=== PATIENT | female | born 1960 ===

== ENCOUNTER 2020-04-07 09:09 | Outpatient (REF) | payer OTHER, SELFPAY ==
[2020-04-07 10:54] LABS: MANUAL DIFF FLAG NO
[2020-04-07 11:03] LABS: Basophils Percent Auto 0.5 % (0-2); Eosinophils Absolute Auto 0.2 X10*3/uL (0.0-0.4); Eosinophils Percent Auto 2.8 % (0-4); Hematocrit 39.3 % (37-47); Hemoglobin 13.3 g/dl (12.0-16.0); Imm Gran Abs Auto 0.01 X10*3/uL (0.00-0.03); Imm Gran Pct Auto 0.2 % (0.0-0.4); Lymphocytes Absolute Auto 1.5 X10*3/uL (1.2-4.9); Lymphocytes Percent Auto 25.6 % (20-40); Mean Corpuscular HGB Conc 33.8 g/dl (31.0-35.0); Mean Corpuscular Hemoglobin 30.6 pg (27.0-33.0); Mean Corpuscular Volume 90.6 fL (80-98); Mean Platelet Volume 11.9 fL (9.4-12.3); Monocytes Absolute Auto 0.4 X10*3/uL (0.1-1.2); Monocytes Percent Auto 7.7 % (2-11); Neutrophils Absolute Auto 3.6 X10*3/uL (2.0-8.3); Neutrophils Percent Auto 63.2 % (45-73); Platelet Count 355 X10*3/uL (160-400); Red Blood Count 4.34 X10*6/uL (4.20-5.50); Red Cell Distribution Width 11.3 % (11.0-16.0); White Blood Count 5.7 X10*3/uL (4.8-10.8)
[2020-04-07 11:33] LABS: Glucose Urine UA NEG (NEG); Leukocyte Esterase Urine NEG (NEG); Nitrite Urine NEG (NEG); PH 6.5 (5.0-8.0); Urine Blood NEG (NEG); Urine Ketones NEG (NEG); Urine Protein NEG (NEG-TRACE)
[2020-04-07 11:35] LABS: Alanine Aminotransferase 75 U/L (0-31); Albumin Level 4.3 g/dL (3.5-5.0); Alkaline Phosphatase 115 U/L (39-117); Anion Gap 14 (12-20); Aspartate Amino Transferase 34 U/L (5-31); Bilirubin Total 0.8 mg/dL (0.0-1.0); Blood Urea Nitrogen 12 mg/dL (9-16); Calcium 9.6 mg/dL (8.4-10.2); Carbon Dioxide 30 mmol/L (22-29); Chloride 101 mmol/L (96-108); Cholesterol 174 mg/dL; Estimated Glomerular Filt Rate > 60; Glucose Fasting 115 mg/dL (60-99); HDL Cholesterol 28 mg/dL; LDL Cholesterol Calculated 111 mg/dl; Potassium 4.7 mmol/l (3.3-5.1); Sodium 140 mmol/L (135-145); Total Protein 7.5 g/dL (6.5-8.0); Triglycerides 178 mg/dL
[2020-04-07 11:46] LABS: TSH reflex Free T4 2.75 mIU/mL (0.32-4.0); Vitamin D 25-OH Total 33.2 ng/mL (>30)
[2020-04-07 11:51] LABS: Appearance Urine CLEAR; Color Urine YELLOW
[2020-04-07 12:03] LABS: Gamma Glutamyl Transpeptidase 92 U/L (7-33)
[2020-04-07 12:35] LABS: Mucus Urine 1+ /LPF; RBC Urine 0 /HPF (0); WBC Urine 0-2 /HPF (0-4)
== END 2020-04-07 09:10 | disposition home or self-care (01) ==
LOC: HO.LAB 09:09
PROVIDERS: PCP Internal Medicine; Visit Provider Internal Medicine
DX: E78.5 Hyperlipidemia, unspecified (principal); E11.9 Type 2 diabetes mellitus without complications; D18.03 Hemangioma of intra-abdominal structures; R79.89 Other specified abnormal findings of blood chemistry; Z00.00 Encounter for general adult medical examination without abnormal findings; K21.9 Gastro-esophageal reflux disease without esophagitis; E55.9 Vitamin D deficiency, unspecified; M85.80 Other specified disorders of bone density and structure, unspecified site; E66.3 Overweight
CPT/HCPCS: 36415; 80053; 80061; 81003; 81015; 82306; 82977; 84443; 85025

== ENCOUNTER 2020-04-24 09:54 | Emergency (ER) | payer OTHER, SELFPAY ==
[2020-04-24 10:01] VITALS: BP 149/70; PULSE 92; RESP 18; TEMP 36.9; O2SAT 97; BMI 25.6
--- NOTE | 2020-04-24 10:22 | ED_ITS ---
HPI - URI/Sore Throat General Chief Complaint: Upper Respiratory Symptoms Stated Complaint: covid symptoms Time Seen by Provider: 04/24/20 10:17 Related Data Home Medications Medication Instructions Recorded Confirmed omeprazole 40 mg capsule,delayed 40 mg PO BID 04/11/20 04/12/20 release rosuvastatin 10 mg tablet 10 mg PO BEDTIME 04/11/20 04/12/20 simethicone 180 mg capsule 180 mg PO QID PRN 04/11/20 04/12/20 ibuprofen 600 mg tablet 600 mg PO TID PRN tab 04/12/20 04/12/20 Previous Rx's Medication Instructions Recorded sitagliptin 100 mg tablet 100 mg PO DAILY #90 tab 04/08/20 ergocalciferol (vitamin D2) 1,250 1,250 mcg PO QWEEK 90 Days #13 cap 04/11/20 mcg (50,000 unit) capsule Allergies Allergy/AdvReac Type Severity Reaction Status Date / Time codeine [CODEINE] Allergy Intermediate DIZZY/CAROLYN Verified 04/11/20 16:56 RGY atorvastatin AdvReac Unknown increased Verified 04/11/20 16:56 heartburns, increase heartburns Review of Systems Review of Systems: Constitutional: No Weight loss, No Fever, + Chills, No Night Sweats, No Fatigue, No Malaise ENT/Mouth: No Hearing loss, No Ear Pain, No Nasal Congestion, No Sinus Pain, No Hoarseness, + sore throat, + Rhinorrhea, No Swallowing Difficulty Eyes: No Eye Pain, No Swelling, No Redness, No Foreign Body, No Discharge, No Vision Changes Cardiovascular: No Chest Pain, No SOB, No Dyspnea on Exertion, No Orthopnea, No Edema, No Palpitations Respiratory: No Cough, No Sputum, No Wheezing, No Smoke Exposure, No Dyspnea Gastrointestinal: No Nausea, No Vomiting, No Diarrhea, No Constipation, No abdominal Pain, No Hematochezia, No Melena Genitourinary: no irregular bleeding, No Dysuria, No Urinary Frequency, No Hematuria, No Urinary Incontinence, No Urgency, No Flank Pain, No Urinary Flow Changes, No Hesitancy Musculoskeletal: No joint pain, No Myalgias, No Joint Swelling Skin: No Skin Lesions, No rash Neuro: No Weakness, No Numbness, No Paresthesias, No Loss of Consciousness, No Dizziness, No Headache Psych: No Anxiety/Panic, No Depression Heme/Lymph: No Bruising, No Bleeding,No Lymphadenopathy Endocrine: No Polyuria, No Polydipsia, No Temperature Intolerance Yes all other systems are reviewed and are negative [facility] Past Medical History Medical History (Updated 04/24/20 @ 10:21 by Addison Mensah NP) Anxiety Constipation Diabetes mellitus Elevated LFTs GERD (gastroesophageal reflux disease) Hemangioma of liver Osteopenia Overweight (BMI 25.0-29.9) Pure hypercholesterolemia Vitamin D deficiency Surgical History History of blood clots History of colonoscopy History of oral surgery History of resection of liver History of tubal ligation Family History Family History (Updated 04/12/20 @ 04:17 by Henrique Bowen MD) Father No problems noted. Mother Uterine cancer Colon cancer Maternal Grandmother No problems noted. Paternal Aunt Ovarian cancer Social History Social History (Updated 04/12/20 @ 04:20 by Henrique Bowen MD) Smoking Status: Never smoker Advance Directives: No Advance Directives Information Provided: No Physical Exam Vital Signs: Vital Signs: Last Vital Signs Temp 98.4 F 04/24/20 10:01 Pulse 92 04/24/20 10:01 Resp 18 04/24/20 10:01 BP 149/70 H 04/24/20 10:01 Pulse Ox 97 04/24/20 10:01 Body Mass Index 25.6 Reviewed Const: General: cooperative and healthy appearing; No acute distress or intoxicated appearing Nutritional Appearance: average body habitus Orientation/consciousness: patient oriented x3 HENMT: Head: Yes normal to inspection Ears: hearing grossly normal bilaterally Eyes: General: appearance normal, both eyes and all related structures Visual Schwarz: normal visual schwarz by confrontation Neck: Neck: Yes normal visual inspection, No positive Brudzinski's sign, No positive Kernig's sign and No tender Thyroid: Thyroid normal Chest: Chest palpation & inspection: normal inspection of the chest Resp: Effort & Inspection: normal respiratory effort Cardio: Jugular venous distension: no JVD : General: Yes no CVA tenderness Back/Spine/Pelvis: Back: no CVA tenderness Skin: General skin exam: no rashes or lesions noted Neuro: General: patient oriented x3 Extrem: General: Yes normal to inspection Discharge Plan Discharge Clinical Impression: Upper respiratory infection Qualifiers: URI type: unspecified viral URI Qualified Code(s): J06.9 - Acute upper respiratory infection, unspecified Patient Disposition: Home, Self-Care Instructions: Upper Respiratory Infection (ED) Additional Instructions: Based on your symptoms and history we have sent a COVID-19. Although your RESULT IS PENDING at this time. RESULTS should return within 72 hours. At this time you will be contacted with either NEGATIVE OR POSITIVE results. -Please wait until we contact you for your results. At this time you will be okay for discharge. Please plan for self quarantine for up to 14 days. Do not expose yourself to others. You may not go to work. If testing does come back negative you may return to activities as long as you are no longer having any symptoms for at least 3 days. Please continue to follow cold instructions and wash your hands frequently. You may take Tylenol as directed on the bottle for pain or fever Patient seen in the emergency department on 12/11/2019 and should be excused from work until negative test results AND until 72 hours without any symptoms AND at least 10 days have passed since symptoms first appeared or since last exposure to COVID-19 positive patient CDC Guidelines for home isolation: - Stay away from others - WEAR A MASK if you are sick AND STAY HOME - Cover your mouth and nose with a tissue when you cough or sneeze. Dispose of tissues in a lined trash can and wash your hands immediately with soap and water for at least 20 seconds. If soap and water are not available, clean hands with alcohol-based hand earth observations chief scientist that contains at least 60% alcohol. - Clean your hands often with soap and water for at least 20 seconds - Avoid touching your eyes, nose and mouth with unwashed hands - Do not share dishes, drinking glasses, cups, eating utensils, towels, or bedding with other people in your home. After using these items, wash them thoroughly with soap and water or put in the automotive electrician helper. - Clean high-touch surfaces in your isolation area ( sick room and bathroom) every day; let a caregiver clean and disinfect high-touch surfaces in other areas of the home. Clean the area or item with soap and water or another detergent if it is dirty. Then, use a household disinfectant. - Limit contact with pets and animals: If you must care for a pet, wash your hands before and after interacting with them Prescriptions: No Action sitagliptin [Januvia] 100 mg tablet 100 mg PO DAILY Qty: 90 RF: 1 rosuvastatin 10 mg tablet 10 mg PO BEDTIME RF: 0 omeprazole 40 mg capsule,delayed release(DR/EC) 40 mg PO BID RF: 0 simethicone 180 mg capsule 180 mg PO QID PRNRF: 0 ergocalciferol (vitamin D2) 1,250 mcg (50,000 unit) capsule 1,250 mcg PO QWEEK 90 Days Qty: 13 RF: 3 ibuprofen 600 mg tablet 600 mg PO TID PRN (Reason: pain) RF: 0 Referrals: Henrique Bowen MD [Primary Care Provider] - 10 days
== END 2020-04-24 10:29 | disposition home or self-care (01) ==
PROVIDERS: Nurse Practitioner Primary Care; Emergency Provider Emergency Medicine; PCP Internal Medicine
DX: J06.9 Acute upper respiratory infection, unspecified (principal); R05 Cough; Z79.899 Other long term (current) drug therapy; Z20.828 Contact with and (suspected) exposure to other viral communicable diseases
CPT/HCPCS: 99283; U0003

== ENCOUNTER 2020-05-17 11:09 | Outpatient (REF) | payer OTHER, SELFPAY | END 2020-05-17 11:10 | disposition home or self-care (01) | LOC: HO.LAB 11:09 | PROVIDERS: Visit Provider Internal Medicine | DX: Z20.828 Contact with and (suspected) exposure to other viral communicable diseases (principal) | CPT/HCPCS: U0003 ==

== ENCOUNTER 2020-07-05 09:09 | Outpatient (REF) | payer OTHER, SELFPAY ==
[2020-07-05 09:33] LABS: MANUAL DIFF FLAG NO
[2020-07-05 09:39] LABS: Basophils Percent Auto 0.2 % (0-2); Eosinophils Absolute Auto 0.1 X10*3/uL (0.0-0.4); Eosinophils Percent Auto 1.7 % (0-4); Hematocrit 40.3 % (37-47); Hemoglobin 13.5 g/dl (12.0-16.0); Imm Gran Abs Auto 0.01 X10*3/uL (0.00-0.03); Imm Gran Pct Auto 0.2 % (0.0-0.4); Lymphocytes Absolute Auto 1.6 X10*3/uL (1.2-4.9); Mean Corpuscular HGB Conc 33.5 g/dl (31.0-35.0); Mean Corpuscular Hemoglobin 29.7 pg (27.0-33.0); Mean Corpuscular Volume 88.8 fL (80-98); Mean Platelet Volume 11.3 fL (9.4-12.3); Monocytes Absolute Auto 0.4 X10*3/uL (0.1-1.2); Monocytes Percent Auto 9.8 % (2-11); Neutrophils Absolute Auto 2.1 X10*3/uL (2.0-8.3); Neutrophils Percent Auto 49.1 % (45-73); Platelet Count 288 X10*3/uL (160-400); Red Blood Count 4.54 X10*6/uL (4.20-5.50); Red Cell Distribution Width 11.3 % (11.0-16.0); White Blood Count 4.2 X10*3/uL (4.8-10.8)
[2020-07-05 09:48] LABS: Glucose Urine UA NEG (NEG); Leukocyte Esterase Urine NEG (NEG); Nitrite Urine NEG (NEG); Specific Gravity - Urine 1.025 (1.005-1.025); Urine Blood TRACE (NEG); Urine Ketones NEG (NEG); Urine Protein NEG (NEG-TRACE)
[2020-07-05 09:52] LABS: Appearance Urine CLEAR; Color Urine YELLOW
[2020-07-05 09:57] LABS: Bacteria Urine TRACE /LPF; Mucus Urine 1+ /LPF; RBC Urine 0-2 /HPF (0); Squamous Epithelial Cell Urine 1+ /LPF; WBC Urine 0-2 /HPF (0-4)
[2020-07-05 10:05] LABS: Alanine Aminotransferase 44 U/L (0-31); Albumin Level 4.5 g/dL (3.5-5.0); Alkaline Phosphatase 88 U/L (39-117); Anion Gap 14 (12-20); Aspartate Amino Transferase 27 U/L (5-31); Blood Urea Nitrogen 15 mg/dL (9-16); Calcium 9.6 mg/dL (8.4-10.2); Carbon Dioxide 29 mmol/L (22-29); Chloride 103 mmol/L (96-108); Cholesterol 176 mg/dL; Estimated Glomerular Filt Rate > 60; Glucose Fasting 121 mg/dL (60-99); HDL Cholesterol 34 mg/dL; LDL Cholesterol Calculated 117 mg/dl; Potassium 4.5 mmol/l (3.3-5.1); Sodium 141 mmol/L (135-145); Total Protein 7.5 g/dL (6.5-8.0); Triglycerides 129 mg/dL
[2020-07-05 10:28] LABS: TSH reflex Free T4 3.64 mIU/mL (0.32-4.0); Vitamin D 25-OH Total 31.9 ng/mL (>30)
[2020-07-05 10:36] LABS: Creatinine Urine 166.64 mg/dL; Microalbum/Creatinine Ratio Ur 7.2 ug/mg cr
== END 2020-07-05 09:10 | disposition home or self-care (01) ==
LOC: HO.LAB 09:09
PROVIDERS: PCP Internal Medicine; Visit Provider Internal Medicine
DX: K21.9 Gastro-esophageal reflux disease without esophagitis (principal); D18.03 Hemangioma of intra-abdominal structures; E11.9 Type 2 diabetes mellitus without complications; E78.00 Pure hypercholesterolemia, unspecified; R79.89 Other specified abnormal findings of blood chemistry; E66.3 Overweight; E55.9 Vitamin D deficiency, unspecified
CPT/HCPCS: 36415; 80053; 80061; 81001; 82043; 82306; 84443; 85025

== ENCOUNTER → 2020-10-04 15:43 | Outpatient (BNVA) | payer OTHER, SELFPAY | PROVIDERS: PCP Internal Medicine; Visit Provider Internal Medicine Gastroenterology | DX: D18.03 Hemangioma of intra-abdominal structures (principal); R79.89 Other specified abnormal findings of blood chemistry | CPT/HCPCS: 99212 ==

== ENCOUNTER → 2020-11-07 15:22 | Outpatient (BNVA) | payer OTHER, SELFPAY | PROVIDERS: Visit Provider Obstetrics & Gynecology ==

== ENCOUNTER 2020-11-16 09:04 | Outpatient (REF) | payer OTHER, SELFPAY ==
[2020-11-16 09:34] LABS: MANUAL DIFF FLAG NO
[2020-11-16 09:51] LABS: Basophils Percent Auto 0.2 % (0-2); Eosinophils Absolute Auto 0.1 X10*3/uL (0.0-0.4); Eosinophils Percent Auto 1.4 % (0-4); Glucose Urine UA NEG (NEG); Hematocrit 43.2 % (37-47); Hemoglobin 14.7 g/dl (12.0-16.0); Imm Gran Abs Auto 0.01 X10*3/uL (0.00-0.03); Imm Gran Pct Auto 0.2 % (0.0-0.4); Leukocyte Esterase Urine NEG (NEG); Lymphocytes Absolute Auto 1.6 X10*3/uL (1.2-4.9); Lymphocytes Percent Auto 33.6 % (20-40); Mean Corpuscular Hemoglobin 30.6 pg (27.0-33.0); Mean Corpuscular Volume 89.8 fL (80-98); Monocytes Absolute Auto 0.4 X10*3/uL (0.1-1.2); Neutrophils Absolute Auto 2.8 X10*3/uL (2.0-8.3); Neutrophils Percent Auto 56.6 % (45-73); Nitrite Urine NEG (NEG); Platelet Count 254 X10*3/uL (160-400); Red Blood Count 4.81 X10*6/uL (4.20-5.50); Red Cell Distribution Width 11.1 % (11.0-16.0); Specific Gravity - Urine 1.025 (1.005-1.025); Urine Blood NEG (NEG); Urine Ketones NEG (NEG); Urine Protein NEG (NEG-TRACE); White Blood Count 4.9 X10*3/uL (4.8-10.8)
[2020-11-16 10:01] LABS: Appearance Urine CLEAR; Color Urine YELLOW
[2020-11-16 10:10] LABS: Alanine Aminotransferase 38 U/L (0-31); Albumin Level 4.7 g/dL (3.5-5.0); Alkaline Phosphatase 94 U/L (39-117); Anion Gap 14 (12-20); Aspartate Amino Transferase 22 U/L (5-31); Bilirubin Total 1.2 mg/dL (0.0-1.0); Blood Urea Nitrogen 17 mg/dL (9-16); Calcium 10.2 mg/dL (8.4-10.2); Carbon Dioxide 30 mmol/L (22-29); Chloride 101 mmol/L (96-108); Cholesterol 238 mg/dL; Estimated Glomerular Filt Rate > 60; Glucose Fasting 119 mg/dL (60-99); HDL Cholesterol 35 mg/dL; LDL Cholesterol Calculated 168 mg/dl; Potassium 4.6 mmol/L (3.3-5.1); Sodium 140 mmol/L (135-145); Total Protein 7.9 g/dL (6.5-8.0); Triglycerides 175 mg/dL
[2020-11-16 10:32] LABS: TSH reflex Free T4 4.35 uIU/mL (0.32-4.0); Vitamin D 25-OH Total 24.5 ng/mL (>30)
[2020-11-16 11:04] LABS: Free T4 (Free Thyroxine) 0.95 ng/dL (0.71-1.85)
[2020-11-16 14:33] LABS: Creatinine Urine 144.98 mg/dL; Microalbum/Creatinine Ratio Ur 7.5 ug/mg cr
== END 2020-11-16 09:05 | disposition home or self-care (01) ==
LOC: HO.LAB 09:04
PROVIDERS: PCP Internal Medicine; Visit Provider Internal Medicine
DX: I10 Essential (primary) hypertension (principal); K59.00 Constipation, unspecified; K21.9 Gastro-esophageal reflux disease without esophagitis; E78.00 Pure hypercholesterolemia, unspecified; E11.9 Type 2 diabetes mellitus without complications; R79.89 Other specified abnormal findings of blood chemistry; E66.3 Overweight; E55.9 Vitamin D deficiency, unspecified
CPT/HCPCS: 36415; 80053; 80061; 81003; 82043; 82306; 84439; 84443; 85025

== ENCOUNTER 2020-11-18 17:27 | Emergency (ER) | payer OTHER, SELFPAY ==
--- NOTE | 2020-11-18 | ECG_ITS ---
Test Reason : ABD PAIN Blood Pressure : / mmHG Vent. Rate : 078 BPM Atrial Rate : 078 BPM P-R Int : 124 ms QRS Dur : 074 ms QT Int : 392 ms P-R-T Axes : -26 041 059 degrees QTc Int : 446 ms Normal sinus rhythm Normal ECG When compared with ECG of 04-JAN-2020 15:30, No significant change was found Referred By: Ayleen Bonilla Electronically Signed By:Orlin Nunes
--- NOTE | ~2020-11-18 | CT_ITS ---
EXAMINATION: CT ABDOMEN AND PELVIS WITH CONTRAST CLINICAL INFORMATION: Diffuse abdominal pain. Worse epigastric. History of hepatic hemangioma COMPARISON: MRI 01/28/2018 TECHNIQUE: Multidetector volumetric images were obtained from the superior aspect of the liver through the pubic symphysis following administration 85 mL of Omnipaque 350 intravenous contrast. Sagittal and coronal reformatted images were obtained on the technologist's workstation. Oral contrast: No This CT examination was performed using dose optimization techniques as appropriate, variously including the following: *Automated exposure control *Adjustment of mA and/or kV according to patient size (this includes techniques or standardized protocols for targeted exams where dose is matched to indication/reason for exam; i.e. extremities or head) *Use of iterative reconstruction technique DLP: 478 mGy-cm FINDINGS: LUNG BASES: The visualized lung bases are unremarkable. LIVER, GALLBLADDER, AND BILIARY TREE: There is been interval resection of segment 6 and 7 of the liver. The previously seen large hemangioma no longer seen. There continues to be a 2.4 x 2.6 cm hemangioma along the lateral periphery of the right lobe of the liver present previously as well. No new or concerning focal liver lesion seen. The gallbladder is unremarkable with no evidence of radiopaque gallstones, gallbladder wall thickening, or obvious pericholecystic inflammatory changes. PANCREAS: Unremarkable. SPLEEN: Unremarkable. ADRENAL GLANDS: Unremarkable. KIDNEYS AND URETERS: The kidneys are normal in size, shape, and attenuation. No hydronephrosis, hydroureter, or calculi seen. No perinephric stranding. BLADDER: Unremarkable. GASTROINTESTINAL TRACT: Stomach and small bowel are nondilated. Normal appendix, coronal image 31. Scattered colonic diverticulosis. No evidence of colitis or diverticulitis. ABDOMINAL WALL: No significant hernia is appreciated. LYMPH NODES: No lymphadenopathy. VASCULAR: Moderate calcified and noncalcified atherosclerotic changes of the normal caliber aorta. PELVIC VISCERA: Normal CT appearance of the uterus and ovaries. OSSEOUS STRUCTURES: Unremarkable. CT/CT abdomen pelvis w con IMPRESSION: No acute CT abnormality. Interval resection of previously seen hemangioma in the posterior right lobe of the liver.
[2020-11-18 18:30] VITALS: BP 63/44; PULSE 83; RESP 18; O2SAT 98
[2020-11-18 18:47] VITALS: BP 129/74; PULSE 77; RESP 16; TEMP 36.7; O2SAT 100; BMI 24.1
--- NOTE | 2020-11-18 18:52 | PC.NURSE ---
arrival to is pale, diaphoretic, slow to answer questions. c/o abd and lower back pain. this rn bringing patient to md attention.
--- NOTE | 2020-11-18 19:03 | ED_ITS ---
HPI - Abdominal Pain General Chief Complaint: Abdominal Pain Stated Complaint: Abd Pain Time Seen by Provider: 11/18/20 18:59 Source: patient Mode of arrival: ambulatory Limitations: no limitations History of Present Illness HPI narrative: Patient comes emergency room complaining of diffuse abdominal pain. Patient states she ate at 13:00, started having mild abdominal pain but at 15:00 it became severe. Patient came to the emergency room because she could not tolerate the pain anymore. States it is constant, nonradiating. Complaining of nausea, no vomiting, no diarrhea. Patient reports 1 bowel movement that was normal prior to arrival. When patient arrived to emergency room, patient had very sharp epigastric pain, started feeling very nauseous, became diaphoretic. Patient denies chest pain, no shortness of breath MD elicited complaint: abdominal pain Related Data Home Medications Medication Instructions Recorded Confirmed rosuvastatin 10 mg tablet 10 mg PO BEDTIME 04/11/20 07/11/20 simethicone 180 mg capsule 180 mg PO QID PRN 04/11/20 07/11/20 Previous Rx's Medication Instructions Recorded ergocalciferol (vitamin D2) 1,250 1,250 mcg PO QWEEK 90 Days #13 cap 07/11/20 mcg (50,000 unit) capsule sitagliptin 100 mg tablet 100 mg PO DAILY #90 tab 10/15/20 omeprazole 40 mg capsule,delayed 40 mg PO DAILY PRN #90 cap 10/26/20 release ibuprofen 600 mg tablet 600 mg PO TID PRN #90 tab 11/18/20 hyoscyamine sulfate 0.125 mg PO QID PRN #10 tab 11/19/20 ondansetron HCl [Zofran] 4 mg PO Q6H PRN #10 tab 11/19/20 simethicone 180 mg PO BID PRN #10 cap 11/19/20 Allergies Allergy/AdvReac Type Severity Reaction Status Date / Time codeine [CODEINE] Allergy Intermediate DIZZY/CAROLYN Verified 11/07/20 15:27 RGY atorvastatin AdvReac Unknown increased Verified 11/07/20 15:27 heartburns Review of Systems Review of Systems Constitutional : No Weight loss, No Fever, No Chills, No Night Sweats, No Fatigue, No Malaise ENT/Mouth : No Hearing loss, No Ear Pain, No Nasal Congestion, No Sinus Pain, No Hoarseness, No sore throat, No Rhinorrhea, No Swallowing Difficulty Eyes: No Eye Pain, No Swelling, No Redness, No Foreign Body, No Discharge, No Vision Changes Cardiovascular : No Chest Pain, No SOB, No Dyspnea on Exertion, No Orthopnea, No Edema, No Palpitations Respiratory : No Cough, No Sputum, No Wheezing, No Smoke Exposure, No Dyspnea Gastrointestinal : Complaining of nausea No Vomiting, No Diarrhea, No Constipation, complaining of diffuse abdominal pain, No Hematochezia, No Melena Genitourinary : no irregular bleeding, No Dysuria, No Urinary Frequency, No Hematuria, No Urinary Incontinence, No Urgency, No Flank Pain, No Urinary Flow Changes, No Hesitancy Musculoskeletal : No joint pain, No Myalgias, No Joint Swelling Skin : No Skin Lesions, No rash Neuro : No Weakness, No Numbness, No Paresthesias, No Loss of Consciousness, No Dizziness, No Headache Psych : No Anxiety/Panic, No Depression, No SI/HI/AH/VH, No Social Issues, Heme/Lymph: No Bruising, No Bleeding,No Lymphadenopathy Endocrine : No Polyuria, No Polydipsia, No Temperature Intolerance Physical Exam Vital Signs: Vital Signs: Last Vital Signs Temp 98.1 F 11/18/20 18:47 Pulse 82 11/18/20 21:20 Resp 17 11/18/20 21:20 BP 143/75 H 11/18/20 21:20 Pulse Ox 98 11/18/20 21:20 Body Mass Index 24.1 Appearance: Alert. Oriented X3. No acute distress. Eyes: Pupils equal, round and reactive to light. ENT: Pharynx normal. Neck: Normal inspection. Neck supple. No lymph nodes noted. No crepitus CVS: Normal heart rate and rhythm. Pulses normal. Normal S1 and S2 Respiratory: No respiratory distress. Breath sounds normal. No Wheezing. No rales Abdomen: Soft, tender to palpation over epigastric area and right upper quadrant, positive Turner sign, guarding, no rebound Skin: Skin warm and dry. Normal skin color. Normal skin turgor. Extremities: No lower extremity edema. No lower extremity edema. No Lacerations. No Rash Neuro: Oriented X 3. No motor deficit. No sensory deficit. Moving all extermities. No slurred speech. Course Course Course Narrative: I discussed the labs and imaging with the patient, patient states that at this time she feels much better. Patient states that she is very hungry. Does not have abdominal pain. Patient is being p.o. challenged. On physical exam after treatment, patient has no epigastric or right upper quadrant pain, no abdominal pain in the rest of the abdomen.. Patient ate, had good p.o. tolerance, states she feels gassy but has no abdominal pain. Patient will follow-up with her primary care physician. MDM - Abdominal Pain Lab Data Result diagrams: 11/18/20 19:59 11/18/20 19:59 Labs: Lab Results 11/18/20 11/18/20 11/18/20 Range/Units 19:59 19:59 19:59 WBC 11.8 H (4.8-10.8) X10*3/uL RBC 4.80 (4.20-5.50) X10*6/uL Hgb 14.5 (12.0-16.0) g/dl Hct 42.7 (37-47) % MCV 89.0 (80-98) fL MCH 30.2 (27.0-33.0) pg MCHC 34.0 (31.0-35.0) g/dl RDW 11.1 (11.0-16.0) % Plt Count 275 (160-400) X10*3/uL MPV 11.1 (9.4-12.3) fL Immature Gran % (Auto) 0.2 (0.0-0.4) % Neut % (Auto) 87.0 H (45-73) % Lymph % (Auto) 8.9 L (20-40) % [place] % (Auto) 3.7 (2-11) % Eos % (Auto) 0.1 (0-4) % Baso % (Auto) 0.1 (0-2) % Lymph # (Auto) 1.1 L (1.2-4.9) X10*3/uL [place] # (Auto) 0.4 (0.1-1.2) X10*3/uL Eos # (Auto) 0.0 (0.0-0.4) X10*3/uL Baso # (Auto) 0.0 (0.0-0.2) X10*3/uL Abs Immat Gran (auto) 0.02 (0.00-0.03) X10*3/uL Absolute Neuts (auto) 10.3 H (2.0-8.3) X10*3/uL Absolute Nucleated RBC 0.000 (0.0-0.012) X10*3/uL Nucleated RBC % (auto) 0.0 (0.0-0.2) /100WBC Sodium 141 (135-145) mmol/L Potassium 5.0 (3.3-5.1) mmol/L Chloride 101 (96-108) mmol/L Carbon Dioxide 27 (22-29) mmol/L Anion Gap 18 (12-20) BUN 13 (9-16) mg/dL Creatinine 0.73 (0.5-1.4) mg/dL Estim Creat Clear Calc 65.6 Estimated GFR > 60 Random Glucose 149 H (60-115) mg/dL Lactic Acid 1.5 (0.5-2.0) mmol/L Calcium 10.3 H (8.4-10.2) mg/dL Total Bilirubin 1.1 H (0.0-1.0) mg/dL Direct Bilirubin 0.3 (0.0-0.5) mg/dL AST 26 (5-31) U/L ALT 36 H (0-31) U/L Alkaline Phosphatase 91 (39-117) U/L Total Protein 8.0 (6.5-8.0) g/dL Albumin 4.5 (3.5-5.0) g/dL Urine Color Urine Appearance Urine pH (5.0-8.0) Ur Specific [place] (1.005-1.025) Urine Protein (NEG-TRACE) MG/DL Urine Glucose (UA) (NEG) MG/DL Urine Ketones (NEG) MG/DL Urine Blood (NEG) Urine Nitrite (NEG) Ur Leukocyte Esterase (NEG) 11/18/20 Range/Units 19:59 WBC (4.8-10.8) X10*3/uL RBC (4.20-5.50) X10*6/uL Hgb (12.0-16.0) g/dl Hct (37-47) % MCV (80-98) fL MCH (27.0-33.0) pg MCHC (31.0-35.0) g/dl RDW (11.0-16.0) % Plt Count (160-400) X10*3/uL MPV (9.4-12.3) fL Immature Gran % (Auto) (0.0-0.4) % Neut % (Auto) (45-73) % Lymph % (Auto) (20-40) % [place] % (Auto) (2-11) % Eos % (Auto) (0-4) % Baso % (Auto) (0-2) % Lymph # (Auto) (1.2-4.9) X10*3/uL [place] # (Auto) (0.1-1.2) X10*3/uL Eos # (Auto) (0.0-0.4) X10*3/uL Baso # (Auto) (0.0-0.2) X10*3/uL Abs Immat Gran (auto) (0.00-0.03) X10*3/uL Absolute Neuts (auto) (2.0-8.3) X10*3/uL Absolute Nucleated RBC (0.0-0.012) X10*3/uL Nucleated RBC % (auto) (0.0-0.2) /100WBC Sodium (135-145) mmol/L Potassium (3.3-5.1) mmol/L Chloride (96-108) mmol/L Carbon Dioxide (22-29) mmol/L Anion Gap (12-20) BUN (9-16) mg/dL Creatinine (0.5-1.4) mg/dL Estim Creat Clear Calc Estimated GFR Random Glucose (60-115) mg/dL Lactic Acid (0.5-2.0) mmol/L Calcium (8.4-10.2) mg/dL Total Bilirubin (0.0-1.0) mg/dL Direct Bilirubin (0.0-0.5) mg/dL AST (5-31) U/L ALT (0-31) U/L Alkaline Phosphatase (39-117) U/L Total Protein (6.5-8.0) g/dL Albumin (3.5-5.0) g/dL Urine Color YELLOW Urine Appearance CLEAR Urine pH 7.0 (5.0-8.0) Ur Specific [place] 1.020 (1.005-1.025) Urine Protein NEG (NEG-TRACE) MG/DL Urine Glucose (UA) NEG (NEG) MG/DL Urine Ketones 5 (NEG) MG/DL Urine Blood NEG (NEG) Urine Nitrite NEG (NEG) Ur Leukocyte Esterase NEG (NEG) Imaging Data Abdomen CT: Radiologist's impression: FINDINGS: LUNG BASES: The visualized lung bases are unremarkable. LIVER, GALLBLADDER, AND BILIARY TREE: There is been interval resection of segment 6 and 7 of the liver. The previously seen large hemangioma no longer seen. There continues to be a 2.4 x 2.6 cm hemangioma along the lateral periphery of the right lobe of the liver present previously as well. No new or concerning focal liver lesion seen. The gallbladder is unremarkable with no evidence of radiopaque gallstones, gallbladder wall thickening, or obvious pericholecystic inflammatory changes. PANCREAS: Unremarkable. SPLEEN: Unremarkable. ADRENAL GLANDS: Unremarkable. KIDNEYS AND URETERS: The kidneys are normal in size, shape, and attenuation. No hydronephrosis, hydroureter, or calculi seen. No perinephric stranding. BLADDER: Unremarkable. GASTROINTESTINAL TRACT: Stomach and small bowel are nondilated. Normal appendix, coronal image 31. Scattered colonic diverticulosis. No evidence of colitis or diverticulitis. ABDOMINAL WALL: No significant hernia is appreciated. LYMPH NODES: No lymphadenopathy. VASCULAR: Moderate calcified and noncalcified atherosclerotic changes of the normal caliber aorta. PELVIC VISCERA: Normal CT appearance of the uterus and ovaries. OSSEOUS STRUCTURES: Unremarkable. CT/CT abdomen pelvis w con IMPRESSION: No acute CT abnormality. Interval resection of previously seen hemangioma in the posterior right lobe of the liver. ECG Data Attestation: I personally reviewed and interpreted this ECG as follows: (Sinus rhythm, heart 78, no ST segment depression or elevation, no T-wave inversion, QTC 446) Discharge Plan Discharge Clinical Impression: Abdominal pain Qualifiers: Abdominal location: generalized Qualified Code(s): R10.84 - Generalized abdominal pain Patient Disposition: Home, Self-Care Instructions: Abdominal Pain (ED) Additional Instructions: Please follow-up with your primary care physician tomorrow. If you have any worsening or new symptoms, please return to the emergency room or call 911 Prescriptions: New simethicone 180 mg capsule 180 mg PO BID PRN (Reason: abdominal distention) Qty: 10 RF: 0 ondansetron HCl [Zofran] 4 mg tablet 4 mg PO Q6H PRN (Reason: nausea and vomiting) Qty: 10 RF: 0 hyoscyamine sulfate 0.125 mg tablet 0.125 mg PO QID PRN (Reason: dyspepsia) Qty: 10 RF: 0 No Action sitagliptin [Januvia] 100 mg tablet 100 mg PO DAILY Qty: 90 RF: 1 omeprazole 40 mg capsule,delayed release(DR/EC) 40 mg PO DAILY PRN (Reason: for acid reflux) Qty: 90 RF: 1 ibuprofen 600 mg tablet 600 mg PO TID PRN (Reason: for pain) Qty: 90 RF: 0 rosuvastatin 10 mg tablet 10 mg PO BEDTIME RF: 0 simethicone 180 mg capsule 180 mg PO QID PRNRF: 0 ergocalciferol (vitamin D2) 1,250 mcg (50,000 unit) capsule 1,250 mcg PO QWEEK 90 Days Qty: 13 RF: 3 PMFSH Past Medical History Medical History Anxiety Constipation Diabetes mellitus Dysplasia of cervix, low grade (VIRGIE 1) Elevated LFTs GERD (gastroesophageal reflux disease) Hemangioma of liver Osteopenia Overweight (BMI 25.0-29.9) Pure hypercholesterolemia Vitamin D deficiency Surgical History History of blood clots History of colonoscopy History of oral surgery History of resection of liver History of tubal ligation Family History Family History Father No problems noted. Mother Uterine cancer Colon cancer Maternal Grandmother No problems noted. Paternal Aunt Ovarian cancer Social History Social History Alcohol intake: never Advance Directives: No Advance Directives Information Provided: Yes Patient : No
[2020-11-18 19:50] VITALS: BP 141/78; PULSE 76; RESP 17; O2SAT 98
[2020-11-18] MEDS: 0.9 % Sodium Chloride 1,000 ML 999 ML IVCONT (20:05)
[2020-11-18 20:06] LABS: MANUAL DIFF FLAG NO
[2020-11-18] MEDS: ondansetron HCL 4 MG/2 ML VIAL IVPUSH (20:06)
[2020-11-18] MEDS: Morphine Sulfate 4 MG/ML CARTRIDGE IVPUSH (20:06)
[2020-11-18 20:10] LABS: Basophils Percent Auto 0.1 % (0-2); Eosinophils Percent Auto 0.1 % (0-4); Hematocrit 42.7 % (37-47); Hemoglobin 14.5 g/dl (12.0-16.0); Imm Gran Abs Auto 0.02 X10*3/uL (0.00-0.03); Imm Gran Pct Auto 0.2 % (0.0-0.4); Lymphocytes Absolute Auto 1.1 X10*3/uL (1.2-4.9); Lymphocytes Percent Auto 8.9 % (20-40); Mean Corpuscular Hemoglobin 30.2 pg (27.0-33.0); Mean Platelet Volume 11.1 fL (9.4-12.3); Monocytes Absolute Auto 0.4 X10*3/uL (0.1-1.2); Monocytes Percent Auto 3.7 % (2-11); Neutrophils Absolute Auto 10.3 X10*3/uL (2.0-8.3); Platelet Count 275 X10*3/uL (160-400); Red Cell Distribution Width 11.1 % (11.0-16.0); White Blood Count 11.8 X10*3/uL (4.8-10.8)
[2020-11-18 20:12] LABS: Glucose Urine UA NEG (NEG); Leukocyte Esterase Urine NEG (NEG); Nitrite Urine NEG (NEG); Urine Blood NEG (NEG); Urine Ketones 5 MG/DL (NEG); Urine Protein NEG (NEG-TRACE)
[2020-11-18 20:14] LABS: Appearance Urine CLEAR; Color Urine YELLOW
[2020-11-18 20:26] LABS: Lactic Acid 1.5 mmol/L (0.5-2.0)
[2020-11-18 20:33] LABS: Alanine Aminotransferase 36 U/L (0-31); Albumin Level 4.5 g/dL (3.5-5.0); Alkaline Phosphatase 91 U/L (39-117); Anion Gap 18 (12-20); Aspartate Amino Transferase 26 U/L (5-31); Bilirubin Direct 0.3 mg/dL (0.0-0.5); Bilirubin Total 1.1 mg/dL (0.0-1.0); Blood Urea Nitrogen 13 mg/dL (9-16); Calcium 10.3 mg/dL (8.4-10.2); Carbon Dioxide 27 mmol/L (22-29); Chloride 101 mmol/L (96-108); Creatinine Clr Calc Pharmacy 65.6; Estimated Glomerular Filt Rate > 60; Glucose Random 149 mg/dL (60-115); Sodium 141 mmol/L (135-145)
[2020-11-18] MEDS: iohexoL 350 MG/ML 100 ML INFUS..BTL IV (20:52)
[2020-11-18 21:20] VITALS: BP 143/75; PULSE 82; RESP 17; O2SAT 98
[2020-11-19 00:34] VITALS: BP 136/77; PULSE 82; RESP 16; O2SAT 98
[2020-11-19] MEDS: Simethicone 80 MG TAB.CHEW 160 MG PO (00:37)
[2020-11-21 11:53] LABS: Glucose, Whole Blood 148 mg/dL (60-115)
== END 2020-11-19 01:00 | disposition home or self-care (01) ==
PROVIDERS: Emergency Provider Emergency Medicine; PCP Internal Medicine
DX: R10.84 Generalized abdominal pain (principal); R11.0 Nausea; E11.9 Type 2 diabetes mellitus without complications; E78.00 Pure hypercholesterolemia, unspecified; K21.9 Gastro-esophageal reflux disease without esophagitis; Z79.02 Long term (current) use of antithrombotics/antiplatelets; Z79.899 Other long term (current) drug therapy
CPT/HCPCS: 36415; 74177; 80048; 80076; 81003; 82947; 83605; 85025; 93005; 96361; 96374; 96375; 99284; J2270; J2405; Q9967

== ENCOUNTER 2020-12-26 14:45 | Outpatient (REF) | payer OTHER, SELFPAY ==
--- NOTE | ~2020-12-26 | MM_ITS ---
EXAMINATION: MM SCREENING DIGITAL BREAST TOMOSYNTHESIS, BILATERAL CLINICAL INFORMATION: Screening. Asymptomatic. The lifetime risk of breast cancer based on the Tyrer-Cuzick Model is 7%. COMPARISON: Mammography: 11/26/2019, 02/12/2019, 02/07/2018 TECHNIQUE: Digital breast tomosynthesis is performed in both the craniocaudal and mediolateral oblique views along with computer-aided detection (CAD). Synthesized 2D images are generated from the tomosynthesis. FINDINGS: There are scattered areas of fibroglandular density (ACR BI-RADS breast composition Category b). Parenchymal pattern is similar to prior studies. There is no developing density or interval mass or architectural abnormality or abnormal calcifications. Again, there is stable duct ectasia retroareolar left breast. Oil cysts anterior right breast are decreased in size. Scattered coarse and punctate and ductal secretory calcifications are again seen. No significant changes. MM/MM tomosynthesis screening BI IMPRESSION: No significant changes from prior exams. ASSESSMENT: BI-RADS 2: Benign RECOMMENDATION: Routine annual mammography screening. This patient's information was entered into a reminder system with a target due date for their next mammogram.
== END 2020-12-26 14:46 | disposition home or self-care (01) ==
LOC: HO.MAMMO 14:45
PROVIDERS: Visit Provider Obstetrics & Gynecology
DX: Z12.31 Encounter for screening mammogram for malignant neoplasm of breast (principal)
CPT/HCPCS: 77063; 77067

== ENCOUNTER 2021-02-21 08:00 | Outpatient (REF) | payer OTHER, SELFPAY ==
[2021-02-21 08:40] LABS: MANUAL DIFF FLAG NO
[2021-02-21 08:55] LABS: Basophils Percent Auto 0.5 % (0-2); Eosinophils Absolute Auto 0.1 X10*3/uL (0.0-0.4); Eosinophils Percent Auto 1.2 % (0-4); Hematocrit 40.5 % (37-47); Hemoglobin 13.7 g/dl (12.0-16.0); Imm Gran Abs Auto 0.01 X10*3/uL (0.00-0.03); Imm Gran Pct Auto 0.2 % (0.0-0.4); Lymphocytes Absolute Auto 1.7 X10*3/uL (1.2-4.9); Lymphocytes Percent Auto 40.8 % (20-40); Mean Corpuscular HGB Conc 33.8 g/dl (31.0-35.0); Mean Corpuscular Hemoglobin 30.2 pg (27.0-33.0); Mean Corpuscular Volume 89.2 fL (80-98); Mean Platelet Volume 11.2 fL (9.4-12.3); Monocytes Absolute Auto 0.4 X10*3/uL (0.1-1.2); Monocytes Percent Auto 9.5 % (2-11); Neutrophils Percent Auto 47.8 % (45-73); Platelet Count 260 X10*3/uL (160-400); Red Blood Count 4.54 X10*6/uL (4.20-5.50); Red Cell Distribution Width 11.3 % (11.0-16.0); White Blood Count 4.1 X10*3/uL (4.8-10.8)
[2021-02-21 09:11] LABS: Alanine Aminotransferase 46 U/L (0-31); Albumin Level 4.4 g/dL (3.5-5.0); Alkaline Phosphatase 88 U/L (39-117); Anion Gap 11 (12-20); Aspartate Amino Transferase 31 U/L (5-31); Bilirubin Total 1.6 mg/dL (0.0-1.0); Blood Urea Nitrogen 14 mg/dL (9-16); Carbon Dioxide 32 mmol/L (22-29); Chloride 103 mmol/L (96-108); Cholesterol 194 mg/dL; Estimated Glomerular Filt Rate > 60; Glucose Fasting 110 mg/dL (60-99); HDL Cholesterol 38 mg/dL; LDL Cholesterol Calculated 130 mg/dl; Potassium 4.6 mmol/L (3.3-5.1); Sodium 141 mmol/L (135-145); Total Protein 7.6 g/dL (6.5-8.0); Triglycerides 130 mg/dL
[2021-02-21 09:36] LABS: Vitamin D 25-OH Total 29.4 ng/mL (>30)
[2021-02-21 09:42] LABS: Appearance Urine CLEAR; Color Urine YELLOW; Glucose Urine UA NEG (NEG); Leukocyte Esterase Urine TRACE (NEG); Nitrite Urine NEG (NEG); PH 6.5 (5.0-8.0); Specific Gravity - Urine 1.015 (1.005-1.025); UACC Culture Trigger YES; Urine Blood NEG (NEG); Urine Ketones NEG (NEG); Urine Protein NEG (NEG-TRACE)
[2021-02-21 10:07] LABS: Creatinine Urine 117.02 mg/dL; Microalbum/Creatinine Ratio Ur 5.9 ug/mg cr
[2021-02-21 10:17] LABS: Estimated Average Glucose 137 mg/dL; Hemoglobin A1c % 6.4 %
[2021-02-21 10:29] LABS: RBC Urine 0 /HPF (0); WBC Urine 0-2 /HPF (0-4)
[2021-02-21 10:30] LABS: Squamous Epithelial Cell Urine TRACE /LPF
== END 2021-02-21 08:01 | disposition home or self-care (01) ==
LOC: HO.LAB 08:00
PROVIDERS: PCP Internal Medicine; Visit Provider Internal Medicine
DX: E78.00 Pure hypercholesterolemia, unspecified (principal); I10 Essential (primary) hypertension; E55.9 Vitamin D deficiency, unspecified; E11.9 Type 2 diabetes mellitus without complications
CPT/HCPCS: 36415; 80053; 80061; 81001; 82043; 82306; 83036; 84443; 85025; 87086

== ENCOUNTER → 2021-04-04 13:38 | Outpatient (BNVA) | payer OTHER, SELFPAY | PROVIDERS: PCP Internal Medicine; Visit Provider Internal Medicine Gastroenterology | DX: R79.89 Other specified abnormal findings of blood chemistry (principal) | CPT/HCPCS: 99212 ==

== ENCOUNTER 2021-04-06 07:58 | Emergency (ER) | payer OTHER, SELFPAY ==
[2021-04-06 08:06] VITALS: BP 129/72; BP 138/79; PULSE 77; PULSE 80; RESP 16; TEMP 36.7; O2SAT 97; O2SAT 98; BMI 24.8
--- NOTE | 2021-04-06 08:59 | ED.GENADULT ---
HPI - General Adult General Chief complaint: Abdominal Pain Stated complaint: ABDOMINAL PAIN Time Seen by Provider: 04/06/21 08:57 Source: patient Mode of arrival: ambulatory Limitations: no limitations History of Present Illness HPI narrative: 60-year-old female past medical history significant for anxiety, GERD, hemangioma of liver, and DM presents to the ED with abdominal pain and nausea since last night. She states that last night around 20:00, she had pizza, and she immediately started experiencing constant severe sharp epigastric pain. The pain does not radiate. She states that she has been also feeling nauseous. She had 1 episode of vomiting last night. She has not had any episodes of vomiting this morning. She states that she frequently feels like this after eating greasy foods. She denies chest pain, shortness of breath, fevers, chills, diarrhea, weakness, constipation, changes in urination. MD complaint: epigastric abdominal pain Onset (ago): day(s) (1) Location: abdomen Radiation: non-radiation Severity: severe Severity scale (1-10): 10 Quality: stabbing Pain Consistency: constant Relieving factors: none Exacerbating factors: none Associated symptoms: nausea/vomiting Treatments prior to arrival: other (omeprazole ) Related Data Home Medications Medication Instructions Recorded Confirmed simethicone 180 mg capsule 180 mg PO QID PRN 04/11/20 02/25/21 Previous Rx's Medication Instructions Recorded ergocalciferol (vitamin D2) 1,250 1,250 mcg PO QWEEK 90 Days #13 cap 07/11/20 mcg (50,000 unit) capsule sitagliptin 100 mg tablet (Januvia) 100 mg PO DAILY #90 tab 10/15/20 omeprazole 40 mg capsule,delayed 40 mg PO DAILY PRN #90 cap 10/26/20 release hyoscyamine sulfate 0.125 mg tablet 0.125 mg PO QID PRN #10 tab 11/19/20 ondansetron HCl 4 mg tablet 4 mg PO Q6H PRN #10 tab 11/19/20 (Zofran) polyethylene glycol 3350 17 17 g PO DAILY 30 Days #510 g 11/23/20 gram/dose oral powder (Miralax) ezetimibe 10 mg tablet 10 mg PO DAILY 30 Days #30 tab 01/20/21 ibuprofen 600 mg tablet 600 mg PO TID PRN #90 tab 01/20/21 simethicone 180 mg capsule 180 mg PO BID PRN 30 Days #60 cap 01/20/21 rosuvastatin 10 mg tablet 10 mg PO DAILY 90 Days #90 tab 02/24/21 Allergies Allergy/AdvReac Type Severity Reaction Status Date / Time codeine [CODEINE] Allergy Intermediate DIZZY/CAROLYN Verified 04/04/21 13:39 RGY atorvastatin AdvReac Unknown increased Verified 04/04/21 13:39 heartburns Review of Systems Review of Systems: Constitutional: No Fever, No Chills ENT/Mouth: No sore throat, No Rhinorrhea, No Swallowing Difficulty Eyes: No Eye Pain, No Swelling, No Redness Cardiovascular: No Chest Pain, No SOB, No Orthopnea, No Edema Respiratory: No Cough, No Sputum, No Wheezing, No dyspnea Gastrointestinal: + Nausea, + Vomiting, No Diarrhea, + abdominal Pain, No Hematochezia, No Melena Genitourinary: No Dysuria, No Urinary Frequency, No Hematuria Musculoskeletal: No joint pain, No Myalgias Skin: No Skin Lesions, No rash Neuro: No Weakness, No Numbness, No Dizziness, No Headache PMFSH Past Medical History Source: old records reviewed and nursing notes reviewed Medical History Anxiety Constipation Diabetes mellitus Dizziness Dysplasia of cervix, low grade (VIRGIE 1) Elevated LFTs GERD (gastroesophageal reflux disease) Hemangioma of liver Osteopenia Overweight (BMI 25.0-29.9) Pure hypercholesterolemia Vitamin D deficiency Surgical History History of blood clots History of colonoscopy History of oral surgery History of resection of liver History of tubal ligation Family History Family History Father No problems noted. Mother Uterine cancer Colon cancer Maternal Grandmother No problems noted. Paternal Aunt Ovarian cancer Social History Social History Household Members: Children Household Members Other:: daughter Housing: Apartment Alcohol intake: never Patient Tobacco Use Status: Never used Tobacco Second Hand Smoke Exposure: No Use of substances other than those prescribed or required for medical reasons: No Advance Directives: No Patient : No service: No Current occupational status: disabled Physical Exam Vital Signs: Vital Signs: Last Vital Signs Temp 98.0 F 04/06/21 08:06 Pulse 77 04/06/21 08:06 Resp 16 04/06/21 08:06 BP 138/79 04/06/21 08:06 Pulse Ox 97 04/06/21 08:06 Body Mass Index 24.8 Appearance: Alert. Oriented X3. No acute distress. Eyes: Pupils equal, round and reactive to light. ENT: Pharynx normal. Neck: Normal inspection. Neck supple. CVS: Normal heart rate and rhythm. Pulses normal. Respiratory: No respiratory distress. Breath sounds normal. Abdomen: Soft and +tenderness to palpation to epigastric region . +BS x4 Skin: Skin warm and dry. Normal skin color. Normal skin turgor. No rashes. Extremities: No lower extremity edema. Neuro: Oriented X 3. No motor deficit. No sensory deficit. Course Course Course Narrative: 60-year-old female presents to the emergency department with epigastric abdominal pain that is sharp and constant in nature since last night after eating a slice of pizza. To note, she was seen by Gastroenterology on 04/04/2021 where they know she has a history of GERD, and constipation. And she also has elevated LFTs with mild ALT elevation. Plan is to give a GI cocktail, and obtain basic labs to rule out infection. Reevaluation(s) Reevaluation #1: Labs Show no elevated white count, her total bili is noted to be slightly elevated, however this appears to be chronic in nature. Her ALT is also elevated, however again this is been chronic in nature. Gastroenterology also notes that these 2 values are always elevated and are patients baseline. She feels significant relief, after administration of GI cocktail. Patient feels well enough to go home. She states she has a life enrichment manager, who she just saw few days ago, and told her that she likely has gastritis. The life enrichment manager educated her on a bland diet. She is on PPI. She has been encouraged to continue this bland diet, and stay away from spicy, greasy, fried foods. She states she will follow-up with her primary care provider . She is safe for discharge home. Time: 10:39 Medical Decision Making Lab Data Result diagrams: 04/06/21 09:42 04/06/21 09:42 Labs: Lab Results 04/06/21 04/06/21 Range/Units 09:42 09:42 WBC 9.7 (4.8-10.8) X10*3/uL RBC 4.92 (4.20-5.50) X10*6/uL Hgb 14.6 (12.0-16.0) g/dl Hct 43.4 (37-47) % MCV 88.2 (80-98) fL MCH 29.7 (27.0-33.0) pg MCHC 33.6 (31.0-35.0) g/dl RDW 11.3 (11.0-16.0) % Plt Count 283 (160-400) X10*3/uL MPV 10.8 (9.4-12.3) fL Immature Gran % (Auto) 0.4 (0.0-0.4) % Neut % (Auto) 87.4 H (45-73) % Lymph % (Auto) 9.4 L (20-40) % [place] % (Auto) 2.7 (2-11) % Eos % (Auto) 0.0 (0-4) % Baso % (Auto) 0.1 (0-2) % Lymph # (Auto) 0.9 L (1.2-4.9) X10*3/uL [place] # (Auto) 0.3 (0.1-1.2) X10*3/uL Eos # (Auto) 0.0 (0.0-0.4) X10*3/uL Baso # (Auto) 0.0 (0.0-0.2) X10*3/uL Abs Immat Gran (auto) 0.04 H (0.00-0.03) X10*3/uL Absolute Neuts (auto) 8.5 H (2.0-8.3) X10*3/uL Absolute Nucleated RBC 0.000 (0.0-0.012) X10*3/uL Nucleated RBC % (auto) 0.0 (0.0-0.2) /100WBC Sodium 140 (135-145) mmol/L Potassium 4.9 (3.3-5.1) mmol/L Chloride 102 (96-108) mmol/L Carbon Dioxide 29 (22-29) mmol/L Anion Gap 14 (12-20) BUN 14 (9-16) mg/dL Creatinine 0.78 (0.5-1.4) mg/dL Estim Creat Clear Calc 67.1 Estimated GFR > 60 Random Glucose 170 H (60-115) mg/dL Calcium 10.6 H (8.4-10.2) mg/dL Total Bilirubin 1.2 H (0.0-1.0) mg/dL Direct Bilirubin 0.4 (0.0-0.5) mg/dL AST 29 (5-31) U/L ALT 44 H (0-31) U/L Alkaline Phosphatase 92 (39-117) U/L Total Protein 8.1 H (6.5-8.0) g/dL Albumin 4.7 (3.5-5.0) g/dL Lipase 24 (8-78) U/L Discharge Plan Discharge Clinical Impression: GERD (gastroesophageal reflux disease) Qualifiers: Esophagitis presence: esophagitis presence not specified Qualified Code(s): K21.9 - Gastro-esophageal reflux disease without esophagitis Gastritis Qualifiers: Gastritis type: unspecified gastritis Chronicity: acute Gastritis bleeding: without bleeding Qualified Code(s): K29.00 - Acute gastritis without bleeding Patient Disposition: Home, Self-Care Instructions: Gastritis (ED), Diet for Stomach Ulcers and Gastritis (ED), Gastroesophageal Reflux Disease (ED) Additional Instructions: Follow-up with your primary care provider and your life enrichment manager Follow the diet recommended to you by your life enrichment manager. Do not eat anything that fried, spicy, greasy, very acidic Take your medications as prescribed, continue your omeprazole Return to the emergency department with new or worsening symptoms Prescriptions: No Action sitagliptin [Januvia] 100 mg tablet 100 mg PO DAILY Qty: 90 RF: 1 omeprazole 40 mg capsule,delayed release(DR/EC) 40 mg PO DAILY PRN (Reason: for acid reflux) Qty: 90 RF: 1 ezetimibe 10 mg tablet 10 mg PO DAILY 30 Days Qty: 30 RF: 3 simethicone 180 mg capsule 180 mg PO BID PRN (Reason: abdominal distention) 30 Days Qty: 60 RF: 1 ibuprofen 600 mg tablet 600 mg PO TID PRN (Reason: for pain) Qty: 90 RF: 0 ondansetron HCl [Zofran] 4 mg tablet 4 mg PO Q6H PRN (Reason: nausea and vomiting) Qty: 10 RF: 0 hyoscyamine sulfate 0.125 mg tablet 0.125 mg PO QID PRN (Reason: dyspepsia) Qty: 10 RF: 0 simethicone 180 mg capsule 180 mg PO QID PRNRF: 0 polyethylene glycol 3350 [Miralax] 17 gram/dose powder 17 g PO DAILY 30 Days Qty: 510 RF: 12 rosuvastatin 10 mg tablet 10 mg PO DAILY 90 Days Qty: 90 RF: 3 ergocalciferol (vitamin D2) 1,250 mcg (50,000 unit) capsule 1,250 mcg PO QWEEK 90 Days Qty: 13 RF: 3 Print Language: English
[2021-04-06] MEDS: Ondansetron ODT 4 MG TAB.RAPDIS TRANSLINGU (09:09)
[2021-04-06] MEDS: PHENobarb/Hyoscy/Atropine/Scop 10 ML ELIXIR PO (09:09)
[2021-04-06] MEDS: Lidocaine HCl Viscous 2 % 15 ML SOLUTION MUCOUS MEM (09:09)
[2021-04-06] MEDS: Magnesium Hydrox/Alum Hydrox 30 ML ORAL.SUSP 15 ML PO (09:09)
[2021-04-06 09:47] LABS: MANUAL DIFF FLAG NO
[2021-04-06 09:49] LABS: Basophils Percent Auto 0.1 % (0-2); Hematocrit 43.4 % (37-47); Hemoglobin 14.6 g/dl (12.0-16.0); Imm Gran Abs Auto 0.04 X10*3/uL (0.00-0.03); Imm Gran Pct Auto 0.4 % (0.0-0.4); Lymphocytes Absolute Auto 0.9 X10*3/uL (1.2-4.9); Lymphocytes Percent Auto 9.4 % (20-40); Mean Corpuscular HGB Conc 33.6 g/dl (31.0-35.0); Mean Corpuscular Hemoglobin 29.7 pg (27.0-33.0); Mean Corpuscular Volume 88.2 fL (80-98); Mean Platelet Volume 10.8 fL (9.4-12.3); Monocytes Absolute Auto 0.3 X10*3/uL (0.1-1.2); Monocytes Percent Auto 2.7 % (2-11); Neutrophils Absolute Auto 8.5 X10*3/uL (2.0-8.3); Neutrophils Percent Auto 87.4 % (45-73); Platelet Count 283 X10*3/uL (160-400); Red Blood Count 4.92 X10*6/uL (4.20-5.50); Red Cell Distribution Width 11.3 % (11.0-16.0); White Blood Count 9.7 X10*3/uL (4.8-10.8)
[2021-04-06 10:37] LABS: Alanine Aminotransferase 44 U/L (0-31); Albumin Level 4.7 g/dL (3.5-5.0); Alkaline Phosphatase 92 U/L (39-117); Anion Gap 14 (12-20); Aspartate Amino Transferase 29 U/L (5-31); Bilirubin Direct 0.4 mg/dL (0.0-0.5); Bilirubin Total 1.2 mg/dL (0.0-1.0); Blood Urea Nitrogen 14 mg/dL (9-16); Calcium 10.6 mg/dL (8.4-10.2); Carbon Dioxide 29 mmol/L (22-29); Chloride 102 mmol/L (96-108); Creatinine Clr Calc Pharmacy 67.1; Estimated Glomerular Filt Rate > 60; Glucose Random 170 mg/dL (60-115); Lipase 24 U/L (8-78); Potassium 4.9 mmol/L (3.3-5.1); Sodium 140 mmol/L (135-145); Total Protein 8.1 g/dL (6.5-8.0)
== END 2021-04-06 10:47 | disposition home or self-care (01) ==
PROVIDERS: Physician Assistant; Emergency Provider Emergency Medicine Emergency Medical Services; PCP Internal Medicine
DX: K29.00 Acute gastritis without bleeding (principal); K21.9 Gastro-esophageal reflux disease without esophagitis; R10.13 Epigastric pain; Z79.899 Other long term (current) drug therapy
CPT/HCPCS: 36415; 80048; 80076; 83690; 85025; 99284

== ENCOUNTER 2021-06-18 21:02 | Emergency (ER) | payer OTHER, SELFPAY ==
[2021-06-18 21:12] VITALS: BP 69/42; PULSE 88; RESP 20; TEMP 36.9; O2SAT 97; BMI 24.8
[2021-06-18] MEDS: 0.9 % Sodium Chloride 1,000 ML 999 ML IV (21:47)
[2021-06-18 21:58] VITALS: BP 127/68; PULSE 89; RESP 16; O2SAT 97
[2021-06-18 22:21] LABS: COVID-19 Test Negative (Negative); IDNOW Serial# 9DD0AD1C
[2021-06-18 22:22] LABS: Lactic Acid 2.5 mmol/L (0.5-2.0)
[2021-06-18 22:25] LABS: Alanine Aminotransferase 66 U/L (0-31); Albumin Level 4.5 g/dL (3.5-5.0); Alkaline Phosphatase 95 U/L (39-117); Anion Gap 16 (12-20); Aspartate Amino Transferase 60 U/L (5-31); Bilirubin Total 1.4 mg/dL (0.0-1.0); Blood Urea Nitrogen 21 mg/dL (9-16); Carbon Dioxide 27 mmol/L (22-29); Chloride 99 mmol/L (96-108); Estimated Glomerular Filt Rate > 60; Glucose Random 190 mg/dL (60-115); Potassium 5.1 mmol/L (3.3-5.1); Sodium 137 mmol/L (135-145); Total Protein 8.2 g/dL (6.5-8.0)
--- NOTE | 2021-06-18 23:33 | ED.NAVMDI ---
HPI - Nausea/Vomiting/Diarrhea General Chief complaint: Nausea/Vomiting/Diarrhea Stated complaint: Chills/Nausea/vomiting Time Seen by Provider: 06/18/21 21:27 Source: patient Mode of arrival: ambulatory Limitations: no limitations History of Present Illness HPI Narrative: Patient nauseated vomiting multiple times few times had diarrhea unable to eat much today all day came here as she is feeling lightheaded especially standing at triage blood pressure was 69/42 in the ER blood pressure improved to 127/68 patient complaining of diffuse abdominal pain no focal tenderness no fever no chills patient already been vaccinated against COVID no chest pain or palpitation no blood in the stool vomitus is mostly watery Related Data Home Medications Medication Instructions Recorded Confirmed simethicone 180 mg capsule 180 mg PO QID PRN 04/11/20 02/25/21 Previous Rx's Medication Instructions Recorded ergocalciferol (vitamin D2) 1,250 1,250 mcg PO QWEEK 90 Days #13 cap 07/11/20 mcg (50,000 unit) capsule sitagliptin 100 mg tablet (Januvia) 100 mg PO DAILY #90 tab 10/15/20 hyoscyamine sulfate 0.125 mg tablet 0.125 mg PO QID PRN #10 tab 11/19/20 ondansetron HCl 4 mg tablet 4 mg PO Q6H PRN #10 tab 11/19/20 (Zofran) polyethylene glycol 3350 17 17 g PO DAILY 30 Days #510 g 11/23/20 gram/dose oral powder (Miralax) ezetimibe 10 mg tablet 10 mg PO DAILY 30 Days #30 tab 01/20/21 ibuprofen 600 mg tablet 600 mg PO TID PRN #90 tab 01/20/21 simethicone 180 mg capsule 180 mg PO BID PRN 30 Days #60 cap 01/20/21 rosuvastatin 10 mg tablet 10 mg PO DAILY 90 Days #90 tab 02/24/21 omeprazole 40 mg capsule,delayed 40 mg PO DAILY PRN #90 cap 04/26/21 release ondansetron 4 mg disintegrating 4 mg PO Q6-8H PRN #7 tab 06/19/21 tablet Allergies Allergy/AdvReac Type Severity Reaction Status Date / Time codeine [CODEINE] Allergy Intermediate DIZZY/CAROLYN Verified 04/04/21 13:39 RGY atorvastatin AdvReac Unknown increased Verified 04/04/21 13:39 heartburns Review of Systems Review of Systems: Yes all other systems are reviewed and are negative [facility] Past Medical History Medical History Anxiety Constipation Diabetes mellitus Dizziness Dysplasia of cervix, low grade (VIRGIE 1) Elevated LFTs GERD (gastroesophageal reflux disease) Hemangioma of liver Osteopenia Overweight (BMI 25.0-29.9) Pure hypercholesterolemia Vitamin D deficiency Surgical History History of blood clots History of colonoscopy History of oral surgery History of resection of liver History of tubal ligation Family History Family History Father No problems noted. Mother Uterine cancer Colon cancer Maternal Grandmother No problems noted. Paternal Aunt Ovarian cancer Social History Social History Household Members: Children Household Members Other:: daughter Housing: Apartment Alcohol intake: never Patient Tobacco Use Status: Never used Tobacco Second Hand Smoke Exposure: No Advance Directives: No Advance Directives Information Provided: No service: No Current occupational status: disabled Physical Exam Vital Signs: Vital Signs: Last Vital Signs Temp 98.4 F 06/18/21 21:12 Pulse 90 06/18/21 23:46 Resp 18 06/18/21 23:46 BP 118/63 06/18/21 23:46 Pulse Ox 98 06/18/21 23:46 BMI result Body Mass Index 24.8 Appearance: Alert. Oriented X3. In mild distress Eyes: PERRLA, No Nystagmus ENT: Pharynx normal. Oral Mucosa moist Neck: Normal inspection. Neck supple. CVS: Normal heart rate and rhythm. Pulses normal. Respiratory: No respiratory distress. Equal air entry bilateral, no wheezing/rales/rhonchi Abdomen: Soft and nontender. Bowel sounds are present, no mass palpable, no CVA tenderness Skin: Skin warm and dry. Normal skin color. Normal skin turgor. Extremities: No lower extremity edema. No calf tenderness Neuro: Oriented X 3. No motor deficit. MDM - Nausea/Vomiting/Diarrhea MDM Narrative Medical decision making narrative: Patient with gastroenteritis likely viral with volume loss leading to lactic acidosis no acute abdomen lactic acidosis type B not from sepsis. Patient received IV fluids and feeling much better taking p.o. fluids will discharge patient home initially patient has low blood pressure secondary to vasovagal since then blood pressure stable Lab Data Attestation: I reviewed the patient's lab results. Result diagrams: 06/18/21 23:44 06/18/21 21:56 Labs: Lab Results 06/18/21 06/18/21 06/18/21 Range/Units 21:56 21:56 21:56 WBC (4.8-10.8) X10*3/uL RBC (4.20-5.50) X10*6/uL Hgb (12.0-16.0) g/dl Hct (37.0-47.0) % MCV (80.0-98.0) fL MCH (27.0-33.0) pg MCHC (31.0-35.0) g/dl RDW (11.0-16.0) % Plt Count (160-400) X10*3/uL MPV (9.4-12.3) fL Immature Gran % (Auto) (0.0-0.4) % Neut % (Auto) (45-73) % Lymph % (Auto) (20-40) % [place] % (Auto) (2-11) % Eos % (Auto) (0-4) % Baso % (Auto) (0-2) % Lymph # (Auto) (1.2-4.9) X10*3/uL [place] # (Auto) (0.1-1.2) X10*3/uL Eos # (Auto) (0.0-0.4) X10*3/uL Baso # (Auto) (0.0-0.2) X10*3/uL Abs Immat Gran (auto) (0.00-0.03) X10*3/uL Absolute Neuts (auto) (2.0-8.3) x10*3/uL Absolute Nucleated RBC (0.0-0.012) X10*3/uL Nucleated RBC % (auto) (0.0-0.2) /100WBC Smear Tech's Comments Sodium 137 (135-145) mmol/L Potassium 5.1 (3.3-5.1) mmol/L Chloride 99 (96-108) mmol/L Carbon Dioxide 27 (22-29) mmol/L Anion Gap 16 (12-20) BUN 21 H (9-16) mg/dL Creatinine 0.82 (0.5-1.4) mg/dL Estim Creat Clear Calc 63.0 Estimated GFR > 60 Random Glucose 190 H (60-115) mg/dL Lactic Acid 2.5 H* (0.5-2.0) mmol/L Lactic Acid F/U @ 2Hr (0.5-2.0) mmol/L Calcium 10.0 (8.4-10.2) mg/dL Total Bilirubin 1.4 H (0.0-1.0) mg/dL AST 60 H (5-31) U/L ALT 66 H (0-31) U/L Alkaline Phosphatase 95 (39-117) U/L Total Protein 8.2 H (6.5-8.0) g/dL Albumin 4.5 (3.5-5.0) g/dL Urine Color Urine Appearance Urine pH (5.0-8.0) Ur Specific [place] (1.005-1.025) Urine Protein (NEG-TRACE) MG/DL Urine Glucose (UA) (NEG) MG/DL Urine Ketones (NEG) MG/DL Urine Blood (NEG) Urine Nitrite (NEG) Ur Leukocyte Esterase (NEG) COVID-19 (MICHELINE) Negative (Negative) COVID-19 Clin Com See Note 06/18/21 06/19/21 06/19/21 Range/Units 23:44 00:42 00:56 WBC 8.7 (4.8-10.8) X10*3/uL RBC 4.71 (4.20-5.50) X10*6/uL Hgb 14.3 (12.0-16.0) g/dl Hct 42.7 (37.0-47.0) % MCV 90.7 (80.0-98.0) fL MCH 30.4 (27.0-33.0) pg MCHC 33.5 (31.0-35.0) g/dl RDW 11.1 (11.0-16.0) % Plt Count 245 (160-400) X10*3/uL MPV 10.9 (9.4-12.3) fL Immature Gran % (Auto) 0.2 (0.0-0.4) % Neut % (Auto) 92.7 H (45-73) % Lymph % (Auto) 3.5 L (20-40) % [place] % (Auto) 3.5 (2-11) % Eos % (Auto) 0.0 (0-4) % Baso % (Auto) 0.1 (0-2) % Lymph # (Auto) 0.3 L (1.2-4.9) X10*3/uL [place] # (Auto) 0.3 (0.1-1.2) X10*3/uL Eos # (Auto) 0.0 (0.0-0.4) X10*3/uL Baso # (Auto) 0.0 (0.0-0.2) X10*3/uL Abs Immat Gran (auto) 0.02 (0.00-0.03) X10*3/uL Absolute Neuts (auto) 8.1 (2.0-8.3) x10*3/uL Absolute Nucleated RBC 0.000 (0.0-0.012) X10*3/uL Nucleated RBC % (auto) 0.0 (0.0-0.2) /100WBC Smear Tech's Comments VERIFIED Sodium (135-145) mmol/L Potassium (3.3-5.1) mmol/L Chloride (96-108) mmol/L Carbon Dioxide (22-29) mmol/L Anion Gap (12-20) BUN (9-16) mg/dL Creatinine (0.5-1.4) mg/dL Estim Creat Clear Calc Estimated GFR Random Glucose (60-115) mg/dL Lactic Acid (0.5-2.0) mmol/L Lactic Acid F/U @ 2Hr 2.4 H* (0.5-2.0) mmol/L Calcium (8.4-10.2) mg/dL Total Bilirubin (0.0-1.0) mg/dL AST (5-31) U/L ALT (0-31) U/L Alkaline Phosphatase (39-117) U/L Total Protein (6.5-8.0) g/dL Albumin (3.5-5.0) g/dL Urine Color YELLOW Urine Appearance CLEAR Urine pH 6.5 (5.0-8.0) Ur Specific [place] 1.020 (1.005-1.025) Urine Protein NEG (NEG-TRACE) MG/DL Urine Glucose (UA) NEG (NEG) MG/DL Urine Ketones NEG (NEG) MG/DL Urine Blood NEG (NEG) Urine Nitrite NEG (NEG) Ur Leukocyte Esterase NEG (NEG) COVID-19 (MICHELINE) (Negative) COVID-19 Clin Com Discharge Plan Discharge Clinical Impression: Gastroenteritis Patient Disposition: Home, Self-Care Instructions: Gastroenteritis (ED) Additional Instructions: Drink plenty of fluids Medicine for nausea as advised Report to the ER/PCP if any significant abdominal pain/fever /persistence of symptoms Prescriptions: New ondansetron 4 mg tablet,disintegrating 4 mg PO Q6-8H PRN (Reason: nausea and vomiting) Qty: 7 RF: 0 No Action sitagliptin [Januvia] 100 mg tablet 100 mg PO DAILY Qty: 90 RF: 1 ezetimibe 10 mg tablet 10 mg PO DAILY 30 Days Qty: 30 RF: 3 simethicone 180 mg capsule 180 mg PO BID PRN (Reason: abdominal distention) 30 Days Qty: 60 RF: 1 ibuprofen 600 mg tablet 600 mg PO TID PRN (Reason: for pain) Qty: 90 RF: 0 omeprazole 40 mg capsule,delayed release(DR/EC) 40 mg PO DAILY PRN (Reason: for acid reflux) Qty: 90 RF: 1 ondansetron HCl [Zofran] 4 mg tablet 4 mg PO Q6H PRN (Reason: nausea and vomiting) Qty: 10 RF: 0 hyoscyamine sulfate 0.125 mg tablet 0.125 mg PO QID PRN (Reason: dyspepsia) Qty: 10 RF: 0 simethicone 180 mg capsule 180 mg PO QID PRNRF: 0 polyethylene glycol 3350 [Miralax] 17 gram/dose powder 17 g PO DAILY 30 Days Qty: 510 RF: 12 rosuvastatin 10 mg tablet 10 mg PO DAILY 90 Days Qty: 90 RF: 3 ergocalciferol (vitamin D2) 1,250 mcg (50,000 unit) capsule 1,250 mcg PO QWEEK 90 Days Qty: 13 RF: 3
[2021-06-18 23:46] VITALS: BP 118/63; PULSE 90; RESP 18; O2SAT 98
[2021-06-18 23:53] LABS: Basophils Percent Auto 0.1 % (0-2); Hematocrit 42.7 % (37.0-47.0); Hemoglobin 14.3 g/dl (12.0-16.0); Imm Gran Abs Auto 0.02 X10*3/uL (0.00-0.03); Imm Gran Pct Auto 0.2 % (0.0-0.4); Lymphocytes Absolute Auto 0.3 X10*3/uL (1.2-4.9); Lymphocytes Percent Auto 3.5 % (20-40); MANUAL DIFF FLAG SCAN; Mean Corpuscular HGB Conc 33.5 g/dl (31.0-35.0); Mean Corpuscular Hemoglobin 30.4 pg (27.0-33.0); Mean Corpuscular Volume 90.7 fL (80.0-98.0); Mean Platelet Volume 10.9 fL (9.4-12.3); Monocytes Absolute Auto 0.3 X10*3/uL (0.1-1.2); Monocytes Percent Auto 3.5 % (2-11); Neutrophils Absolute Auto 8.1 x10*3/uL (2.0-8.3); Neutrophils Percent Auto 92.7 % (45-73); Platelet Count 245 X10*3/uL (160-400); Red Blood Count 4.71 X10*6/uL (4.20-5.50); Red Cell Distribution Width 11.1 % (11.0-16.0); SCAN SMEAR FLAG 1; White Blood Count 8.7 X10*3/uL (4.8-10.8)
[2021-06-18 23:55] LABS: SLIDE REVIEW VERIFIED
[2021-06-19 00:04] LABS: Reflex Lactate? Lactic Acid Added
[2021-06-19] MEDS: Dicyclomine HCl 10 MG CAPSULE 20 MG PO (00:34)
[2021-06-19] MEDS: 0.9 % Sodium Chloride 1,000 ML 999 ML IV (00:34)
[2021-06-19 01:03] LABS: Appearance Urine CLEAR; Color Urine YELLOW; Glucose Urine UA NEG (NEG); Leukocyte Esterase Urine NEG (NEG); Nitrite Urine NEG (NEG); PH 6.5 (5.0-8.0); Urine Blood NEG (NEG); Urine Ketones NEG (NEG); Urine Protein NEG (NEG-TRACE)
[2021-06-19 01:10] LABS: ~Lactic Acid-LAB USE ONLY 2.4 mmol/L (0.5-2.0)
[2021-06-19 02:45] LABS: Reflex Lactate? 2 Y
== END 2021-06-19 01:51 | disposition home or self-care (01) ==
PROVIDERS: Emergency Provider Internal Medicine; PCP Internal Medicine
DX: K52.9 Noninfective gastroenteritis and colitis, unspecified (principal); E87.2 Acidosis; Z20.822 Contact with and (suspected) exposure to COVID-19
CPT/HCPCS: 36415; 80053; 81003; 83605; 85025; 87040; 87635; 96361; 96374; 99283; 99284

== ENCOUNTER 2021-06-21 06:59 | Outpatient (REF) | payer OTHER, SELFPAY ==
[2021-06-21 07:56] LABS: Hemoglobin 13.5 g/dl (12.0-16.0); Imm Gran Abs Auto 0.01 X10*3/uL (0.00-0.03); Mean Platelet Volume 11.6 fL (9.4-12.3); PLT CLUMP 1; Red Cell Distribution Width 11.2 % (11.0-16.0); SCAN SMEAR FLAG 1
[2021-06-21 07:58] LABS: Basophils Percent Auto 0.3 % (0-2); Eosinophils Absolute Auto 0.1 X10*3/uL (0.0-0.4); Eosinophils Percent Auto 2.3 % (0-4); Hematocrit 40.1 % (37.0-47.0); Imm Gran Pct Auto 0.3 % (0.0-0.4); Lymphocytes Absolute Auto 1.2 X10*3/uL (1.2-4.9); Lymphocytes Percent Auto 31.6 % (20-40); MANUAL DIFF FLAG SCAN; Mean Corpuscular HGB Conc 33.7 g/dl (31.0-35.0); Mean Corpuscular Hemoglobin 30.2 pg (27.0-33.0); Mean Corpuscular Volume 89.7 fL (80.0-98.0); Monocytes Absolute Auto 0.5 X10*3/uL (0.1-1.2); Monocytes Percent Auto 13.5 % (2-11); Red Blood Count 4.47 X10*6/uL (4.20-5.50)
[2021-06-21 08:01] LABS: Platelet Count 159 X10*3/uL (160-400); White Blood Count 3.9 X10*3/uL (4.8-10.8)
[2021-06-21 08:19] LABS: Alanine Aminotransferase 60 U/L (0-31); Albumin Level 4.2 g/dL (3.5-5.0); Alkaline Phosphatase 82 U/L (39-117); Anion Gap 11 (12-20); Aspartate Amino Transferase 40 U/L (5-31); Bilirubin Total 0.9 mg/dL (0.0-1.0); Blood Urea Nitrogen 10 mg/dL (9-16); Calcium 9.7 mg/dL (8.4-10.2); Carbon Dioxide 28 mmol/L (22-29); Chloride 106 mmol/L (96-108); Cholesterol 144 mg/dL; Estimated Glomerular Filt Rate > 60; Glucose Fasting 114 mg/dL (60-99); HDL Cholesterol 26 mg/dL; LDL Cholesterol Calculated 93 mg/dl; Potassium 3.9 mmol/L (3.3-5.1); Sodium 141 mmol/L (135-145); Total Protein 7.1 g/dL (6.5-8.0); Triglycerides 129 mg/dL
[2021-06-21 08:21] LABS: SLIDE REVIEW VERIFIED
[2021-06-21 09:11] LABS: Appearance Urine CLEAR; Color Urine YELLOW; Glucose Urine UA NEG (NEG); Leukocyte Esterase Urine NEG (NEG); Nitrite Urine NEG (NEG); UACC Culture Trigger NO; Urine Blood 1+ (NEG); Urine Ketones NEG (NEG); Urine Protein NEG (NEG-TRACE)
[2021-06-21 09:26] LABS: Mucus Urine TRACE /LPF; Squamous Epithelial Cell Urine 1+ /LPF; WBC Urine 0-2 /HPF (0-4)
== END 2021-06-21 07:00 | disposition home or self-care (01) ==
LOC: HO.LAB 06:59
PROVIDERS: PCP Internal Medicine; Visit Provider Internal Medicine
DX: I10 Essential (primary) hypertension (principal); E78.00 Pure hypercholesterolemia, unspecified
CPT/HCPCS: 36415; 80053; 80061; 81001; 85025

== ENCOUNTER 2021-06-21 09:15 | Emergency (ER) | payer OTHER, SELFPAY ==
[2021-06-21 09:56] VITALS: BP 158/71; PULSE 77; RESP 18; TEMP 36.8; O2SAT 96; BMI 24.7
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
[2021-06-21] MEDS: Ibuprofen 400 MG TABLET PO (13:49)
--- NOTE | 2021-06-21 13:53 | PC.NURSE ---
PT EVALUATED BY PROVIDER. PLAN IS FOR DC HOME. PT AGREEABLE TO PLAN. PT AWAKE, ALERT AND ORIENTED X 3. SKIN WARM AND DRY. RESP UNLABORED. DENIES N/V. NEUROS INTACT. AMBULATORY , GAIT STEADY
== END 2021-06-21 13:56 | disposition home or self-care (01) ==
PROVIDERS: Emergency Provider Student in an Organized Health Care Education/Training Program; PCP Internal Medicine
DX: Z04.1 Encounter for examination and observation following transport accident (principal)
CPT/HCPCS: 99283

== ENCOUNTER 2021-07-19 08:48 | Outpatient (REF) | payer OTHER, SELFPAY ==
--- NOTE | ~2021-07-19 | US_ITS ---
EXAMINATION: US ABDOMEN COMPLETE CLINICAL INFORMATION: Other specific findings abnormal lung blood chemistry, history of embolization for follow-up hemangioma, partial hepatectomy. COMPARISON: CT dated 11/18/2020 and ultrasound dated 01/04/2020. TECHNIQUE: Real-time imaging of the abdominal viscera. FINDINGS: Pancreas is not adequately visualized. No free fluid in the region. The proximal aorta and vena cava are within normal limits. The liver is felt to be echogenic. Once again, a hypoechoic lesion is seen in the right lobe. Measured on this exam at 2.9 x 1.9 x 3.5 cm. Measured on previous ultrasound at 3.1 x 2.2 x 3.2 cm and on previous CT measured approximately 2.1 x 2.9 x 2 cm. Characterized by hypoechogenicity. The borders here are ill-defined. Gallbladder appears contracted. Common duct measures 4 mm. The right kidney is 10 cm and left kidney is 11 cm. No hydronephrosis or stone. The spleen is within normal limits at 11.4 cm. US/US abdomen complete IMPRESSION: Hypoechoic lesion in liver once again seen. Measurements given above. Some mild increase cannot be excluded though differences in measurement may be due to variance in image acquisition measurement technique by the [employer]. If more detailed evaluation is warranted consider follow-up CT to more directly compare.
== END 2021-07-19 08:49 | disposition home or self-care (01) ==
LOC: HO.US 08:48
PROVIDERS: Visit Provider Internal Medicine Gastroenterology
DX: D18.03 Hemangioma of intra-abdominal structures (principal); R79.89 Other specified abnormal findings of blood chemistry
CPT/HCPCS: 76700

== ENCOUNTER 2021-09-25 08:55 | Outpatient (REF) | payer OTHER, SELFPAY ==
[2021-09-25 09:24] LABS: MANUAL DIFF FLAG NO
[2021-09-25 09:43] LABS: Basophils Percent Auto 0.5 % (0-2); Eosinophils Absolute Auto 0.1 X10*3/uL (0.0-0.4); Eosinophils Percent Auto 1.2 % (0-4); Hematocrit 41.4 % (37.0-47.0); Hemoglobin 14.2 g/dl (12.0-16.0); Imm Gran Abs Auto 0.01 X10*3/uL (0.00-0.03); Imm Gran Pct Auto 0.2 % (0.0-0.4); Lymphocytes Absolute Auto 1.4 X10*3/uL (1.2-4.9); Lymphocytes Percent Auto 35.3 % (20-40); Mean Corpuscular HGB Conc 34.3 g/dl (31.0-35.0); Mean Corpuscular Hemoglobin 30.5 pg (27.0-33.0); Mean Corpuscular Volume 88.8 fL (80.0-98.0); Mean Platelet Volume 11.3 fL (9.4-12.3); Monocytes Absolute Auto 0.3 X10*3/uL (0.1-1.2); Monocytes Percent Auto 7.7 % (2-11); Neutrophils Absolute Auto 2.2 x10*3/uL (2.0-8.3); Neutrophils Percent Auto 55.1 % (45-73); Platelet Count 273 X10*3/uL (160-400); Red Blood Count 4.66 X10*6/uL (4.20-5.50); Red Cell Distribution Width 11.6 % (11.0-16.0); White Blood Count 4.1 X10*3/uL (4.8-10.8)
[2021-09-25 09:59] LABS: Prothrombin Time 11.3 SEC (9.9-13.0)
[2021-09-25 10:16] LABS: Alanine Aminotransferase 55 U/L (0-31); Albumin Level 4.5 g/dL (3.5-5.0); Alkaline Phosphatase 93 U/L (39-117); Anion Gap 12 (12-20); Aspartate Amino Transferase 32 U/L (5-31); Blood Urea Nitrogen 14 mg/dL (9-16); Calcium 10.5 mg/dL (8.4-10.2); Carbon Dioxide 30 mmol/L (22-29); Chloride 102 mmol/L (96-108); Estimated Glomerular Filt Rate > 60; Glucose Random 134 mg/dL (60-115); Sodium 139 mmol/L (135-145); Total Protein 7.7 g/dL (6.5-8.0)
[2021-09-25 10:24] LABS: Ferritin 78 ng/mL (10-250); HBc Num1 0.07 S/CO (0.00-0.79); Hepatitis B Core Antibody Nonreactive (Nonreactive); ~HepC Num1 0.08 S/CO (0.00-0.79); ~Hepatitis B Surface Antibody REACTIVE (Nonreactive); ~Hepatitis C Antibody Nonreactive (Nonreactive)
[2021-09-25 10:26] LABS: HBsAGNum1 0.21 S/CO (0.00-0.99); Hepatitis B Surface Antigen Negative (Negative)
[2021-09-27 04:15] LABS: ~Hepatitis A Antibody IgM Nonreactive (Nonreactive)
[2021-09-27 13:12] LABS: Transglutaminase Ab IgG <1.0 U/mL; Transglutaminase IgA <1.0 U/mL
[2021-09-27 14:41] LABS: Immunoglobulin G 1411 mg/dL (600-1640)
[2021-09-27 15:06] LABS: Anti Nuclear Antibody Screen NEGATIVE (NEGATIVE)
[2021-09-27 22:42] LABS: Aldolase 5.7 U/L (<=8.1)
[2021-09-28 04:32] LABS: Alpha 1 Anti-trypsin 122 mg/dL (83-199)
[2021-09-28 14:46] LABS: Soluble Liver Ag Autoantibody <20.1 U (0.0-20.0)
[2021-09-28 17:52] LABS: Mitochondrial Antibodies NEGATIVE (NEGATIVE)
[2021-10-01 13:21] LABS: Smooth Muscle Antibody <20 U (<20)
== END 2021-09-25 08:56 | disposition home or self-care (01) ==
LOC: HO.LAB 08:55
PROVIDERS: PCP Internal Medicine; Visit Provider Internal Medicine Gastroenterology
DX: K52.839 Microscopic colitis, unspecified (principal); R79.89 Other specified abnormal findings of blood chemistry; R10.33 Periumbilical pain; G89.29 Other chronic pain; K75.81 Nonalcoholic steatohepatitis (NASH); R79.82 Elevated C-reactive protein (CRP)
CPT/HCPCS: 36415; 80053; 82085; 82103; 82550; 82728; 82784; 83520; 85025; 85610; 86015; 86038; 86039; 86255; 86256; 86364; 86704; 86706; 86709; 86803; 87340

== ENCOUNTER 2021-10-21 06:59 | Outpatient (REF) | payer OTHER, SELFPAY ==
[2021-10-21 07:11] LABS: MANUAL DIFF FLAG NO
[2021-10-21 07:30] LABS: Appearance Urine CLEAR; Color Urine YELLOW; Glucose Urine UA NEG (NEG); Leukocyte Esterase Urine NEG (NEG); Nitrite Urine NEG (NEG); PH 5.5 (5.0-8.0); Specific Gravity - Urine 1.025 (1.005-1.025); Urine Blood NEG (NEG); Urine Ketones NEG (NEG); Urine Protein NEG (NEG-TRACE)
[2021-10-21 07:31] LABS: Basophils Percent Auto 0.4 % (0-2); Eosinophils Absolute Auto 0.1 X10*3/uL (0.0-0.4); Eosinophils Percent Auto 1.6 % (0-4); Hematocrit 40.2 % (37.0-47.0); Hemoglobin 13.6 g/dl (12.0-16.0); Imm Gran Abs Auto 0.02 X10*3/uL (0.00-0.03); Imm Gran Pct Auto 0.4 % (0.0-0.4); Lymphocytes Percent Auto 36.4 % (20-40); Mean Corpuscular HGB Conc 33.8 g/dl (31.0-35.0); Mean Corpuscular Hemoglobin 30.2 pg (27.0-33.0); Mean Corpuscular Volume 89.1 fL (80.0-98.0); Mean Platelet Volume 11.4 fL (9.4-12.3); Monocytes Absolute Auto 0.5 X10*3/uL (0.1-1.2); Monocytes Percent Auto 8.8 % (2-11); Neutrophils Absolute Auto 2.9 x10*3/uL (2.0-8.3); Neutrophils Percent Auto 52.4 % (45-73); Platelet Count 279 X10*3/uL (160-400); Red Blood Count 4.51 X10*6/uL (4.20-5.50); Red Cell Distribution Width 11.4 % (11.0-16.0); White Blood Count 5.5 X10*3/uL (4.8-10.8)
[2021-10-21 08:01] LABS: Alanine Aminotransferase 43 U/L (0-31); Albumin Level 4.4 g/dL (3.5-5.0); Alkaline Phosphatase 88 U/L (39-117); Anion Gap 12 (12-20); Aspartate Amino Transferase 23 U/L (5-31); Bilirubin Total 0.9 mg/dL (0.0-1.0); Blood Urea Nitrogen 20 mg/dL (9-16); Calcium 10.5 mg/dL (8.4-10.2); Carbon Dioxide 30 mmol/L (22-29); Chloride 101 mmol/L (96-108); Cholesterol 195 mg/dL; Estimated Glomerular Filt Rate > 60; Glucose Fasting 151 mg/dL (60-99); HDL Cholesterol 37 mg/dL; LDL Cholesterol Calculated 126 mg/dl; Potassium 4.4 mmol/L (3.3-5.1); Sodium 139 mmol/L (135-145); Total Protein 7.7 g/dL (6.5-8.0); Triglycerides 162 mg/dL
[2021-10-21 08:12] LABS: TSH reflex Free T4 5.18 uIU/mL (0.32-4.0); Vitamin D 25-OH Total 28.6 ng/mL (>30)
[2021-10-21 08:17] LABS: Estimated Average Glucose 154 mg/dL
== END 2021-10-21 07:00 | disposition home or self-care (01) ==
LOC: HO.LAB 06:59
PROVIDERS: PCP Internal Medicine; Visit Provider Internal Medicine
DX: I10 Essential (primary) hypertension (principal); E55.9 Vitamin D deficiency, unspecified; E11.9 Type 2 diabetes mellitus without complications; E78.00 Pure hypercholesterolemia, unspecified
CPT/HCPCS: 36415; 80053; 80061; 81003; 82306; 83036; 84439; 84443; 85025

== ENCOUNTER → 2021-10-23 10:50 | Outpatient (BNVA) | payer OTHER, SELFPAY | PROVIDERS: PCP Internal Medicine; Visit Provider Internal Medicine Gastroenterology | DX: Z13.89 Encounter for screening for other disorder (principal) | CPT/HCPCS: Q3014 ==

== ENCOUNTER → 2021-11-09 14:48 | Outpatient (BNVA) | payer OTHER, SELFPAY | PROVIDERS: PCP Internal Medicine; Visit Provider Obstetrics & Gynecology | DX: Z13.89 Encounter for screening for other disorder (principal) ==

== ENCOUNTER 2022-02-15 13:58 | Outpatient (REF) | payer OTHER, SELFPAY ==
--- NOTE | ~2022-02-15 | MM_ITS ---
EXAMINATION: MM SCREENING DIGITAL BREAST TOMOSYNTHESIS, BILATERAL CLINICAL INFORMATION: Screening. Asymptomatic. The lifetime risk of breast cancer based on the Tyrer-Cuzick Model is 7%. COMPARISON: Mammography: 12/26/2020, 11/26/2019, 02/12/2019 TECHNIQUE: Digital breast tomosynthesis is performed in both the craniocaudal and mediolateral oblique views along with computer-aided detection (CAD). Synthesized 2D images are generated from the tomosynthesis. FINDINGS: There are scattered areas of fibroglandular density (ACR BI-RADS breast composition Category b). There is no interval mass or architectural abnormality or abnormal calcifications. Parenchymal pattern is similar to prior studies. Again, there is chronic duct ectasia anterior left breast and scattered bilateral benign coarse, round, and ductal secretory calcifications. Benign oil cysts anterior right breast are decreased in size since 2019. The axilla are unremarkable. MM/MM tomosynthesis screening BI IMPRESSION: -No mammographic evidence of malignancy. -No significant changes from prior exams. ASSESSMENT: BI-RADS 2: Benign RECOMMENDATION: Routine annual mammography screening. This patient's information was entered into a reminder system with a target due date for their next mammogram.
== END 2022-02-15 13:59 | disposition home or self-care (01) ==
LOC: HO.MAMMO 13:58
PROVIDERS: PCP Internal Medicine; Visit Provider Obstetrics & Gynecology
DX: Z12.31 Encounter for screening mammogram for malignant neoplasm of breast (principal)
CPT/HCPCS: 77063; 77067

== ENCOUNTER 2022-03-12 07:35 | Outpatient (REF) | payer OTHER, SELFPAY ==
[2022-03-12 08:04] LABS: MANUAL DIFF FLAG NO
[2022-03-12 08:37] LABS: Basophils Percent Auto 0.2 % (0-2); Eosinophils Absolute Auto 0.1 X10*3/uL (0.0-0.4); Eosinophils Percent Auto 2.3 % (0-4); Hematocrit 41.8 % (37.0-47.0); Hemoglobin 14.1 g/dl (12.0-16.0); Lymphocytes Absolute Auto 1.6 X10*3/uL (1.2-4.9); Lymphocytes Percent Auto 32.2 % (20-40); Mean Corpuscular HGB Conc 33.7 g/dl (31.0-35.0); Mean Corpuscular Hemoglobin 29.9 pg (27.0-33.0); Mean Corpuscular Volume 88.6 fL (80.0-98.0); Mean Platelet Volume 11.8 fL (9.4-12.3); Monocytes Absolute Auto 0.4 X10*3/uL (0.1-1.2); Monocytes Percent Auto 8.5 % (2-11); Neutrophils Absolute Auto 2.8 x10*3/uL (2.0-8.3); Neutrophils Percent Auto 56.8 % (45-73); Platelet Count 274 X10*3/uL (160-400); Red Blood Count 4.72 X10*6/uL (4.20-5.50); Red Cell Distribution Width 11.2 % (11.0-16.0); White Blood Count 4.8 X10*3/uL (4.8-10.8)
[2022-03-12 08:48] LABS: Estimated Average Glucose 169 mg/dL; Hemoglobin A1c % 7.5 %
[2022-03-12 09:21] LABS: Alanine Aminotransferase 68 U/L (0-31); Albumin Level 4.6 g/dL (3.5-5.0); Alkaline Phosphatase 96 U/L (39-117); Anion Gap 18 (12-20); Aspartate Amino Transferase 37 U/L (5-31); Bilirubin Total 1.2 mg/dL (0.0-1.0); Blood Urea Nitrogen 12 mg/dL (9-16); Carbon Dioxide 25 mmol/L (22-29); Chloride 102 mmol/L (96-108); Cholesterol 204 mg/dL; Estimated Glomerular Filt Rate > 60; Glucose Fasting 155 mg/dL (60-99); HDL Cholesterol 32 mg/dL; LDL Cholesterol Calculated 137 mg/dl; Sodium 140 mmol/L (135-145); Triglycerides 179 mg/dL
[2022-03-12 09:25] LABS: Free T4 (Free Thyroxine) 0.93 ng/dL (0.71-1.85); Thyroid Stimulating Hormone 4.49 uIU/mL (0.32-4.0); Vitamin D 25-OH Total 32.6 ng/mL (>30)
[2022-03-12 09:35] LABS: Appearance Urine Clear; Color Urine Yellow; Glucose Urine UA Negative (Negative); Leukocyte Esterase Urine Trace (Negative); Nitrite Urine Negative (Negative); Specific Gravity - Urine 1.015 (1.005-1.025); UMIC TRIGGER UACC YES; Urine Blood Negative (Negative); Urine Ketones Negative (Negative); Urine Protein Negative (Neg-Trace)
[2022-03-12 09:40] LABS: Bacteria Urine None Seen (None Seen); Hyaline Casts Urine 0-2 /LPF (0-2); RBC Urine 0-2 /HPF (0-2); Squamous Epithelial Cell Urine 0-2 /HPF (0-2); WBC Urine 0-5 /HPF (0-5)
[2022-03-12 09:58] LABS: Creatinine Urine 95.68 mg/dL; Microalbum/Creatinine Ratio Ur 11.4 ug/mg cr
== END 2022-03-12 07:36 | disposition home or self-care (01) ==
LOC: HO.LAB 07:35
PROVIDERS: PCP Internal Medicine; Visit Provider Internal Medicine
DX: R79.89 Other specified abnormal findings of blood chemistry (principal); I10 Essential (primary) hypertension; E55.9 Vitamin D deficiency, unspecified; E11.9 Type 2 diabetes mellitus without complications; E78.00 Pure hypercholesterolemia, unspecified
CPT/HCPCS: 36415; 80053; 80061; 81001; 82043; 82306; 83036; 84439; 84443; 85025

== ENCOUNTER 2022-03-21 14:37 | Outpatient (REF) | payer OTHER, SELFPAY ==
--- NOTE | ~2022-03-21 | MM_ITS ---
EXAMINATION: BONE DENSITOMETRY CLINICAL INDICATION: Asymptomatic menopausal state. COMPARISON: None (current study represents initial baseline exam). TECHNIQUE: Using a [employer] DXA System (software version: 13.1) manufactured by [employer], dual-energy x-ray absorptiometry was performed of the lumbar spine and left hip. The images are of good technical quality. Summary results are attached. FINDINGS: AP SPINE L1-L4: BMD 0.713 g/cm2, Z-score -2.5, T-score -3.9, osteoporosis. LEFT FEMUR, NECK: BMD 0.698 g/cm2, Z-score -1.1, T-score -2.4, osteopenia. LEFT FEMUR, TOTAL: BMD 0.719 g/cm2, Z-score -1.3, T-score -2.3, osteopenia. IDENTIFIED RISK FACTORS: Early menopause, secondary osteoporosis. HISTORY OF FRACTURE: None listed. MEDICATIONS: Calcium supplements or multivitamin, vitamin D. MM/XR DEXA axial skeleton IMPRESSION: 1. DIAGNOSIS: Osteoporosis based on the lowest T-score value of -3.9 in the lumbar spine applying World Health Organization criteria. 2. 10-YEAR FRACTURE RISK PREDICTION, FRAX: According to the guidelines, FRAX calculation should only be performed on patients in the osteopenia bone density category. Therefore, FRAX was not performed on this patient. 3. Treatment Recommendations: NOF guidelines recommend consideration for treatment in postmenopausal women and men age 50 and older presenting with the following: -A hip or vertebral (clinical or morphometric) fracture. -T-score less than or equal to -2.5 at the femoral neck or spine after appropriate evaluation to exclude secondary causes. -Low bone mass at the hip or spine and a 10-year fracture probability by FRAX of greater than or equal to 3% for hip fracture or greater than or equal to 20% for major osteoporotic fracture based on the [place] adapted WHO algorithm. 4. Other Recommendations: All treatment decisions require clinical judgment and consideration of individual patient factors, including patient preferences, comorbidities, previous drug use, risk factors not captured in the FRAX model (e.g. frailty, falls, vitamin D deficiency, increased bone turnover, interval significant decline in bone density) and possible under or overestimation of fracture risk by FRAX. Additional medical evaluation for secondary cause of low bone mineral density may be appropriate. FUTURE SCAN RECOMMENDATION: People with diagnosed cases of osteoporosis or at high risk for fracture should have regular bone mineral density tests. For patients eligible for Medicare, routine testing is allowed once every 2 years. The testing frequency can be increased to one year for patients who have rapidly progressing disease, those who are receiving or discontinuing medical therapy to restore bone mass, or have additional risk factors.
== END 2022-03-21 14:38 | disposition home or self-care (01) ==
LOC: HO.MAMMO 14:37
PROVIDERS: Visit Provider Internal Medicine
DX: Z13.820 Encounter for screening for osteoporosis (principal); Z78.0 Asymptomatic menopausal state
CPT/HCPCS: 77080

== ENCOUNTER → 2022-04-23 10:01 | Outpatient (BNVA) | payer OTHER, SELFPAY | PROVIDERS: PCP Internal Medicine; Referring Provider Internal Medicine; Visit Provider Internal Medicine Gastroenterology | DX: R79.89 Other specified abnormal findings of blood chemistry (principal) | CPT/HCPCS: 99212 ==

== ENCOUNTER → 2022-08-20 09:43 | Outpatient (BNVA) | payer OTHER, SELFPAY | PROVIDERS: PCP Family Medicine; Visit Provider Internal Medicine Gastroenterology | DX: R79.89 Other specified abnormal findings of blood chemistry (principal) | CPT/HCPCS: 99212 ==

== ENCOUNTER → 2022-11-14 09:54 | Outpatient (BNVA) | payer OTHER, SELFPAY | PROVIDERS: PCP Family Medicine; Visit Provider Obstetrics & Gynecology ==

== ENCOUNTER 2022-11-23 19:32 | Inpatient (IN) | payer OTHER, SELFPAY ==
--- NOTE | ~2022-11-23 | CT_ITS ---
EXAMINATION: CT ABDOMEN AND PELVIS WITH CONTRAST CLINICAL INFORMATION: Abdominal pain COMPARISON: 11/18/2020 TECHNIQUE: Multidetector volumetric images were obtained from the superior aspect of the liver through the pubic symphysis following administration 85 mL of Omnipaque 350 intravenous contrast. Sagittal and coronal reformatted images were obtained on the technologist's workstation. Oral contrast: No This CT examination was performed using dose optimization techniques as appropriate, variously including the following: *Automated exposure control *Adjustment of mA and/or kV according to patient size (this includes techniques or standardized protocols for targeted exams where dose is matched to indication/reason for exam; i.e. extremities or head) *Use of iterative reconstruction technique DLP: 376 mGy-cm FINDINGS: LUNG BASES: The visualized lung bases are unremarkable. LIVER, GALLBLADDER, AND BILIARY TREE: Partial right hepatectomy. Hemangioma identified measuring 3.2 cm, unchanged. Radiopaque density in the posterior soft tissues. This is unchanged. Cyst along the inferior margin of segment IVb. The gallbladder is unremarkable with no evidence of radiopaque gallstones, gallbladder wall thickening, or obvious pericholecystic inflammatory changes. PANCREAS: Unremarkable. SPLEEN: Unremarkable. ADRENAL GLANDS: Unremarkable. KIDNEYS AND URETERS: The kidneys are normal in size, shape, and attenuation. No hydronephrosis, hydroureter, or calculi seen. No perinephric stranding. BLADDER: Unremarkable. GASTROINTESTINAL TRACT: Mildly distended stomach without wall thickening. Dilated small bowel in the central abdomen. This extends to an area of small bowel fecalization in the right midabdomen. This is followed by an area of small bowel wall thickening. The more distal small bowel is normal in caliber. The colon is mostly decompressed. Normal appendix. Stool in the rectum. No free air. Tiny amount of free fluid in the pelvis. ABDOMINAL WALL: No significant hernia is appreciated. LYMPH NODES: Normal. VASCULAR: Normal caliber aorta with mild atherosclerotic calcification. PELVIC VISCERA: The uterus and adnexa are unremarkable. OSSEOUS STRUCTURES: No acute or suspicious osseous abnormality. CT/CT abdomen pelvis w IV con IMPRESSION: Dilated small bowel in the central abdomen extending to an area of fecalization and small bowel wall thickening in the right midabdomen. This could represent a partial small bowel obstruction associated with enteritis. Fleischner guidelines were followed.
--- NOTE | ~2022-11-23 | CT_ITS ---
EXAMINATION: CT HEAD WITHOUT CONTRAST CLINICAL INFORMATION: Syncope. Confusion. COMPARISON: 10/08/2017 TECHNIQUE: Contiguous axial imaging was performed from the skull base to vertex without intravenous contrast. This CT examination was performed using dose optimization techniques as appropriate, variously including the following: * Automated exposure control * Adjustment of mA and/or kV according to patient size (this includes techniques or standardized protocols for targeted exams where dose is matched to indication/reason for exam; i.e. extremities or head) Use of iterative reconstruction technique DLP: 565 mGy-cm. FINDINGS: There is no evidence of acute intracranial hemorrhage or territorial infarction. No abnormal mass effect or midline shift is seen. Guerra to white matter differentiation is well preserved. No extra-axial fluid collections are identified. No hydrocephalus. No significant volume loss. There is no abnormal attenuation within the brain parenchyma. The osseous structures and soft tissues are normal. The mastoid air cells and visualized portions of the paranasal sinuses are well aerated. CT/CT head for stroke IMPRESSION: No acute intracranial pathology. This critical result was discussed with Dr. Verduzco by telephone at 11/23/2022 8:49 PM and it was ascertained that the content and urgency of the report was understood at the time of direct communication.
--- NOTE | ~2022-11-23 | XR_ITS ---
EXAMINATION: XR ABDOMEN KUB CLINICAL INDICATION: Partial small bowel structure, follow-up. COMPARISON: CT scan of the abdomen and pelvis dated 11/23/2022. TECHNIQUE: AP view of the abdomen. FINDINGS: Support devices: Enteric tube in side-port overlying the proximal gastric lumen. Mildly dilated gas-filled loops of small bowel are seen. Mild gas and stool are seen within the colon distally to the rectum. Multiple surgical clips overlie the right upper quadrant. The osseous structures are unremarkable. XR/XR KUB IMPRESSION: Interval decrease in small bowel gaseous distention compared to the recent CT scan. Continued short-term radiographic monitoring as clinically indicated.
[2022-11-23 20:11] VITALS: BMI 24.4
--- NOTE | 2022-11-23 20:16 | ECG_ITS ---
Test Reason : DIZZINESS Blood Pressure : / mmHG Vent. Rate : 072 BPM Atrial Rate : 072 BPM P-R Int : 130 ms QRS Dur : 072 ms QT Int : 394 ms P-R-T Axes : 008 037 053 degrees QTc Int : 431 ms Normal sinus rhythm Normal ECG When compared with ECG of 18-NOV-2020 18:54, No significant change was found Referred By: Kassi Wilkes Electronically Signed By:Orlin Nunes
[2022-11-23 20:18] LABS: Glucose, Whole Blood 138 mg/dL (60-115)
[2022-11-23 20:21] VITALS: BP 101/55; PULSE 82; RESP 16; O2SAT 98
--- NOTE | 2022-11-23 20:26 | PC.NURSE ---
IV line access obtained 20g LAC
[2022-11-23 20:48] LABS: MANUAL DIFF FLAG NO
[2022-11-23 20:51] LABS: Basophils Percent Auto 0.2 % (0-2); Eosinophils Percent Auto 0.2 % (0-4); Hematocrit 45.2 % (37.0-47.0); Hemoglobin 15.4 g/dl (12.0-16.0); Imm Gran Abs Auto 0.03 X10*3/uL (0.00-0.03); Imm Gran Pct Auto 0.2 % (0.0-0.4); Lymphocytes Absolute Auto 1.4 X10*3/uL (1.2-4.9); Mean Corpuscular HGB Conc 34.1 g/dl (31.0-35.0); Mean Corpuscular Hemoglobin 29.6 pg (27.0-33.0); Mean Corpuscular Volume 86.9 fL (80.0-98.0); Mean Platelet Volume 11.3 fL (9.4-12.3); Monocytes Absolute Auto 0.5 X10*3/uL (0.1-1.2); Monocytes Percent Auto 4.3 % (2-11); Neutrophils Absolute Auto 10.4 x10*3/uL (2.0-8.3); Neutrophils Percent Auto 84.1 % (45-73); Platelet Count 290 X10*3/uL (160-400); Red Cell Distribution Width 11.5 % (11.0-16.0); White Blood Count 12.4 X10*3/uL (4.8-10.8)
--- NOTE | 2022-11-23 20:52 | PC.NURSE ---
Pt brought back from waiting room, reporting dizziness, weakness and excruciating abdominal pain. 20g IV placed in LAC, labs drawn and pt went to CT. Pt now resting on stretcher at this time, normal sinus on the foot cutter
[2022-11-23 21:06] LABS: Alanine Aminotransferase 37 U/L (0-31); Alkaline Phosphatase 54 U/L (39-117); Anion Gap 16 (12-20); Aspartate Amino Transferase 26 U/L (5-31); Bilirubin Direct 0.3 mg/dL (0.0-0.5); Bilirubin Total 1.6 mg/dL (0.0-1.0); Blood Urea Nitrogen 14 mg/dL (9-16); Calcium 11.1 mg/dL (8.4-10.2); Carbon Dioxide 28 mmol/L (22-29); Chloride 100 mmol/L (96-108); Creatinine Clr Calc Pharmacy 58.2; Estimated Glomerular Filt Rate > 60; Glucose Random 187 mg/dL (60-115); Lipase 21 U/L (8-78); Magnesium 2.2 mg/dL (1.6-2.6); Potassium 4.3 mmol/L (3.3-5.1); Sodium 140 mmol/L (135-145); Total Protein 8.5 g/dL (6.5-8.0)
[2022-11-23 21:14] LABS: Troponin-I High Sensitivity < 2.7 ng/L (<3.5-17.0)
--- NOTE | 2022-11-23 21:39 | ED_ITS ---
HPI - Abdominal Pain General Chief Complaint: Abdominal Pain Stated Complaint: Abdominal pain Time Seen by Provider: 11/23/22 21:34 Source: patient and apiarist History of Present Illness HPI narrative: 62-year-old female who presents with onset of left upper quadrant pain that started approximately 17:00 and was noted to collapse on the floor, POC at that time demonstrated glucose-138. Patient states that she had some nausea and vomiting prior to presentation and states that she is on pentoxifylline to make sure she does not get clots in the liver . Patient reports being significantly dizzy. Related Data Home Medications Medication Instructions Recorded Confirmed calcium carbonate 600 mg calcium 600 mg PO DAILY 04/23/22 08/20/22 (1,500 mg) tablet (Calcium) alcohol swabs (Alcohol Prep Pads) 0 pad topical 08/20/22 08/20/22 alendronate 70 mg tablet 70 mg PO QWEEK 08/20/22 08/20/22 blood sugar diagnostic (FreeStyle #10 ea 08/20/22 08/20/22 Lite Strips) cholecalciferol (vitamin D3) 25 25 mcg PO DAILY 08/20/22 08/20/22 mcg (1,000 unit) capsule (Vitamin D3) fenofibrate 160 mg tablet 160 mg PO DAILY 08/20/22 08/20/22 lancets 33 gauge (TRUEplus Lancets) #100 ea 11/14/22 Previous Rx's Medication Instructions Recorded hyoscyamine sulfate 0.125 mg tablet 0.125 mg PO QID PRN dyspepsia #10 11/19/20 tabs ibuprofen 600 mg tablet 600 mg PO TID PRN for pain #90 tabs 01/20/21 simethicone 180 mg capsule 180 mg PO BID PRN abdominal 10/24/21 distention 30 days #60 caps polyethylene glycol 3350 17 17 g PO DAILY 30 days #510 grams 06/13/22 gram/dose oral powder (Miralax) ergocalciferol (vitamin D2) 1,250 1,250 mcg PO QWEEK 90 days #13 caps 07/26/22 mcg (50,000 unit) capsule pentoxifylline 400 mg 400 mg PO BID #90 tabs 08/30/22 tablet,extended release ezetimibe 10 mg tablet 10 mg PO DAILY #90 tabs 09/25/22 omeprazole 40 mg capsule,delayed 40 mg PO DAILY PRN for acid reflux 10/04/22 release #90 caps sitagliptin phosphate 100 mg 100 mg PO DAILY 90 days #90 tabs 10/16/22 tablet (Januvia) Allergies Allergy/AdvReac Type Severity Reaction Status Date / Time codeine [CODEINE] Allergy Intermediate DIZZY/CAROLYN Verified 11/14/22 10:01 RGY atorvastatin AdvReac Unknown increased Verified 11/14/22 10:01 heartburns Review of Systems Review of Systems Pertinent positives and negatives as stated in [facility] Past Medical History Source: nursing notes reviewed Medical History Anxiety Constipation Diabetes mellitus Dysplasia of cervix, low grade (VIRGIE 1) Elevated LFTs GERD (gastroesophageal reflux disease) Hemangioma of liver Osteopenia Overweight (BMI 25.0-29.9) Pure hypercholesterolemia Vitamin D deficiency Surgical History History of blood clots History of colonoscopy History of oral surgery History of resection of liver History of tubal ligation Family History Family History Father No problems noted. Mother Uterine cancer Colon cancer Maternal Grandmother No problems noted. Paternal Aunt Ovarian cancer Social History Social History Household Members: Children Household Members Other:: daughter Housing: Apartment Alcohol intake: never Patient Tobacco Use Status: Never used Tobacco Smoked in Last 30 Days: No e-Cigarette/Vaping Use: Never Used Second Hand Smoke Exposure: No Use of substances other than those prescribed or required for medical reasons: No Advance Directives: No Advance Directives Information Provided: Yes service: No Current occupational status: disabled Cognitive needs: No Hearing needs: No Vision needs: Yes Physical Exam ED Vital Signs: Vital Signs - 24 hr 11/23/22 20:21 11/23/22 21:45 11/23/22 21:46 Pulse Rate 82 78 78 Respiratory Rate 16 Blood Pressure 101/55 L 134/79 129/65 Pulse Oximetry 98 Oxygen Delivery Method Room Air 11/23/22 21:49 11/23/22 22:06 11/23/22 22:06 Pulse Rate 79 95 92 Respiratory Rate 16 16 15 Blood Pressure 129/63 150/74 H 152/81 H Pulse Oximetry 99 99 98 Oxygen Delivery Method Room Air Room Air Room Air BMI result Body Mass Index 24.4 VITAL SIGNS: Reviewed. GENERAL: Well developed, well nourished, in no acute distress. HEAD: Normocephalic/atraumatic EYES: PERRLA, EOMI EARS: Ext canals without abnormality NOSE: Nares patent bilateral OROPHARYNX: no oral lesions noted, posterior pharynx clear NECK: Supple, no adenopathy LUNGS: Normal breath sounds. No adventitious sounds or accessory muscle use. SpO2<98> CARDIOVASCULAR: Regular rate and rhythm without noted murmurs ABDOMEN: Soft, left upper quadrant discomfort but no rebound, non-distended with bowel sounds. MUSCULOSKELETAL: No tenderness, deformities, or effusions noted on gross inspection. EXTREMITIES: No cyanosis, clubbing or edema. SKIN: Inspection of the skin reveals no rashes, no diaphoresis NEUROLOGIC: Alert and oriented x 4. Strength and sensation to light touch were grossly intact x 4. Medical Decision Making Medical Decision Making MDM Narrative: 2051: Call from radiology reports negative CT of the head. 2129: Evaluated the patient at bedside and noted that she is not tachycardic but has significant hypotension which was confirmed on repeat blood pressure, additional IV access was obtained and home 2 L of IV fluids and will get CT abdomen pelvis with IV contrast with concerns for possible perforation or rupture of the hemangioma. Somewhat conflicting as there is no noted tachycardia. 7: Nursing staff said that on repeat blood pressure in the left upper extremity that systolic pressures were 129-136. 2319: Review of all investigations suggests a partial SBO, patient will receive IV fluids, pain medications, I did discuss the case with Dr. Monika jason who agrees with admission and is recommending NG placement. Differential Diagnosis Please see the discussion above Consult Healthcare Provider Management of the patient was discussed with: Direct Service Worker Please see the discussion above Lab Data Please see the discussion above 11/23/22 20:43 11/23/22 20:43 Labs: Lab Results 11/23/22 11/23/22 11/23/22 Range/Units 20:15 20:43 20:43 WBC 12.4 H (4.8-10.8) X10*3/uL RBC 5.20 (4.20-5.50) X10*6/uL Hgb 15.4 (12.0-16.0) g/dl Hct 45.2 (37.0-47.0) % MCV 86.9 (80.0-98.0) fL MCH 29.6 (27.0-33.0) pg MCHC 34.1 (31.0-35.0) g/dl RDW 11.5 (11.0-16.0) % Plt Count 290 (160-400) X10*3/uL MPV 11.3 (9.4-12.3) fL Immature Gran % (Auto) 0.2 (0.0-0.4) % Neut % (Auto) 84.1 H (45-73) % Lymph % (Auto) 11.0 L (20-40) % [place] % (Auto) 4.3 (2-11) % Eos % (Auto) 0.2 (0-4) % Baso % (Auto) 0.2 (0-2) % Lymph # (Auto) 1.4 (1.2-4.9) X10*3/uL [place] # (Auto) 0.5 (0.1-1.2) X10*3/uL Eos # (Auto) 0.0 (0.0-0.4) X10*3/uL Baso # (Auto) 0.0 (0.0-0.2) X10*3/uL Abs Immat Gran (auto) 0.03 (0.00-0.03) X10*3/uL Absolute Neuts (auto) 10.4 H (2.0-8.3) x10*3/uL Absolute Nucleated RBC 0.000 (0.0-0.012) X10*3/uL Nucleated RBC % (auto) 0.0 (0.0-0.2) /100WBC Sodium 140 (135-145) mmol/L Potassium 4.3 (3.3-5.1) mmol/L Chloride 100 (96-108) mmol/L Carbon Dioxide 28 (22-29) mmol/L Anion Gap 16 (12-20) BUN 14 (9-16) mg/dL Creatinine 0.80 (0.5-1.4) mg/dL Estim Creat Clear Calc 58.2 Estimated GFR > 60 POC Glucose 138 H (60-115) mg/dL Random Glucose 187 H (60-115) mg/dL Calcium 11.1 H D (8.4-10.2) mg/dL Magnesium 2.2 (1.6-2.6) mg/dL Total Bilirubin 1.6 H (0.0-1.0) mg/dL Direct Bilirubin 0.3 (0.0-0.5) mg/dL AST 26 (5-31) U/L ALT 37 H (0-31) U/L Alkaline Phosphatase 54 (39-117) U/L Troponin I High Sens (<3.5-17.0) ng/L Total Protein 8.5 H (6.5-8.0) g/dL Albumin 5.0 (3.5-5.0) g/dL Lipase 21 (8-78) U/L Urine Color Urine Appearance Urine pH (5.0-9.0) Ur Specific [place] (1.005-1.025) Urine Protein (Neg-Trace) mg/dL Urine Glucose (UA) (Negative) mg/dL Urine Ketones (Negative) mg/dL Urine Blood (Negative) Urine Nitrite (Negative) Ur Leukocyte Esterase (Negative) 11/23/22 11/23/22 Range/Units 20:43 22:28 WBC (4.8-10.8) X10*3/uL RBC (4.20-5.50) X10*6/uL Hgb (12.0-16.0) g/dl Hct (37.0-47.0) % MCV (80.0-98.0) fL MCH (27.0-33.0) pg MCHC (31.0-35.0) g/dl RDW (11.0-16.0) % Plt Count (160-400) X10*3/uL MPV (9.4-12.3) fL Immature Gran % (Auto) (0.0-0.4) % Neut % (Auto) (45-73) % Lymph % (Auto) (20-40) % [place] % (Auto) (2-11) % Eos % (Auto) (0-4) % Baso % (Auto) (0-2) % Lymph # (Auto) (1.2-4.9) X10*3/uL [place] # (Auto) (0.1-1.2) X10*3/uL Eos # (Auto) (0.0-0.4) X10*3/uL Baso # (Auto) (0.0-0.2) X10*3/uL Abs Immat Gran (auto) (0.00-0.03) X10*3/uL Absolute Neuts (auto) (2.0-8.3) x10*3/uL Absolute Nucleated RBC (0.0-0.012) X10*3/uL Nucleated RBC % (auto) (0.0-0.2) /100WBC Sodium (135-145) mmol/L Potassium (3.3-5.1) mmol/L Chloride (96-108) mmol/L Carbon Dioxide (22-29) mmol/L Anion Gap (12-20) BUN (9-16) mg/dL Creatinine (0.5-1.4) mg/dL Estim Creat Clear Calc Estimated GFR POC Glucose (60-115) mg/dL Random Glucose (60-115) mg/dL Calcium (8.4-10.2) mg/dL Magnesium (1.6-2.6) mg/dL Total Bilirubin (0.0-1.0) mg/dL Direct Bilirubin (0.0-0.5) mg/dL AST (5-31) U/L ALT (0-31) U/L Alkaline Phosphatase (39-117) U/L Troponin I High Sens < 2.7 (<3.5-17.0) ng/L Total Protein (6.5-8.0) g/dL Albumin (3.5-5.0) g/dL Lipase (8-78) U/L Urine Color Yellow Urine Appearance Clear Urine pH >= 9.0 (5.0-9.0) Ur Specific [place] >= 1.030 H (1.005-1.025) Urine Protein Trace (Neg-Trace) mg/dL Urine Glucose (UA) Negative (Negative) mg/dL Urine Ketones Trace (Negative) mg/dL Urine Blood Negative (Negative) Urine Nitrite Negative (Negative) Ur Leukocyte Esterase Negative (Negative) Independent Interpretation I performed an independent interpretation of an: EKG Interpretation: Normal sinus rhythm, HR-72, no STEMI, [place]/QRS/QTC is within normal limits. Radiology Impression Radiologist Impression: My interpretation is in agreement with radiology's impression Chronic Conditions Patient?s care impacted by: Diabetes Medications Administered Discontinued Medications Generic Name Dose Route Start Last Admin Trade Name Freq PRN Reason Stop Dose Admin Sodium Chloride 1,000 mls @ 999 mls/hr 11/23/22 21:45 11/23/22 22:57 Ns IV 11/23/22 22:45 Infused .Q1H1M JONES Infusion Sodium Chloride 1,000 mls @ 999 mls/hr 11/23/22 21:45 11/23/22 22:57 Ns IV 11/23/22 22:45 Infused .Q1H1M JONES Infusion Iohexol 100 ml 11/23/22 21:57 11/23/22 21:58 Iohexol 350 Mg/Ml 100 Ml Infus..Btl IV 11/23/22 21:58 85 ml ONCE ONE Administration Discharge Plan Discharge Clinical Impression: SBO (small bowel obstruction) Patient Disposition: Admitted As Inpatient Prescriptions: No Action ibuprofen 600 mg tablet 600 mg PO TID PRN (Reason: for pain) Qty: 90 0RF simethicone 180 mg capsule 180 mg PO BID PRN (Reason: abdominal distention) 30 Days Qty: 60 1RF polyethylene glycol 3350 [Miralax] 17 gram/dose powder 17 g PO DAILY 30 Days Qty: 510 12RF ergocalciferol (vitamin D2) 1,250 mcg (50,000 unit) capsule 1,250 mcg PO QWEEK 90 Days Qty: 13 3RF pentoxifylline 400 mg tablet extended release 400 mg PO BID Qty: 90 2RF Rx Instructions: administer with meals ezetimibe 10 mg tablet 10 mg PO DAILY Qty: 90 1RF omeprazole 40 mg capsule,delayed release(DR/EC) 40 mg PO DAILY PRN (Reason: for acid reflux) Qty: 90 0RF Januvia 100 mg tablet 100 mg PO DAILY 90 Days Qty: 90 1RF hyoscyamine sulfate 0.125 mg tablet 0.125 mg PO QID PRN (Reason: dyspepsia) Qty: 10 0RF calcium carbonate [Calcium 600] 600 mg calcium (1,500 mg) tablet 600 mg PO DAILY (DME) lancets [TRUEplus Lancets] 33 gauge misc See Rx Instructions .ROUTE .MEDSUPPLY Qty: 100 Rx Instructions: As directed alcohol swabs [Alcohol Prep Pads] Pads, Medicated 0 pad topical (DME) FreeStyle Lite Strips Strip See Rx Instructions .ROUTE BID Qty: 10 Rx Instructions: As directed cholecalciferol (vitamin D3) [Vitamin D3] 25 mcg (1,000 unit) capsule 25 mcg PO DAILY fenofibrate 160 mg tablet 160 mg PO DAILY alendronate 70 mg tablet 70 mg PO QWEEK
[2022-11-23 21:45] VITALS: BP 134/79; PULSE 78
[2022-11-23 21:46] VITALS: BP 129/65; PULSE 78
[2022-11-23 21:49] VITALS: BP 129/63; PULSE 79; RESP 16; O2SAT 99
--- NOTE | 2022-11-23 21:49 | PC.NURSE ---
bp low retaken and improved pt has 2 iv lines and ivf infusing wide open and pt was in trand. position then taken to ct with bp 129/
[2022-11-23] MEDS: iohexoL 350 MG/ML 100 ML INFUS..BTL IV (21:58)
[2022-11-23] MEDS: 0.9 % Sodium Chloride 1,000 ML 999 ML IV ×3 (22:03→23:26)
[2022-11-23 22:06] VITALS: BP 150/74; BP 152/81; PULSE 92; PULSE 95; RESP 15; RESP 16; O2SAT 98; O2SAT 99
--- NOTE | 2022-11-23 22:10 | PC.NURSE ---
pt had episode of hypotension, MD Verduzco requested that this RN hang two liters of normal saline
[2022-11-23 22:35] LABS: Appearance Urine Clear; Color Urine Yellow; Glucose Urine UA Negative (Negative); Leukocyte Esterase Urine Negative (Negative); Nitrite Urine Negative (Negative); PH >= 9.0 (5.0-9.0); Specific Gravity - Urine >= 1.030 (1.005-1.025); Urine Blood Negative (Negative); Urine Ketones Trace mg/dL (Negative); Urine Protein Trace mg/dL (Neg-Trace)
[2022-11-23] MEDS: fentaNYL citrate/PF 100 MCG/2 ML VIAL 25 MCG IVPUSH (23:20)
[2022-11-23 23:21] LABS: Glucose, Whole Blood 164 mg/dL (60-115)
[2022-11-23 23:46] LABS: Lactic Acid 1.3 mmol/L (0.5-2.0)
[2022-11-23] MEDS: Piperacillin Sodium/Tazobactam 3.375 GM in 0.9 % Sodium Chloride 50 ML IV (23:50)
[2022-11-24] MEDS: Lactated Ringers 1,000 ML 80 ML IVCONT ×2 (00:07→13:30)
[2022-11-24 00:45] VITALS: BP 173/88; PULSE 93; RESP 15; TEMP 37; O2SAT 98
--- NOTE | 2022-11-24 00:49 | PC.NURSE ---
this RN placed NG tube in right nare, immediate output of 450 ml of green fluid. Pt reports feeling some relief. NG tube secured in place Fluids started and IV abx started
[2022-11-24] MEDS: Morphine Sulfate 4 MG/ML CARTRIDGE 3 MG IVPUSH (02:09)
--- NOTE | 2022-11-24 03:05 | PC.NURSE ---
pt sleeping at this time, respirations even and unlabored, skin pwd, NG tube intact and suctioning appropriately, normal sinus on monitor
[2022-11-24 05:22] VITALS: BP 142/78; PULSE 85; RESP 15; TEMP 36.4; O2SAT 98
--- NOTE | 2022-11-24 07:30 | PC.NURSE ---
assumed care of pt no apparent distress
--- NOTE | 2022-11-24 07:58 | PC.NURSE ---
called to give report to YORDY Caruso Tier Text sent to YORDY Caruso- message
[2022-11-24 08:19] VITALS: BP 150/78; PULSE 78; RESP 13; TEMP 36.4; O2SAT 96
--- NOTE | 2022-11-24 08:32 | PC.NURSE ---
Report given to YORDY CarusoerTtram to [facility] for transport. pt aox3 NGT remains in place
[2022-11-24 09:18] VITALS: BP 154/76; PULSE 80; RESP 20; TEMP 36.8; O2SAT 99
[2022-11-24 09:36] VITALS: BMI 26.6
[2022-11-24] MEDS: Heparin Sodium,Porcine 5,000 UNIT/ML VIAL 5000 UNIT SUBCUT ×2 (10:09→21:37)
--- NOTE | 2022-11-24 10:11 | P.HPGS_ITS ---
History of Present Illness History of Present Illness Date of Service: 11/27/22 Chief complaint: partial SBO Narrative: Trupti Osborn is a 62 year old female admitted last night for abdominal pain. She describes having eaten stew about 4 pm yesterday then started to have abdominal pain an hour later. She says she had couple of episodes of vomitting as well. She tehrefore went to the ED thereafter. She has been seeing GI for a long time for chronic constipation and GERD. She has had elevated LFTs and this was deemed to be secondary to MEDELLIN. She had liver resection as well as embolization 4 years ago in [place] for a liver hemangiona. She says she was placed on Trental by Dr. Jarrell for her liver problem. She now denies any abdominal pain. She denies nausea. She says she feels much better. Review of Systems Constitutional: Constitutional: Denies chills, Denies fever(s) and Reports headache(s) ENT: Reports headache(s) Cardiovascular: Cardiovascular: Denies chest pain, Denies dyspnea and Denies dyspnea on exertion Respiratory: Respiratory: Denies cough, Denies dyspnea and Denies dyspnea on exertion Gastrointestinal: Gastrointestinal: Denies hematochezia and Denies change in bowel habits Genitourinary: Genitourinary: Denies hematuria Musculoskeletal: Musculoskeletal: Denies back pain and Denies limited range of motion Neurologic: Reports headache(s), Denies focal weakness and Denies convulsions Psychiatric: Psychiatric: Denies depression and Denies mood swings PMFSH Past Medical History Medical History Anxiety Constipation Diabetes mellitus Dysplasia of cervix, low grade (VIRGIE 1) Elevated LFTs GERD (gastroesophageal reflux disease) Hemangioma of liver Osteopenia Overweight (BMI 25.0-29.9) Pure hypercholesterolemia Vitamin D deficiency Family History Family History Father No problems noted. Mother Uterine cancer Colon cancer Maternal Grandmother No problems noted. Paternal Aunt Ovarian cancer Surgical History Surgical History History of blood clots History of colonoscopy History of oral surgery History of resection of liver History of tubal ligation Social History Social History Household Members: Children Household Members Other:: daughter Housing: Assisted Living Facility Alcohol intake: never Patient Tobacco Use Status: Never used Tobacco e-Cigarette/Vaping Use: Never Used Second Hand Smoke Exposure: No service: No Current occupational status: disabled Cognitive needs: No Hearing needs: No Vision needs: Yes Meds Allergies Allergy/AdvReac Type Severity Reaction Status Date / Time codeine [CODEINE] Allergy Intermediate DIZZY/CAROLYN Verified 11/24/22 00:59 RGY atorvastatin AdvReac Unknown increased Verified 11/24/22 00:59 heartburns Active Medications: Current Medications Heparin Sodium (Porcine) (Heparin Sodium,Porcine 5,000 Unit/Ml Vial) 5,000 unit SUBCUT Q12H [facility] Last Admin: 11/24/22 10:09 Dose: 5,000 unit Lactated Ringer's (Lr) 1,000 mls @ 80 mls/hr IVCONT .[id number] [facility] Last Admin: 11/24/22 00:07 Dose: 80 mls/hr Morphine Sulfate (Morphine Sulfate 4 Mg/Ml Cartridge) 3 mg IVPUSH Q4H PRN; Protocol PRN Reason: Pain, Severe (Pain Scale 7-10) Last Admin: 11/24/22 02:09 Dose: 3 mg Ondansetron HCl (Ondansetron Hcl 4 Mg/2 Ml Vial) 4 mg IVPUSH Q8H PRN PRN Reason: nausea Sodium Chloride (0.9 % Sodium Chloride Flush 3 Ml Syringe) 3 ml IVFLUSH QSHIFT [facility] Last Admin: 11/24/22 07:01 Dose: Not Given Home Medications Medication Instructions Recorded Confirmed Last Taken Type alendronate 70 mg tablet 70 mg PO QWEEK 08/20/22 11/24/22 Unknown History blood sugar diagnostic (FreeStyle #10 ea 08/20/22 08/20/22 Unknown History Lite Strips) cholecalciferol (vitamin D3) 25 25 mcg PO DAILY 08/20/22 11/24/22 Unknown History mcg (1,000 unit) capsule (Vitamin D3) lancets 33 gauge (TRUEplus Lancets) #100 ea 11/14/22 Unknown History pentoxifylline 400 mg 400 mg PO DAILY 11/24/22 11/24/22 Unknown History tablet,extended release polyethylene glycol 3350 17 17 g PO DAILY PRN Constipation 11/24/22 11/24/22 Unknown History gram/dose oral powder (Miralax) Physical Exam 2 Vital Signs: Vital Signs: Last Vital Signs Temp 98.2 F 11/24/22 09:18 Pulse 80 11/24/22 09:18 Resp 20 11/24/22 09:18 BP 154/76 H 11/24/22 09:18 Pulse Ox 99 11/24/22 09:18 O2 Del Method Room Air 11/24/22 09:18 BMI result Body Mass Index 26.6 Const: General: comfortable and no acute distress Orientation/consciousness: patient oriented x3 Neck: Neck: Yes no lymphadenopathy Resp: Auscultation: clear to auscultation bilaterally Cardio: Rhythm: regular rhythm GI: Palpation (GI): Soft to palpation, nontender and no guarding Neuro: General: patient oriented x3 Results Results Labs: Short CBC 11/23/22 Range/Units 20:43 WBC 12.4 H (4.8-10.8) X10*3/uL Hgb 15.4 (12.0-16.0) g/dl Hct 45.2 (37.0-47.0) % Plt Count 290 (160-400) X10*3/uL BMP 11/23/22 20:43 Sodium 140 Potassium 4.3 Chloride 100 Carbon Dioxide 28 BUN 14 Creatinine 0.80 Calcium 11.1 H D Liver Function 11/23/22 Range/Units 20:43 Total Bilirubin 1.6 H (0.0-1.0) mg/dL Direct Bilirubin 0.3 (0.0-0.5) mg/dL AST 26 (5-31) U/L ALT 37 H (0-31) U/L Alkaline Phosphatase 54 (39-117) U/L Albumin 5.0 (3.5-5.0) g/dL Urine 11/23/22 Range/Units 22:28 Urine Color Yellow Urine Appearance Clear Urine pH >= 9.0 (5.0-9.0) Ur Specific [employer] >= 1.030 H (1.005-1.025) Urine Protein Trace (Neg-Trace) mg/dL Urine Glucose (UA) Negative (Negative) mg/dL Laboratory Results WBC 12.4 X10*3/uL (4.8-10.8) H 11/23/22 20:43 RBC 5.20 X10*6/uL (4.20-5.50) 11/23/22 20:43 Hgb 15.4 g/dl (12.0-16.0) 11/23/22 20:43 Hct 45.2 % (37.0-47.0) 11/23/22 20:43 MCV 86.9 fL (80.0-98.0) 11/23/22 20:43 MCH 29.6 pg (27.0-33.0) 11/23/22 20:43 MCHC 34.1 g/dl (31.0-35.0) 11/23/22 20:43 RDW 11.5 % (11.0-16.0) 11/23/22 20:43 Plt Count 290 X10*3/uL (160-400) 11/23/22 20:43 MPV 11.3 fL (9.4-12.3) 11/23/22 20:43 Immature Gran % (Auto) 0.2 % (0.0-0.4) 11/23/22 20:43 Neut % (Auto) 84.1 % (45-73) H 11/23/22 20:43 Lymph % (Auto) 11.0 % (20-40) L 11/23/22 20:43 [place] % (Auto) 4.3 % (2-11) 11/23/22 20:43 Eos % (Auto) 0.2 % (0-4) 11/23/22 20:43 Baso % (Auto) 0.2 % (0-2) 11/23/22 20:43 Lymph # (Auto) 1.4 X10*3/uL (1.2-4.9) 11/23/22 20:43 [place] # (Auto) 0.5 X10*3/uL (0.1-1.2) 11/23/22 20:43 Eos # (Auto) 0.0 X10*3/uL (0.0-0.4) 11/23/22 20:43 Baso # (Auto) 0.0 X10*3/uL (0.0-0.2) 11/23/22 20:43 Abs Immat Gran (auto) 0.03 X10*3/uL (0.00-0.03) 11/23/22 20:43 Absolute Neuts (auto) 10.4 x10*3/uL (2.0-8.3) H 11/23/22 20:43 Absolute Nucleated RBC 0.000 X10*3/uL (0.0-0.012) 11/23/22 20:43 Nucleated RBC % (auto) 0.0 /100WBC (0.0-0.2) 11/23/22 20:43 Sodium 140 mmol/L (135-145) 11/23/22 20:43 Potassium 4.3 mmol/L (3.3-5.1) 11/23/22 20:43 Chloride 100 mmol/L (96-108) 11/23/22 20:43 Carbon Dioxide 28 mmol/L (22-29) 11/23/22 20:43 Anion Gap 16 (12-20) 11/23/22 20:43 BUN 14 mg/dL (9-16) 11/23/22 20:43 Creatinine 0.80 mg/dL (0.5-1.4) 11/23/22 20:43 Estim Creat Clear Calc 58.2 11/23/22 20:43 Estimated GFR > 60 11/23/22 20:43 POC Glucose 164 mg/dL (60-115) H 11/23/22 23:16 Random Glucose 187 mg/dL (60-115) H 11/23/22 20:43 Lactic Acid 1.3 mmol/L (0.5-2.0) 11/23/22 23:31 Calcium 11.1 mg/dL (8.4-10.2) H D 11/23/22 20:43 Magnesium 2.2 mg/dL (1.6-2.6) 11/23/22 20:43 Total Bilirubin 1.6 mg/dL (0.0-1.0) H 11/23/22 20:43 Direct Bilirubin 0.3 mg/dL (0.0-0.5) 11/23/22 20:43 AST 26 U/L (5-31) 11/23/22 20:43 ALT 37 U/L (0-31) H 11/23/22 20:43 Alkaline Phosphatase 54 U/L (39-117) 11/23/22 20:43 Troponin I High Sens < 2.7 ng/L (<3.5-17.0) 11/23/22 20:43 Total Protein 8.5 g/dL (6.5-8.0) H 11/23/22 20:43 Albumin 5.0 g/dL (3.5-5.0) 11/23/22 20:43 Lipase 21 U/L (8-78) 11/23/22 20:43 Urine Color Yellow 11/23/22 22:28 Urine Appearance Clear 11/23/22 22:28 Urine pH >= 9.0 (5.0-9.0) 11/23/22 22:28 Ur Specific [employer] >= 1.030 (1.005-1.025) H 11/23/22 22:28 Urine Protein Trace mg/dL (Neg-Trace) 11/23/22 22: Urine Glucose (UA) Negative mg/dL (Negative) 11/23/22 22: Urine Ketones Trace mg/dL (Negative) 11/23/22 22:28 Urine Blood Negative (Negative) 11/23/22 22: Urine Nitrite Negative (Negative) 11/23/22 22:28 Ur Leukocyte Esterase Negative (Negative) 11/23/22 22:[address] 11/23/22 20:28 IMPRESSION: No acute intracranial pathology. This critical result was discussed with Dr. Verduzco by telephone at 11/23/2022 8:49 PM and it was ascertained that the content and urgency of the report was understood at the time of direct communication. Abdomen/Pelvis CT 11/23/22 22:04 IMPRESSION: Dilated small bowel in the central abdomen extending to an area of fecalization and small bowel wall thickening in the right midabdomen. This could represent a partial small bowel obstruction associated with enteritis. Fleischner guidelines were followed. KUB X-Ray 11/24/22 07:55 IMPRESSION: Interval decrease in small bowel gaseous distention compared to the recent CT scan. Continued short-term radiographic monitoring as clinically indicated. Assessment and Plan (1) SBO (small bowel obstruction): Status: Acute She describes an episode of severe abdominal pain as well as vomitting yesterday afternoon. Her CT shows some dilatation of proximal small bowel loops with a possible transition point on a segment of wall thickening suggestive of enteritis. Currently she does not have pain or tenderness. Her ffup KUB shows improvement of the Sb dilatation. I will likely dc the NGT if the output is low later. Her exam is very benign. I will consult GI for question of enteritis along with her chronic GI complaints. Time Spent With Patient Time: Total time managing care of this patient today ____ minutes. Quality Stroke Does the patient have a stroke diagnosis?: No VTE Prior VTE?: No VTE Risk Level:: Medical - moderate - high VTE Device Contraindication: N/A - Device Ordered VTE Drug Contraindication: N/A - Med Ordered Procedures Date of Service Date of Service: 11/27/22
--- NOTE | 2022-11-24 11:21 | HO.PM.IMCN ---
History of Present Illness Data of Consult Service Date: 11/24/22 Requesting physician: Foreign Maldonado Primary Care Provider: Selam Bryan MD [facility] Reason for consult: medical management 62-year-old female with history of osteopenia, hyperlipidemia, and [id number]-yacovwmir type 2 diabetes admitted to General surgery for management of small-bowel obstruction with consult placed to hospitalist service for medical management. He currently has NG tube in place to suction with bilious and green/black output. She states at home her glucose levels have been well controlled on Januvia. Glucose levels while in the hospital have ranged 138-187. She is NPO at this time. Has a headache, but no other complaints at this time. Review of Systems Review of Systems: General: No fevers, malaise, unintentional weight loss HEENT: No blurred vision, diplopia. No sore throat, nasal congestion, rhinorrhea, sinus pain, ear pain Cardiovascular: No chest pain, palpitations, or leg edema Respiratory: No shortness of breath, wheezing, cough GI: No abdominal pain, nausea, vomiting, diarrhea, constipation, melena, hematochezia : No dysuria, hematuria, increased urinary frequency, decreased urinary output MSK: No myalgia, back pain Neuro: +headache. No weakness, paresthesias Skin: No rashes or lesions [facility] Medical History Anxiety Constipation Diabetes mellitus Dysplasia of cervix, low grade (VIRGIE 1) Elevated LFTs GERD (gastroesophageal reflux disease) Hemangioma of liver Osteopenia Overweight (BMI 25.0-29.9) Pure hypercholesterolemia Vitamin D deficiency Family History Father No problems noted. Mother Uterine cancer Colon cancer Maternal Grandmother No problems noted. Paternal Aunt Ovarian cancer Surgical History History of blood clots History of colonoscopy History of oral surgery History of resection of liver History of tubal ligation Social History Household Members: Children Household Members Other:: daughter Housing: Assisted Living Facility Alcohol intake: never Patient Tobacco Use Status: Never used Tobacco Smoked in Last 30 Days: No e-Cigarette/Vaping Use: Never Used Second Hand Smoke Exposure: No Use of substances other than those prescribed or required for medical reasons: No Have you been hit, kicked, punched, or otherwise hurt by someone within the past year? If so, by whom?: No Do you feel safe in your current relationship?: No Is there a partner from a previous relationship who is making you feel unsafe now?: No Are you made to feel afraid or neglected: No Advance Directives: No Advance Directives Information Provided: Yes Do you have thoughts of harming others: None Do you have a plan to hurt others: No Plan Recently lost weight without trying: No Nutrition Risks: No Nutritional Risk Patient : No : No Poor oral hygiene: No service: No Current occupational status: disabled Cognitive needs: No Hearing needs: No Vision needs: Yes Meds Allergies Allergy/AdvReac Type Severity Reaction Status Date / Time codeine [CODEINE] Allergy Intermediate DIZZY/CAROLYN Verified 11/24/22 00:59 RGY atorvastatin AdvReac Unknown increased Verified 11/24/22 00:59 heartburns Active Medications: Current Medications Acetaminophen (Acetaminophen 325 Mg Tablet) 650 mg PO Q4H PRN PRN Reason: pain, mild, headache Glucose (Glucose Gel 15 Gm Gel..Gram.) 15 gm PO Q15M PRN; Protocol PRN Reason: per Hypoglycemia Standing Ord. Heparin Sodium (Porcine) (Heparin Sodium,Porcine 5,000 Unit/Ml Vial) 5,000 unit SUBCUT Q12H [facility] Last Admin: 11/24/22 10:09 Dose: 5,000 unit Lactated Ringer's (Lr) 1,000 mls @ 80 mls/hr IVCONT .[id number] [facility] Last Admin: 11/24/22 00:07 Dose: 80 mls/hr Dextrose (D10) 250 mls @ 750 mls/hr IV Q15M PRN; Protocol PRN Reason: per Hypoglycemia Standing Ord. Morphine Sulfate (Morphine Sulfate 4 Mg/Ml Cartridge) 3 mg IVPUSH Q4H PRN; Protocol PRN Reason: Pain, Severe (Pain Scale 7-10) Last Admin: 11/24/22 02:09 Dose: 3 mg Ondansetron HCl (Ondansetron Hcl 4 Mg/2 Ml Vial) 4 mg IVPUSH Q8H PRN PRN Reason: nausea Sodium Chloride (0.9 % Sodium Chloride Flush 3 Ml Syringe) 3 ml IVFLUSH QSHIFT [facility] Last Admin: 11/24/22 07:01 Dose: Not Given Home Medications Medication Instructions Recorded Confirmed Last Taken Type alendronate 70 mg tablet 70 mg PO QWEEK 08/20/22 11/24/22 Unknown History blood sugar diagnostic (FreeStyle #10 ea 08/20/22 08/20/22 Unknown History Lite Strips) cholecalciferol (vitamin D3) 25 25 mcg PO DAILY 08/20/22 11/24/22 Unknown History mcg (1,000 unit) capsule (Vitamin D3) fenofibrate 160 mg tablet 160 mg PO DAILY 08/20/22 11/24/22 Unknown History lancets 33 gauge (TRUEplus Lancets) #100 ea 11/14/22 Unknown History Physical Exam Vital Signs and Narrative: Vital Signs: Last Vital Signs Temp 98.2 F 11/24/22 09:18 Pulse 80 11/24/22 09:18 Resp 20 11/24/22 09:18 BP 154/76 H 11/24/22 09:18 Pulse Ox 99 11/24/22 09:18 O2 Del Method Room Air 11/24/22 09:18 BMI result Body Mass Index 26.6 Constitutional - Awake and Alert, No apparent distress Eyes - PERRLA, EOMI Cardiovascular - S1S2, RRR, No edema Respiratory - Normal lung expansion, Normal respiratory effort, No respiratory distress, CTA bilaterally Gastrointestinal - NT / ND; +BS; No rebound or guarding Extremities - no calf tenderness bilaterally, no swelling Skin - Warm/Dry Neurological - Alert & oriented x3 Psychological - Appropriate affect Results Labs 11/23/22 20:43 11/23/22 20:43 Labs: Laboratory Results - last 24 hr 11/23/22 11/23/22 11/23/22 20:15 20:43 20:43 MCV 86.9 MCH 29.6 MCHC 34.1 RDW 11.5 Plt Count 290 MPV 11.3 Immature Gran % (Auto) 0.2 Neut % (Auto) 84.1 H Lymph % (Auto) 11.0 L [place] % (Auto) 4.3 Eos % (Auto) 0.2 Baso % (Auto) 0.2 Lymph # (Auto) 1.4 [place] # (Auto) 0.5 Eos # (Auto) 0.0 Baso # (Auto) 0.0 Abs Immat Gran (auto) 0.03 Absolute Neuts (auto) 10.4 H Absolute Nucleated RBC 0.000 Nucleated RBC % (auto) 0.0 Anion Gap 16 Estim Creat Clear Calc 58.2 Estimated GFR > 60 POC Glucose 138 H Random Glucose 187 H Lactic Acid Calcium 11.1 H D Magnesium 2.2 Total Bilirubin 1.6 H Direct Bilirubin 0.3 AST 26 ALT 37 H Alkaline Phosphatase 54 Troponin I High Sens Total Protein 8.5 H Albumin 5.0 Lipase 21 Urine Color Urine Appearance Urine pH Ur Specific [place] Urine Protein Urine Glucose (UA) Urine Ketones Urine Blood Urine Nitrite Ur Leukocyte Esterase 11/23/22 11/23/22 11/23/22 20:43 22:28 23:16 MCV MCH MCHC RDW Plt Count MPV Immature Gran % (Auto) Neut % (Auto) Lymph % (Auto) [place] % (Auto) Eos % (Auto) Baso % (Auto) Lymph # (Auto) [place] # (Auto) Eos # (Auto) Baso # (Auto) Abs Immat Gran (auto) Absolute Neuts (auto) Absolute Nucleated RBC Nucleated RBC % (auto) Anion Gap Estim Creat Clear Calc Estimated GFR POC Glucose 164 H Random Glucose Lactic Acid Calcium Magnesium Total Bilirubin Direct Bilirubin AST ALT Alkaline Phosphatase Troponin I High Sens < 2.7 Total Protein Albumin Lipase Urine Color Yellow Urine Appearance Clear Urine pH >= 9.0 Ur Specific [place] >= 1.030 H Urine Protein Trace Urine Glucose (UA) Negative Urine Ketones Trace Urine Blood Negative Urine Nitrite Negative Ur Leukocyte Esterase Negative 11/23/22 23:31 MCV MCH MCHC RDW Plt Count MPV Immature Gran % (Auto) Neut % (Auto) Lymph % (Auto) [place] % (Auto) Eos % (Auto) Baso % (Auto) Lymph # (Auto) [place] # (Auto) Eos # (Auto) Baso # (Auto) Abs Immat Gran (auto) Absolute Neuts (auto) Absolute Nucleated RBC Nucleated RBC % (auto) Anion Gap Estim Creat Clear Calc Estimated GFR POC Glucose Random Glucose Lactic Acid 1.3 Calcium Magnesium Total Bilirubin Direct Bilirubin AST ALT Alkaline Phosphatase Troponin I High Sens Total Protein Albumin Lipase Urine Color Urine Appearance Urine pH Ur Specific [place] Urine Protein Urine Glucose (UA) Urine Ketones Urine Blood Urine Nitrite Ur Leukocyte Esterase Imaging Radiologist's Impressions: Impressions Head CT 11/23/22 20:28 IMPRESSION: No acute intracranial pathology. This critical result was discussed with Dr. Verduzco by telephone at 11/23/2022 8:49 PM and it was ascertained that the content and urgency of the report was understood at the time of direct communication. Abdomen/Pelvis CT 11/23/22 22:04 IMPRESSION: Dilated small bowel in the central abdomen extending to an area of fecalization and small bowel wall thickening in the right midabdomen. This could represent a partial small bowel obstruction associated with enteritis. Fleischner guidelines were followed. KUB X-Ray 11/24/22 07:55 IMPRESSION: Interval decrease in small bowel gaseous distention compared to the recent CT scan. Continued short-term radiographic monitoring as clinically indicated. Assessment and Plan (1) SBO (small bowel obstruction): Status: Acute Plan 62-year-old female with history of osteopenia, hyperlipidemia, and qyx-cedehdh-[id number] type 2 diabetes admitted to General surgery for management of small-bowel obstruction with consult placed to hospitalist service for medical management. #SBO -plan per psychiatry -NPO with NG tube placed to suction #Acute headache -prn tylenol ordered # [id number] type 2 diabetes-without hyperglycemia -POC glucose -hold anti-hyperglycemic medication at this time as patient is NPO -Hypoglycemia protocol in place #HLD -continue zetia, fenofibrate once diet advanced #GERD -continue ppi once diet advanced Thank you for this consult. Will continue following for diabetes management as diet is advanced. Time Spent With Patient Time: Total time managing care of this patient today ____ minutes.
[2022-11-24] MEDS: Acetaminophen 325 MG TABLET 650 MG PO (11:35)
[2022-11-24 11:50] LABS: Glucose, Whole Blood 86 mg/dL (60-115)
--- NOTE | 2022-11-24 11:53 | PHA.MEDREC ---
Pharmacy Consult ? Medication Reconciliation Pharmacy has completed the medication reconciliation. spoke with patient. confirmed her medications. She reports taking pentoxifylline 400mg once daily because it is harsh on her stomach (its prescribed for BID). She takes the Vitamin D2 on tuesdays and the Alendronate she does not have a designated day for.
--- NOTE | 2022-11-24 12:57 | MHC.CM.PN ---
pt lives with dgter has cca /rn visits evry 3 months has own ride home dc plan is home
--- NOTE | 2022-11-24 14:51 | PM.EVENT ---
Event Note Date of Service: 11/24/22 Event Note: denies abdl pain feels better abd soft, nontender NGT output - scanty dc NGT ok to have sips, ice chips GI consulted Time Spent With Patient Time: Total time managing care of this patient today ____ minutes.
[2022-11-24 15:34] VITALS: BP 123/70; PULSE 78; RESP 18; TEMP 36.2; O2SAT 98
[2022-11-24 16:14] LABS: Glucose, Whole Blood 100 mg/dL (60-115)
[2022-11-24 20:00] VITALS: BP 124/82; PULSE 73; RESP 18; TEMP 36.2; O2SAT 99
[2022-11-24 20:28] LABS: Glucose, Whole Blood 94 mg/dL (60-115)
[2022-11-24] MEDS: 0.9 % Sodium Chloride Flush 3 ML SYRINGE IVFLUSH (21:42)
[2022-11-25] MEDS: Lactated Ringers 1,000 ML 80 ML IVCONT ×2 (01:12→13:35)
[2022-11-25 03:34] VITALS: BP 154/73; PULSE 87; RESP 19; TEMP 36.1; O2SAT 96
[2022-11-25] MEDS: Acetaminophen 325 MG TABLET 650 MG PO ×2 (04:07→19:38)
--- NOTE | 2022-11-25 06:07 | PM.GICN ---
History of Present Illness Data of Consult Service Date: 11/25/22 Requesting physician: Foreign Maldonado Primary Care Provider: Selam Bryan MD HPI Reason for consult: enteritis 62 year old female w/ hx of anxiety, DM, HLP, and liver hemangioma who I am seeing for assessment for abdominal pain She noted left upper crampy abdo pain, 10/10 in severity, 1 hr after eating stew on the day of admission, associated with nausea and non bloody emesis. no exacerbating or relieving factors. No diarrhea or rectal bleeding, melena. She had CT done which suggested pSBO with decompressed colon, and had NGT placed with improvement in symptoms The NGT is now out and she feels better, wants to eat, and denies any abdominal pain. she is passing gas. No nausea or vomiting. Review of Systems Review of Systems: Constitutional : No Weight loss, No Fever, No Chills ENT/Mouth : No sore throat, No Rhinorrhea Eyes: No Swelling, No Redness Cardiovascular : No Chest Pain, No SOB, No Edema Respiratory : No Cough, No Sputum, No Wheezing Gastrointestinal : see HPI Genitourinary : NO Dysuria, No Urinary Frequency, No Hematuria, No Urgency Musculoskeletal : No joint pain, No Myalgias, No Joint Swelling Skin : No Skin Lesions, No rash Neuro : No Weakness, No Numbness, No Dizziness, No Headache Psych : No Anxiety/Panic, No Depression Heme/Lymph: No Bruising, No Lymphadenopathy Endocrine : No Polyuria, No Polydipsia All other systems reviewed and are negative. [facility] Past Medical History Medical History Anxiety Constipation Diabetes mellitus Dysplasia of cervix, low grade (VIRGIE 1) Elevated LFTs GERD (gastroesophageal reflux disease) Hemangioma of liver Osteopenia Overweight (BMI 25.0-29.9) Pure hypercholesterolemia Vitamin D deficiency Family History Family History Father No problems noted. Mother Uterine cancer Colon cancer Maternal Grandmother No problems noted. Paternal Aunt Ovarian cancer Surgical History Surgical History History of blood clots History of colonoscopy History of oral surgery History of resection of liver History of tubal ligation Social History Social History Household Members: Children Household Members Other:: daughter Housing: Assisted Living Facility Alcohol intake: never Patient Tobacco Use Status: Never used Tobacco Smoked in Last 30 Days: No e-Cigarette/Vaping Use: Never Used Second Hand Smoke Exposure: No Use of substances other than those prescribed or required for medical reasons: No Currently Displaying Signs/Symptoms of Drug Intoxication Withdrawal: No Have you been hit, kicked, punched, or otherwise hurt by someone within the past year? If so, by whom?: No Do you feel safe in your current relationship?: No Is there a partner from a previous relationship who is making you feel unsafe now?: No Are you made to feel afraid or neglected: No Advance Directives: No Advance Directives Information Provided: Yes Do you have thoughts of harming others: None Do you have a plan to hurt others: No Plan Recently lost weight without trying: No Nutrition Risks: No Nutritional Risk Patient : No : No Poor oral hygiene: No service: No Current occupational status: disabled Cognitive needs: No Hearing needs: No Vision needs: Yes Meds Allergies Allergy/AdvReac Type Severity Reaction Status Date / Time codeine [CODEINE] Allergy Intermediate DIZZY/CAROLYN Verified 11/24/22 00:59 RGY atorvastatin AdvReac Unknown increased Verified 11/24/22 00:59 heartburns Active Medications: Current Medications Acetaminophen (Acetaminophen 325 Mg Tablet) 650 mg PO Q4H PRN PRN Reason: pain, mild, headache Last Admin: 11/25/22 04:07 Dose: 650 mg Glucose (Glucose Gel 15 Gm Gel..Gram.) 15 gm PO Q15M PRN; Protocol PRN Reason: per Hypoglycemia Standing Ord. Heparin Sodium (Porcine) (Heparin Sodium,Porcine 5,000 Unit/Ml Vial) 5,000 unit SUBCUT Q12H [facility] Last Admin: 11/24/22 21:37 Dose: 5,000 unit Lactated Ringer's (Lr) 1,000 mls @ 80 mls/hr IVCONT .[id number] [facility] Last Admin: 11/25/22 01:12 Dose: 80 mls/hr Dextrose (D10) 250 mls @ 750 mls/hr IV Q15M PRN; Protocol PRN Reason: per Hypoglycemia Standing Ord. Morphine Sulfate (Morphine Sulfate 4 Mg/Ml Cartridge) 3 mg IVPUSH Q4H PRN; Protocol PRN Reason: Pain, Severe (Pain Scale 7-10) Last Admin: 11/24/22 02:09 Dose: 3 mg Omeprazole (Omeprazole 40 Mg Capsule.Dr) 40 mg PO DAILY PRN PRN Reason: for acid reflux Ondansetron HCl (Ondansetron Hcl 4 Mg/2 Ml Vial) 4 mg IVPUSH Q8H PRN PRN Reason: nausea Pentoxifylline (Pentoxifylline Er 400 Mg Tablet.Er) 400 mg PO DAILY [facility] Sodium Chloride (0.9 % Sodium Chloride Flush 3 Ml Syringe) 3 ml IVFLUSH QSHIFT [facility] Last Admin: 11/24/22 21:42 Dose: 3 ml Home Medications Medication Instructions Recorded Confirmed Last Taken Type alendronate 70 mg tablet 70 mg PO QWEEK 08/20/22 11/24/22 Unknown History blood sugar diagnostic (FreeStyle #10 ea 08/20/22 08/20/22 Unknown History Lite Strips) cholecalciferol (vitamin D3) 25 25 mcg PO DAILY 08/20/22 11/24/22 Unknown History mcg (1,000 unit) capsule (Vitamin D3) lancets 33 gauge (TRUEplus Lancets) #100 ea 11/14/22 Unknown History pentoxifylline 400 mg 400 mg PO DAILY 11/24/22 11/24/22 Unknown History tablet,extended release polyethylene glycol 3350 17 17 g PO DAILY PRN Constipation 11/24/22 11/24/22 Unknown History gram/dose oral powder (Miralax) Physical Exam Vital Signs: Vital Signs: Last Vital Signs Temp 96.9 F 11/25/22 03:34 Pulse 87 11/25/22 03:34 Resp 19 11/25/22 03:34 BP 154/73 H 11/25/22 03:34 Pulse Ox 96 11/25/22 03:34 O2 Del Method Room Air 11/25/22 03:34 BMI result Body Mass Index 26.6 EXAM: GENERAL: The patient is well developed and nontoxic. VITAL SIGNS:see workflow HEENT: Nonicteric sclerae, PERRLA, EOMI. Oropharynx clear. Moist mucous membranes. Conjunctivae appear well perfused. No thyroid mass. CHEST: Chest wall is nontender. HEART: Regular rate and rhythm without murmurs. LUNGS: Clear to auscultation bilaterally. ABDOMEN: Soft, positive bowel sounds, nontender, no organomegaly.no flank tenderness SKIN: No rash, no excessive bruising, petechiae, or purpura. NEUROLOGIC: Cranial nerves II-XII intact without motor/sensory deficit. psych- nml affect Results Labs 11/23/22 20:43 11/23/22 20:43 Microbiology Microbiology Results: Microbiology 11/24/22 00:22 Blood - Venous Blood Culture - Preliminary No growth after 24 hours. 11/23/22 23:31 Blood - Venous Blood Culture - Preliminary No growth after [address] scan - abdomen: My impression: dilated small bowel, decompressed colon, no acute transition point--hypo attenuated small bowel wall Assessment and Plan (1) SBO (small bowel obstruction): Status: Acute Plan 1/ Sudden onset abdominal pain, after eating stew with partial obstruction and enteritis--likely self limiting infectious etiology given the quick recovery time, crohsn is much less likely as in malignancy or ischemia PLAN: 1/ Advance diet, 2/ can f/u as o/p if ongoing sx then CTe or capsule endo can be considered Time Spent With Patient Time: Total time managing care of this patient today ____ minutes. Procedures Date of Service Date of Service: 11/25/22
[2022-11-25 06:35] LABS: Hematocrit 39.2 % (37.0-47.0); Hemoglobin 13.2 g/dl (12.0-16.0); Mean Corpuscular HGB Conc 33.7 g/dl (31.0-35.0); Mean Corpuscular Hemoglobin 29.9 pg (27.0-33.0); Mean Corpuscular Volume 88.7 fL (80.0-98.0); Mean Platelet Volume 12.3 fL (9.4-12.3); Platelet Count 240 X10*3/uL (160-400); Red Blood Count 4.42 X10*6/uL (4.20-5.50); Red Cell Distribution Width 11.7 % (11.0-16.0); White Blood Count 6.3 X10*3/uL (4.8-10.8)
[2022-11-25 06:52] LABS: Anion Gap 14 (12-20); Blood Urea Nitrogen 7 mg/dL (9-16); Calcium 8.7 mg/dL (8.4-10.2); Carbon Dioxide 26 mmol/L (22-29); Chloride 104 mmol/L (96-108); Creatinine Clr Calc Pharmacy 86.7; Estimated Glomerular Filt Rate > 60; Glucose Random 84 mg/dL (60-115); Potassium 3.6 mmol/L (3.3-5.1); Sodium 140 mmol/L (135-145)
[2022-11-25 07:06] VITALS: BP 136/70; PULSE 76; RESP 18; TEMP 36.9; O2SAT 96
[2022-11-25 07:12] LABS: Glucose, Whole Blood 83 mg/dL (60-115)
[2022-11-25] MEDS: Heparin Sodium,Porcine 5,000 UNIT/ML VIAL 5000 UNIT SUBCUT ×2 (09:26→19:40)
[2022-11-25] MEDS: Pentoxifylline ER 400 MG TABLET.ER PO (09:26)
--- NOTE | 2022-11-25 09:57 | P.PNGS_ITS ---
Subjective Subjective Date of Service: 11/25/22 Interval history: feels much better no N/V passing flatus pain much improved Physical Exam Vital Signs: Vital Signs: Last Vital Signs Temp 98.5 F 11/25/22 07:06 Pulse 76 11/25/22 07:06 Resp 18 11/25/22 07:06 BP 136/70 11/25/22 07:06 Pulse Ox 96 11/25/22 07:06 O2 Del Method Room Air 11/25/22 07:06 BMI result Body Mass Index 26.6 Const: General: comfortable and no acute distress Resp: Effort & Inspection: normal respiratory effort GI: Palpation (GI): Soft to palpation, not firm and nontender Objective Data Active Medications Acetaminophen (Acetaminophen 325 Mg Tablet) 650 mg PO Q4H PRN PRN Reason: pain, mild, headache Last Admin: 11/25/22 04:07 Dose: 650 mg Documented By: DAVID Glucose (Glucose Gel 15 Gm Gel..Gram.) 15 gm PO Q15M PRN; Protocol PRN Reason: per Hypoglycemia Standing Ord. Heparin Sodium (Porcine) (Heparin Sodium,Porcine 5,000 Unit/Ml Vial) 5,000 unit SUBCUT Q12H [facility] Last Admin: 11/25/22 09:26 Dose: 5,000 unit Documented By: SHAYLA Lactated Ringer's (Lr) 1,000 mls @ 80 mls/hr IVCONT .[id number] [facility] Last Admin: 11/25/22 01:12 Dose: 80 mls/hr Documented By: DAVID Dextrose (D10) 250 mls @ 750 mls/hr IV Q15M PRN; Protocol PRN Reason: per Hypoglycemia Standing Ord. Morphine Sulfate (Morphine Sulfate 4 Mg/Ml Cartridge) 3 mg IVPUSH Q4H PRN; Protocol PRN Reason: Pain, Severe (Pain Scale 7-10) Last Admin: 11/24/22 02:09 Dose: 3 mg Documented By: SHABBIR Comments: This RN tigarmida texted md cooley who verbally okayed administration of medication Omeprazole (Omeprazole 40 Mg Capsule.) 40 mg PO DAILY PRN PRN Reason: for acid reflux Ondansetron HCl (Ondansetron Hcl 4 Mg/2 Ml Vial) 4 mg IVPUSH Q8H PRN PRN Reason: nausea Pentoxifylline (Pentoxifylline Er 400 Mg Tablet.Er) 400 mg PO DAILY [facility] Last Admin: 11/25/22 09:26 Dose: 400 mg Documented By: SHAYLA Sodium Chloride (0.9 % Sodium Chloride Flush 3 Ml Syringe) 3 ml IVFLUSH QSHIFT [facility] Last Admin: 11/25/22 07:37 Dose: Not Given Documented By: SHAYAL Non-Admin Reason: IV Running Labs 11/25/22 05:08 11/25/22 05:08 Labs: Laboratory Results - last 24 hr 11/24/22 11/24/22 11/24/22 11:46 16:09 20:24 MCV MCH MCHC RDW Plt Count MPV Absolute Nucleated RBC Nucleated RBC % (auto) Anion Gap Estim Creat Clear Calc Estimated GFR POC Glucose 86 100 94 Random Glucose Calcium 11/25/22 11/25/22 11/25/22 05:08 05:08 07:08 MCV 88.7 MCH 29.9 MCHC 33.7 RDW 11.7 Plt Count 240 MPV 12.3 Absolute Nucleated RBC 0.000 Nucleated RBC % (auto) 0.0 Anion Gap 14 Estim Creat Clear Calc 86.7 Estimated GFR > 60 POC Glucose 83 Random Glucose 84 Calcium 8.7 D Microbiology Microbiology Results: Microbiology 11/24/22 00:22 Blood Culture - Preliminary Blood - Venous No growth after 24 hours. 11/23/22 23:31 Blood Culture - Preliminary Blood - Venous No growth after 24 hours. Procedures Date of Service Date of Service: 11/25/22 Progress Note: A&P Assessment and plan (1) SBO (small bowel obstruction): Status: Acute Assessment and Plan: likely from enteritis based on CT imaging clinically much improved NGT removed yesterday abd soft looks well clear liquids today Time Spent With Patient Time: Total time managing care of this patient today ____ minutes. Quality Stroke Does the patient have a stroke diagnosis?: No VTE Prior VTE?: No VTE Risk Level:: Medical - moderate - high VTE Device Contraindication: N/A - Device Ordered VTE Drug Contraindication: N/A - Med Ordered
[2022-11-25 11:15] LABS: Glucose, Whole Blood 99 mg/dL (60-115)
[2022-11-25] MEDS: Omeprazole 40 MG CAPSULE.DR PO (12:23)
[2022-11-25 16:00] VITALS: BP 124/62; PULSE 70; RESP 18; TEMP 36.1; O2SAT 97
[2022-11-25 16:06] LABS: Glucose, Whole Blood 114 mg/dL (60-115)
--- NOTE | 2022-11-25 17:46 | PC.NURSE ---
Pt moderate fall risk. Refusing the bed alarm. Agrees to call to get out of bed. Pt ambulates independent w/ standby. Moderate d/t iv pole, and recent fall d/t abd pain prior to admission. Pt has no complaints of pain currently.
--- NOTE | 2022-11-25 17:53 | PM.EVENT ---
Event Note Date of Service: 11/25/22 Event Note: NG tube removed, diet advanced to clears and patient tolerating without any n/v. Glucose levels stable. Will add sliding scale to cover for hyperglycemia as diet is advanced. Will continue following. Time Spent With Patient Time: Total time managing care of this patient today ____ minutes.
[2022-11-25 19:11] VITALS: BP 138/67; PULSE 74; RESP 16; TEMP 36.4; O2SAT 98
[2022-11-25] MEDS: 0.9 % Sodium Chloride Flush 3 ML SYRINGE IVFLUSH (19:40)
[2022-11-25 20:00] LABS: Glucose, Whole Blood 136 mg/dL (60-115)
[2022-11-26 03:53] VITALS: BP 130/66; PULSE 68; RESP 16; TEMP 36.3; O2SAT 98
[2022-11-26 06:59] VITALS: BP 128/65; PULSE 78; RESP 16; TEMP 36.6; O2SAT 97
[2022-11-26 07:13] LABS: Glucose, Whole Blood 96 mg/dL (60-115)
--- NOTE | 2022-11-26 07:54 | PM.PNGS ---
Subjective Subjective Date of Service: 11/26/22 Interval history: feels much better denies abdl pain no N/V Physical Exam Vital Signs: Vital Signs: Last Vital Signs Temp 97.8 F 11/26/22 06:59 Pulse 78 11/26/22 06:59 Resp 16 11/26/22 06:59 BP 128/65 11/26/22 06:59 Pulse Ox 97 11/26/22 06:59 O2 Del Method Room Air 11/26/22 06:59 BMI result Body Mass Index 26.6 Const: General: comfortable and no acute distress Resp: Effort & Inspection: normal respiratory effort Cardio: Rate: regular rate GI: Palpation (GI): Soft to palpation, not firm, nontender and no guarding Objective Data Active Medications Acetaminophen (Acetaminophen 325 Mg Tablet) 650 mg PO Q4H PRN PRN Reason: pain, mild, headache Last Admin: 11/25/22 19:38 Dose: 650 mg Documented By: RAPHAEL Glucose (Glucose Gel 15 Gm Gel..Gram.) 15 gm PO Q15M PRN; Protocol PRN Reason: per Hypoglycemia Standing Ord. Heparin Sodium (Porcine) (Heparin Sodium,Porcine 5,000 Unit/Ml Vial) 5,000 unit SUBCUT Q12H [facility] Last Admin: 11/25/22 19:40 Dose: 5,000 unit Documented By: RAPHAEL Dextrose (D10) 250 mls @ 750 mls/hr IV Q15M PRN; Protocol PRN Reason: per Hypoglycemia Standing Ord. Insulin Human Lispro (Insulin Lispro 100 Unit/Ml 3 Ml Vial) 0 unit SUBCUT QIDACHS [facility]; Protocol Last Admin: 11/25/22 19:30 Dose: Not Given Documented By: RAPHAEL Non-Admin Reason: No Insulin Coverage Morphine Sulfate (Morphine Sulfate 4 Mg/Ml Cartridge) 3 mg IVPUSH Q4H PRN; Protocol PRN Reason: Pain, Severe (Pain Scale 7-10) Last Admin: 11/24/22 02:09 Dose: 3 mg Documented By: SHABBIR Comments: This RN harsh texted md cooley who verbally okayed administration of medication Omeprazole (Omeprazole 40 Mg [place].) 40 mg PO DAILY PRN PRN Reason: for acid reflux Last Admin: 11/25/22 12:23 Dose: 40 mg Documented By: HO.SWEITZM Ondansetron HCl (Ondansetron Hcl 4 Mg/2 Ml Vial) 4 mg IVPUSH Q8H PRN PRN Reason: nausea Pentoxifylline (Pentoxifylline Er 400 Mg Tablet.Er) 400 mg PO DAILY [facility] Last Admin: 11/25/22 09:26 Dose: 400 mg Documented By: SHAYLA Sodium Chloride (0.9 % Sodium Chloride Flush 3 Ml Syringe) 3 ml IVFLUSH QSHIFT [facility] Last Admin: 11/25/22 19:40 Dose: 3 ml Documented By: RAPHAEL Labs 11/25/22 05:08 11/25/22 05:08 Labs: Laboratory Results - last 24 hr 11/25/22 11/25/22 11/25/22 11:08 15:57 19:05 POC Glucose 99 114 136 H 11/26/22 06:59 POC Glucose 96 Microbiology Microbiology Results: Microbiology 11/24/22 00:22 Blood Culture - Preliminary Blood - Venous No growth after 48 hours. 11/23/22 23:31 Blood Culture - Preliminary Blood - Venous No growth after 48 hours. Procedures Date of Service Date of Service: 11/26/22 Progress Note: A&P Assessment and plan (1) SBO (small bowel obstruction): Status: Acute Assessment and Plan: symptoms resolved likely from enteritis seen by GI doing well no pain or tenderness diet as tolerated likely home today Time Spent With Patient Time: Total time managing care of this patient today ____ minutes. Quality Stroke Does the patient have a stroke diagnosis?: No VTE Prior VTE?: No VTE Risk Level:: Medical - moderate - high VTE Device Contraindication: N/A - Device Ordered VTE Drug Contraindication: N/A - Med Ordered
[2022-11-26] MEDS: 0.9 % Sodium Chloride Flush 3 ML SYRINGE IVFLUSH (08:34)
[2022-11-26] MEDS: Pentoxifylline ER 400 MG TABLET.ER PO (08:34)
[2022-11-26] MEDS: Heparin Sodium,Porcine 5,000 UNIT/ML VIAL 5000 UNIT SUBCUT (09:06)
[2022-11-26 11:04] LABS: Glucose, Whole Blood 116 mg/dL (60-115)
--- NOTE | 2022-11-26 12:51 | MHC.CM.PN ---
PT WILL DC TODAY, HOME WITH NO SERVICES VIA FAMILY TRANSPORT
--- NOTE | 2022-11-26 14:22 | PM.EVENT ---
Event Note Date of Service: 11/26/22 Event Note: Seen in the early afternoon Tolerating breakfast and lunch well Denies abdominal pain No nausea or vomiting Abdomen soft, nontender, nondistended Passing flatus, has BMs She says she is ready to be discharged Okay to DC home, needs to follow-up with Dr. Chrystal ESQUIVEL instructions explained to the patient Time Spent With Patient Time: Total time managing care of this patient today ____ minutes.
--- NOTE | 2022-11-27 16:15 | PM.DS ---
DS: Providers Provider Date of Service: 11/26/22 Date of admission: 11/23/22 23:28 Primary care physician: Selam Bryan MD Consults: 11/23/22 23:31 Consult to Hospitalist Routine Comment: Consulting Provider: Hospitalist Reason For Exam: DM 11/24/22 10:18 Consult to Gastroenterology Routine Consulting Provider: Claudia Jarrell Reason for consultation: question of enteritis DS: Diagnosis Discharge Diagnosis (1) SBO (small bowel obstruction): Status: Acute DS: Summary Hospital Course Hospital Course: 62-year-old female, admitted ER on 11/24/2022 for abdominal pain. She had a CAT scan showing some dilatation of the stomach as well as the small bowel in the mid abdomen with thickening of the small bowel wall in a segment along with decreased caliber distally. This was suggestive of a small-bowel obstruction secondary to enteritis. She was admitted and had an NG tube placed. Her NG tube he does have significant output so this was discontinued on hospital day 1. I started her on sips of clear liquids and this was slowly advance to clear liquids that same day. Continued to tolerate this without any significant vomiting or abdominal pain. She had good passage of stool in flatus. I therefore her on regular diet on November 26, 2022. She continued to tolerate this. Her symptoms had resolved. She was seen by Dr. Ocampo who had been following her as an outpatient for IBS and GERD. The impression was enteritis probably infectious The patient continued do well and had a very benign exam so she was discharged on 11/26/2022. Status at Discharge Functional status at discharge: independent ambulation Time Spent with Patient Time attestation: Total time managing care of this patient today ____ minutes. Discharge coordination time: Less than 30 minutes Quality: Safe Use of Opioids Does Pt have an Active Cancer Diagnosis on the Problem List?: No Quality: Stroke Does the patient have a stroke diagnosis?: No Physical Exam Vital Signs: Vital Signs: Last Vital Signs Temp 97.8 F 11/26/22 06:59 Pulse 78 11/26/22 06:59 Resp 16 11/26/22 06:59 BP 128/65 11/26/22 06:59 Pulse Ox 97 11/26/22 06:59 O2 Del Method Room Air 11/26/22 06:59 BMI result Body Mass Index 26.6 Const: General: comfortable and no acute distress Orientation/consciousness: patient oriented x3 Neck: Neck: Yes no lymphadenopathy Resp: Auscultation: clear to auscultation bilaterally Cardio: Rhythm: regular rhythm GI: Palpation (GI): Soft to palpation, nontender and no guarding Neuro: General: patient oriented x3 DS: Data Data Completed and Pending Completed studies during hospitalization [Text1]: Laboratory Results WBC 6.3 X10*3/uL (4.8-10.8) 11/25/22 05:08 RBC 4.42 X10*6/uL (4.20-5.50) 11/25/22 05:08 Hgb 13.2 g/dl (12.0-16.0) 11/25/22 05:08 Hct 39.2 % (37.0-47.0) 11/25/22 05:08 MCV 88.7 fL (80.0-98.0) 11/25/22 05:08 MCH 29.9 pg (27.0-33.0) 11/25/22 05:08 MCHC 33.7 g/dl (31.0-35.0) 11/25/22 05:08 RDW 11.7 % (11.0-16.0) 11/25/22 05:08 Plt Count 240 X10*3/uL (160-400) 11/25/22 05:08 MPV 12.3 fL (9.4-12.3) 11/25/22 05:08 Immature Gran % (Auto) 0.2 % (0.0-0.4) 11/23/22 20:43 Neut % (Auto) 84.1 % (45-73) H 11/23/22 20:43 Lymph % (Auto) 11.0 % (20-40) L 11/23/22 20:43 [place] % (Auto) 4.3 % (2-11) 11/23/22 20:43 Eos % (Auto) 0.2 % (0-4) 11/23/22 20:43 Baso % (Auto) 0.2 % (0-2) 11/23/22 20:43 Lymph # (Auto) 1.4 X10*3/uL (1.2-4.9) 11/23/22 20:43 [place] # (Auto) 0.5 X10*3/uL (0.1-1.2) 11/23/22 20:43 Eos # (Auto) 0.0 X10*3/uL (0.0-0.4) 11/23/22 20:43 Baso # (Auto) 0.0 X10*3/uL (0.0-0.2) 11/23/22 20:43 Abs Immat Gran (auto) 0.03 X10*3/uL (0.00-0.03) 11/23/22 20:43 Absolute Neuts (auto) 10.4 x10*3/uL (2.0-8.3) H 11/23/22 20:43 Absolute Nucleated RBC 0.000 X10*3/uL (0.0-0.012) 11/25/22 05:08 Nucleated RBC % (auto) 0.0 /100WBC (0.0-0.2) 11/25/22 05:08 Sodium 140 mmol/L (135-145) 11/25/22 05:08 Potassium 3.6 mmol/L (3.3-5.1) 11/25/22 05:08 Chloride 104 mmol/L (96-108) 11/25/22 05:08 Carbon Dioxide 26 mmol/L (22-29) 11/25/22 05:08 Anion Gap 14 (12-20) 11/25/22 05:08 BUN 7 mg/dL (9-16) L 11/25/22 05:08 Creatinine 0.56 mg/dL (0.5-1.4) 11/25/22 05:08 Estim Creat Clear Calc 86.7 11/25/22 05:08 Estimated GFR > 60 11/25/22 05:08 POC Glucose 116 mg/dL (60-115) H 11/26/22 11:01 Random Glucose 84 mg/dL (60-115) 11/25/22 05:08 Lactic Acid 1.3 mmol/L (0.5-2.0) 11/23/22 23:31 Calcium 8.7 mg/dL (8.4-10.2) D 11/25/22 05:08 Magnesium 2.2 mg/dL (1.6-2.6) 11/23/22 20:43 Total Bilirubin 1.6 mg/dL (0.0-1.0) H 11/23/22 20:43 Direct Bilirubin 0.3 mg/dL (0.0-0.5) 11/23/22 20:43 AST 26 U/L (5-31) 11/23/22 20:43 ALT 37 U/L (0-31) H 11/23/22 20:43 Alkaline Phosphatase 54 U/L (39-117) 11/23/22 20:43 Troponin I High Sens < 2.7 ng/L (<3.5-17.0) 11/23/22 20:43 Total Protein 8.5 g/dL (6.5-8.0) H 11/23/22 20:43 Albumin 5.0 g/dL (3.5-5.0) 11/23/22 20:43 Lipase 21 U/L (8-78) 11/23/22 20:43 Urine Color Yellow 11/23/22 22:28 Urine Appearance Clear 11/23/22 22:28 Urine pH >= 9.0 (5.0-9.0) 11/23/22 22:28 Ur Specific [place] >= 1.030 (1.005-1.025) H 11/23/22 22:28 Urine Protein Trace mg/dL (Neg-Trace) 11/23/22 22:28 Urine Glucose (UA) Negative mg/dL (Negative) 11/23/22 22:28 Urine Ketones Trace mg/dL (Negative) 11/23/22 22:28 Urine Blood Negative (Negative) 11/23/22 22:28 Urine Nitrite Negative (Negative) 11/23/22 22:28 Ur Leukocyte Esterase Negative (Negative) 11/23/22 22:[address] 11/23/22 20:28 IMPRESSION: No acute intracranial pathology. This critical result was discussed with Dr. Verduzco by telephone at 11/23/2022 8:49 PM and it was ascertained that the content and urgency of the report was understood at the time of direct communication. Abdomen/Pelvis CT 11/23/22 22:04 IMPRESSION: Dilated small bowel in the central abdomen extending to an area of fecalization and small bowel wall thickening in the right midabdomen. This could represent a partial small bowel obstruction associated with enteritis. Fleischner guidelines were followed. KUB X-Ray 11/24/22 07:55 IMPRESSION: Interval decrease in small bowel gaseous distention compared to the recent CT scan. Continued short-term radiographic monitoring as clinically indicated. Labs on day of discharge: Preliminary micro results at discharge 11/24/22 00:22 Blood Culture - Preliminary Blood - Venous No growth after 48 hours. 11/23/22 23:31 Blood Culture - Preliminary Blood - Venous No growth after 48 hours. Discharge Plan Discharge Anticipated Discharge Date/Time: 11/26/22 07:57 Patient Disposition: Home, Self-Care Discharge Diagnosis: partila small bowel resection Referrals: Claudia Jarrell MD [Physician] - 2 Weeks Foreign Maldonado MD [Physician] - 2 Weeks Discharge Medications: Continued simethicone 180 mg capsule 180 mg PO BID PRN (Reason: abdominal distention) 30 Days Qty: 60 1RF ergocalciferol (vitamin D2) 1,250 mcg (50,000 unit) capsule 1,250 mcg PO QWEEK 90 Days Qty: 13 3RF Rx Instructions: saturday ezetimibe 10 mg tablet 10 mg PO DAILY Qty: 90 1RF omeprazole 40 mg capsule,delayed release(DR/EC) 40 mg PO DAILY PRN (Reason: for acid reflux) Qty: 90 0RF Januvia 100 mg tablet 100 mg PO DAILY 90 Days Qty: 90 1RF polyethylene glycol 3350 [Miralax] 17 gram/dose Powder 17 g PO DAILY PRN (Reason: Constipation) pentoxifylline 400 mg tablet extended release 400 mg PO DAILY Rx Instructions: administer with meals (DME) lancets [TRUEplus Lancets] 33 gauge misc See Rx Instructions .ROUTE .MEDSUPPLY Qty: 100 Rx Instructions: As directed (DME) FreeStyle Lite Strips Strip See Rx Instructions .ROUTE BID Qty: 10 Rx Instructions: As directed cholecalciferol (vitamin D3) [Vitamin D3] 25 mcg (1,000 unit) capsule 25 mcg PO DAILY alendronate 70 mg tablet 70 mg PO QWEEK Discharge Orders: Discharge Order (Routine); Ordered 11/26/22 Ordered By: Foreign Maldonado Diet: Advance to usual diet Activity on Discharge: As tolerated Stand Alone Forms: Patient Portal Discharge page Care Plan Goals: possible recurrence of symptoms Health Concerns: diabetes GERD Plan of Treatment: ffup with Dr. Jarrell of GI Assessment: doing well Discharge Date/Time: 11/26/22 14:22
== END 2022-11-26 14:22 | disposition home or self-care (01) | DRG 392 ==
LOC: HO.ED 23:21 → HO.EDOVER 23:37 → HO.S3 11-24 07:44
PROVIDERS: Physician Assistant Medical; Admitting Provider Surgery; Emergency Provider Student in an Organized Health Care Education/Training Program; PCP Family Medicine; Visit Provider Surgery
DX: K52.9 Noninfective gastroenteritis and colitis, unspecified (principal); E78.00 Pure hypercholesterolemia, unspecified; K59.09 Other constipation; K21.9 Gastro-esophageal reflux disease without esophagitis; K75.81 Nonalcoholic steatohepatitis (NASH); E11.9 Type 2 diabetes mellitus without complications; Z88.5 Allergy status to narcotic agent; Z88.8 Allergy status to other drugs, medicaments and biological substances; Z79.899 Other long term (current) drug therapy
CPT/HCPCS: 36415; 70450; 74018; 74177; 80048; 80076; 81003; 82947; 83605; 83690; 83735; 84484; 85025; 85027; 87040; 93005; 99285; J1643; J2270; J2543; J3010; Q9967

== ENCOUNTER 2023-01-22 20:47 | Emergency (ER) | payer OTHER, SELFPAY ==
--- NOTE | 2023-01-22 | ECG_ITS ---
Test Reason : near syncope Blood Pressure : / mmHG Vent. Rate : 064 BPM Atrial Rate : 064 BPM P-R Int : 128 ms QRS Dur : 084 ms QT Int : 418 ms P-R-T Axes : 060 036 055 degrees QTc Int : 431 ms Normal sinus rhythm Normal ECG When compared with ECG of 23-NOV-2022 20:32, No significant change was found Referred By: Generic ED Physician Electronically Signed By:Orlin Nunes
[2023-01-22 20:51] VITALS: BP 108/80; BP 130/58; PULSE 63; PULSE 88; RESP 15; TEMP 36.7; O2SAT 100; O2SAT 99; BMI 23.9
[2023-01-22 20:58] VITALS: PULSE 65; O2SAT 99
--- NOTE | 2023-01-22 21:03 | PC.NURSE ---
pt NIKKIE, primarily burmese speaking, [facility]opal episode at [facility], no loss of conciousness, family member helped her to sitting. Pt is back to baseline at this time, reporting no dizziness or pain. EMS placed 20g IV in LAC
--- NOTE | 2023-01-22 21:22 | ED_ITS ---
HPI - Syncope General Chief Complaint: Syncope Stated Complaint: NEAR SYNCOPAL EPISODE Time Seen by Provider: 01/22/23 21:03 Source: patient, banking manager and other (friend) Mode of arrival: EMS Limitations: no limitations History of Present Illness HPI narrative: 62 yo female with PMH of anxiety, dizziness, DM, HLD states she ate salty catfish for dinner tonight went to [employer] was standing felt dizzy tunnel vision and hot with nausea - syncope for a few seconds assisted no trauma. no CP/SOB, GIB symptoms feels much better now. felt well otherwise today. MD complaint: loss of consciousness and felt faint Onset (ago): minute(s) (prior to arrival) -: second(s) Prodromal symptoms: lightheaded and nausea/vomiting Witnessed: Yes - by Bystander Context: standing up Injuries sustained associated with event: none Current symptoms: back to baseline Treatments prior to arrival: none Related Data Home Medications Medication Instructions Recorded Confirmed alendronate 70 mg tablet 70 mg PO QWEEK 08/20/22 11/24/22 blood sugar diagnostic (FreeStyle #10 ea 08/20/22 08/20/22 Lite Strips) cholecalciferol (vitamin D3) 25 25 mcg PO DAILY 08/20/22 11/24/22 mcg (1,000 unit) capsule (Vitamin D3) lancets 33 gauge (TRUEplus Lancets) #100 ea 11/14/22 polyethylene glycol 3350 17 17 g PO DAILY PRN Constipation 11/24/22 11/24/22 gram/dose oral powder (Miralax) Previous Rx's Medication Instructions Recorded simethicone 180 mg capsule 180 mg PO BID PRN abdominal 10/24/21 distention 30 days #60 caps ergocalciferol (vitamin D2) 1,250 1,250 mcg PO QWEEK 90 days #13 caps 07/26/22 mcg (50,000 unit) capsule ezetimibe 10 mg tablet 10 mg PO DAILY #90 tabs 09/25/22 sitagliptin phosphate 100 mg 100 mg PO DAILY 90 days #90 tabs 10/16/22 tablet (Januvia) pentoxifylline 400 mg 400 mg PO BID #180 tabs 12/03/22 tablet,extended release omeprazole 40 mg capsule,delayed 40 mg PO DAILY PRN for acid reflux 12/30/22 release #90 caps Allergies Allergy/AdvReac Type Severity Reaction Status Date / Time codeine [CODEINE] Allergy Intermediate DIZZY/CAROLYN Verified 11/24/22 00:59 RGY atorvastatin AdvReac Unknown increased Verified 11/24/22 00:59 heartburns Review of Systems Review of Systems: Constitutional : No Fever, No Chills, No Fatigue Cardiovascular : No Chest Pain, No SOB, No Dyspnea on Exertion Respiratory : No Cough, No Sputum Gastrointestinal : No Nausea, No Vomiting, No Diarrhea, No abdominal Pain Genitourinary : No Dysuria, No Urinary Frequency, No Hematuria, Musculoskeletal : No joint pain, No Myalgias, No Joint Swelling Skin : No Skin Lesions, No rash Neuro : No Weakness, No Numbness, pos Dizziness, no Headache Psych : No Anxiety/Panic, No Depression All other systems reviewed and are negative [facility] Past Medical History Attestation statement: The following information was validated with the patient. Medical History Anxiety Constipation Diabetes mellitus Dysplasia of cervix, low grade (VIRGIE 1) Elevated LFTs GERD (gastroesophageal reflux disease) Hemangioma of liver Osteopenia Overweight (BMI 25.0-29.9) Pure hypercholesterolemia Vitamin D deficiency Surgical History History of blood clots History of colonoscopy History of oral surgery History of resection of liver History of tubal ligation Family History Family History Father No problems noted. Mother Uterine cancer Colon cancer Maternal Grandmother No problems noted. Paternal Aunt Ovarian cancer Social History Social History Household Members: Children Household Members Other:: daughter Housing: Assisted Living Facility Alcohol intake: never Patient Tobacco Use Status: Never used Tobacco Smoked in Last 30 Days: No e-Cigarette/Vaping Use: Never Used Second Hand Smoke Exposure: No Use of substances other than those prescribed or required for medical reasons: No Advance Directives: No Advance Directives Information Provided: No Patient : No service: No Current occupational status: disabled Cognitive needs: No Hearing needs: No Vision needs: Yes Physical Exam 2 Vital Signs: Vital Signs: Last Vital Signs Temp 98.2 F 01/22/23 22:51 Pulse 66 01/22/23 22:51 Resp 17 01/22/23 22:51 BP 121/61 01/22/23 22:51 Pulse Ox 97 01/22/23 22:51 O2 Del Method Room Air 01/22/23 22:51 BMI result Body Mass Index 23.9 Appearance: Alert. Oriented X3. No acute distress. Eyes: Pupils equal, round and reactive to light. ENT: Pharynx normal. Neck: Normal inspection. Neck supple. CVS: Normal heart rate and rhythm. Pulses normal. Respiratory: No respiratory distress. Breath sounds normal. Abdomen: Soft and nontender. Skin: Skin warm and dry. Normal skin color. Normal skin turgor. Extremities: No lower extremity edema. No calf ttp Neuro: Oriented X 3. No motor deficit. No sensory deficit. Course Course Course Narrative: feels better stable for DC chronic hypercalcemia Medications Administered Discontinued Medications Generic Name Dose Route Start Last Admin Trade Name Freq PRN Reason Stop Dose Admin Lactated Ringer's 1,000 mls @ 999 mls/hr 01/22/23 21:30 01/22/23 22:04 Lr IV 01/22/23 22:30 999 mls/hr .Q1H1M JONES Administration Medical Decision Making Medical Decision Making MDM Narrative: 62 yo female with PMH of anxiety, dizziness, DM, HLD here with syncope brief no seizure activity while standing with prodrome no CP/SOB to suggest ACS or VTE - suspect vasovagal given lack of other symptoms doubt ACS or VTE. Back to baseline and no hx of arrythmia will obtain labs, EKG and hydrate. Differential Diagnosis Differential Diagnoses: The differential diagnosis associated with the presentation includes dehydration, anemia, vasovagal syncope doubt VTE has no CP/SOB, doubt arrhythmia had symptoms, doubt ACS no CP Admission/Observation Consideration of admission/observation: Escalation of care including admission/observation considered labs normal back to baseline, hydrated feels better stable for DC Lab Data [facility] Lab Attestation statement: I reviewed the patient's lab results. 01/22/23 21:24 01/22/23 21:24 Labs: Lab Results 01/22/23 01/22/23 01/22/23 Range/Units 21:24 21:24 21:24 WBC 5.9 (4.8-10.8) X10*3/uL RBC 4.54 (4.20-5.50) X10*6/uL Hgb 13.5 (12.0-16.0) g/dl Hct 39.7 (37.0-47.0) % MCV 87.4 (80.0-98.0) fL MCH 29.7 (27.0-33.0) pg MCHC 34.0 (31.0-35.0) g/dl RDW 11.2 (11.0-16.0) % Plt Count 263 (160-400) X10*3/uL MPV 11.1 (9.4-12.3) fL Immature Gran % (Auto) 0.2 (0.0-0.4) % Neut % (Auto) 59.4 (45-73) % Lymph % (Auto) 31.0 (20-40) % [place] % (Auto) 8.4 (2-11) % Eos % (Auto) 0.7 (0-4) % Baso % (Auto) 0.3 (0-2) % Lymph # (Auto) 1.8 (1.2-4.9) X10*3/uL [place] # (Auto) 0.5 (0.1-1.2) X10*3/uL Eos # (Auto) 0.0 (0.0-0.4) X10*3/uL Baso # (Auto) 0.0 (0.0-0.2) X10*3/uL Abs Immat Gran (auto) 0.01 (0.00-0.03) X10*3/uL Absolute Neuts (auto) 3.5 (2.0-8.3) x10*3/uL Absolute Nucleated RBC 0.000 (0.0-0.012) X10*3/uL Nucleated RBC % (auto) 0.0 (0.0-0.2) /100WBC Sodium 139 (135-145) mmol/L Potassium 3.8 (3.3-5.1) mmol/L Chloride 103 (96-108) mmol/L Carbon Dioxide 27 (22-29) mmol/L Anion Gap 13 (12-20) BUN 17 H (9-16) mg/dL Creatinine 0.72 (0.5-1.4) mg/dL Estim Creat Clear Calc 64.9 Estimated GFR > 60 Random Glucose 126 H (60-115) mg/dL Calcium 10.6 H D (8.4-10.2) mg/dL Troponin I High Sens < 2.7 (<3.5-17.0) ng/L Independent Interpretation I performed an independent interpretation of an: EKG Interpretation: Rate: 64 Rhythm: NSR [place]: normal Normal P waves. Normal REBECA. Normal QRS complex. ST T wave : normal qTC: normal prior studies: no acute ischemia The study has been interpreted contemporaneously by me. . Independent Historian Clinical information obtained from an independent historian. History obtained from or confirmed by: Friend External Record Review External record reviewed: Office record Discharge Plan Discharge Clinical Impression: Serum calcium elevated Syncope Qualifiers: Syncope type: vasovagal syncope Qualified Code(s): R55 - Syncope and collapse Patient Disposition: Home, Self-Care Instructions: Syncope (ED) Additional Instructions: return for dizziness, weakness, pain, chest pain, trouble breathing. drink plenty of fluids and repeat calcium level in 2 days with your doctor. volver por mareos, debilidad, dolor, dolor en el pecho, dificultad para respirar. vannessa muchos l?quidos y repita el nivel de calcio en 2 d?as con cooper m?dico. Prescriptions: No Action simethicone 180 mg capsule 180 mg PO BID PRN (Reason: abdominal distention) 30 Days Qty: 60 1RF ergocalciferol (vitamin D2) 1,250 mcg (50,000 unit) capsule 1,250 mcg PO QWEEK 90 Days Qty: 13 3RF Rx Instructions: saturday ezetimibe 10 mg tablet 10 mg PO DAILY Qty: 90 1RF Januvia 100 mg tablet 100 mg PO DAILY 90 Days Qty: 90 1RF pentoxifylline 400 mg tablet extended release 400 mg PO BID Qty: 180 1RF omeprazole 40 mg capsule,delayed release(DR/EC) 40 mg PO DAILY PRN (Reason: for acid reflux) Qty: 90 0RF polyethylene glycol 3350 [Miralax] 17 gram/dose Powder 17 g PO DAILY PRN (Reason: Constipation) (DME) lancets [TRUEplus Lancets] 33 gauge misc See Rx Instructions .ROUTE .MEDSUPPLY Qty: 100 Rx Instructions: As directed (DME) FreeStyle Lite Strips Strip See Rx Instructions .ROUTE BID Qty: 10 Rx Instructions: As directed cholecalciferol (vitamin D3) [Vitamin D3] 25 mcg (1,000 unit) capsule 25 mcg PO DAILY alendronate 70 mg tablet 70 mg PO QWEEK Print Language: Cypriot
[2023-01-22 21:31] LABS: MANUAL DIFF FLAG NO
[2023-01-22 21:36] LABS: Basophils Percent Auto 0.3 % (0-2); Eosinophils Percent Auto 0.7 % (0-4); Hematocrit 39.7 % (37.0-47.0); Hemoglobin 13.5 g/dl (12.0-16.0); Imm Gran Abs Auto 0.01 X10*3/uL (0.00-0.03); Imm Gran Pct Auto 0.2 % (0.0-0.4); Lymphocytes Absolute Auto 1.8 X10*3/uL (1.2-4.9); Mean Corpuscular Hemoglobin 29.7 pg (27.0-33.0); Mean Corpuscular Volume 87.4 fL (80.0-98.0); Mean Platelet Volume 11.1 fL (9.4-12.3); Monocytes Absolute Auto 0.5 X10*3/uL (0.1-1.2); Monocytes Percent Auto 8.4 % (2-11); Neutrophils Absolute Auto 3.5 x10*3/uL (2.0-8.3); Neutrophils Percent Auto 59.4 % (45-73); Platelet Count 263 X10*3/uL (160-400); Red Blood Count 4.54 X10*6/uL (4.20-5.50); Red Cell Distribution Width 11.2 % (11.0-16.0); White Blood Count 5.9 X10*3/uL (4.8-10.8)
[2023-01-22 21:47] LABS: Anion Gap 13 (12-20); Blood Urea Nitrogen 17 mg/dL (9-16); Calcium 10.6 mg/dL (8.4-10.2); Carbon Dioxide 27 mmol/L (22-29); Chloride 103 mmol/L (96-108); Creatinine Clr Calc Pharmacy 64.9; Estimated Glomerular Filt Rate > 60; Glucose Random 126 mg/dL (60-115); Potassium 3.8 mmol/L (3.3-5.1); Sodium 139 mmol/L (135-145)
[2023-01-22] MEDS: Lactated Ringers 1,000 ML 999 ML IV (22:04)
[2023-01-22 22:51] VITALS: BP 121/61; PULSE 66; RESP 17; TEMP 36.8; O2SAT 97
[2023-01-22 22:52] LABS: Troponin-I High Sensitivity < 2.7 ng/L (<3.5-17.0)
--- NOTE | 2023-01-22 23:44 | PC.NURSE ---
pt oob with no assistance , ambulatory gait steady, denies any complaints
== END 2023-01-23 00:22 | disposition home or self-care (01) ==
PROVIDERS: Emergency Provider Emergency Medicine; PCP Family Medicine
DX: R55 Syncope and collapse (principal); R79.89 Other specified abnormal findings of blood chemistry; Z79.899 Other long term (current) drug therapy
CPT/HCPCS: 36415; 80048; 84484; 85025; 93005; 96360; 96361; 99284; 99285

== ENCOUNTER → 2023-01-22 20:54 | Outpatient (BNV) | payer OTHER, SELFPAY | PROVIDERS: Emergency Provider Emergency Medicine; PCP Family Medicine; Visit Provider Internal Medicine Cardiovascular Disease | DX: R55 Syncope and collapse (principal) | CPT/HCPCS: 93010 ==

== ENCOUNTER 2023-02-08 09:30 | Outpatient (AMB) | payer OTHER, SELFPAY ==
[2023-02-08 09:34] VITALS: BP 147/71; PULSE 66; BMI 22.6
--- NOTE | 2023-02-08 09:34 | A.OFFVIS_ITS ---
Intake Vital Signs 02/08/23 09:34 Height 5 ft 2 in Weight 123 lb 7.342 oz BMI 22.6 BP 147/71 H Blood Pressure Location Lt brachial Position Sitting Pulse 66 Intake Visit Reasons: 6 monthfollow up Intake Note: Trupti presents in the office as a 6 month follow up. CC: She states that she woke up with gastritis and she drank a coffee and ate some crackers and felt like her blood pressure was lower. Pentoxifyline she would like to lower the dose because of the acid she feels it produces. 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 tried lovastatin, atorvastatin and crestor sx include abdominal pain, nausea and malaise she has not tried fibrates, ezetimibe, PCSK9 antibodies (but never had MD or cardiac event) if she takes statin 8 am then by night time she will have these sx, if she doesn;t take statins that day she has no sx otherwise GERD is controlled with omeprazole constipation is worse with rice and bread, so tries to avoid she found miralax helped and needs refill she?did see Dr Tai for assessment of a liver hemangioma?which had been embolized before and had mentioned above sx to him, with clear association to statin timing and dosing. 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 class of drugs, Statins also affect NO pathway so if still has sig hemangioma maybe another mechanism of action in causing her sx--she has remained off statins, has mild ALT elevation likely MEDELLIN related she is also thought to have lactose intolerance ?lipids 06/2020--LDL--117, HDL-34, trig 129, LFT with mild ALT elevation LABS 02/2022-- bili -1.2, AST:37, ALT: 68, alk phos: 96 US: 07/19/21--Gb contracted, no gallstones, hypoechoic liver leison as noted before (presumably the embolized hemangioma area) colonoscopy 2017--hyperplastic polyps removed She had admission for pSBO and enteritis after eating stew, presumed infectious and quickly improved INTERIM: denies nausea or vomiting, having a lot of acid and gas sx, worried about this being caused by trental and wants to stop this no blood in stool, but does admit to worsening constipation over last few years and takes miralax as needed appetite is fair weight is stable EXAM: GENERAL: The patient is well developed and nontoxic. VITAL SIGNS:see workflow HEENT: Nonicteric sclerae, PERRLA, EOMI. Oropharynx clear. Moist mucous membranes. Conjunctivae appear well perfused. No thyroid mass. CHEST: Chest wall is nontender. HEART: Regular rate and rhythm without murmurs. LUNGS: Clear to auscultation bilaterally. ABDOMEN: Soft, positive bowel sounds, nontender, no organomegaly.no flank tenderness SKIN: mild seborrheic dermatitis NEUROLOGIC: Cranial nerves II-XII intact without motor/sensory deficit. A/P; 1/ Possible SIBO, she has no bowel complaints at this time, did have enteritis possibly infectious 2/ abn LFT due to suspected MEDELLIN, on trental- but intolerant of it believes it causing xs acidity and gas sx PLAN: 1/ recheck LFT -stop trental 2/ EGD and colonoscopy for abn bowel habit and acid sx, last colo 2012--sent suprep and zofran prn 3/ Cte to r/o small bowel pathology ? [facility] Medical History (Updated 02/08/23 @ 09:59 by Claudia Jarrell MD) Anxiety Constipation Diabetes mellitus Dysplasia of cervix, low grade (VIRGIE 1) Elevated LFTs GERD (gastroesophageal reflux disease) Hemangioma of liver Osteopenia Overweight (BMI 25.0-29.9) Pure hypercholesterolemia SBO (small bowel obstruction) Vitamin D deficiency Surgical History History of blood clots History of colonoscopy History of oral surgery History of resection of liver History of tubal ligation Family History Father No problems noted. Mother Uterine cancer Colon cancer Maternal Grandmother No problems noted. Paternal Aunt Ovarian cancer Social History Household Members: Children Household Members Other:: daughter Housing: Assisted Living Facility Alcohol intake: never Patient Tobacco Use Status: Never used Tobacco e-Cigarette/Vaping Use: Never Used Second Hand Smoke Exposure: No service: No Current occupational status: disabled Cognitive needs: No Hearing needs: No Vision needs: Yes Female Reproductive History Menstrual Age of Menarche: 14 Physical Exam Vital Signs: BMI result Body Mass Index 22.6 Assessment & Plan Assessment & Plan (1) SBO (small bowel obstruction): Code(s): K56.609 - Unspecified intestinal obstruction, unspecified as to partial versus complete obstruction (2) Abnormal bowel habits: Code(s): R19.8 - Other specified symptoms and signs involving the digestive system and abdomen Orders: Orders CT enterography Today K56.609 - Unspecified intestinal obstruction, unspecified as to partial versus complete obstruction, R10.33 - Periumbilical pain Medications: New sodium,potassium,mag sulfates 17.5-3.13-1.6 gram (Suprep Bowel Prep Kit) DILUTE; drink 1/2 at 6-8 pm and half at 11 PM- 1AM 354 mL 0RF ondansetron 4 mg PO Q8H PRN 7 tabs 0RF nausea and vomiting Discontinued pentoxifylline ER administer with meals 400 mg PO BID 90 tabs 2RF Coding Level of Care Code Est Pt Level 4 (20144) Diagnoses SBO (small bowel obstruction) K56.609 Abnormal bowel habits R19.8
== END 2023-02-08 10:01 | disposition home or self-care (01) ==
PROVIDERS: Visit Provider Internal Medicine Gastroenterology
DX: K56.609 Unspecified intestinal obstruction, unspecified as to partial versus complete obstruction (principal); R19.8 Other specified symptoms and signs involving the digestive system and abdomen
CPT/HCPCS: 99214

== ENCOUNTER 2023-02-08 09:30 | Outpatient (REF) | payer OTHER, SELFPAY ==
[2023-02-08 10:21] LABS: MANUAL DIFF FLAG NO
[2023-02-08 10:51] LABS: Basophils Percent Auto 0.4 % (0-2); Eosinophils Absolute Auto 0.1 X10*3/uL (0.0-0.4); Eosinophils Percent Auto 1.3 % (0-4); Hematocrit 44.8 % (37.0-47.0); Imm Gran Abs Auto 0.01 X10*3/uL (0.00-0.03); Imm Gran Pct Auto 0.2 % (0.0-0.4); Lymphocytes Absolute Auto 1.4 X10*3/uL (1.2-4.9); Lymphocytes Percent Auto 28.1 % (20-40); Mean Corpuscular HGB Conc 33.5 g/dl (31.0-35.0); Mean Corpuscular Hemoglobin 29.4 pg (27.0-33.0); Mean Corpuscular Volume 87.7 fL (80.0-98.0); Mean Platelet Volume 11.6 fL (9.4-12.3); Monocytes Absolute Auto 0.4 X10*3/uL (0.1-1.2); Monocytes Percent Auto 8.5 % (2-11); Neutrophils Percent Auto 61.5 % (45-73); Platelet Count 264 X10*3/uL (160-400); Red Blood Count 5.11 X10*6/uL (4.20-5.50); White Blood Count 4.8 X10*3/uL (4.8-10.8)
[2023-02-08 13:22] LABS: Alanine Aminotransferase 47 U/L (0-31); Albumin Level 4.5 g/dL (3.5-5.0); Alkaline Phosphatase 53 U/L (39-117); Anion Gap 13 (12-20); Aspartate Amino Transferase 33 U/L (5-31); Bilirubin Total 1.4 mg/dL (0.0-1.0); Blood Urea Nitrogen 13 mg/dL (9-16); Calcium 10.2 mg/dL (8.4-10.2); Carbon Dioxide 29 mmol/L (22-29); Chloride 103 mmol/L (96-108); Estimated Glomerular Filt Rate > 60; Glucose Random 98 mg/dL (60-115); Potassium 4.2 mmol/L (3.3-5.1); Sodium 141 mmol/L (135-145); Total Protein 8.3 g/dL (6.5-8.0)
== END 2023-02-08 09:31 | disposition home or self-care (01) ==
LOC: HO.LAB 09:30
PROVIDERS: PCP Family Medicine; Visit Provider Internal Medicine Gastroenterology
DX: R79.89 Other specified abnormal findings of blood chemistry (principal); K75.81 Nonalcoholic steatohepatitis (NASH); K56.609 Unspecified intestinal obstruction, unspecified as to partial versus complete obstruction; R19.8 Other specified symptoms and signs involving the digestive system and abdomen
CPT/HCPCS: 36415; 80053; 85025; 99212

== ENCOUNTER 2023-02-21 13:20 | Outpatient (REF) | payer OTHER, SELFPAY ==
--- NOTE | ~2023-02-21 | MM_ITS ---
EXAMINATION: MM SCREENING DIGITAL BREAST TOMOSYNTHESIS, BILATERAL CLINICAL INFORMATION: Screening. Asymptomatic. COMPARISON: Mammography: This study is compared with prior exams dating back to 2018. TECHNIQUE: Digital breast tomosynthesis is performed in both the craniocaudal and mediolateral oblique views along with computer-aided detection (CAD). Synthesized 2D images are generated from the tomosynthesis. FINDINGS: There are scattered areas of fibroglandular density (ACR BI-RADS breast composition Category b). There are no significant masses, abnormal calcifications, or other abnormalities. Benign calcifications are present in each breast. MM/MM tomosynthesis screening BI IMPRESSION: No mammographic evidence of malignancy. ASSESSMENT: BI-RADS BI-RADS 2 - Benign Findings RECOMMENDATION: Routine annual mammography screening. 1 year F/U This examination should not preclude the clinical evaluation of a suspicious palpable abnormality. This patient's information was entered into a reminder system with a target due date for their next mammogram.
== END 2023-02-21 13:21 | disposition home or self-care (01) ==
LOC: HO.MAMMO 13:20
PROVIDERS: PCP Internal Medicine; Visit Provider Internal Medicine
DX: Z12.31 Encounter for screening mammogram for malignant neoplasm of breast (principal)
CPT/HCPCS: 77063; 77067

== ENCOUNTER → 2023-02-21 13:30 | Outpatient (BNV) | payer OTHER, SELFPAY | PROVIDERS: PCP Internal Medicine; Visit Provider Radiology Diagnostic Radiology | DX: Z12.31 Encounter for screening mammogram for malignant neoplasm of breast (principal) | CPT/HCPCS: 77063; 77067 ==

== ENCOUNTER 2023-03-11 14:32 | Outpatient (REF) | payer OTHER, SELFPAY ==
--- NOTE | ~2023-03-11 | CT_ITS ---
EXAMINATION: CT ENTEROGRAPHY ABDOMEN AND PELVIS WITH CONTRAST CLINICAL INFORMATION: Periumbilical pain. COMPARISON: 11/23/2022 TECHNIQUE: Study performed with oral VoLumen (1350 mL) and 480 mL of water to distend the abdomen. The patient was injected with 85 mL Omnipaque 350 intravenous contrast which was administered without adverse effect. Coronal and sagittal reformatted images were obtained at the technologist's workstation. This CT examination was performed using dose optimization techniques as appropriate, variously including the following: *Automated exposure control *Adjustment of mA and/or kV according to patient size (this includes techniques or standardized protocols for targeted exams where dose is matched to indication/reason for exam; i.e. extremities or head) *Use of iterative reconstruction technique DLP: 264 mGy-cm FINDINGS: GASTROINTESTINAL FINDINGS: Stomach: Satisfactory and unremarkable in appearance. Small intestine: Satisfactorily distended and unremarkable in appearance. Large intestine: Scattered colonic diverticula. No perirectal changes demonstrated. The appendix is within normal limits. Additional findings: No abnormal enhancement of the vasa recta or significant mesenteric or retroperitoneal lymphadenopathy is seen. No abdominal abscess or fistulous tract demonstrated. ABDOMINAL AND PELVIC CT FINDINGS: Liver, gallbladder, biliary tract: Status post partial right hepatectomy. There is metallic artifact in the parenchyma. Hepatic hemangioma. Hepatic cyst. No biliary ductal dilatation. The gallbladder is unremarkable. Pancreas: No ductal dilatation. Spleen: Not enlarged. Adrenal glands and kidneys: No adrenal mass. The kidneys are symmetric in size and enhancement. No hydronephrosis or perinephric fluid collection. Ureters and bladder: Unremarkable. Pelvic venous congestion. No large adnexal masses are appreciated. Lymphovascular structures: No bulky abdominal or pelvic lymphadenopathy. Bones: No destructive bone lesions. Lung bases: No pleural or pericardial effusion. CT/CT enterography IMPRESSION: No acute abnormality.
[2023-03-11] MEDS: Sorbitol/Mannit/Xanth Imaging 500 ML LIQUID 1500 ML PO (16:34)
[2023-03-11] MEDS: iohexoL 350 MG/ML 100 ML INFUS..BTL IV (16:35)
== END 2023-03-11 14:33 | disposition home or self-care (01) ==
LOC: HO.CT 14:32
PROVIDERS: PCP Internal Medicine; Visit Provider Internal Medicine Gastroenterology
DX: R10.33 Periumbilical pain (principal); K56.609 Unspecified intestinal obstruction, unspecified as to partial versus complete obstruction
CPT/HCPCS: 74177; Q9967

== ENCOUNTER 2023-04-05 01:19 | Emergency (ER) | payer OTHER, SELFPAY ==
[2023-04-05 01:33] VITALS: BP 181/72; PULSE 72; RESP 18; TEMP 36.7; O2SAT 98; BMI 22.3
[2023-04-05 01:38] VITALS: BP 175/70
[2023-04-05 02:24] VITALS: BP 151/77; PULSE 70; RESP 18; TEMP 36.5; O2SAT 98
--- NOTE | 2023-04-05 02:27 | PC.NURSE ---
Pt ambulated in to room with a steady gait, Pt AOx3, pt denies any pain, is reporting that she has high blood pressure, vitals reassessed. Pt awaiting
--- NOTE | 2023-04-05 02:40 | ED.GENADULT ---
HPI - General Adult General Chief complaint: General Medical Stated complaint: High Blood Pressure Time Seen by Provider: 04/05/23 02:40 Source: patient Mode of arrival: ambulatory Limitations: no limitations History of Present Illness HPI narrative: Patient with family history of hypertension but patient does not have hypertension as such had caffeine earlier today felt nauseated checked her blood pressure was 161 systolic arrival patient's blood pressure was 150/71 patient denies any chest pain no headache no vomiting no palpitation no headache Related Data Home Medications Medication Instructions Recorded Confirmed alendronate 70 mg tablet 70 mg PO QWEEK 08/20/22 11/24/22 blood sugar diagnostic (FreeStyle #10 ea 08/20/22 08/20/22 Lite Strips) cholecalciferol (vitamin D3) 25 25 mcg PO DAILY 08/20/22 11/24/22 mcg (1,000 unit) capsule (Vitamin D3) lancets 33 gauge (TRUEplus Lancets) #100 ea 11/14/22 polyethylene glycol 3350 17 17 g PO DAILY PRN Constipation 11/24/22 11/24/22 gram/dose oral powder (Miralax) Previous Rx's Medication Instructions Recorded simethicone 180 mg capsule 180 mg PO BID PRN abdominal 10/24/21 distention 30 days #60 caps ergocalciferol (vitamin D2) 1,250 1,250 mcg PO QWEEK 90 days #13 caps 07/26/22 mcg (50,000 unit) capsule ezetimibe 10 mg tablet 10 mg PO DAILY #90 tabs 09/25/22 sitagliptin phosphate 100 mg 100 mg PO DAILY 90 days #90 tabs 10/16/22 tablet (Januvia) pentoxifylline 400 mg 400 mg PO BID #180 tabs 12/03/22 tablet,extended release omeprazole 40 mg capsule,delayed 40 mg PO DAILY PRN for acid reflux 12/30/22 release #90 caps ondansetron 4 mg disintegrating 4 mg PO Q8H PRN nausea and 02/08/23 tablet vomiting #7 tabs sodium,potassium,mag sulfates 17.5 See Rx Instructions PO .COMPLEX 02/08/23 gram-3.13 gram-1.6 gram oral soln #354 mL (Suprep Bowel Prep Kit) Allergies Allergy/AdvReac Type Severity Reaction Status Date / Time codeine [CODEINE] Allergy Intermediate DIZZY/CAROLYN Verified 04/05/23 01:33 RGY atorvastatin AdvReac Unknown increased Verified 04/05/23 01:33 heartburns Review of Systems Review of Systems: Yes all other systems are reviewed and are negative [facility] Past Medical History Medical History SBO (small bowel obstruction) Dysplasia of cervix, low grade (VIRGIE 1) Overweight (BMI 25.0-29.9) Anxiety Constipation Osteopenia Vitamin D deficiency GERD (gastroesophageal reflux disease) Elevated LFTs Hemangioma of liver Pure hypercholesterolemia Diabetes mellitus Surgical History History of resection of liver History of blood clots History of colonoscopy History of oral surgery History of tubal ligation Family History Family History Father No problems noted. Mother Uterine cancer Colon cancer Maternal Grandmother No problems noted. Paternal Aunt Ovarian cancer Social History Social History Household Members: Children Household Members Other:: daughter Housing: Assisted Living Facility Alcohol intake: never Patient Tobacco Use Status: Never used Tobacco Smoked in Last 30 Days: No e-Cigarette/Vaping Use: Never Used Second Hand Smoke Exposure: No Use of substances other than those prescribed or required for medical reasons: No Advance Directives: No Advance Directives Information Provided: Yes Patient : No service: No Current occupational status: disabled Cognitive needs: No Hearing needs: No Vision needs: Yes Physical Exam ED Vital Signs: Vital Signs - 24 hr 04/05/23 01:33 04/05/23 01:38 04/05/23 02:24 Temperature 98.1 F 97.7 F Pulse Rate 72 70 Respiratory Rate 18 18 Blood Pressure 181/72 H 175/70 H 151/77 H Pulse Oximetry 98 98 Oxygen Delivery Method Room Air Room Air BMI result Body Mass Index 22.3 Appearance: Alert. Oriented X3. No acute distress. Eyes: No pallor or icterus ENT: Pharynx normal. Oral Mucosa moist Neck: Normal inspection. Neck supple. CVS: Normal heart rate and rhythm. Pulses normal. Respiratory: No respiratory distress. Equal air entry bilateral, no wheezing/rales/rhonchi Abdomen: Soft and nontender. Bowel sounds are present, no mass palpable, no CVA tenderness Skin: Skin warm and dry. Normal skin color. Normal skin turgor. Extremities: No lower extremity edema. No calf tenderness Neuro: Oriented X 3. No motor deficit. No sensory deficit.No cerebellar signs , cranial nerves II-XII intact Medical Decision Making Medical Decision Making MDM Narrative: Patient with borderline hypertension possible after caffeine intake repeat blood pressure was 150/70 patient advised to decrease the caffeine intake and salt intake and follow-up with PCP Differential Diagnosis Differential Diagnoses: The differential diagnosis associated with the presentation includes Hypertension Independent Interpretation I performed an independent interpretation of an: EKG Interpretation: Normal sinus rhythm heart rate 68 beats per minute normal interval normal axis no acute ST-T changes Discharge Plan Discharge Clinical Impression: Hypertension Patient Disposition: Home, Self-Care Instructions: How to Take a Blood Pressure (ED), Hypertension (ED) Additional Instructions: Check blood pressure twice daily should be less than 135/85 If it is higher than this follow with PCP for possible hypertension Decrease salt intake and caffeine intake Prescriptions: No Action simethicone 180 mg capsule 180 mg PO BID PRN (Reason: abdominal distention) 30 Days Qty: 60 1RF ergocalciferol (vitamin D2) 1,250 mcg (50,000 unit) capsule 1,250 mcg PO QWEEK 90 Days Qty: 13 3RF Rx Instructions: saturday ezetimibe 10 mg tablet 10 mg PO DAILY Qty: 90 1RF Januvia 100 mg tablet 100 mg PO DAILY 90 Days Qty: 90 1RF pentoxifylline 400 mg tablet extended release 400 mg PO BID Qty: 180 1RF omeprazole 40 mg capsule,delayed release(DR/EC) 40 mg PO DAILY PRN (Reason: for acid reflux) Qty: 90 0RF polyethylene glycol 3350 [Miralax] 17 gram/dose Powder 17 g PO DAILY PRN (Reason: Constipation) (DME) lancets [TRUEplus Lancets] 33 gauge misc See Rx Instructions .ROUTE .MEDSUPPLY Qty: 100 Rx Instructions: As directed (DME) FreeStyle Lite Strips Strip See Rx Instructions .ROUTE BID Qty: 10 Rx Instructions: As directed cholecalciferol (vitamin D3) [Vitamin D3] 25 mcg (1,000 unit) capsule 25 mcg PO DAILY alendronate 70 mg tablet 70 mg PO QWEEK sodium,potassium,mag sulfates [Suprep Bowel Prep Kit] 17.5-3.13-1.6 gram recon soln See Rx Instructions PO .COMPLEX Qty: 354 0RF Rx Instructions: DILUTE; drink 1/2 at 6-8 pm and half at 11 PM- 1AM ondansetron 4 mg tablet,disintegrating 4 mg PO Q8H PRN (Reason: nausea and vomiting) Qty: 7 0RF Interventions: ED Discharge Assessment Last Done: 04/05/23 03:07 Discharge Date/Time: 04/05/23 03:07
--- NOTE | 2023-04-05 02:48 | ECG_ITS ---
Test Reason : htn Blood Pressure : / mmHG Vent. Rate : 068 BPM Atrial Rate : 068 BPM P-R Int : 110 ms QRS Dur : 084 ms QT Int : 404 ms P-R-T Axes : 032 033 046 degrees QTc Int : 429 ms Sinus rhythm Normal ECG When compared with ECG of 22-JAN-2023 20:54, No significant change was found Referred By: Temo Palencia Electronically Signed By:TRAVIS ZAMUDIO MD
== END 2023-04-05 03:07 | disposition home or self-care (01) ==
PROVIDERS: Emergency Provider Internal Medicine; PCP Family Medicine
DX: R11.0 Nausea (principal); I10 Essential (primary) hypertension; Z79.899 Other long term (current) drug therapy
CPT/HCPCS: 93005; 99283; 99284

== ENCOUNTER 2023-04-10 09:07 | Outpatient (REF) | payer OTHER, SELFPAY ==
[2023-04-10 15:19] LABS: Cholesterol 181 mg/dL (<200); HDL Cholesterol 35 mg/dL (>40); LDL Cholesterol Calculated 124 mg/dL (<100); Triglycerides 110 mg/dL (<150)
[2023-04-11 04:47] LABS: HIV AB/AG Nonreactive (Nonreactive); HIV Num 1 0.04 S/CO (0.00-0.99); ~HepC Num1 0.17 S/CO (0.00-0.79); ~Hepatitis C Antibody Nonreactive (Nonreactive)
== END 2023-04-10 09:08 | disposition home or self-care (01) ==
LOC: HO.CHCLDS 09:07
PROVIDERS: Visit Provider Family Medicine
DX: E78.5 Hyperlipidemia, unspecified (principal); Z11.3 Encounter for screening for infections with a predominantly sexual mode of transmission
CPT/HCPCS: 36415; 80061; 86803; 87389

== ENCOUNTER 2023-04-30 09:11 | Day surgery (SDC) | payer OTHER, SELFPAY ==
--- NOTE | 2023-04-29 11:39 | P.CONAN_ITS ---
Documented by User: Dimple Rocha NP 04/29/23 11:40 HPI - Anesthesia Eval Consult details Narrative: 62yo F for Upper Endoscopy and Colonoscopy [facility] Active Problems Active Problems: All Active Problems (Updated 04/06/23 @ 00:01 by Background Daemon) Abnormal bowel habits (Acute) Elevated TSH (Acute) Lactose intolerance (Acute) Dizziness (Acute) Well woman exam (Acute) Overweight (BMI 25.0-29.9) (Acute) Anxiety (Acute) Constipation (Acute) Osteopenia (Acute) Vitamin D deficiency (Acute) GERD (gastroesophageal reflux disease) (Acute) Elevated LFTs (Acute) Hemangioma of liver (Acute) Pure hypercholesterolemia (Acute) Diabetes mellitus (Acute) Past Medical History Medical History SBO (small bowel obstruction) Dysplasia of cervix, low grade (VIRGIE 1) Overweight (BMI 25.0-29.9) Anxiety Constipation Osteopenia Vitamin D deficiency GERD (gastroesophageal reflux disease) Elevated LFTs Hemangioma of liver Pure hypercholesterolemia Diabetes mellitus Family History Family History Father No problems noted. Mother Uterine cancer Colon cancer Maternal Grandmother No problems noted. Paternal Aunt Ovarian cancer Surgical History Surgical History History of resection of liver History of blood clots History of colonoscopy History of oral surgery History of tubal ligation Social History Social History Household Members: Children Household Members Other:: daughter Housing: Assisted Living Facility Alcohol intake: never Patient Tobacco Use Status: Never used Tobacco e-Cigarette/Vaping Use: Never Used Second Hand Smoke Exposure: No service: No Current occupational status: disabled Cognitive needs: No Hearing needs: No Vision needs: Yes Meds Allergies Allergy/AdvReac Type Severity Reaction Status Date / Time codeine [CODEINE] Allergy Intermediate DIZZY/CAROLYN Verified 04/05/23 01:33 RGY atorvastatin AdvReac Unknown increased Verified 04/05/23 01:33 heartburns Home Medications Medication Instructions Recorded Confirmed Last Taken Type alendronate 70 mg tablet 70 mg PO QWEEK 08/20/22 11/24/22 Unknown History blood sugar diagnostic (AnnemarieStyle #10 ea 08/20/22 08/20/22 Unknown History Lite Strips) cholecalciferol (vitamin D3) 25 25 mcg PO DAILY 08/20/22 11/24/22 Unknown History mcg (1,000 unit) capsule (Vitamin D3) lancets 33 gauge (TRUEplus Lancets) #100 ea 11/14/22 Unknown History polyethylene glycol 3350 17 17 g PO DAILY PRN Constipation 11/24/22 11/24/22 Unknown History gram/dose oral powder (Miralax) Exam Exam Date and Time: April 29, 2023 1139 Pertinent Lab Results Pertinent Lab Results: Laboratory Tests 02/08/23 10:20 WBC 4.8 Hgb 15.0 Hct 44.8 Plt Count 264 Sodium 141 Potassium 4.2 Chloride 103 Carbon Dioxide 29 BUN 13 Creatinine 0.71 Assessment and Plan Assessment Anesthesia Assessment: Chart Reviewed Documented by User: Mahendra Dewey MD 04/30/23 11:07 [facility] Past Medical History Medical History SBO (small bowel obstruction) Dysplasia of cervix, low grade (VIRGIE 1) Overweight (BMI 25.0-29.9) Anxiety Constipation Osteopenia Vitamin D deficiency GERD (gastroesophageal reflux disease) Elevated LFTs Hemangioma of liver Pure hypercholesterolemia Diabetes mellitus Family History Family History Father No problems noted. Mother Uterine cancer Colon cancer Maternal Grandmother No problems noted. Paternal Aunt Ovarian cancer Family history of problems with anesthesia: No Surgical History Surgical History History of resection of liver History of blood clots History of colonoscopy History of oral surgery History of tubal ligation History of Problems with Anesthesia: No Social History Social History Household Members: Children Household Members Other:: daughter Housing: Assisted Living Facility Alcohol intake: never Patient Tobacco Use Status: Never used Tobacco e-Cigarette/Vaping Use: Never Used Second Hand Smoke Exposure: No service: No Current occupational status: disabled Cognitive needs: No Hearing needs: No Vision needs: Yes Meds Allergies Allergy/AdvReac Type Severity Reaction Status Date / Time codeine [CODEINE] Allergy Intermediate DIZZY/CAROLYN Verified 04/05/23 01:33 RGY atorvastatin AdvReac Unknown increased Verified 04/05/23 01:33 heartburns Home Medications Medication Instructions Recorded Confirmed Last Taken Type alendronate 70 mg tablet 70 mg PO QWEEK 08/20/22 11/24/22 Unknown History blood sugar diagnostic (FreeStyle #10 ea 08/20/22 08/20/22 Unknown History Lite Strips) cholecalciferol (vitamin D3) 25 25 mcg PO DAILY 08/20/22 11/24/22 Unknown History mcg (1,000 unit) capsule (Vitamin D3) lancets 33 gauge (TRUEplus Lancets) #100 ea 11/14/22 Unknown History polyethylene glycol 3350 17 17 g PO DAILY PRN Constipation 11/24/22 11/24/22 Unknown History gram/dose oral powder (Miralax) Exam Airway Mallampati Class: II TM Dist: >3cm Neck ROM: Full Heart: rrr Lungs: cta Assessment and Plan Assessment Anesthesia Assessment: Anesthesia Plan Discussed Final Anesthetic Review Family History of Problems with Anesthesia: No History of Problems with Anesthesia: No ASA Class: II Final Preanesthetic Review: No Changes in Pt Med Stat, Meds/Allgs Chart Reviewed, Consent Obtained/Reviewed and Anes Risks/Benef Reviewed Patient Risk: Intermediate Procedure Risk: Intermediate Anesthetic Plan Anesthetic Plan: MAC: and Agree w/ Assess. and Plan Disposition: Standard PACU
[2023-04-30 10:05] VITALS: BP 145/79; PULSE 71; RESP 16; TEMP 36.8; O2SAT 97; BMI 21.9
[2023-04-30 10:06] LABS: Glucose, Whole Blood 94 mg/dL (60-115)
--- NOTE | 2023-04-30 10:39 | MHC.SHP ---
Pre-Procedural Eval Section A Date of Service: 04/30/23 Section B Chief Complaint: altered bowel habits Relevant Family History (Specify if Yes): No Relevant Social History: None Present Medications: see Short Stay Collaborative assessment Medical History: Significant History (SBO (small bowel obstruction) Dysplasia of cervix, low grade (VIRGIE 1) Overweight (BMI 25.0-29.9) Anxiety Constipation Osteopenia Vitamin D deficiency GERD (gastroesophageal reflux disease) Elevated LFTs Hemangioma of liver Pure hypercholesterolemia Diabetes mellitus) History of Previous Operations: Relevant previous surgery/procedure and date(s) (History of resection of liver History of blood clots History of colonoscopy History of oral surgery History of tubal ligation) Allergies: Allergies Allergy/AdvReac Type Severity Reaction Status Date / Time codeine [CODEINE] Allergy Intermediate DIZZY/CAROLYN Verified 04/05/23 01:33 RGY atorvastatin AdvReac Unknown increased Verified 04/05/23 01:33 heartburns Review of Systems Sugical H&P ROS: Negative: Constitution, Cardiovascular, Respiratory, Neurological, Psychiatric, Hem-Onc, Allergic/Immunologic, Gastrointestinal, Genitourinary, Musculoskeletal, Integumentary, Endocrine and Eyes/Ears/Nose/Throat Exam Surgical H&P Exam: Normal: HEENT, Normal: Heart, Normal: Lungs, Normal: Extremities, Normal: Abdomen, Normal: Skin and Normal: Neurological Plan Diagnosis/Plan: Unchanged I have reviewed the history and physical and performed a pertinent physical examination on my patient. No changes have occurred unless specified. Time Spent With Patient Time: Total time managing care of this patient today ____ minutes.
--- NOTE | 2023-04-30 10:42 | W.PM.OPN ---
Operative Note Operative Note Date of Service: 04/30/23 Narrative: Operative Information Procedure Description: EGD, Colonoscopy Indication: altered bowel habits Anesthesia: MAC FLEXIBLE TRANSORAL UPPER GASTROINTESTINAL ENDOSCOPY AND COLONOSCOPY PROCEDURE NOTE UPPER ENDOSCOPY Consent: Indications for the procedure and potential complications of bleeding, perforation, reaction to medications and missed diagnosis were discussed with the patient and informed consent was obtained. Instrument: Olympus GIF H 190 J mid size upper endoscope Monitoring: Vital signs and clinical assessment, continuous EKG monitoring, Pulse oximetry, Carbon Dioxide monitoring and blood pressure monitoring were done throughout the procedure. Procedure: The patient was placed in the left lateral decubitis position and pre-procedure medications were administered and a bite block was placed. The endoscope was inserted into the mouth and advanced under direct vision to the third part of duodenum. A careful inspection was made as the upper endoscope was withdrawn including a retroflexed examination of the proximal stomach; Findings and interventions are described below. Findings: Larynx:normal Esophagus: GE junction at 40 cm, diaphragm hiatus at 40 cm, mild bogginess and erythema at GEJ, bx taken as well as from distal esophagus. small inlet patch noted Stomach: Mild patchy erythema. Biopsies were obtained. Grade 2 flap valve on retroflexed examination of the cardia. Duodenum: Normal bulb and descending duodenum, bx taken Intervention: Biopsies as noted above COLONOSCOPY Instrument: Olympus variable stiffness pediatric scope 190L Colonoscopy Monitoring: Vital signs and clinical assessment, continuous EKG monitoring, Pulse oximetry, Carbon Dioxide monitoring and blood pressure monitoring were done throughout the procedure. Colon withdrawal time was 11 minutes. Procedure: The patient was placed in the left lateral decubitis position and pre-procedure medications were administered. After a digital rectal examination of the ano-rectum, the video colonoscope was inserted into the rectum and advanced through the colon to the cecum/TI. The colonoscope was slowly withdrawn in a retrograde panoramic fashion and the colon mucosa was carefully examined including a retroflexed view of the rectum. Findings and interventions are described below. Procedure Difficulty:easy Findings: Terminal Ileum-normal, bx taken Patchy granularity in colon, otherwise normal, random bx taken Cecum:normal Ascending Colon: normal Transverse Colon -normal Descending Colon:normal Sigmoid Colon: mild diverticulosis Rectum: Retroflexion with medium sized internal hemorrhoids, grade I Anorectum - normal Colon preparation: [place] Bowel Preparation Scale Right colon; 2 Transverse colon: 3 Left colon; 3 (0 = Unprepared colon segment with mucosa not seen due to solid stool that cannot be cleared. 1 = Portion of mucosa of the colon segment seen, but other areas of the colon segment not well seen due to staining, residual stool and/or opaque liquid. 2 = Minor amount of residual staining, small fragments of stool and/or opaque liquid, but mucosa of colon segment seen well. 3 = Entire mucosa of colon segment seen well with no residual staining, small fragments of stool or opaque liquid) Impression and Post Procedure Diagnosis: Endoscopy Findings: gastritis, mild mild esophagitis inlet patch Colonoscopy Findings: internal hemorrhoids diverticular disease Plan: Await Pathology results Repeat Colonoscopy in 10 years or earlier if clinically indicated High fiber diet leaflet avoid straining at stool, epsom salts and sitz bath, anusol supps or cream Above findings were reviewed with the patient and relevant handouts were provided if indicated.
[2023-04-30 11:36] VITALS: BP 82/76; PULSE 78; RESP 16; TEMP 36.7; O2SAT 98
[2023-04-30 11:41] VITALS: BP 87/50; PULSE 68; RESP 16; O2SAT 100
[2023-04-30 11:46] VITALS: BP 119/71; PULSE 73; RESP 16; O2SAT 100
[2023-04-30 11:51] VITALS: BP 120/72; PULSE 67; RESP 16; O2SAT 100
[2023-04-30 12:01] VITALS: BP 125/80; PULSE 64; RESP 16; TEMP 36.1; O2SAT 99
== END 2023-04-30 12:50 | disposition home or self-care (01) ==
PROVIDERS: PCP Family Medicine; Visit Provider Internal Medicine Gastroenterology
PROC: (CPT 45380; principal; 2023-04-30 11:20)
DX: R19.4 Change in bowel habit (principal); K57.30 Diverticulosis of large intestine without perforation or abscess without bleeding; K64.0 First degree hemorrhoids; K29.50 Unspecified chronic gastritis without bleeding; K20.80 Other esophagitis without bleeding; Q39.8 Other congenital malformations of esophagus; K44.9 Diaphragmatic hernia without obstruction or gangrene; D18.03 Hemangioma of intra-abdominal structures; E11.9 Type 2 diabetes mellitus without complications; E55.9 Vitamin D deficiency, unspecified; E78.00 Pure hypercholesterolemia, unspecified; F41.9 Anxiety disorder, unspecified; Z79.899 Other long term (current) drug therapy; Z88.5 Allergy status to narcotic agent; Z88.8 Allergy status to other drugs, medicaments and biological substances; Z98.890 Other specified postprocedural states
CPT/HCPCS: 45380; 43239; 82947; 88305; 88342; J2704

== ENCOUNTER → 2023-04-30 09:11 | Outpatient (BNV) | payer OTHER, SELFPAY | PROVIDERS: PCP Family Medicine; Visit Provider Internal Medicine Gastroenterology | DX: R19.4 Change in bowel habit (principal); K29.70 Gastritis, unspecified, without bleeding; K20.90 Esophagitis, unspecified without bleeding; Q39.8 Other congenital malformations of esophagus; K57.30 Diverticulosis of large intestine without perforation or abscess without bleeding; K64.0 First degree hemorrhoids | CPT/HCPCS: 43239; 45380 ==

== ENCOUNTER 2023-05-20 11:05 | Outpatient (AMB) | payer OTHER, SELFPAY ==
--- NOTE | 2023-05-20 11:11 | A.OFFVIS_ITS ---
Intake Vital Signs 05/20/23 11:12 Height 5 ft 2 in Weight 119 lb 0.794 oz BMI 21.8 BP 120/65 Blood Pressure Location Lt brachial Position Sitting Pulse 74 Intake Visit Reasons: S/p egd/colon Intake Note: Trupti presents in the office as a follow up EGD and COLO. CC: Only here for the results no other concerns at this time. Roll Contour Grinder Required: Yes Roll Contour Grinder Name: [id number] Allergies codeine [CODEINE] Allergy (Intermediate, Verified 05/20/23 11:15) DIZZY/LETHARGY atorvastatin Adverse Reaction (Unknown, Verified 05/20/23 11:15) increased heartburns HPI S/p egd/colon HPI Details Endoscopy Findings: 63 yr old f here for f/u RECAP Had been seeing September before for GERD and constipation was being seen for idiosyncratic reaction to statins tried lovastatin, atorvastatin and crestor sx include abdominal pain, nausea and malaise she has not tried fibrates, ezetimibe, PCSK9 antibodies (but never had KS or cardiac event) if she takes statin 8 am then by night time she will have these sx, if she doesn;t take statins that day she has no sx otherwise GERD is controlled with omeprazole constipation is worse with rice and bread, so tries to avoid she found miralax helped and needs refill she?did see Dr Tai for assessment of a liver hemangioma?which had been embolized before and had mentioned above sx to him, with clear association to statin timing and dosing. 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 class of drugs, Statins also affect NO pathway so if still has sig hemangioma maybe another mechanism of action in causing her sx--she has remained off statins, has mild ALT elevation likely MEDELLIN related she is also thought to have lactose intolerance ?lipids 06/2020--LDL--117, HDL-34, trig 129, LFT with mild ALT elevation LABS 02/2022-- bili -1.2, AST:37, ALT: 68, alk phos: 96 US: 07/19/21--Gb contracted, no gallstones, hypoechoic liver leison as noted before (presumably the embolized hemangioma area) colonoscopy 2017--hyperplastic polyps removed She had admission for pSBO and enteritis after eating stew, presumed infectious and quickly improved CTe: 02/2023 -no major abnormality seen REPEAT EGD/colo 2022: gastritis, mild mild esophagitis inlet patch Colonoscopy Findings: internal hemorrhoids diverticular disease plan is for celiac panel and h pylori INTERIM: denies nausea or vomiting, having a lot of acid and gas sx, worried about this being caused by trental and wants to stop this no blood in stool, but does admit to worsening constipation over last few years and takes miralax as needed appetite is fair weight is stable EXAM: GENERAL: The patient is well developed and nontoxic. VITAL SIGNS:see workflow HEENT: Nonicteric sclerae, PERRLA, EOMI. Oropharynx clear. Moist mucous membranes. Conjunctivae appear well perfused. No thyroid mass. CHEST: Chest wall is nontender. HEART: Regular rate and rhythm without murmurs. LUNGS: Clear to auscultation bilaterally. ABDOMEN: Soft, positive bowel sounds, nontender, no organomegaly.no flank tenderness SKIN: mild seborrheic dermatitis NEUROLOGIC: Cranial nerves II-XII intact without motor/sensory deficit. A/P; 1/ Possible SIBO, she has no bowel compl aints at this time, did have enteritis possibly infectious--Cte was neg, duodenal bx with IEL so crohn also possible 2/ abn LFT due to suspected MEDELLIN, mild, PLAN: 1/ recheck LFT -next visist, if persiste nt then vit E 2/ check celiac and h pyloir--if neg the n maybe capsule endo PFSH Medical History SBO (small bowel obstruction) Dysplasia of cervix, low grade (VIRGIE 1) Overweight (BMI 25.0-29.9) Anxiety Constipation Osteopenia Vitamin D deficiency GERD (gastroesophageal reflux disease) Elevated LFTs Hemangioma of liver Pure hypercholesterolemia Diabetes mellitus Surgical History History of esophagogastroduodenoscopy (EGD) History of resection of liver History of blood clots History of colonoscopy History of oral surgery History of tubal ligation Family History Father No problems noted. Mother Uterine cancer Colon cancer Maternal Grandmother No problems noted. Paternal Aunt Ovarian cancer Social History Household Members: Children Household Members Other:: daughter Housing: Assisted Living Facility Alcohol intake: never Patient Tobacco Use Status: Never used Tobacco e-Cigarette/Vaping Use: Never Used Second Hand Smoke Exposure: No service: No Current occupational status: disabled Cognitive needs: No Hearing needs: No Vision needs: Yes Female Reproductive History Menstrual Age of Menarche: 14 Physical Exam Vital Signs: Last Vital Signs Pulse 74 05/20/23 11:12 BP 120/65 05/20/23 11:12 BMI result Body Mass Index 21.8 Assessment & Plan Assessment & Plan (1) Abnormal bowel habits: Code(s): R19.8 - Other specified symptoms and signs involving the digestive system and abdomen Plan: A/P; 1/ Possible SIBO, she has no bowel complaints at this time, did have enteritis possibly infectious--Cte was neg, duodenal bx with IEL so crohn also possible 2/ abn LFT due to suspected MEDELLIN, mild, PLAN: 1/ recheck LFT -next visist, if persistent then vit E 2/ check celiac and h pyloir--if neg then maybe capsule endo (2) Elevated LFTs: Code(s): R79.89 - Other specified abnormal findings of blood chemistry Plan: A/P; 1/ Possible SIBO, she has no bowel complaints at this time, did have enteritis possibly infectious--Cte was neg, duodenal bx with IEL so crohn also possible 2/ abn LFT due to suspected MEDELLIN, mild, PLAN: 1/ recheck LFT -next visist, if persistent then vit E 2/ check celiac and h pyloir--if neg then maybe capsule endo Coding Level of Care Code Est Pt Level 3 (06050) Diagnoses Abnormal bowel habits R19.8 Elevated LFTs R79.89
[2023-05-20 11:12] VITALS: BP 120/65; PULSE 74; BMI 21.8
== END 2023-05-20 11:35 | disposition home or self-care (01) ==
PROVIDERS: PCP Internal Medicine; Visit Provider Internal Medicine Gastroenterology
DX: R19.8 Other specified symptoms and signs involving the digestive system and abdomen (principal); R79.89 Other specified abnormal findings of blood chemistry
CPT/HCPCS: 99213

== ENCOUNTER → 2023-05-20 11:05 | Outpatient (BNVA) | payer OTHER, SELFPAY | PROVIDERS: PCP Internal Medicine; Visit Provider Internal Medicine Gastroenterology | DX: R91.8 Other nonspecific abnormal finding of lung field (principal); R79.89 Other specified abnormal findings of blood chemistry | CPT/HCPCS: 99212 ==

== ENCOUNTER 2023-06-20 08:40 | Outpatient (REF) | payer OTHER, SELFPAY | END 2023-06-20 08:41 | disposition home or self-care (01) | LOC: HO.LNP 08:40 | PROVIDERS: PCP Internal Medicine; Visit Provider Internal Medicine Gastroenterology | DX: Z11.2 Encounter for screening for other bacterial diseases (principal) | CPT/HCPCS: 83013; 99211 ==

== ENCOUNTER 2023-07-04 08:59 | Outpatient (REF) | payer OTHER, SELFPAY ==
[2023-07-04 12:25] LABS: Cholesterol 166 mg/dL (<200); HDL Cholesterol 38 mg/dL (>40); LDL Cholesterol Calculated 101 mg/dL (<100); Triglycerides 139 mg/dL (<150)
== END 2023-07-04 09:00 | disposition home or self-care (01) ==
LOC: HO.CHCLDS 08:59
PROVIDERS: Visit Provider Family Medicine
DX: E78.5 Hyperlipidemia, unspecified (principal)
CPT/HCPCS: 36415; 80061

== ENCOUNTER 2023-10-14 10:49 | Outpatient (AMB) | payer OTHER, SELFPAY ==
--- NOTE | 2023-10-14 10:53 | MHC.OFFVIS ---
Vital Signs 10/14/23 10:54 Height 5 ft 2 in Weight 123 lb 7.342 oz BMI 22.6 BP 138/70 Blood Pressure Location Lt brachial Position Sitting Pulse 66 Intake Visit Reasons: 4 month follow up Intake Note: Trupti presents in the office as a 4 month follow up. CC: She states that she is here today as a follow up no concerns at this time. Roller Inspector And Mender Required: Yes Roller Inspector And Mender Name: [email or web address] [id number] Allergies codeine [CODEINE] Allergy (Intermediate, Verified 10/14/23 10:54) DIZZY/LETHARGY atorvastatin Adverse Reaction (Unknown, Verified 10/14/23 10:54) increased heartburns HPI HPI 4 month follow up: Details: 63 yr old f here for f/u RECAP Had been seeing September before for GERD and constipation was being seen for idiosyncratic reaction to statins tried lovastatin, atorvastatin and crestor sx include abdominal pain, nausea and malaise she has not tried fibrates, ezetimibe, PCSK9 antibodies (but never had [place] or cardiac event) if she takes statin 8 am then by night time she will have these sx, if she doesn;t take statins that day she has no sx otherwise GERD is controlled with omeprazole constipation is worse with rice and bread, so tries to avoid she found miralax helped and needs refill she?did see Dr Tai for assessment of a liver hemangioma?which had been embolized before and had mentioned above sx to him, with clear association to statin timing and dosing. 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 class of drugs, Statins also affect NO pathway so if still has sig hemangioma maybe another mechanism of action in causing her sx--she has remained off statins, has mild ALT elevation likely MEDELLIN related she is also thought to have lactose intolerance ?lipids 06/2020--LDL--117, HDL-34, trig 129, LFT with mild ALT elevation LABS 02/2022-- bili -1.2, AST:37, ALT: 68, alk phos: 96 US: 07/19/21--Gb contracted, no gallstones, hypoechoic liver leison as noted before (presumably the embolized hemangioma area) colonoscopy 2017--hyperplastic polyps removed She had admission for pSBO and enteritis after eating stew, presumed infectious and quickly improved CTe: 02/2023 -no major abnormality seen REPEAT EGD/colo 2022: gastritis, mild mild esophagitis inlet patch Colonoscopy Findings: internal hemorrhoids diverticular disease plan is for celiac panel and h pylori INTERIM: she feels well she feesl the gas and acid are controlled,being eating papaya which has helped appetite is fair weight is stable constipation is not that bad EXAM: GENERAL: The patient is well developed and nontoxic. VITAL SIGNS:see workflow HEENT: Nonicteric sclerae, PERRLA, EOMI. Oropharynx clear. Moist mucous membranes. Conjunctivae appear well perfused. No thyroid mass. CHEST: Chest wall is nontender. HEART: Regular rate and rhythm without murmurs. LUNGS: Clear to auscultation bilaterally. ABDOMEN: Soft, positive bowel sounds, nontender, no organomegaly.no flank tenderness SKIN: mild seborrheic dermatitis NEUROLOGIC: Cranial nerves II-XII intact without motor/sensory deficit. A/P; 1/ Possible SIBO, she has no bowel complaints, did have enteritis possibly infectious--Cte was neg, duodenal bx with IEL so crohn also possible but again no major sx at this time 2/ abn LFT due to suspected MEDELLIN, mild, PLAN: 1/ recheck LFT -next visit, if persistent then vit E, periodic US liver 2/ cont with miralax-- [facility] Medical History SBO (small bowel obstruction) Dysplasia of cervix, low grade (VIRGIE 1) Overweight (BMI 25.0-29.9) Anxiety Constipation Osteopenia Vitamin D deficiency GERD (gastroesophageal reflux disease) Elevated LFTs Hemangioma of liver Pure hypercholesterolemia Diabetes mellitus Surgical History History of esophagogastroduodenoscopy (EGD) History of resection of liver History of blood clots History of colonoscopy History of oral surgery History of tubal ligation Family History Father No problems noted. Mother Uterine cancer Colon cancer Maternal Grandmother No problems noted. Paternal Aunt Ovarian cancer Social History Household Members: Children Household Members Other:: daughter Housing: Assisted Living Facility Alcohol intake: never Patient Tobacco Use Status: Never used Tobacco e-Cigarette/Vaping Use: Never Used Second Hand Smoke Exposure: No service: No Current occupational status: disabled Cognitive needs: No Hearing needs: No Vision needs: Yes Female Reproductive History Menstrual Age of Menarche: 14 Physical Exam Vital Signs: Last Vital Signs Pulse 66 10/14/23 10:54 BP 138/70 10/14/23 10:54 BMI result Body Mass Index 22.6 Assessment & Plan Assessment & Plan (1) Elevated LFTs: Code(s): R79.89 - Other specified abnormal findings of blood chemistry Category: Medical Plan: A/P; 1/ Possible SIBO, she has no bowel complaints, did have enteritis possibly infectious--Cte was neg, duodenal bx with IEL so crohn also possible but again no major sx at this time 2/ abn LFT due to suspected MEDELLIN, mild, PLAN: 1/ recheck LFT -next visit, if persistent then vit E, periodic US liver 2/ cont with miralax-- Orders: Orders Comprehensive Met. Panel Today K75.81 - Nonalcoholic steatohepatitis (MEDELLIN), R79.89 - Other specified abnormal findings of blood chemistry Complete Blood Count Auto Diff Today R79.89 - Other specified abnormal findings of blood chemistry Coding Level of Care Code Est Pt Level 3 (23354) Diagnoses Elevated LFTs R79.89
[2023-10-14 10:54] VITALS: BP 138/70; PULSE 66; BMI 22.6
== END 2023-10-14 11:39 | disposition home or self-care (01) ==
PROVIDERS: PCP Family Medicine; Visit Provider Internal Medicine Gastroenterology
DX: R79.89 Other specified abnormal findings of blood chemistry (principal)
CPT/HCPCS: 99213

== ENCOUNTER → 2023-10-14 10:49 | Outpatient (BNVA) | payer OTHER, SELFPAY | PROVIDERS: PCP Family Medicine; Visit Provider Internal Medicine Gastroenterology | DX: K21.9 Gastro-esophageal reflux disease without esophagitis (principal); K59.00 Constipation, unspecified; R79.89 Other specified abnormal findings of blood chemistry; K75.81 Nonalcoholic steatohepatitis (NASH) | CPT/HCPCS: 99212 ==

== ENCOUNTER 2023-12-03 09:18 | Outpatient (REF) | payer OTHER, SELFPAY ==
[2023-12-03 14:58] LABS: Cholesterol 203 mg/dL (<200); HDL Cholesterol 38 mg/dL (>40); LDL Cholesterol Calculated 140 mg/dL (<100); Triglycerides 128 mg/dL (<150)
== END 2023-12-03 09:19 | disposition home or self-care (01) ==
LOC: HO.CHCLDS 09:18
PROVIDERS: Visit Provider Family Medicine
DX: E78.5 Hyperlipidemia, unspecified (principal)
CPT/HCPCS: 36415; 80061

== ENCOUNTER 2023-12-26 13:27 | Outpatient (AMB) | payer OTHER, SELFPAY ==
--- NOTE | 2023-12-26 13:55 | MHC.OFFVIS ---
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 No complaints. Last Pap/HPV was negative in 02/02 Last Mammogram was BI-RADS 2 in 03/09 Last Colonoscopy was in 05/09, the recommendation according to the patient is to repeat in 5 years [facility], [facility] Medical History SBO (small bowel obstruction) Dysplasia of cervix, low grade (VIRGIE 1) Overweight (BMI 25.0-29.9) Anxiety Constipation Osteopenia Vitamin D deficiency GERD (gastroesophageal reflux disease) Elevated LFTs Hemangioma of liver Pure hypercholesterolemia Diabetes mellitus Surgical History History of esophagogastroduodenoscopy (EGD) History of resection of liver History of blood clots History of colonoscopy History of oral surgery History of tubal ligation Family History Father No problems noted. Mother Uterine cancer Colon cancer Maternal Grandmother No problems noted. Paternal Aunt Ovarian cancer Social History Household Members: Children Household Members Other:: daughter Housing: Assisted Living Facility Alcohol intake: never Patient Tobacco Use Status: Never used Tobacco e-Cigarette/Vaping Use: Never Used Second Hand Smoke Exposure: No service: No Current occupational status: disabled Cognitive needs: No Hearing needs: No Vision needs: Yes Female Reproductive History Menstrual Age of Menarche: 14 Menopause type: natural Total pregnancies: 1 Full term: 1 Number of Living Children: 1 Date of last pap smear: 02/09/19 Date of Mammogram: 02/21/23 Review of Systems Const All systems reviewed & are unremarkable except as noted in HPI and below Card Reports as per HPI Resp Reports as per HPI GI Reports as per HPI and Reports no additional complaints Reports as per HPI Physical Exam Vital Signs: Last Vital Signs BP 116/74 12/26/23 13:57 BMI result Body Mass Index 22.7 Const General: cooperative, healthy appearing and comfortable Chest Chest palpation & inspection: normal inspection of the chest and normal palpation of entire chest wall Breast/axilla inspection: normal inspection of the breasts and normal inspection of the axillae Breast/axilla palpation: normal palpation of the breasts, normal palpation of the axillae and no axillary lymphadenopathy Resp Effort & Inspection: normal respiratory effort Auscultation: clear to auscultation bilaterally Percussion: percussion normal Cardio Palpation: normal PMI Rate: regular rate Rhythm: regular rhythm Heart sounds: no murmurs and no rubs Peripheral pulses: Peripheral pulses 2+ throughout GI Inspection: Yes normal to inspection Palpation (GI): Soft to palpation, nontender, no guarding, not rigid and No hepatosplenomegaly present Percussion: Yes normal to percussion Auscultation: normal bowel sounds Rectal Exam - Female: deferred General: Yes bladder normal to palpation External Female Exam: No lesion Speculum Exam - Vagina: normal appearance of the vagina, normal palpation, normal vaginal discharge and not erythematous Speculum Exam - Cervix: normal appearance of the cervix, normal palpation and Other cervical findings present (Endocervical polyp) Bimanual exam- vagina & uterus: normal bimanual exam, normal palpation, uterine size normal, bladder normal to palpation, consistency normal and normal palpation Bimanual Exam- Adnexa, other: normal adnexae, no masses and no tenderness 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 All questions were answered, the patient verbalized understanding and signed the consent. Urine test done in the office was negative Using a long Brittnay Clamp the endocervical polyp was grasped and twisted around till it came off, hemostasis was secured using pressure. The patient tolerated the procedure well. Instructions were given to the patient to call if bleeding, temp>100.4 occur. The patient verbalized understanding and agreed with the plan. This note was generated with a voice recognition program. Some errors may have been overlooked during the review of this note. Sometimes these errors may affect the content or meaning of a given sentence. [id number] of Cervix Procedure code (CPT) selection complete Assessment & Plan Assessment & Plan (1) Well woman exam: Code(s): Z01.419 - Encounter for gynecological examination (general) (routine) without abnormal findings Category: Medical Plan: Co testing done. Counseled the patient about the recommended dietary allowance of 1200 mg of Calcium & 600 IU of vitamin D. Mammogram ordered. The patient was instructed to perform monthly self-breast exams and schedule annual exam in a year. All questions answered and the patient verbalized understanding. (2) Endocervical polyp: Code(s): N84.1 - Polyp of cervix uteri Category: Medical Plan: Discussed with the patient the finding on pelvic exam , a small endocervical polyp, recommended polypectomy. Polypectomy done, see procedure note Orders: Orders MM tomosynthesis screening BI Today Z12.31 - Encounter for screening mammogram for malignant neoplasm of breast AMB MAINTENANCE CLERK Biopsy Today N84.1 - Polyp of cervix uteri Coding Level of Care Code Est Pt Prev Care 40-64y(06208) Diagnoses Well woman exam Z01.419 Endocervical polyp N84.1 CPT Codes MAINTENANCE CLERK Biopsy - CPT: 35269-Dwoeja of Cervix ([id number])
[2023-12-26 13:57] VITALS: BP 116/74; BMI 22.7
== END 2023-12-26 14:27 | disposition home or self-care (01) ==
LOC: HO.HWS 13:27
PROVIDERS: PCP Family Medicine; Visit Provider Obstetrics & Gynecology
DX: Z01.411 Encounter for gynecological examination (general) (routine) with abnormal findings (principal); N84.1 Polyp of cervix uteri
CPT/HCPCS: 57500; 99396

== ENCOUNTER 2023-12-26 13:27 | Outpatient (REF) | payer OTHER, SELFPAY ==
[2023-12-31 09:08] LABS: HPV mRNA E6/E7 Not Detected (Not Detected)
== END 2023-12-26 13:28 | disposition home or self-care (01) ==
LOC: HO.LNP 13:27
PROVIDERS: PCP Family Medicine; Visit Provider Obstetrics & Gynecology
DX: Z01.419 Encounter for gynecological examination (general) (routine) without abnormal findings (principal); Z11.51 Encounter for screening for human papillomavirus (HPV); N84.1 Polyp of cervix uteri
CPT/HCPCS: 57500; 87624; 88175; 88305

== ENCOUNTER 2024-02-21 23:13 | Emergency (ER) | payer OTHER, SELFPAY ==
--- NOTE | 2024-02-21 | ECG_ITS ---
Test Reason : palpitations Blood Pressure : / mmHG Vent. Rate : 065 BPM Atrial Rate : 065 BPM P-R Int : 124 ms QRS Dur : 078 ms QT Int : 390 ms P-R-T Axes : -22 077 146 degrees QTc Int : 405 ms Normal sinus rhythm Low voltage QRS Possible Lateral infarct , age undetermined Abnormal ECG When compared with ECG of 05-APR-2023 02:50, Borderline criteria for Lateral infarct are now Present T wave inversion now evident in Lateral leads Referred By: Generic ED Physician Electronically Signed By:
[2024-02-21 23:17] VITALS: BP 180/79; PULSE 72; RESP 20; TEMP 36.1; O2SAT 100; BMI 22.7
--- NOTE | 2024-02-21 23:39 | MHC.EDTECH ---
Patient brought into triage area,EKG taken per order and signed by provider,labs drawn and sent to lab.
[2024-02-21 23:48] LABS: Basophils Percent Auto 0.3 % (0-2); Eosinophils Absolute Auto 0.1 X10*3/uL (0.0-0.4); Hematocrit 39.3 % (37.0-47.0); Hemoglobin 13.6 g/dl (12.0-16.0); Imm Gran Abs Auto 0.02 X10*3/uL (0.00-0.03); Imm Gran Pct Auto 0.3 % (0.0-0.4); Lymphocytes Absolute Auto 1.8 X10*3/uL (1.2-4.9); MANUAL DIFF FLAG NO; Mean Corpuscular HGB Conc 34.6 g/dl (31.0-35.0); Mean Corpuscular Hemoglobin 30.7 pg (27.0-33.0); Mean Corpuscular Volume 88.7 fL (80.0-98.0); Mean Platelet Volume 10.5 fL (9.4-12.3); Monocytes Absolute Auto 0.6 X10*3/uL (0.1-1.2); Monocytes Percent Auto 9.4 % (2-11); Neutrophils Absolute Auto 3.6 x10*3/uL (2.0-8.3); Platelet Count 268 X10*3/uL (160-400); Red Blood Count 4.43 X10*6/uL (4.20-5.50); Red Cell Distribution Width 11.1 % (11.0-16.0); White Blood Count 6.1 X10*3/uL (4.8-10.8)
[2024-02-22 00:04] LABS: Alanine Aminotransferase 24 U/L (0-31); Albumin Level 4.4 g/dL (3.5-5.0); Alkaline Phosphatase 56 U/L (39-117); Anion Gap 15 (12-20); Aspartate Amino Transferase 18 U/L (5-31); Bilirubin Total 0.5 mg/dL (0.0-1.0); Blood Urea Nitrogen 13 mg/dL (9-16); Calcium 9.9 mg/dL (8.4-10.2); Carbon Dioxide 27 mmol/L (22-29); Chloride 103 mmol/L (96-108); Creatinine Clr Calc Pharmacy 63.2; Estimated Glomerular Filt Rate > 60; Glucose Random 142 mg/dL (60-115); Potassium 4.1 mmol/L (3.3-5.1); Sodium 141 mmol/L (135-145); Total Protein 7.9 g/dL (6.5-8.0)
--- NOTE | 2024-02-22 00:05 | ED_ITS ---
HPI - General Adult General Chief complaint: General Medical Stated complaint: high blood pressure Time Seen by Provider: 02/22/24 00:05 History of Present Illness ED Provider: Katie MIRZA narrative: The patient is a 63-year-old female who says that she ate some spicy sausage this afternoon. Some point after that she felt unwell and checked her blood pressure and it was normal. Later in the evening she felt that her heart was racing and she had nausea and she had to duran to the bathroom for diarrhea. She then checked her blood pressure and it was quite high with a systolic blood pressure of 214. She also had a mild headache. She was nervous that she might have a heart attack and had a friend drive her to the emergency room. Related Data Home Medications ?Medication ?Instructions ?Recorded ?Confirmed alendronate 70 mg tablet 70 mg PO QWEEK 08/20/22 11/24/22 blood sugar diagnostic (FreeStyle #10 ea 08/20/22 08/20/22 Lite Strips) cholecalciferol (vitamin D3) 25 25 mcg PO DAILY 08/20/22 11/24/22 mcg (1,000 unit) capsule (Vitamin D3) lancets 33 gauge (TRUEplus Lancets) #100 ea 11/14/22 polyethylene glycol 3350 17 17 g PO DAILY PRN Constipation 11/24/22 11/24/22 gram/dose oral powder (Miralax) blood-glucose meter (FreeStyle #1 ea 05/20/23 [place] Lite kit) icosapent ethyl 1 gram capsule 2 g PO BID 05/20/23 (Vascepa) Previous Rx's ?Medication ?Instructions ?Recorded simethicone 180 mg capsule 180 mg PO BID PRN abdominal 10/24/21 distention 30 days #60 caps ergocalciferol (vitamin D2) 1,250 1,250 mcg PO QWEEK 90 days #13 caps 07/26/22 mcg (50,000 unit) capsule ezetimibe 10 mg tablet 10 mg PO DAILY #90 tabs 09/25/22 sitagliptin phosphate 100 mg 100 mg PO DAILY 90 days #90 tabs 10/16/22 tablet (Januvia) pentoxifylline 400 mg 400 mg PO BID #180 tabs 12/03/22 tablet,extended release omeprazole 40 mg capsule,delayed 40 mg PO DAILY PRN for acid reflux 12/30/22 release #90 caps ondansetron 4 mg disintegrating 4 mg PO Q8H PRN nausea and 02/08/23 tablet vomiting #7 tabs sodium,potassium,mag sulfates 17.5 See Rx Instructions PO .COMPLEX 02/08/23 gram-3.13 gram-1.6 gram oral soln #354 mL (Suprep Bowel Prep Kit) Allergies Allergy/AdvReac Type Severity Reaction Status Date / Time codeine [CODEINE] Allergy Intermediate DIZZY/CAROLYN Verified 02/21/24 23:20 RGY atorvastatin AdvReac Unknown increased Verified 02/21/24 23:20 heartburns Review of Systems 2 Review of Systems: Yes all other systems are reviewed and are negative [facility] Past Medical History Medical History SBO (small bowel obstruction) Dysplasia of cervix, low grade (VIRGIE 1) Overweight (BMI 25.0-29.9) Anxiety Constipation Osteopenia Vitamin D deficiency GERD (gastroesophageal reflux disease) Elevated LFTs Hemangioma of liver Pure hypercholesterolemia Diabetes mellitus Surgical History History of esophagogastroduodenoscopy (EGD) History of resection of liver History of blood clots History of colonoscopy History of oral surgery History of tubal ligation Family History Family History Father No problems noted. Mother Uterine cancer Colon cancer Maternal Grandmother No problems noted. Paternal Aunt Ovarian cancer Social History Social History Household Members: Children Household Members Other:: daughter Housing: Assisted Living Facility Alcohol intake: never Patient Tobacco Use Status: Never used Tobacco Smoked in Last 30 Days: No e-Cigarette/Vaping Use: Never Used Second Hand Smoke Exposure: No Use of substances other than those prescribed or required for medical reasons: No Advance Directives: Yes Advance Directives on File: Yes Advance Directives Date on File: 11/27/22 Do you have a plan to hurt others: No Plan Patient : No service: No Current occupational status: disabled Cognitive needs: No Hearing needs: No Vision needs: Yes Physical Exam ED Vital Signs: Vital Signs - 24 hr 02/21/24 23:17 Temperature 97 F Pulse Rate 72 Respiratory Rate 20 Blood Pressure 180/79 H Pulse Oximetry 100 Oxygen Delivery Method Room Air BMI result Body Mass Index 22.7 Const Other: The patient is a 63-year-old female who was awake and alert and did not appear in acute distress. She was pleasant and cooperative. She was primarily Cameroonian-speaking and was interviewed with a Cameroonian aerial gunner. HENMT Head: Yes normal to inspection Face and sinus: Yes normal facial exam and Yes face symmetric Mouth: Normal oral and palatal mucosa present and moist mucous membranes Eyes General: appearance normal, both eyes and all related structures Conjunctivae: conjunctivae normal Sclerae: sclerae normal Pupils: Equal, round and reactive pupils present EOM: EOMs intact bilaterally Neck Neck: Yes normal visual inspection, Yes full ROM and Yes no JVD Resp Effort & Inspection: normal respiratory effort Auscultation: clear to auscultation bilaterally Cardio Rate: regular rate Rhythm: regular rhythm Heart sounds: S1 normal heart sound present and S2 normal heart sound present GI Other: abdomen is soft and nontender. Skin Other: Skin is dry and unremarkable General skin exam: no rashes or lesions noted Neuro Other: the patient is awake and alert with a normal mental status. Cranial nerves are grossly intact. She moves all extremities normally. She has normal gait. She is grossly neurologically intact. Cranial nerves: Yes Equal, round and reactive pupils present Extrem Other: No calf swelling or tenderness or asymmetry. No peripheral edema. Medications Administered Discontinued Medications Generic Name Dose Route Start Last Admin Trade Name Freq PRN Reason Stop Dose Admin Acetaminophen 975 mg 02/22/24 00:24 02/22/24 01:34 Acetaminophen 325 Mg Tablet PO 02/22/24 00:25 975 mg ONCE ONE Administration Medical Decision Making Medical Decision Making [facility] Narrative: The patient is a very pleasant 63-year-old who describes having an episode of palpitations and nausea at home. she also had diarrhea. She checked her blood pressure which was unusually high for her. She says that she normally checks her blood pressure 2 times a day and that normally her blood pressures are normal. She says that she was told by her regular doctor to check her blood pressure 2 times a day after an ER visit several months ago when she had high blood pressure. She says that she has had no significant elevation of her blood pressures since that time until today. Here in the emergency room her blood pressures are somewhat high but not remarkably high. She looks clinically well. Testing in the emergency room is extremely reassuring. her EKG is unremarkable. CBC, troponin, and comprehensive metabolic panel are unremarkable. The patient was reassured and discharged. Lab Data 02/21/24 23:40 02/21/24 23:40 Labs: Lab Results 02/21/24 Range/Units 23:40 WBC 6.1 (4.8-10.8) X10*3/uL RBC 4.43 (4.20-5.50) X10*6/uL Hgb 13.6 (12.0-16.0) g/dl Hct 39.3 (37.0-47.0) % MCV 88.7 (80.0-98.0) fL MCH 30.7 (27.0-33.0) pg MCHC 34.6 (31.0-35.0) g/dl RDW 11.1 (11.0-16.0) % Plt Count 268 (160-400) X10*3/uL MPV 10.5 (9.4-12.3) fL Immature Gran % (Auto) 0.3 (0.0-0.4) % Neut % (Auto) 59.0 (45-73) % Lymph % (Auto) 29.0 (20-40) % [place] % (Auto) 9.4 (2-11) % Eos % (Auto) 2.0 (0-4) % Baso % (Auto) 0.3 (0-2) % Lymph # (Auto) 1.8 (1.2-4.9) X10*3/uL [place] # (Auto) 0.6 (0.1-1.2) X10*3/uL Eos # (Auto) 0.1 (0.0-0.4) X10*3/uL Baso # (Auto) 0.0 (0.0-0.2) X10*3/uL Abs Immat Gran (auto) 0.02 (0.00-0.03) X10*3/uL Absolute Neuts (auto) 3.6 (2.0-8.3) x10*3/uL Absolute Nucleated RBC 0.000 (0.0-0.012) X10*3/uL Nucleated RBC % (auto) 0.0 (0.0-0.2) /100WBC Sodium 141 (135-145) mmol/L Potassium 4.1 (3.3-5.1) mmol/L Chloride 103 (96-108) mmol/L Carbon Dioxide 27 (22-29) mmol/L Anion Gap 15 (12-20) BUN 13 (9-16) mg/dL Creatinine 0.73 (0.5-1.4) mg/dL Estim Creat Clear Calc 63.2 Estimated GFR > 60 Random Glucose 142 H (60-115) mg/dL Calcium 9.9 (8.4-10.2) mg/dL Total Bilirubin 0.5 (0.0-1.0) mg/dL AST 18 (5-31) U/L ALT 24 (0-31) U/L Alkaline Phosphatase 56 (39-117) U/L Troponin I High Sens < 2.7 (<3.5-17.0) ng/L Total Protein 7.9 (6.5-8.0) g/dL Albumin 4.4 (3.5-5.0) g/dL Independent Interpretation I performed an independent interpretation of an: EKG Interpretation: EKG at 23:28 shows normal sinus rhythm at 68 beats per minute. No ischemic changes. Discharge Plan Discharge Clinical Impression: Headache, Nausea Patient Disposition: Home, Self-Care Additional Instructions: Your testing in the emergency room today is reassuring. Please plan on following up with your regular doctor soon. Time I would avoid spicy foods. Rest over the weekend. Return to the emergency room if you feel significantly worse. Prescriptions: No Action simethicone 180 mg capsule 180 mg PO BID PRN (Reason: abdominal distention) 30 Days Qty: 60 1RF ergocalciferol (vitamin D2) 1,250 mcg (50,000 unit) capsule 1,250 mcg PO QWEEK 90 Days Qty: 13 3RF Rx Instructions: saturday ezetimibe 10 mg tablet 10 mg PO DAILY Qty: 90 1RF Januvia 100 mg tablet 100 mg PO DAILY 90 Days Qty: 90 1RF pentoxifylline 400 mg tablet extended release 400 mg PO BID Qty: 180 1RF omeprazole 40 mg capsule,delayed release(DR/EC) 40 mg PO DAILY PRN (Reason: for acid reflux) Qty: 90 0RF polyethylene glycol 3350 [Miralax] 17 gram/dose Powder 17 g PO DAILY PRN (Reason: Constipation) (DME) lancets [TRUEplus Lancets] 33 gauge misc See Rx Instructions .ROUTE .MEDSUPPLY Qty: 100 Rx Instructions: As directed (DME) FreeStyle Lite Strips Strip See Rx Instructions .ROUTE BID Qty: 10 Rx Instructions: As directed cholecalciferol (vitamin D3) [Vitamin D3] 25 mcg (1,000 unit) capsule 25 mcg PO DAILY alendronate 70 mg tablet 70 mg PO QWEEK sodium,potassium,mag sulfates [Suprep Bowel Prep Kit] 17.5-3.13-1.6 gram recon soln See Rx Instructions PO .COMPLEX Qty: 354 0RF Rx Instructions: DILUTE; drink 1/2 at 6-8 pm and half at 11 PM- 1AM ondansetron 4 mg tablet,disintegrating 4 mg PO Q8H PRN (Reason: nausea and vomiting) Qty: 7 0RF (DME) blood-glucose meter [FreeStyle [place] Lite] Kit See Rx Instructions .ROUTE .MEDSUPPLY Qty: 1 Rx Instructions: As directed icosapent ethyl [Vascepa] 1 gram capsule 2 g PO BID Interventions: ED Discharge Assessment Last Done: 02/22/24 01:38 Discharge Date/Time: 02/22/24 01:39 Print Language: Cameroonian
[2024-02-22 00:17] LABS: Troponin-I High Sensitivity < 2.7 ng/L (<3.5-17.0)
[2024-02-22 00:46] VITALS: BP 144/75; PULSE 68; RESP 16; TEMP 36.7; O2SAT 98
[2024-02-22] MEDS: Acetaminophen 325 MG TABLET 975 MG PO (01:34)
[2024-02-22 01:38] VITALS: BP 160/84; PULSE 67; RESP 16; TEMP 36.7; O2SAT 98
== END 2024-02-22 01:39 | disposition home or self-care (01) ==
PROVIDERS: Emergency Provider Emergency Medicine; PCP Family Medicine
DX: R51.9 Headache, unspecified (principal); R11.0 Nausea; E11.9 Type 2 diabetes mellitus without complications; E78.00 Pure hypercholesterolemia, unspecified; Z79.899 Other long term (current) drug therapy
CPT/HCPCS: 36415; 80053; 84484; 85025; 93005; 99283; 99285

== ENCOUNTER 2024-03-19 10:15 | Outpatient (AMB) | payer OTHER, SELFPAY ==
--- NOTE | 2024-03-19 10:18 | MHC.OFFVIS ---
Vital Signs 03/19/24 10:20 Height 5 ft 2 in Weight 123 lb 7.342 oz BMI 22.6 Intake Visit Reasons: biopsy follow up/DO NOT RS Monument Stonecutter Required: Yes Monument Stonecutter Language: Analysis Or Research Safety Inspector Services: Monument Stonecutter Present (in person) Monument Stonecutter Name: Natalie SHERIDAN Information Interpreted: non-clinical & clinical Accompanied by: Self / Same As Patient Allergies codeine [CODEINE] Allergy (Intermediate, Verified 03/19/24 10:20) DIZZY/LETHARGY atorvastatin Adverse Reaction (Unknown, Verified 03/19/24 10:20) increased heartburns Post menopausal: Yes HPI Comments Details: Presenting for follow-up regarding cervical polypectomy. The patient has no complaints. The pathology showed the following: Cervix, polypectomy: Scant superficial fragments of atrophic squamous epithelium and mucoinflammatory material [facility] Medical History SBO (small bowel obstruction) Dysplasia of cervix, low grade (VIRGIE 1) Overweight (BMI 25.0-29.9) Anxiety Constipation Osteopenia Vitamin D deficiency GERD (gastroesophageal reflux disease) Elevated LFTs Hemangioma of liver Pure hypercholesterolemia Diabetes mellitus Surgical History History of esophagogastroduodenoscopy (EGD) History of resection of liver History of blood clots History of colonoscopy History of oral surgery History of tubal ligation Family History Father No problems noted. Mother Uterine cancer Colon cancer Maternal Grandmother No problems noted. Paternal Aunt Ovarian cancer Social History Household Members: Children Household Members Other:: daughter Housing: Assisted Living Facility Alcohol intake: never Patient Tobacco Use Status: Never used Tobacco e-Cigarette/Vaping Use: Never Used Second Hand Smoke Exposure: No Advance Directives Date on File: 11/27/22 service: No Current occupational status: disabled Cognitive needs: No Hearing needs: No Vision needs: Yes Female Reproductive History Menstrual Age of Menarche: 14 Physical Exam Vital Signs: BMI result Body Mass Index 22.6 Assessment & Plan Assessment & Plan (1) Endocervical polyp: Code(s): N84.1 - Polyp of cervix uteri Category: Medical Plan: Discussed with the patient the results the pathology with no evidence of endocervical polyp on the mucus, repeat pelvic exam showed no evidence of endocervical polyp. All questions answered, the patient verbalized understanding Coding Level of Care Code Est Pt Level 3 (03364) Diagnoses Endocervical polyp N84.1
[2024-03-19 10:20] VITALS: BMI 22.6
== END 2024-03-19 10:40 | disposition home or self-care (01) ==
LOC: HO.HWS 10:15
PROVIDERS: PCP Family Medicine; Visit Provider Obstetrics & Gynecology
DX: N84.1 Polyp of cervix uteri (principal)
CPT/HCPCS: 99213

== ENCOUNTER → 2024-03-19 10:15 | Outpatient (BNVA) | payer OTHER, SELFPAY | PROVIDERS: PCP Family Medicine; Visit Provider Obstetrics & Gynecology | DX: N84.1 Polyp of cervix uteri (principal) | CPT/HCPCS: 99212 ==

== ENCOUNTER 2024-03-19 21:10 | Emergency (ER) | payer OTHER, SELFPAY ==
--- NOTE | 2024-03-19 | ECG_ITS ---
Test Reason : SYNCOPE Blood Pressure : / mmHG Vent. Rate : 083 BPM Atrial Rate : 083 BPM P-R Int : 142 ms QRS Dur : 068 ms QT Int : 370 ms P-R-T Axes : 061 038 063 degrees QTc Int : 434 ms Normal sinus rhythm Normal ECG When compared with ECG of 21-FEB-2024 23:28, No significant change was found Referred By: Generic ED Physician Electronically Signed By:JAM GA
--- NOTE | ~2024-03-19 | CT_ITS ---
EXAMINATION: CT ABDOMEN AND PELVIS WITH CONTRAST CLINICAL INFORMATION: Abdominal pain. Question colitis. COMPARISON: CT angiography 03/11/2023. TECHNIQUE: Multidetector volumetric images were obtained from the superior aspect of the liver through the pubic symphysis following administration 85 mL of Omnipaque 350 intravenous contrast. Sagittal and coronal reformatted images were obtained on the technologist's workstation. Oral contrast: No This CT examination was performed using dose optimization techniques as appropriate, variously including the following: *Automated exposure control *Adjustment of mA and/or kV according to patient size (this includes techniques or standardized protocols for targeted exams where dose is matched to indication/reason for exam; i.e. extremities or head) *Use of iterative reconstruction technique DLP: 417 mGy-cm FINDINGS: LUNG BASES: Clear. LIVER, GALLBLADDER, AND BILIARY TREE: Partial resection of the right lobe of the liver is again noted. A 2.2 cm diameter lesion with peripheral nodular enhancement that is isointense to portal venous density is present in the anterior aspect of the right lobe of the liver unchanged compared with 11/23/2022 suspicious for a hemangioma. Embolization material is noted within the remaining right lobe of the liver unchanged compared with 11/23/2022. The gallbladder is unremarkable with no evidence of radiopaque gallstones, gallbladder wall thickening, or obvious pericholecystic inflammatory changes. PANCREAS: Unremarkable. SPLEEN: Punctate calcification likely representing chronic calcified granuloma. ADRENAL GLANDS: Unremarkable. 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 Bilaterally symmetric nephrographic enhancement. No hydronephrosis or renal calculi identified. BLADDER: Unremarkable. GASTROINTESTINAL TRACT: Normal appearance of the colon and appendix. Normal appearance of the terminal ileum. Mild concentric mural thickening is noted within the middle segment of the ileum to with a 3 mm and is present adjacent to mild reticulation of the small bowel mesentery. Small quantity of free intraperitoneal fluid is present in the pelvic cul-de-sac may be physiologic. No interloop fluid noted. No free intraperitoneal gas collections. No intestinal dilatation. ABDOMINAL WALL: No significant hernia is appreciated. LYMPH NODES: Normal. VASCULAR: Moderate scattered calcific atherosclerosis PELVIC VISCERA: Unremarkable. OSSEOUS STRUCTURES: Unremarkable. CT/CT abdomen pelvis w IV con IMPRESSION: *Mild submucosal edema and mild adjacent edema/inflammatory changes within the associated small bowel mesentery involving the distal ileum with sparing of the terminal ileum. Findings are suspicious for ileitis and may represent infectious/inflammatory ileitis or possibly ischemic changes. No evidence of intestinal perforation or obstruction. *Status post partial resection of right lobe of the liver. *Unchanged 2.2 cm lesion within the right lobe of the liver most suspicious for a benign hepatic hemangioma. This finding is unchanged compared with 11/23/2022. Electronically signed by: Iraj Richardson MD 03/20/2024 02:46 AM EDT
[2024-03-19 21:15] VITALS: BP 180/96; PULSE 92; RESP 20; TEMP 36.6; O2SAT 100; BMI 22.7
[2024-03-19 21:52] LABS: MANUAL DIFF FLAG NO
[2024-03-19 21:57] LABS: Basophils Percent Auto 0.2 % (0-2); Eosinophils Absolute Auto 0.2 X10*3/uL (0.0-0.4); Eosinophils Percent Auto 2.5 % (0-4); Imm Gran Abs Auto 0.03 X10*3/uL (0.00-0.03); Imm Gran Pct Auto 0.3 % (0.0-0.4); Lymphocytes Absolute Auto 1.7 X10*3/uL (1.2-4.9); Lymphocytes Percent Auto 18.1 % (20-40); Mean Corpuscular HGB Conc 34.9 g/dl (31.0-35.0); Mean Corpuscular Hemoglobin 31.1 pg (27.0-33.0); Mean Corpuscular Volume 89.2 fL (80.0-98.0); Mean Platelet Volume 10.9 fL (9.4-12.3); Monocytes Absolute Auto 0.6 X10*3/uL (0.1-1.2); Monocytes Percent Auto 6.1 % (2-11); Neutrophils Percent Auto 72.8 % (45-73); Platelet Count 282 X10*3/uL (160-400); Red Blood Count 4.82 X10*6/uL (4.20-5.50); Red Cell Distribution Width 11.2 % (11.0-16.0); White Blood Count 9.6 X10*3/uL (4.8-10.8)
[2024-03-19 21:58] LABS: Appearance Urine Clear; Color Urine Yellow; Glucose Urine UA Negative (Negative); Leukocyte Esterase Urine Negative (Negative); Nitrite Urine Negative (Negative); PH 6.5 (5.0-9.0); Specific Gravity - Urine <= 1.005 (1.005-1.025); Urine Blood Negative (Negative); Urine Ketones Negative (Negative); Urine Protein Negative (Neg-Trace)
[2024-03-19 22:08] LABS: Alanine Aminotransferase 27 U/L (0-31); Albumin Level 4.8 g/dL (3.5-5.0); Alkaline Phosphatase 62 U/L (39-117); Anion Gap 14 (12-20); Aspartate Amino Transferase 19 U/L (5-31); Bilirubin Direct 0.2 mg/dL (0.0-0.5); Bilirubin Total 0.8 mg/dL (0.0-1.0); Blood Urea Nitrogen 12 mg/dL (9-16); Carbon Dioxide 28 mmol/L (22-29); Chloride 105 mmol/L (96-108); Creatinine Clr Calc Pharmacy 62.3; Estimated Glomerular Filt Rate > 60; Glucose Random 139 mg/dL (60-115); Lipase 33 U/L (8-78); Sodium 143 mmol/L (135-145); Total Protein 8.7 g/dL (6.5-8.0)
[2024-03-19 22:35] VITALS: BP 144/82; PULSE 83
[2024-03-19 22:41] LABS: Glucose, Whole Blood 135 mg/dL (60-115)
[2024-03-19 23:55] VITALS: BP 128/67; PULSE 82; RESP 16; TEMP 36.7; O2SAT 95
[2024-03-20] MEDS: Famotidine/PF 20 MG/2 ML VIAL IVPUSH (01:02)
[2024-03-20 01:11] LABS: Troponin-I High Sensitivity 2.8 ng/L (<3.5-17.0)
--- NOTE | 2024-03-20 01:28 | ED_ITS ---
HPI - General Adult General Chief complaint: Abdominal Pain Stated complaint: abd pain,nausea Time Seen by Provider: 03/19/24 22:58 Source: patient Mode of arrival: ambulatory Limitations: no limitations History of Present Illness ED Provider: Mauro SORIANO HPI narrative: 63 yold female with pmh of GERD and highcholesterol and diabetes presents to the ED for LUQ pain, vomitting, diarrhea, and nausea after eating chicken. Patient family members ate same chicken and is asympatomic. Patient denies any chest pain or shortness of breath Related Data Home Medications ?Medication ?Instructions ?Recorded ?Confirmed alendronate 70 mg tablet 70 mg PO QWEEK 08/20/22 11/24/22 blood sugar diagnostic (FreeStyle #10 ea 08/20/22 08/20/22 Lite Strips) cholecalciferol (vitamin D3) 25 25 mcg PO DAILY 08/20/22 11/24/22 mcg (1,000 unit) capsule (Vitamin D3) lancets 33 gauge (TRUEplus Lancets) #100 ea 11/14/22 polyethylene glycol 3350 17 17 g PO DAILY PRN Constipation 11/24/22 11/24/22 gram/dose oral powder (Miralax) blood-glucose meter (FreeStyle #1 ea 05/20/23 Derby Lite kit) icosapent ethyl 1 gram capsule 2 g PO BID 05/20/23 (Vascepa) Previous Rx's ?Medication ?Instructions ?Recorded simethicone 180 mg capsule 180 mg PO BID PRN abdominal 10/24/21 distention 30 days #60 caps ergocalciferol (vitamin D2) 1,250 1,250 mcg PO QWEEK 90 days #13 caps 07/26/22 mcg (50,000 unit) capsule ezetimibe 10 mg tablet 10 mg PO DAILY #90 tabs 09/25/22 sitagliptin phosphate 100 mg 100 mg PO DAILY 90 days #90 tabs 10/16/22 tablet (Januvia) pentoxifylline 400 mg 400 mg PO BID #180 tabs 12/03/22 tablet,extended release omeprazole 40 mg capsule,delayed 40 mg PO DAILY PRN for acid reflux 12/30/22 release #90 caps ondansetron 4 mg disintegrating 4 mg PO Q8H PRN nausea and 02/08/23 tablet vomiting #7 tabs sodium,potassium,mag sulfates 17.5 See Rx Instructions PO .COMPLEX 02/08/23 gram-3.13 gram-1.6 gram oral soln #354 mL (Suprep Bowel Prep Kit) ondansetron 4 mg disintegrating 4 mg PO Q8H PRN nausea and 03/20/24 tablet vomiting #20 tabs prednisone 20 mg tablet 40 mg (2 x 20 mg) PO DAILY 5 days 03/20/24 #10 tabs Allergies Allergy/AdvReac Type Severity Reaction Status Date / Time codeine [CODEINE] Allergy Intermediate DIZZY/CAROLYN Verified 03/19/24 21:17 RGY atorvastatin AdvReac Unknown increased Verified 03/19/24 21:17 heartburns Review of Systems 2 Review of Systems: Left upper quadrant abdominal pain, nausea,, diarrhea Yes all other systems are reviewed and are negative [facility] Past Medical History Medical History SBO (small bowel obstruction) Dysplasia of cervix, low grade (VIRGIE 1) Overweight (BMI 25.0-29.9) Anxiety Constipation Osteopenia Vitamin D deficiency GERD (gastroesophageal reflux disease) Elevated LFTs Hemangioma of liver Pure hypercholesterolemia Diabetes mellitus Surgical History History of esophagogastroduodenoscopy (EGD) History of resection of liver History of blood clots History of colonoscopy History of oral surgery History of tubal ligation Family History Family History Father No problems noted. Mother Uterine cancer Colon cancer Maternal Grandmother No problems noted. Paternal Aunt Ovarian cancer Social History Social History Household Members: Children Household Members Other:: daughter Housing: Assisted Living Facility Alcohol intake: never Patient Tobacco Use Status: Never used Tobacco Smoked in Last 30 Days: No e-Cigarette/Vaping Use: Never Used Second Hand Smoke Exposure: No Use of substances other than those prescribed or required for medical reasons: No Advance Directives: Yes Advance Directives on File: Yes Advance Directives Date on File: 11/27/22 Do you have a plan to hurt others: No Plan Patient : No service: No Current occupational status: disabled Cognitive needs: No Hearing needs: No Vision needs: Yes Physical Exam ED Vital Signs: Vital Signs - 24 hr 03/19/24 21:15 03/19/24 22:35 03/19/24 23:55 Temperature 97.9 F 98.1 F Pulse Rate 92 83 82 Respiratory Rate 20 16 Blood Pressure 180/96 H 144/82 H 128/67 Pulse Oximetry 100 95 Oxygen Delivery Method Room Air Room Air 03/20/24 03:11 Temperature 98.2 F Pulse Rate 72 Respiratory Rate 16 Blood Pressure 127/75 Pulse Oximetry 96 Oxygen Delivery Method Room Air BMI result Body Mass Index 22.7 Const General: cooperative, healthy appearing, comfortable, no acute distress, well developed, alert, awake and Physically active Orientation/consciousness: patient oriented x3 HENMT Head: Yes normal to inspection, Yes No palpable skull fracture present, Yes normocephalic and Yes atraumatic Eyes General: appearance normal, both eyes and all related structures Neck Neck: Yes normal visual inspection, Yes full ROM, Yes no lymphadenopathy, Yes no meningeal signs, Yes trachea midline, Yes supple, No anterior neck swelling and No tender Chest Chest palpation & inspection: normal inspection of the chest and normal palpation of entire chest wall Resp Effort & Inspection: normal respiratory effort and able to speak in complete sentences Auscultation: clear to auscultation bilaterally Cardio Jugular venous distension: no JVD Heart sounds: S1 normal heart sound present and S2 normal heart sound present GI Inspection: Yes normal to inspection and No abdominal wall ecchymosis Palpation (GI): Soft to palpation, not firm, Tenderness to palpation present (GI) in the epigastrum and in the LUQ, no guarding and not rigid General: No CVA tenderness and Yes no CVA tenderness Back/Spine/Pelvis Back: no CVA tenderness, No CVA tenderness and No back tenderness Skin General skin exam: no rashes or lesions noted, elasticity normal and turgor normal Neuro General: patient oriented x3, gait normal, tone normal, moves all extremities, Normal light touch and pain sensation, no meningeal signs, no focal motor deficits, CN's II-XI intact bilaterally and normal sensation to monofilament Extrem General: Yes normal to inspection, Yes full ROM and Yes capillary refill normal Psych Appearance: grossly normal, well kempt and not disheveled Course Course Course Narrative: no WBC count, no pain has resolved, tolerating PO, afebrile at this time feels much better wants to go home no SBO has possible terminal ileitis follows with Dr. Jarrell note states possible Crohns but asymptomatic her symptoms started acutely after eating chicken no diarrhea or bloody stools here - acute at this time will hold off antiboitic therapy with inflammation though and hx of obstruction I am going to start on prednisone Medications Administered Discontinued Medications Generic Name Dose Route Start Last Admin Trade Name Nir PRN Reason Stop Dose Admin Famotidine 20 mg 03/20/24 00:50 03/20/24 01:02 Famotidine/Pf 20 Mg/2 Ml Vial IVPUSH 03/20/24 00:51 20 mg ONCE ONE Administration Iohexol 85 ml 03/20/24 01:38 03/20/24 01:39 Iohexol 350 Mg/Ml 100 Ml Infus..Btl IV 03/20/24 01:39 85 ml ONCE ONE Administration Methylprednisolone Sodium Succinate 60 mg 03/20/24 03:25 03/20/24 03:34 Methylprednisolone Sod Succ 125 Mg/2 Ml Vial IVPUSH 03/20/24 03:26 60 mg ONCE ONE Administration Medical Decision Making Medical Decision Making [facility] Narrative: 63-year-old female history of GERD and anxiety presents to ED for abdominal pain, nausea, vomiting, diarrhea after eating chicken. Patient states by members 8 cm male who has no symptoms. Significant for left lower quadrant abdominal tenderness on palpation. Was sent for CT scan which showed no colitis. Chief patient states left upper quadrant tenderness we will send for troponin. 2;26am: patient's troponin is negative. pending Abdominal CT scan. Will sign out to Dr. Salazar. Patient given epeicd Differential Diagnosis Differential Diagnoses: The differential diagnosis associated with the presentation includes (colitits, food poisoning, GERD) Admission/Observation Consideration of admission/observation: Escalation of care including admission/observation considered Lab Data [facility] Lab Attestation statement: I reviewed the patient's lab results. 03/19/24 21:47 03/19/24 21:47 Labs: Lab Results 03/19/24 03/19/24 03/19/24 Range/Units 21:42 21:47 22:36 WBC 9.6 (4.8-10.8) X10*3/uL RBC 4.82 (4.20-5.50) X10*6/uL Hgb 15.0 (12.0-16.0) g/dl Hct 43.0 (37.0-47.0) % MCV 89.2 (80.0-98.0) fL MCH 31.1 (27.0-33.0) pg MCHC 34.9 (31.0-35.0) g/dl RDW 11.2 (11.0-16.0) % Plt Count 282 (160-400) X10*3/uL MPV 10.9 (9.4-12.3) fL Immature Gran % (Auto) 0.3 (0.0-0.4) % Neut % (Auto) 72.8 (45-73) % Lymph % (Auto) 18.1 L (20-40) % [place] % (Auto) 6.1 (2-11) % Eos % (Auto) 2.5 (0-4) % Baso % (Auto) 0.2 (0-2) % Lymph # (Auto) 1.7 (1.2-4.9) X10*3/uL [place] # (Auto) 0.6 (0.1-1.2) X10*3/uL Eos # (Auto) 0.2 (0.0-0.4) X10*3/uL Baso # (Auto) 0.0 (0.0-0.2) X10*3/uL Abs Immat Gran (auto) 0.03 (0.00-0.03) X10*3/uL Absolute Neuts (auto) 7.0 (2.0-8.3) x10*3/uL Absolute Nucleated RBC 0.000 (0.0-0.012) X10*3/uL Nucleated RBC % (auto) 0.0 (0.0-0.2) /100WBC Sodium 143 (135-145) mmol/L Potassium 4.0 (3.3-5.1) mmol/L Chloride 105 (96-108) mmol/L Carbon Dioxide 28 (22-29) mmol/L Anion Gap 14 (12-20) BUN 12 (9-16) mg/dL Creatinine 0.74 (0.5-1.4) mg/dL Estim Creat Clear Calc 62.3 Estimated GFR > 60 POC Glucose 135 H (60-115) mg/dL Random Glucose 139 H (60-115) mg/dL Calcium 10.0 (8.4-10.2) mg/dL Total Bilirubin 0.8 (0.0-1.0) mg/dL Direct Bilirubin 0.2 (0.0-0.5) mg/dL AST 19 (5-31) U/L ALT 27 (0-31) U/L Alkaline Phosphatase 62 (39-117) U/L Troponin I High Sens Total Protein 8.7 H (6.5-8.0) g/dL Albumin 4.8 (3.5-5.0) g/dL Lipase 33 (8-78) U/L Urine Color Yellow Urine Appearance Clear Urine pH 6.5 (5.0-9.0) Ur Specific [place] <= 1.005 (1.005-1.025) Urine Protein Negative (Neg-Trace) mg/dL Urine Glucose (UA) Negative (Negative) mg/dL Urine Ketones Negative (Negative) mg/dL Urine Blood Negative (Negative) Urine Nitrite Negative (Negative) Ur Leukocyte Esterase Negative (Negative) 03/20/24 03/20/24 03/20/24 Range/Units 00:44 00:44 02:51 WBC (4.8-10.8) X10*3/uL RBC (4.20-5.50) X10*6/uL Hgb (12.0-16.0) g/dl Hct (37.0-47.0) % MCV (80.0-98.0) fL MCH (27.0-33.0) pg MCHC (31.0-35.0) g/dl RDW (11.0-16.0) % Plt Count (160-400) X10*3/uL MPV (9.4-12.3) fL Immature Gran % (Auto) (0.0-0.4) % Neut % (Auto) (45-73) % Lymph % (Auto) (20-40) % [place] % (Auto) (2-11) % Eos % (Auto) (0-4) % Baso % (Auto) (0-2) % Lymph # (Auto) (1.2-4.9) X10*3/uL [place] # (Auto) (0.1-1.2) X10*3/uL Eos # (Auto) (0.0-0.4) X10*3/uL Baso # (Auto) (0.0-0.2) X10*3/uL Abs Immat Gran (auto) (0.00-0.03) X10*3/uL Absolute Neuts (auto) (2.0-8.3) x10*3/uL Absolute Nucleated RBC (0.0-0.012) X10*3/uL Nucleated RBC % (auto) (0.0-0.2) /100WBC Sodium (135-145) mmol/L Potassium (3.3-5.1) mmol/L Chloride (96-108) mmol/L Carbon Dioxide (22-29) mmol/L Anion Gap (12-20) BUN (9-16) mg/dL Creatinine (0.5-1.4) mg/dL Estim Creat Clear Calc Estimated GFR POC Glucose (60-115) mg/dL Random Glucose (60-115) mg/dL Calcium (8.4-10.2) mg/dL Total Bilirubin (0.0-1.0) mg/dL Direct Bilirubin (0.0-0.5) mg/dL AST (5-31) U/L ALT (0-31) U/L Alkaline Phosphatase (39-117) U/L Troponin I High Sens Cancelled 2.8 < 2.7 Total Protein (6.5-8.0) g/dL Albumin (3.5-5.0) g/dL Lipase (8-78) U/L Urine Color Urine Appearance Urine pH (5.0-9.0) Ur Specific [place] (1.005-1.025) Urine Protein (Neg-Trace) mg/dL Urine Glucose (UA) (Negative) mg/dL Urine Ketones (Negative) mg/dL Urine Blood (Negative) Urine Nitrite (Negative) Ur Leukocyte Esterase (Negative) Independent Interpretation I performed an independent interpretation of an: EKG (Normal Sinus rhytm) Independent Historian Clinical information obtained from an independent historian. History obtained from or confirmed by: Other (patient) External Record Review External record reviewed: Other (prior visits) Discharge Plan Discharge Clinical Impression: Abdominal pain, Acute nausea with nonbilious vomiting, Ileitis Patient Disposition: Home, Self-Care Instructions: Acute Nausea and Vomiting (ED), Abdominal Pain (ED), Enteritis (ED) Additional Instructions: return for fevers, worsening pain, bloody stools worsening diarrhea or any other concerns part of intestine is inflammed could be related to acute limiting infection if symptoms worsening please return follow up with Dr. Jarrell prednisone can make sugars go high please monitor Prescriptions: New prednisone 20 mg tablet 40 mg PO DAILY 5 Days Qty: 10 0RF ondansetron 4 mg tablet,disintegrating 4 mg PO Q8H PRN (Reason: nausea and vomiting) Qty: 20 0RF No Action simethicone 180 mg capsule 180 mg PO BID PRN (Reason: abdominal distention) 30 Days Qty: 60 1RF ergocalciferol (vitamin D2) 1,250 mcg (50,000 unit) capsule 1,250 mcg PO QWEEK 90 Days Qty: 13 3RF Rx Instructions: saturday ezetimibe 10 mg tablet 10 mg PO DAILY Qty: 90 1RF Januvia 100 mg tablet 100 mg PO DAILY 90 Days Qty: 90 1RF pentoxifylline 400 mg tablet extended release 400 mg PO BID Qty: 180 1RF omeprazole 40 mg capsule,delayed release(DR/EC) 40 mg PO DAILY PRN (Reason: for acid reflux) Qty: 90 0RF polyethylene glycol 3350 [Miralax] 17 gram/dose Powder 17 g PO DAILY PRN (Reason: Constipation) (DME) lancets [TRUEplus Lancets] 33 gauge misc See Rx Instructions .ROUTE .MEDSUPPLY Qty: 100 Rx Instructions: As directed (DME) FreeStyle Lite Strips Strip See Rx Instructions .ROUTE BID Qty: 10 Rx Instructions: As directed cholecalciferol (vitamin D3) [Vitamin D3] 25 mcg (1,000 unit) capsule 25 mcg PO DAILY alendronate 70 mg tablet 70 mg PO QWEEK sodium,potassium,mag sulfates [Suprep Bowel Prep Kit] 17.5-3.13-1.6 gram recon soln See Rx Instructions PO .COMPLEX Qty: 354 0RF Rx Instructions: DILUTE; drink 1/2 at 6-8 pm and half at 11 PM- 1AM ondansetron 4 mg tablet,disintegrating 4 mg PO Q8H PRN (Reason: nausea and vomiting) Qty: 7 0RF (DME) blood-glucose meter [FreeStyle Derby Lite] Kit See Rx Instructions .ROUTE .MEDSUPPLY Qty: 1 Rx Instructions: As directed icosapent ethyl [Vascepa] 1 gram capsule 2 g PO BID Interventions: ED Discharge Assessment Last Done: 03/20/24 03:49 Discharge Date/Time: 03/20/24 03:49 Print Language: Icelandic
[2024-03-20] MEDS: iohexoL 350 MG/ML 100 ML INFUS..BTL 85 ML IV (01:39)
[2024-03-20 03:11] VITALS: BP 127/75; PULSE 72; RESP 16; TEMP 36.8; O2SAT 96
[2024-03-20 03:18] LABS: Troponin-I High Sensitivity < 2.7 ng/L (<3.5-17.0)
[2024-03-20] MEDS: methylPREDNISolone Sod Succ 125 MG/2 ML VIAL 60 MG IVPUSH (03:34)
[2024-03-20 03:49] VITALS: BP 127/75; PULSE 72; RESP 16; TEMP 36.8; O2SAT 96
== END 2024-03-20 03:49 | disposition home or self-care (01) ==
PROVIDERS: Physician Assistant; Emergency Provider Emergency Medicine; PCP Family Medicine
DX: K52.9 Noninfective gastroenteritis and colitis, unspecified (principal); R11.2 Nausea with vomiting, unspecified; R10.30 Lower abdominal pain, unspecified; R55 Syncope and collapse; Z79.899 Other long term (current) drug therapy
CPT/HCPCS: 36415; 74177; 80048; 80076; 81003; 82947; 83690; 84484; 85025; 93005; 96374; 96375; 99284; 99285; J2919; Q9967

== ENCOUNTER 2024-03-26 09:53 | Outpatient (REF) | payer OTHER, SELFPAY ==
--- NOTE | ~2024-03-26 | MM_ITS ---
EXAMINATION: MM SCREENING DIGITAL BREAST TOMOSYNTHESIS, BILATERAL CLINICAL INFORMATION: Screening. Asymptomatic. COMPARISON: Mammography: Comparison is made with available priors TECHNIQUE: Digital breast mammography with tomosynthesis is performed in both the craniocaudal and mediolateral oblique views along with computer-aided detection (CAD). FINDINGS: The breasts are heterogeneously dense, which may obscure small masses (ACR BI-RADS breast composition Category c). Bilateral benign scattered calcifications. There are no significant masses, abnormal calcifications, or other abnormalities. MM/MM tomosynthesis screening BI IMPRESSION: No mammographic evidence of malignancy. ASSESSMENT: BI-RADS BI-RADS 2 - Benign Findings RECOMMENDATION: Routine annual mammography screening. 1 year F/U This examination should not preclude the clinical evaluation of a suspicious palpable abnormality. This patient's information was entered into a reminder system with a target due date for their next mammogram. Electronically signed by: Shea Elena DO 04/07/2024 12:14 PM EDT
--- NOTE | ~2024-03-26 | MM_ITS ---
EXAMINATION: BONE DENSITOMETRY CLINICAL INDICATION: Other osteoporosis without pathological fracture. COMPARISON: Baseline BD dated 03/21/2022. TECHNIQUE: Using a Solaborate DXA System (software version: 13.1) manufactured by [employer], dual-energy x-ray absorptiometry was performed of the lumbar spine and left hip. The images are of good technical quality. Summary results are attached. FINDINGS: LEFT FEMUR, NECK: Current: BMD 0.714 g/cm2, Z-score -0.9, T-score -2.3, osteopenia. Baseline: BMD 0.698 g/cm2. LEFT FEMUR, TOTAL: Current: BMD 0.730 g/cm2, Z-score -1.1, T-score -2.2, osteopenia, 1.5% increase from baseline (<5% change is not significant). Baseline: BMD 0.719 g/cm2. AP SPINE L1-L4: Current: BMD 0.799 g/cm2, Z-score -1.6, T-score -3.2, osteoporosis, 12.1% increase from baseline (<5% change is not significant). Baseline: BMD 0.713 g/cm2. IDENTIFIED RISK FACTORS: Early menopause, secondary osteoporosis, height loss, secondary osteoporosis (chronic liver disease). HISTORY OF FRACTURE: None listed. MEDICATIONS: Calcium supplements or multivitamin, vitamin D, bisphosphonate. MM/XR DEXA axial skeleton IMPRESSION: 1. DIAGNOSIS: Osteoporosis based on the lowest T-score value of -3.2 in the lumbar spine applying World Health Organization criteria. 2. 10-YEAR FRACTURE RISK PREDICTION, FRAX: According to the guidelines, FRAX calculation should only be performed on patients in the osteopenia bone density category. Therefore, FRAX was not performed on this patient. 3. Treatment Recommendations: NOF guidelines recommend consideration for treatment in postmenopausal women and men age 50 and older presenting with the following: -A hip or vertebral (clinical or morphometric) fracture. -T-score less than or equal to -2.5 at the femoral neck or spine after appropriate evaluation to exclude secondary causes. -Low bone mass at the hip or spine and a 10-year fracture probability by FRAX of greater than or equal to 3% for hip fracture or greater than or equal to 20% for major osteoporotic fracture based on the [place] adapted WHO algorithm. 4. Other Recommendations: All treatment decisions require clinical judgment and consideration of individual patient factors, including patient preferences, comorbidities, previous drug use, risk factors not captured in the FRAX model (e.g. frailty, falls, vitamin D deficiency, increased bone turnover, interval significant decline in bone density) and possible under or overestimation of fracture risk by FRAX. Additional medical evaluation for secondary cause of low bone mineral density may be appropriate. FUTURE SCAN RECOMMENDATION: People with diagnosed cases of osteoporosis or at high risk for fracture should have regular bone mineral density tests. For patients eligible for Medicare, routine testing is allowed once every 2 years. The testing frequency can be increased to one year for patients who have rapidly progressing disease, those who are receiving or discontinuing medical therapy to restore bone mass, or have additional risk factors. Electronically signed by: Moose Escamilla MD 03/27/2024 09:34 AM EDT RP
== END 2024-03-26 09:54 | disposition home or self-care (01) ==
LOC: HO.MAMMO 09:53
PROVIDERS: PCP Family Medicine; Visit Provider Obstetrics & Gynecology
DX: Z12.31 Encounter for screening mammogram for malignant neoplasm of breast (principal); Z13.820 Encounter for screening for osteoporosis; M81.8 Other osteoporosis without current pathological fracture; Z78.0 Asymptomatic menopausal state
CPT/HCPCS: 77063; 77067; 77080

== ENCOUNTER → 2024-03-26 12:15 | Outpatient (BNV) | payer OTHER, SELFPAY | PROVIDERS: PCP Family Medicine; Visit Provider Internal Medicine | DX: Z12.31 Encounter for screening mammogram for malignant neoplasm of breast (principal) | CPT/HCPCS: 77063; 77067 ==

== ENCOUNTER 2024-05-28 07:53 | Emergency (ER) | payer OTHER, SELFPAY ==
--- NOTE | ~2024-05-28 | CT_ITS ---
EXAMINATION: CT ABDOMEN AND PELVIS WITH CONTRAST CLINICAL INFORMATION: Abdominal pain. Previous liver cancer. COMPARISON: CT dated March 20, 2024. TECHNIQUE: Multidetector volumetric images were obtained from the superior aspect of the liver through the pubic symphysis following administration 85 mL of Omnipaque 350 intravenous contrast. Sagittal and coronal reformatted images were obtained on the technologist's workstation. Oral contrast: No This CT examination was performed using dose optimization techniques as appropriate, variously including the following: *Automated exposure control *Adjustment of mA and/or kV according to patient size (this includes techniques or standardized protocols for targeted exams where dose is matched to indication/reason for exam; i.e. extremities or head) *Use of iterative reconstruction technique DLP: 407 mGy-cm FINDINGS: LUNG BASES: No acute airspace disease in the included lungs. No gross pulmonary nodules. LIVER, GALLBLADDER, AND BILIARY TREE: Partial resection posterior right hepatic lobe. Liver measures 15 cm. There is a 2.3 cm peripheral, discontinuous enhancing lesion in the peripheral right hepatic lobe. Cortical embolization in the posterior right hepatic lobe. Main portal veins, hepatic veins and intrahepatic portions of the IVC are patent. No intrahepatic biliary ductal dilatation. No pericholecystic fluid collection or gallbladder wall thickening. No extrahepatic biliary ductal dilatation. PANCREAS: No focal mass. No peripancreatic fluid collection. No main pancreatic ductal dilatation. SPLEEN: 7 cm. No focal mass. ADRENAL GLANDS: No nodular lesions. KIDNEYS AND URETERS: No renal mass or hydronephrosis. Normal enhancement of the renal parenchyma. BLADDER: Fluid-filled. GASTROINTESTINAL TRACT: Gas and fluid-filled prominent small bowel loops involving mostly the jejunal and distal ileal loops. There is mucosal wall thickening. There is a 1.5 cm linear metallic foreign body within the lumen of the cecum/ascending colon. Ascites, small volume in the cul-de-sac. No pneumoperitoneum. No pneumatosis intestinalis. Appendix is normal. ABDOMINAL WALL: Small tiny fat-containing umbilical) umbilical hernia. LYMPH NODES: No lymphadenopathy. VASCULAR: Mixed plaques throughout the abdominal aorta wall and iliac arteries without aneurysm or dissection. Mixed plaques in the origin of the mesenteric arteries and the left main renal artery. PELVIC VISCERA: No gross lesions in the uterus. Prominent vessels in the area ovarian/adnexa. OSSEOUS STRUCTURES: Spondylosis, L5-S1. No acute fracture or gross listhesis. CT/CT abdomen pelvis w IV con IMPRESSION: Concerning 1.5 cm metallic foreign body dislodged within the lumen of the cecum/ascending colon resulting in ileus and/or enteritis. No pneumoperitoneum. Stable liver with question hemangioma, right hepatic lobe. Fleischner guidelines were followed. Electronically signed by: Enmanuel Patel MD 05/28/2024 11:30 AM [facility]
[2024-05-28 08:01] VITALS: BP 156/90; PULSE 89; RESP 16; TEMP 35.9; O2SAT 99; BMI 23.8
[2024-05-28 08:21] LABS: Hematocrit 43.7 % (37.0-47.0); Hemoglobin 15.5 g/dl (12.0-16.0); MANUAL DIFF FLAG NO; Red Blood Count 5.03 X10*6/uL (4.20-5.50); White Blood Count 9.4 X10*3/uL (4.8-10.8)
[2024-05-28 08:22] LABS: Basophils Percent Auto 0.1 % (0-2); Eosinophils Percent Auto 0.4 % (0-4); Imm Gran Abs Auto 0.02 X10*3/uL (0.00-0.03); Imm Gran Pct Auto 0.2 % (0.0-0.4); Lymphocytes Absolute Auto 1.2 X10*3/uL (1.2-4.9); Lymphocytes Percent Auto 12.3 % (20-40); Mean Corpuscular HGB Conc 35.5 g/dl (31.0-35.0); Mean Corpuscular Hemoglobin 30.8 pg (27.0-33.0); Mean Corpuscular Volume 86.9 fL (80.0-98.0); Mean Platelet Volume 10.7 fL (9.4-12.3); Monocytes Absolute Auto 0.5 X10*3/uL (0.1-1.2); Monocytes Percent Auto 4.8 % (2-11); Neutrophils Absolute Auto 7.7 x10*3/uL (2.0-8.3); Neutrophils Percent Auto 82.2 % (45-73); Platelet Count 253 X10*3/uL (160-400); Red Cell Distribution Width 11.3 % (11.0-16.0)
[2024-05-28 08:38] LABS: Alanine Aminotransferase 32 U/L (0-31); Albumin Level 4.6 g/dL (3.5-5.0); Alkaline Phosphatase 57 U/L (39-117); Anion Gap 12 (12-20); Aspartate Amino Transferase 28 U/L (5-31); Bilirubin Total 1.2 mg/dL (0.0-1.0); Blood Urea Nitrogen 15 mg/dL (9-16); Calcium 10.7 mg/dL (8.4-10.2); Carbon Dioxide 28 mmol/L (22-29); Chloride 104 mmol/L (96-108); Creatinine Clr Calc Pharmacy 66.9; Estimated Glomerular Filt Rate > 60; Glucose Random 136 mg/dL (60-115); Lipase 22 U/L (8-78); Potassium 4.3 mmol/L (3.3-5.1); Sodium 140 mmol/L (135-145); Total Protein 8.3 g/dL (6.5-8.0)
[2024-05-28 08:47] VITALS: BP 138/76; PULSE 80; RESP 18; TEMP 36.2; O2SAT 98
--- NOTE | 2024-05-28 08:57 | ED.ABDPAIN ---
HPI - Abdominal Pain General Chief Complaint: Abdominal Pain Stated Complaint: abd pain Time Seen by Provider: 05/28/24 08:35 Source: patient Mode of arrival: ambulatory Limitations: no limitations History of Present Illness HPI narrative: 64-year-old female past medical history significant for liver cancer and resection presents emergency department complaining of abdominal pain. Patient states that the pain is to her lower abdomen she would have 2 large bowel movements this morning her pain has been intermittent but this started this morning around 05:00 and woke her up from sleep she denies any falls or injuries she denies chest pain nausea vomiting or diarrhea MD elicited complaint: abdominal pain Related Data Home Medications ?Medication ?Instructions ?Recorded ?Confirmed alendronate 70 mg tablet 70 mg PO QWEEK 08/20/22 11/24/22 blood sugar diagnostic (FreeStyle #10 ea 08/20/22 08/20/22 Lite Strips) cholecalciferol (vitamin D3) 25 25 mcg PO DAILY 08/20/22 11/24/22 mcg (1,000 unit) capsule (Vitamin D3) lancets 33 gauge (TRUEplus Lancets) #100 ea 11/14/22 polyethylene glycol 3350 17 17 g PO DAILY PRN Constipation 11/24/22 11/24/22 gram/dose oral powder (Miralax) blood-glucose meter (FreeStyle #1 ea 05/20/23 [place] Lite kit) icosapent ethyl 1 gram capsule 2 g PO BID 05/20/23 (Vascepa) Previous Rx's ?Medication ?Instructions ?Recorded simethicone 180 mg capsule 180 mg PO BID PRN abdominal 10/24/21 distention 30 days #60 caps ergocalciferol (vitamin D2) 1,250 1,250 mcg PO QWEEK 90 days #13 caps 07/26/22 mcg (50,000 unit) capsule ezetimibe 10 mg tablet 10 mg PO DAILY #90 tabs 09/25/22 sitagliptin phosphate 100 mg 100 mg PO DAILY 90 days #90 tabs 10/16/22 tablet (Januvia) pentoxifylline 400 mg 400 mg PO BID #180 tabs 12/03/22 tablet,extended release omeprazole 40 mg capsule,delayed 40 mg PO DAILY PRN for acid reflux 12/30/22 release #90 caps ondansetron 4 mg disintegrating 4 mg PO Q8H PRN nausea and 02/08/23 tablet vomiting #7 tabs sodium,potassium,mag sulfates 17.5 See Rx Instructions PO .COMPLEX 02/08/23 gram-3.13 gram-1.6 gram oral soln #354 mL (Suprep Bowel Prep Kit) ondansetron 4 mg disintegrating 4 mg PO Q8H PRN nausea and 03/20/24 tablet vomiting #20 tabs prednisone 20 mg tablet 40 mg (2 x 20 mg) PO DAILY 5 days 03/20/24 #10 tabs amoxicillin 500 mg-potassium 1 tab PO TID #21 tabs 03/25/24 clavulanate 125 mg tablet (Augmentin) Allergies Allergy/AdvReac Type Severity Reaction Status Date / Time codeine [CODEINE] Allergy Intermediate DIZZY/CAROLYN Verified 05/28/24 08:02 RGY atorvastatin AdvReac Unknown increased Verified 05/28/24 08:02 heartburns Review of Systems Review of Systems Review of systems: General: Patient denies any fever chills recent illness or falls Musculoskeletal: Denies back pain or body aches or other injuries HEENT: denies headache, runny nose, ear pain Respiratory: denies shortness of breath, cough Cardiovascular: no chest pain or palpitations : denies dysuria, frequency Abdomen: no nausea vomiting she is complaining of lower abdominal pain Extremities: no swelling, no pain Skin: no diaphoresis Yes all other systems are reviewed and are negative PMFSH Past Medical History Medical History SBO (small bowel obstruction) Dysplasia of cervix, low grade (VIRGIE 1) Overweight (BMI 25.0-29.9) Anxiety Constipation Osteopenia Vitamin D deficiency GERD (gastroesophageal reflux disease) Elevated LFTs Hemangioma of liver Pure hypercholesterolemia Diabetes mellitus Surgical History History of esophagogastroduodenoscopy (EGD) History of resection of liver History of blood clots History of colonoscopy History of oral surgery History of tubal ligation Family History Family History Father No problems noted. Mother Uterine cancer Colon cancer Maternal Grandmother No problems noted. Paternal Aunt Ovarian cancer Social History Social History Household Members: Children Household Members Other:: daughter Housing: Assisted Living Facility Alcohol intake: never Patient Tobacco Use Status: Never used Tobacco e-Cigarette/Vaping Use: Never Used Second Hand Smoke Exposure: No Advance Directives: Yes Advance Directives on File: Yes Advance Directives Date on File: 11/27/22 service: No Current occupational status: disabled Cognitive needs: No Hearing needs: No Vision needs: Yes Physical Exam ED Vital Signs: Vital Signs - 24 hr 05/28/24 08:01 05/28/24 08:47 Temperature 96.7 F L 97.1 F Pulse Rate 89 80 Respiratory Rate 16 18 Blood Pressure 156/90 H 138/76 Pulse Oximetry 99 98 Oxygen Delivery Method Room Air Room Air BMI result Body Mass Index 23.8 General: Well-appearing well-nourished in no signs of distress HEENT: Normocephalic atraumatic Neck: No signs of JVD, no masses no tenderness or lymphadenopathy Cardiovascular: Regular rate and rhythm Respiratory: Clear to auscultation bilaterally Abdomen: Soft nontender no masses belly exam is completely normal nontender Extremities: Normal pedal pulses no signs of edema Skin: Dry warm no rashes Back: No tenderness full ROM Course Course Course Narrative: 1126 Patient had a metalic FB in cecum otherwise enteritis vs ileus. Patient denies swelling anything she has no pain she looks well I do feel comfortable discharging the patient home Medical Decision Making Medical Decision Making MDM Narrative: patient with reassuring exam but she is adamant that there is something going on with her abdomen even though she has no pain in his time as her symptoms have resolved is likely due to constipation she has had some constipation recently but with her surgical history I did give her the option to get a CT scan which she opted to do I did explain there was lot of radiation my suspicion this is not something surgical she was still adamant that she needed to get a CT scan and a CT was ordered Differential Diagnosis Differential Diagnoses: The differential diagnosis associated with the presentation includes abdominal pain constipation dehydration electrolyte abnormality acute surgical abdomen complications due to previous surgery bowel obstruction Admission/Observation Consideration of admission/observation: Escalation of care including admission/observation considered Lab Data [facility] Lab Attestation statement: I reviewed the patient's lab results. 05/28/24 08:15 05/28/24 08:15 Labs: Lab Results 05/28/24 05/28/24 Range/Units 08:15 09:26 WBC 9.4 (4.8-10.8) X10*3/uL RBC 5.03 (4.20-5.50) X10*6/uL Hgb 15.5 (12.0-16.0) g/dl Hct 43.7 (37.0-47.0) % MCV 86.9 (80.0-98.0) fL MCH 30.8 (27.0-33.0) pg MCHC 35.5 H (31.0-35.0) g/dl RDW 11.3 (11.0-16.0) % Plt Count 253 (160-400) X10*3/uL MPV 10.7 (9.4-12.3) fL Immature Gran % (Auto) 0.2 (0.0-0.4) % Neut % (Auto) 82.2 H (45-73) % Lymph % (Auto) 12.3 L (20-40) % [place] % (Auto) 4.8 (2-11) % Eos % (Auto) 0.4 (0-4) % Baso % (Auto) 0.1 (0-2) % Lymph # (Auto) 1.2 (1.2-4.9) X10*3/uL [place] # (Auto) 0.5 (0.1-1.2) X10*3/uL Eos # (Auto) 0.0 (0.0-0.4) X10*3/uL Baso # (Auto) 0.0 (0.0-0.2) X10*3/uL Abs Immat Gran (auto) 0.02 (0.00-0.03) X10*3/uL Absolute Neuts (auto) 7.7 (2.0-8.3) x10*3/uL Absolute Nucleated RBC 0.000 (0.0-0.012) X10*3/uL Nucleated RBC % (auto) 0.0 (0.0-0.2) /100WBC Sodium 140 (135-145) mmol/L Potassium 4.3 (3.3-5.1) mmol/L Chloride 104 (96-108) mmol/L Carbon Dioxide 28 (22-29) mmol/L Anion Gap 12 (12-20) BUN 15 (9-16) mg/dL Creatinine 0.68 (0.5-1.4) mg/dL Estim Creat Clear Calc 66.9 Estimated GFR > 60 Random Glucose 136 H (60-115) mg/dL Calcium 10.7 H D (8.4-10.2) mg/dL Total Bilirubin 1.2 H (0.0-1.0) mg/dL AST 28 (5-31) U/L ALT 32 H (0-31) U/L Alkaline Phosphatase 57 (39-117) U/L Total Protein 8.3 H (6.5-8.0) g/dL Albumin 4.6 (3.5-5.0) g/dL Lipase 22 (8-78) U/L Urine Color Yellow Urine Appearance Clear Urine pH 7.0 (5.0-9.0) Ur Specific [place] 1.020 (1.005-1.025) Urine Protein Negative (Neg-Trace) mg/dL Urine Glucose (UA) Negative (Negative) mg/dL Urine Ketones Negative (Negative) mg/dL Urine Blood Negative (Negative) Urine Nitrite Negative (Negative) Ur Leukocyte Esterase Negative (Negative) Urine RBC 0-2 (0-2) /HPF Urine WBC 0-5 (0-5) /HPF Ur Squamous Epith Cells 0-2 (0-2) /HPF Urine Bacteria None Seen (None Seen) Hyaline Casts 0-2 (0-2) /LPF Independent Interpretation I performed an independent interpretation of an: CT Scan Medications Administered Discontinued Medications Generic Name Dose Route Start Last Admin Trade Name Freq PRN Reason Stop Dose Admin Iohexol 100 ml 05/28/24 10:17 05/28/24 10:17 Iohexol 350 Mg/Ml 100 Ml Infus..Btl IV 05/28/24 10:18 85 ml ONCE ONE Administration Discharge Plan Discharge Clinical Impression: Metal foreign body in abdomen, Abdominal pain, Ileus Patient Disposition: Home, Self-Care Instructions: Ileus (ED), Abdominal Pain (ED) Additional Instructions: You were seen today in the emergency department for abdominal pain. You had CT scan labs done do not thing of significance so we found was a mild ileus as well as some foreign body in your small bowel. None of these findings require any surgery or further evaluation. If you have worsening pain if you have any other concerns please return to the ER Prescriptions: No Action simethicone 180 mg capsule 180 mg PO BID PRN (Reason: abdominal distention) 30 Days Qty: 60 1RF ergocalciferol (vitamin D2) 1,250 mcg (50,000 unit) capsule 1,250 mcg PO QWEEK 90 Days Qty: 13 3RF Rx Instructions: saturday ezetimibe 10 mg tablet 10 mg PO DAILY Qty: 90 1RF Januvia 100 mg tablet 100 mg PO DAILY 90 Days Qty: 90 1RF pentoxifylline 400 mg tablet extended release 400 mg PO BID Qty: 180 1RF omeprazole 40 mg capsule,delayed release(DR/EC) 40 mg PO DAILY PRN (Reason: for acid reflux) Qty: 90 0RF amoxicillin-pot clavulanate [Augmentin] 500-125 mg tablet 1 tab PO TID Qty: 21 0RF prednisone 20 mg tablet 40 mg PO DAILY 5 Days Qty: 10 0RF ondansetron 4 mg tablet,disintegrating 4 mg PO Q8H PRN (Reason: nausea and vomiting) Qty: 20 0RF polyethylene glycol 3350 [Miralax] 17 gram/dose Powder 17 g PO DAILY PRN (Reason: Constipation) (DME) lancets [TRUEplus Lancets] 33 gauge misc See Rx Instructions .ROUTE .MEDSUPPLY Qty: 100 Rx Instructions: As directed (DME) FreeStyle Lite Strips Strip See Rx Instructions .ROUTE BID Qty: 10 Rx Instructions: As directed cholecalciferol (vitamin D3) [Vitamin D3] 25 mcg (1,000 unit) capsule 25 mcg PO DAILY alendronate 70 mg tablet 70 mg PO QWEEK sodium,potassium,mag sulfates [Suprep Bowel Prep Kit] 17.5-3.13-1.6 gram recon soln See Rx Instructions PO .COMPLEX Qty: 354 0RF Rx Instructions: DILUTE; drink 1/2 at 6-8 pm and half at 11 PM- 1AM ondansetron 4 mg tablet,disintegrating 4 mg PO Q8H PRN (Reason: nausea and vomiting) Qty: 7 0RF (DME) blood-glucose meter [FreeStyle [place] Lite] Kit See Rx Instructions .ROUTE .MEDSUPPLY Qty: 1 Rx Instructions: As directed icosapent ethyl [Vascepa] 1 gram capsule 2 g PO BID Print Language: Maltese
[2024-05-28 09:37] LABS: Appearance Urine Clear; Color Urine Yellow; Glucose Urine UA Negative (Negative); Leukocyte Esterase Urine Negative (Negative); Nitrite Urine Negative (Negative); Urine Blood Negative (Negative); Urine Ketones Negative (Negative); Urine Protein Negative (Neg-Trace)
[2024-05-28 09:40] LABS: Bacteria Urine None Seen (None Seen); Hyaline Casts Urine 0-2 /LPF (0-2); RBC Urine 0-2 /HPF (0-2); Squamous Epithelial Cell Urine 0-2 /HPF (0-2); WBC Urine 0-5 /HPF (0-5)
[2024-05-28] MEDS: iohexoL 350 MG/ML 100 ML INFUS..BTL IV (10:17)
[2024-05-28 11:47] VITALS: BP 121/75; PULSE 77; RESP 18; TEMP 36.4; O2SAT 98
[2024-05-28 11:54] VITALS: BP 121/75; PULSE 77; RESP 18; TEMP 36.4; O2SAT 98
== END 2024-05-28 12:07 | disposition home or self-care (01) ==
PROVIDERS: Emergency Provider Student in an Organized Health Care Education/Training Program; PCP Family Medicine
DX: T18.4XXA Foreign body in colon, initial encounter (principal); K56.7 Ileus, unspecified; X58.XXXA Exposure to other specified factors, initial encounter; E11.9 Type 2 diabetes mellitus without complications; E78.00 Pure hypercholesterolemia, unspecified
CPT/HCPCS: 36415; 74177; 80053; 81001; 83690; 85025; 99284; Q9967

== ENCOUNTER → 2024-05-28 08:54 | Outpatient (BNV) | payer OTHER, SELFPAY | PROVIDERS: Emergency Provider Student in an Organized Health Care Education/Training Program; PCP Family Medicine; Visit Provider Radiology Diagnostic Radiology | DX: R10.9 Unspecified abdominal pain (principal) | CPT/HCPCS: 74177 ==

== ENCOUNTER 2024-07-13 12:21 | Outpatient (REF) | payer OTHER, SELFPAY ==
--- NOTE | ~2024-07-13 | XR_ITS ---
EXAMINATION: XR ABDOMEN 1 VIEW (KUB) HISTORY: R19.8 - Other specified symptoms and signs involving the digestive system. Follow-up metallic object seen on 05/2024 CT. COMPARISON: Correlation is made with a CT of the abdomen and pelvis dated 05/28/2024. FINDINGS: Two supine views of the abdomen are submitted. The bowel gas pattern is unremarkable, without evidence of mechanical obstruction. There is a large amount of stool throughout the colon. No abnormal calcifications are identified. Again seen are numerous surgical clips and embolization coils in the right upper quadrant. A clip is noted in the ascending colon as noted on CT scan.. There are no abnormal soft tissue masses. The bones are intact. XR/XR KUB IMPRESSION: 1. Unremarkable bowel gas pattern. Large amount of stool throughout the colon. 2. Metallic clip in the ascending colon is noted on CT. Electronically signed by: Yousif Campo MD 07/14/2024 08:20 AM [facility]
--- OUTSIDE RECORDS SUMMARY | 2024-07-13 17:59 | XMS_ITS | Encounter Summary ---
Author Organization [employer] Address [address] [place] [address] Care Team Providers Care Corrosion Control Specialist Name Role Phone Selam Bryan MD Primary Care Provider [phone] Reason for Visit * Reason Onset Date Comments No Show 06/25/2024 Encounter Details Date Type Department Care Team ([facility] Contact Info) Description 06/25/2024 Telephone C [facility] MED & PEDS [address] [place], [place] [phone] Selam Bryan MD [address] [place], [place] [phone] No Show Social History Tobacco Use Types [...] 07/30/2024 9:00 AM EST Nutrition [facility] DIABETES/NTRN [address] [place] [address] [place] [address] documented as of this encounter Visit Diagnoses Not on filedocumented in this encounter Additional Health Concerns Assessment Noted Time PHQ-9 Depression Total Score: 3 07/19/19 23 10:23 AM EST documented as of this encounter Care Teams Corrosion Control Specialist Relationship Specialty Start Date End Date Selam Bryan MD [address] [place] [address] PCP - General Family Medicine 06/05/22 documented as of this encounter
--- OUTSIDE RECORDS SUMMARY | 2024-07-13 17:59 | XMS_ITS | Encounter Summary ---
Author Organization [employer] Address [address] [place] [address] Care Team Providers Care Director Of Regulatory Affairs Name Role Phone Selam Bryan MD Primary Care Provider [phone] Encounter Details Date Type Department Care Team ([facility] st Contact Info) Description 06/25/2024 Telephone [facility] CHC MED & PEDS [address] [place], [place] [phone] Selam Bryan MD [address] [place], [place] [phone] Social History Tobacco Use Types Packs/Day Years [...] Info) Description 07/30/2024 9:00 AM EST Nutrition [facility] DIABETES/NTRN [address] [place] [address] [place] [address] documented as of this encounter Visit Diagnoses Not on filedocumented in this encounter Additional Health Concerns Assessment Noted Time PHQ-9 Depression Total Score: 3 07/19/19 23 10:23 AM EST documented as of this encounter Care Teams Director Of Regulatory Affairs Relationship Specialty Start Date End Date Selam Bryan MD [address] [place] [address] PCP - General Family Medicine 06/05/22 documented as of this encounter
--- OUTSIDE RECORDS SUMMARY | 2024-07-13 17:59 | XMS_ITS | Encounter Summary ---
Author Organization [employer] Address [address] [place] [address] Care Team Providers Care Driver Utility Worker Name Role Phone Selam Bryan MD Primary Care Provider Reason for Visit * Reason Comments Med Change Request Encounter Details Date Type Department Care Team ([facility] Contact Info) Description 07/19/2022 Refill [facility] MED & PEDS [address] [place], [place] [phone] Selam Bryan MD [address] [place], [place] [phone] Other osteoporosis without current pathological fracture Social [...] Upcoming Encounters Date Type Department Care Team ([facility] Contact Info) Description 07/30/2024 9:00 AM EST Nutrition [facility] DIABETES/NTRN [address] [place] [address] Ethel Cui, MAY [address] [place] [address] documented as of this encounter Visit Diagnoses Diagnosis Other osteoporosis without current pathological fracture documented in this encounter Additional Health Concerns Assessment Noted Time PHQ-9 Depression Total Score: 3 07/19/19 23 10:23 AM EST documented as of this encounter Care Teams Driver Utility Worker Relationship Specialty Start Date End Date Selam Bryan MD [address] [place] [address] PCP - General Family Medicine 06/05/22 documented as of this encounter
--- OUTSIDE RECORDS SUMMARY | 2024-07-13 17:59 | XMS_ITS | Encounter Summary ---
Author Organization [employer] Address [address] [place] [address] Care Team Providers Care Clinical Statistics Manager Name Role Phone Selam Bryan MD Primary Care Provider [phone] Encounter Details Date Type Department Care Team ([facility] st Contact Info) Description 06/25/2024 Telephone [facility] CHC MED & PEDS [address] [place], [place] [phone] Selam Bryan MD [address] [place], [place] [phone] Social History Tobacco Use Types Packs/Day Years [...] Info) Description 07/30/2024 9:00 AM EST Nutrition [facility] DIABETES/NTRN [address] [place] [address] [place] [address] documented as of this encounter Visit Diagnoses Not on filedocumented in this encounter Additional Health Concerns Assessment Noted Time PHQ-9 Depression Total Score: 3 07/19/19 23 10:23 AM EST documented as of this encounter Care Teams Clinical Statistics Manager Relationship Specialty Start Date End Date Selam Bryan MD [address] [place] [address] PCP - General Family Medicine 06/05/22 documented as of this encounter
--- OUTSIDE RECORDS SUMMARY | 2024-07-13 17:59 | XMS_ITS | Encounter Summary ---
Author Organization [employer] Address [address] [place] [address] Care Team Providers Care Cyber Security Systems Engineer Name Role Phone Selam Bryan MD Primary Care Provider [phone] Encounter Details Date Type Department Care Team [...] Info) Description 07/30/2024 9:00 AM EST Nutrition [facility] DIABETES/NTRN [address] [place] [address] [place] [address] documented as of this encounter Visit Diagnoses Not on filedocumented in this encounter Additional Health Concerns Assessment Noted Time PHQ-9 Depression Total Score: 3 07/19/19 23 10:23 AM EST documented as of this encounter Care Teams Cyber Security Systems Engineer Relationship Specialty Start Date End Date Selam Bryan MD [address] [place] [address] PCP - General Family Medicine 06/05/22 documented as of this encounter
--- OUTSIDE RECORDS SUMMARY | 2024-07-13 17:59 | XMS_ITS | Encounter Summary ---
Author Organization [employer] Address [address] [place] [address] Care Team Providers Care Air Tank Assembler Name Role Phone Selam Bryan MD Primary Care Provider [phone] Encounter Details Date Type Department Care Team [...] EST Nutrition [facility] DIABETES/NTRN [address] [place] [address] [place] [address] documented as of this encounter Visit Diagnoses Not on filedocumented in this encounter Additional Health Concerns Assessment Noted Time PHQ-9 Depression Total Score: 3 07/19/19 23 10:23 AM EST documented as of this encounter Care Teams Air Tank Assembler Relationship Specialty Start Date End Date Selam Bryan MD [address] [place] [address] PCP - General Family Medicine 06/05/22 documented as of this encounter
--- OUTSIDE RECORDS SUMMARY | 2024-07-13 17:59 | XMS_ITS | Clinical Summary ---
Author Organization [employer] Address [address] [facility] 7[address] [place] [address] Care Team Providers Care Stemhole Borer And Topper Name Role Phone Selam Bryan MD Primary Care Provider [phone] Allergies Active Allergy Reactions Criticality Noted Date Comments Codeine Low 07/19/2022 Other reaction(s): dizziness, fainting Statins Low 07/19/2022 Other reaction(s): convulsion, dizziness, muscle pain Medications GaviLAX 17 GM/SCOOP powder MIX 17G (1 CAPFUL) WITH 8 OUNCES OF LIQUID AND DRINK ONCE DAILY 06/13/20 22 Active Blood Glucose Monitoring Suppl (FreeStyle [place] Lite) w/Device kit USE TO TEST BLOOD SUGAR TWICE DAILY 05/04/20 22 Active FreeStyle lancets USE SEG N LO INDICADO DOS VECES AL D A 06/11/20 22 Active omeprazole (PriLOSEC) [address] capsule TOME POOL C PSULA TODOS LOS D CUANDO SEA NECESARIO FOR ACID REFLUX 07/07/19 23 Active Calcium Carbonate-Vit D-Min (Calcium 1200) 5344-8987 MG-UNIT chewable tabletIndications: Other osteoporosis without current [...] hyperglycemia, without long-term current use of insulin ([facility]) TAKE ONE TABLET EVERY MORNING 90 tablet [...] Telephone [facility] [address] [place] [address] Selam Bryan MD No Show 06/25/2024 Telephone [facility] [address] [facility] [address] Selam Bryan MD 06/25/2024 Telephone [facility] [address] [facility] [place] [address] eSlam Bryan MD 06/25/2024 Travel 06/19/2024 Travel 05/28/2024 Orders Only GENERIC EXTERNAL DATA DEPARTMENT Provider, Generic External Data 04/16/2024 Refill [facility] [address] [facility] [place] [address] Selam Bryan MD Type 2 diabetes mellitus with hyperglycemia, without long-term current use of insulin ([facility]) from Last 3 Months Immunizations Name Administration [...] Info) Description 07/30/2024 9:00 AM EST Nutrition [facility] DIABETES/NTRN [address] [place] [address] Ethel Cui, RD [address] [place], [place] [phone] Health Maintenance Due Date Last Done Comments [...] hyperglycemia, without long-term current use of insulin ([facility]) LIPID PANEL, STANDARD Routine 12/03/2023 9:21 AM [...] (05/28/2024 9:26 AM EST) Color Urine Yellow [facility] Appearance Urine Clear [facility] PH 7.0 5.0 - 9.0 [facility] Glucose Urine UA Negative Negative mg/dL [facility] Urine Blood Negative Negative [facility] Specific Clever - Urine 1.020 1.005 - 1.025 [facility] Urine Protein Negative Neg-Trace mg/dL [facility] Urine Ketones Negative Negative mg/dL [facility] Nitrite Urine Negative Negative [facility] Leukocyte Esterase Urine Negative Negative [facility] RBC Urine 0-2 0 - 2 /HPF [facility] Urine WBC 0-5 0 - 5 /HPF [facility] Urine Squamous Epithelial Cell 0-2 0 - 2 /HPF [facility] Urine Bacteria None Seen None Seen [facility] Hyaline Casts, Urine 0-2 0 - 2 /LPF [facility] 05/28/2024 9:26 AM EST 05/28/2024 9:30 AM EST Narrative [facility] - 05/28/2024 9:42 AM EST [id number], Clean Catch us Generic External Data Provider LAB URINE ORDERAB LES Final Result Performing Organization Address City/State/[facility] Co de Phone Number [facility] [address] [place] [address] [phone] * CT Abdomen Pelvis w/ Contrast (05/28/2024 8:54 AM EST) Anatomical Region Laterality Modality Body, Pelvis, Abdomen Computed T omography 05/28/2024 8:54 AM EST Narrative 05/28/2024 11:33 AM EST ? [facility] ?[address] ?[place] [address] ? CT Scan Report ? Signed ? Patient: Juan Anurag,Trupti E ?MR#: ?? [id number] ? : 1960 ?Acct:[id number] ? Age/Sex: 64 / F ?ADM Date: 12/12/24 ? Loc: HO.ED ? Attending Dr: ? Ordering Physician: Ken Albright DO ?? Date of Service: 05/28/24 ?? Procedure(s): CT abdomen pelvis w IV con ?? Accession Number(s): [id number] ? cc: Ken Albright DO; Selam Bryan [...] DD/ 0854 ? TD/TT: 05/28/24 1018 ? Carpentry Specialist: ? Procedure Note Moises Carpenter - 05/29/[address] [address] [address] Scan Report Signed Patient: Juan OsbornTrupti EMR#: [id number] : 1Acct:[id number] Age/Sex: 64 / FADM Date: 05/28/24 Loc: HO.ED Attending Dr: Ordering Physician: Ken Albright DO Date of Service: 05/28/24 Procedure(s): CT abdomen pelvis w IV con Accession Number(s): [id number] cc: Ken Albright DO; Selam Bryan MD [...] 05/28/24 1130 DD/ 0854 TD/TT: 05/28/24 1018 Carpentry Specialist: [facility] External Provider IMG CT PROCEDURES Edited Result - Final * (ABNORMAL) CBC auto differential (05/28/2024 8:15 AM EST) White Blood Count 9.4 4.8 - 10.8 X10*3/uL [facility] Red Blood Count 5.03 4.20 - 5.50 X10*6/uL [facility] Hemoglobin 15.5 12.0 - 16.0 g/dl [facility] Hematocrit 43.7 37.0 - 47.0 % [facility] Mean Corpuscular Volume 86.9 80.0 - 98.0 fL [facility] Mean Corpuscular Hemoglobin 30.8 27.0 - 33.0 pg [facility] Mean Corpuscular HGB Conc 35.5(H) 31.0 - 35.0 g/dl [facility] Red Cell Distribution Width 11.3 11.0 - 16.0 % [facility] Platelet Count 253 160 - 400 X10*3/uL [facility] Mean Platelet Volume 10.7 9.4 - 12.3 fL [facility] Neutrophils Percent Auto 82.2(H) 45 - 73 % [facility] Imm Gran Pct Auto 0.2 0.0 - 0.4 % [facility] Lymphocytes Percent Auto 12.3(L) 20 - 40 % [facility] Monocytes Percent Auto 4.8 2 - 11 % [facility] Eosinophils Percent Auto 0.4 0 - 4 % [facility] Basophils Percent Auto 0.1 0 - 2 % [facility] NRBC Pct Auto 0.0 0.0 - 0.2 /100WBC [facility] Neutrophils Absolute Auto 7.7 2.0 - 8.3 x10*3/uL [facility] Imm Gran Abs Auto 0.02 0.00 - 0.03 X10*3/uL [facility] Lymphocytes Absolute Auto 1.2 1.2 - 4.9 X10*3/uL [facility] Monocytes Absolute Auto 0.5 0.1 - 1.2 X10*3/uL [facility] Eosinophils Absolute Auto 0.0 0.0 - 0.4 X10*3/uL [facility] Basophils Absolute Auto 0.0 0.0 - 0.2 X10*3/uL [facility] NRBC Abs Auto 0.000 0.0 - 0.012 X10*3/uL [facility] 05/28/2024 8:15 AM EST 05/28/2024 8:19 AM EST us Generic External Data Provider LAB BLOOD ORDERAB LES Final Result [facility] [address] [place] [address] [phone] * BI Mammogram Screening Tomosynthesis Bilateral (03/26/2024 10:00 AM EDT) Anatomical Region Laterality Modality Breast Bilateral Mammography 03/26/2024 10:0 0 AM EDT Narrative 04/07/2024 12:17 PM EDT ? [facility] ? [address] ?[place] [address] ? Mammography Report ? Signed ? Patient: Juan Anurag,Trupti E ?MR#: ?? [id number] ? : 1960 ?Acct:[id number] ? Age/Sex: 63 / F ?ADM Date: 03/26/24 ? Loc: HO.MAMMO ? Attending Dr: Davion Weathers MD ? Ordering Physician: Davion Weathers MD ?Results: 2Benign ?? Findings ? Date of Service: 03/26/24 ?Follow Up: 1 Year From Orig ?? inal Mammogram ? Procedure(s): MM tomosynthesis screening BI ?? Accession Number(s): [id number] ? cc: Selam Bryan MD; Davion Weathers [...] DD/ 1000 ? TD/TT: 03/26/24 1022 ? Carpentry Specialist: ? Procedure Note Jayden, Moises - 04/07/2024 [facility] [address] [place], [place] [address] Mammography Report Signed Patient: Trupti Kelly EMR#: [id number] : 1Acct:[id number] Age/Sex: 63 / FADM Date: 03/26/24 Loc: HO.MAMMO Attending Dr: Davion Weathers MD Ordering Physician: Davion Weathers MDResults: 2Benign Findings Date of Service: 03/26/24Follow Up: 1 Year From Orig inal Mammogram Procedure(s): MM tomosynthesis screening BI Accession Number(s): [id number] cc: Selam Bryan MD; Davion Weathers MD [...] 12:14 PM EDT RP Dictated By: Shea Elean DO Signed By: <Electronically signed by Shea Elena DO in OV> 04/07/24 1214 DD/ 1000 TD/TT: 03/26/24 1022 Carpentry Specialist: [facility] External Provider IMG BI PROCEDURES Final Result * [facility] Imaging Pap and HPV mRNA E6/E7 with Reflex to HPV 16,18/45 (12/26/2023 1:27 PM EDT) HPV 16 RNA [facility] HPV 18/45 RNA [facility] HPV nRNA E6/E7 Not Detected Not Detected [facility] Comment:Methodology: Transcr iption-Mediated AmplificationThis assay detects E6/E7 viral messenger RNA (mRNA) from 14high-risk HPV types (16,18,31,33,35,39,45,51,52,56,58,59,66,68).Cervical sources are required for HPV testing.If a vaginal source from a patient who has had atotal hysterectomy with removal of cervix wassubmitted, please contact the testing laboratoryfor alternative testing options.For additional information, please refer [email or web address](This link if provided for information/educational purposes only.)THIS TEST WAS PERFORMED AT:[facility] [place] [phone] ENGLAND MD SOURCE: SEE NOTE [facility] Comment:Cervix Report Status: [facility] Clinical Information: SEE NOTE [facility] Comment:Routine exam LMP: SEE NOTE [facility] Comment:POSTMENOPAUSAL Prev. PAP: SEE NOTE [facility] Comment:2019 Prev. BX: SEE NOTE [facility] Comment:NONE GIVEN Statement Of Adequacy: SEE NOTE [facility] Comment:SATISFACTORY FOR JEFFERSON LUATION General Categorization: [facility] Interpretation/Result: SEE NOTE [facility] Comment:Cytology Results: Ne gative for intraepitheliallesion or malignancy.Atrophic pattern; predominantly parabasal cells Cytology Comment SEE NOTE [facility] Comment:This Pap test has be en evaluated with computerassisted technology. Middle School History Teacher: SEE NOTE [facility] Comment:ALEYDA, CT(ASCP)CT scre ening location: [place] [address] Review [employer] History Teacher: [facility] Pathologist [facility] PAP Infection [facility] See Note SEE NOTE [facility] Comment:EXPLANATORY NOTE:The Pap is a screening test for cervical cancer. It isnot a diagnostic test and is subject to false negativeand false positive results. It is most reliable when asatisfactory sample, regularly obtained, is submittedwith relevant clinical findings and history, and whenthe Pap result is evaluated along with historic andcurrent clinical information. 12/26/2023 1:27 PM EDT 12/26/2023 6:52 PM EDT Narrative [facility] - 01/01/2024 1:15 PM EDT SEE SCANNED RESULTS IN EMRWas previous PAP abnormal? UnknownClinical Information: routineCollection Date: 12/26/23igh risk HPV with 16 ?? 18 genotyping? YReflex HPV any abnormal diagnosis? YReflex HPV if ASCUS only? NHigh Risk HPV (any diagnosis)? YLMP: postmenopausalDate of previous PAP 2019Performed by: : [id number] us Generic External Data Provider LAB PATHOLOGY ORD ERABLES Final Result [facility] [address] [place] [address] [phone] * POCT A1C (12/12/2023 11:43 AM EDT) Hemoglobin A1C 5.9 4.0 - 6.0 % QC Media Lot # Comment:[id number] Lot# Expiration Date Comment:07/12/2025 Blood 12/12/2023 11:4 3 AM EDT us Selam Bryan MD POINT OF CARE TEST ENTER/EDIT ORDERABLES Final Result * (ABNORMAL) Lipid Panel, Standard (12/03/2023 9:21 AM EDT) Triglycerides 128 <150 mg/dL [facility] Comment:Desirable Triglyceri de: less than 150 mg/dLBorderline High Triglyceride 150-199 mg/dLHigh Triglyceride: 200-499 mg/dLVery High Triglyceride: greater than or equal to 5OO mg/dL Cholesterol 203(H) <200 mg/dL [facility] Comment:Desirable Cholestero l: less than 200 mg/dLBorderline High Cholesterol: 200-239 mg/dLHigh Cholesterol: greater than 239 mg/dL LDL Cholesterol Calculated 140(H) <100 mg/dL [facility] Comment:Desirable LDL: less than 100 mg/dLNear Optimal/Above Optimal LDL: 110- 129 mg/dLBorderline High LDL: 130-159 mg/dLHigh LDL: 160-189 mg/dLVery High LDL: greater than or equal to 190 mg/dL HDL Cholesterol 38(L) >40 mg/dL [facility] Comment:Desirable HDL: great er than 40 mg/dL Note: This HDL assay may give artificially low results in patients with liver disease. Blood Venous blood specimen / Unknown 12/03/2023 9:21 AM EDT 12/03/2023 2:23 PM EDT us Selam Bryan MD LAB BLOOD ORDERABLES Final Re sult [facility] [address] [place] [address] [phone] * Hepatitis C Ab (04/10/2023 9:10 AM EDT) Hepatitis C Antibody Nonreactive Nonreactive [facility] Comment:Antibodies to HCV no t detected; does not exclude early acuteHCV infection. Blood 04/10/2023 9:10 AM EDT 04/10/2023 2:55 PM EDT Selam Bryan MD LAB BLOOD ORDERABLES Final Re sult Performing Organization Address [facility] Co de Phone Number [facility] [address] [place] [address] [phone] * HIV Ab/Ag ([facility]) (04/10/2023 9:10 AM EDT) Pathologist [facility] HIV AB/AG Nonreactive Nonreactive [facility] Comment:HIV-1 p24 Ag and/or HIV-1/HIV-2 Ab not detected.A test result that is nonreactive does not exclude thepossibility of exposure to or infection with HIV-1 and/orHIV-2. Nonreactive results in this assay for individualswith prior exposure to HIV-1 and/or HIV-2 may be due toantigen and antibody levels that are below the limit ofdetection of this assay.The [employer]ellig[employer] HIV Ag/Ab Combo assay result andsupplemental assay results should be interpreted inconjunction with the patient's clinical presentation,history and other laboratory results. If the results areinconsistent with clinical evidence, additional testing issuggested to confirm the result. 04/10/2023 9:10 AM EDT 04/10/2023 2:55 PM EDT Selam Bryan MD LAB BLOOD ORDERABLES Final Re sult Performing Organization Address [facility] Co de Phone Number [facility] [address] [place] [address] [phone] * Albumin, Random Urine W/O Creatinine (07/23/2022 9:00 AM EST) Albumin, Urine 0.8 See Note: mg/dL [facility] Comment: Reference Range: Reference Range Not established [facility] Comment: The ADA defines abnormalities in albumin [...] URINE ORDERABLES Final Re sult [facility] [address], [place] [address] [facility] [address] [facility], ([address]) [place] [address] from Last 3 Months or Most Recently Relevant to Health Maintenance Insurance [facility] Care Teams Stemhole Borer And Topper Relationship Specialty Start Date End Date Selam Bryan MD [address] [place] [address] PCP - General Family Medicine 06/05/22
== END 2024-07-13 12:22 | disposition home or self-care (01) ==
LOC: HO.XRAY 12:21
PROVIDERS: PCP Family Medicine; Visit Provider Internal Medicine Gastroenterology
DX: K51.50 Left sided colitis without complications (principal); R19.8 Other specified symptoms and signs involving the digestive system and abdomen
CPT/HCPCS: 74018; 99212

== ENCOUNTER 2024-07-13 12:21 | Outpatient (AMB) | payer OTHER, SELFPAY ==
[2024-07-13 12:30] VITALS: BP 120/68; BMI 23.4
--- NOTE | 2024-07-13 12:30 | A.OFFVIS_ITS ---
Vital Signs 07/13/24 12:30 Height 5 ft 2 in Weight 128 lb BMI 23.4 BP 120/68 Blood Pressure Location Lt brachial Position Sitting Intake Visit Reasons: ED follow up Intake Note: Patient in office today in follow up of ED visit. CC: Patient reports that she went to the ED on 05/28 with abdominal pain and was told that she had a metal in her stomach. She reports occasional upset stomach after eating, and loose stools yesterday and today. Public Opinion Survey Taker Required: Yes Accompanied by: Self / Same As Patient Allergies codeine [CODEINE] Allergy (Intermediate, Verified 07/13/24 12:37) DIZZY/LETHARGY atorvastatin Adverse Reaction (Unknown, Verified 07/13/24 12:37) increased heartburns HPI HPI ED follow up: Details: 64 yr old f here for f/u RECAP Had been seeing September before for GERD and constipation was being seen for idiosyncratic reaction to statins tried lovastatin, atorvastatin and crestor sx include abdominal pain, nausea and malaise she has not tried fibrates, ezetimibe, PCSK9 antibodies (but never had WA or cardiac event) if she takes statin 8 am then by night time she will have these sx, if she doesn;t take statins that day she has no sx otherwise GERD is controlled with omeprazole constipation is worse with rice and bread, so tries to avoid she found miralax helped and needs refill she did see Dr Tai for assessment of a liver hemangioma which had been embolized before and had mentioned above sx to him, with clear association to statin timing and dosing. 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 class of drugs, Statins also affect NO pathway so if still has sig hemangioma maybe another mechanism of action in causing her sx--she has remained off statins, has mild ALT elevation likely MEDELLIN related she is also thought to have lactose intolerance lipids 06/2020--LDL--117, HDL-34, trig 129, LFT with mild ALT elevation LABS 02/2022-- bili -1.2, AST:37, ALT: 68, alk phos: 96 US: 07/19/21--Gb contracted, no gallstones, hypoechoic liver leison as noted before (presumably the embolized hemangioma area) colonoscopy 2017--hyperplastic polyps removed She had admission for pSBO and enteritis after eating stew, presumed infectious and quickly improved CTe: 02/2023 -no major abnormality seen REPEAT EGD/colo 2022: gastritis, mild mild esophagitis inlet patch Colonoscopy Findings: internal hemorrhoids diverticular disease H pylori neg 2023 celiac neg 2021 INTERIM: she has been having bouts of lower abdo pain no nausea, no vomiting occ post prandial diarrhea she had x 2 CT end of year, ileitis, colitis metallic body noted EXAM: GENERAL: The patient is well developed and nontoxic. VITAL SIGNS:see workflow HEENT: Nonicteric sclerae, PERRLA, EOMI. Oropharynx clear. Moist mucous membranes. Conjunctivae appear well perfused. No thyroid mass. CHEST: Chest wall is nontender. HEART: Regular rate and rhythm without murmurs. LUNGS: Clear to auscultation bilaterally. ABDOMEN: Soft, positive bowel sounds, tender right sided abdomen, no organomegaly.no flank tenderness SKIN: mild seborrheic dermatitis NEUROLOGIC: Cranial nerves II-XII intact without motor/sensory deficit. A/P; 1/ ileitis and posisble foregin body in ascending colon 2/ abn LFT due to suspected MEDELLIN, mild, PLAN: 1/ recheck KUB and see if metallic body still present 2/ repeat EGD and colonoscopy if FB noted remove--eval colon and ileum, bx 3/ eval liver at next visit NOTE: KUB does show metallic object in asc colon with fecal loading PFSH Medical History SBO (small bowel obstruction) Dysplasia of cervix, low grade (VIRGIE 1) Overweight (BMI 25.0-29.9) Anxiety Constipation Osteopenia Vitamin D deficiency GERD (gastroesophageal reflux disease) Elevated LFTs Hemangioma of liver Pure hypercholesterolemia Diabetes mellitus Surgical History History of esophagogastroduodenoscopy (EGD) History of resection of liver History of blood clots History of colonoscopy History of oral surgery History of tubal ligation Family History Father No problems noted. Mother Uterine cancer Colon cancer Maternal Grandmother No problems noted. Paternal Aunt Ovarian cancer Social History Household Members: Children Household Members Other:: daughter Housing: Assisted Living Facility Alcohol intake: never Patient Tobacco Use Status: Never used Tobacco e-Cigarette/Vaping Use: Never Used Second Hand Smoke Exposure: No Advance Directives Date on File: 11/27/22 service: No Current occupational status: disabled Cognitive needs: No Hearing needs: No Vision needs: Yes Female Reproductive History Menstrual Age of Menarche: 14 Physical Exam Vital Signs: Last Vital Signs BP 120/68 07/13/24 12:30 BMI result Body Mass Index 23.4 Assessment & Plan Assessment & Plan (1) Abnormal bowel habits: Code(s): R19.8 - Other specified symptoms and signs involving the digestive system and abdomen Category: Medical Plan: as above Orders: Orders Lactoferrin, Fecal, Quant. 07/13/24 K51.50 - Left sided colitis without complications, R19.8 - Other specified symptoms and signs involving the digestive system and abdomen XR KUB 07/13/24 R19.8 - Other specified symptoms and signs involving the digestive system and abdomen C Reactive Protein 07/13/24 R19.8 - Other specified symptoms and signs involving the digestive system and abdomen Medications: New sodium,potassium,mag sulfates 17.5-3.13-1.6 gram (Suprep Bowel Prep Kit) DILUTE; drink 1/2 at 6-8 pm and half at 11 PM- 1AM 354 mL 0RF Coding Level of Care Code Est Pt Level 4 (03332) Diagnoses Abnormal bowel habits R19.8
--- OUTSIDE RECORDS SUMMARY | 2024-07-13 17:10 | XMS_ITS | Encounter Summary ---
Author Organization [employer] Address [address] [facility] [place] [address] Care Team Providers Care Chronic Disease Manager Name Role Phone Selam Bryan MD Primary Care Provider [phone] Encounter Details Date Type Department Care Team ([facility] st Contact Info) Description 06/25/2024 Telephone [facility] MED [facility] PEDS [address] [place], [place] [phone] Selam Bryan MD [address] [place], [place] [phone] Social History Tobacco Use Types Packs/Day Years Used Date Smoking Tobacco: Never Passive Smoke Exposure: Never Smokeless Tobacco: Never Alcohol Use Standard Drinks/Week Comments Never 0 (1 standard drink = 0.6 oz pur e alcohol) Depression Answer Date Recorded Patient Health Questionnaire-9 Score 3 07/19/2022 Housing Stability Answer Date Recorded What is your housing situation today? I have [place]an [place] 11/28/[address] you li ve. Do you have problems with any of the following? None of the above 11/28/2023 Food Insecurity Answer Date Recorded Within the past 12 months, y ou worried that your food would run out before you got money to buy more: Never True 11/28/2023 Within the past 12 months,th e food you bought just didn't last and you didn't have enough money to get more: Never True Transportation Answer Date Recorded In the past 12 months, has l ack of transportation kept you from medical appts, meetings, work or from getting things needed for daily living? No 11/28/2023 Utilities Answer Date Recorded In the past 12 months, has t he electric, gas, oil or water company threatened to shut off services in your home? No 11/28/2023 Depression Answer Date Recorded Patient Health Questionnaire-2 Score 1 07/19/2022 Comments Unknown Sex and Gender Information Value Date Recorded Sex Assigned at Female 06/05/2022 12:35 PM EST Legal Sex Female 12:32 PM EST Gender Identity Female 06/05/2022 12:35 PM EST Sexual Orientation Straight 07/19/2022 10 :08 AM EST documented as of this encounter Plan of Treatment Upcoming Encounters Date Type Department Care Team (Late st Contact Info) Description 07/30/2024 9:00 AM EST Nutrition [facility] DIABETES/NTRN [address] [place] [address] [place] [address] documented as of this encounter Visit Diagnoses Not on filedocumented in this encounter Additional Health Concerns Assessment Noted Time PHQ-9 Depression Total Score: 3 07/19/19 23 10:23 AM EST documented as of this encounter Care Teams Chronic Disease Manager Relationship Specialty Start Date End Date Selam Bryan MD [address] [place] [address] PCP - General Family Medicine 06/05/22 documented as of this encounter
--- OUTSIDE RECORDS SUMMARY | 2024-07-13 17:10 | XMS_ITS | Encounter Summary ---
Author Organization [employer] Address [address] [facility] [place] [address] Care Team Providers Care Foxing Closer Name Role Phone Selam Bryan MD Primary Care Provider [phone] Reason for Visit * Reason Onset Date Comments No Show 06/25/2024 Encounter Details Date Type Department Care Team ([facility] Contact Info) Description 06/25/2024 Telephone C [facility] MED [facility] PEDS [address] [place], [place] [phone] Selam Bryan MD [address] [place], [place] [phone] No Show Social History Tobacco Use Types Packs/Day Years [...] AM EST documented as of this encounter Miscellaneous Notes * Telephone Encounter - Kavon Cruz - 06/25/2024 3:36 PM EST 06/25/24 no show documented in this encounter Plan of Treatment Upcoming Encounters Date Type Department Care Team (Late st Contact Info) Description 07/30/2024 9:00 AM EST Nutrition [facility] DI[facility]/NTRN [address] [place] [address] [place] [address] documented as of this encounter Visit Diagnoses Not on filedocumented in this encounter Additional Health Concerns Assessment Noted Time PHQ-9 Depression Total Score: 3 07/19/19 23 10:23 AM EST documented as of this encounter Care Teams Foxing Closer Relationship Specialty Start Date End Date Selam Bryan MD [address] [place] [address] PCP - General Family Medicine 06/05/22 documented as of this encounter
--- OUTSIDE RECORDS SUMMARY | 2024-07-13 17:10 | XMS_ITS | Encounter Summary ---
Author Organization [employer] Address [address] [place] [address] Care Team Providers Care Electronics Installer Name Role Phone Selam Bryan MD Primary Care Provider [phone] Encounter Details Date Type Department Care Team (Latest Contact Info) Description 06/25/2024 Travel Social History Tobacco Use Types Packs/Day Years [...] Info) Description 07/30/2024 9:00 AM EST Nutrition [facility]N [address] [place] [address] [place] [address] documented as of this encounter Visit Diagnoses Not on filedocumented in this encounter Additional Health Concerns Assessment Noted Time PHQ-9 Depression Total Score: 3 07/19/19 23 10:23 AM EST documented as of this encounter Care Teams Electronics Installer Relationship Specialty Start Date End Date Selam Bryan MD [address] [place] [address] PCP - General Family Medicine 06/05/22 documented as of this encounter
--- OUTSIDE RECORDS SUMMARY | 2024-07-13 17:10 | XMS_ITS | Clinical Summary ---
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 Role Phone Selam Bryan MD Primary Care Provider [phone] Allergies Active Allergy Reactions Criticality Noted Date Comments Codeine Low 07/19/2022 Other reaction(s): dizziness, fainting Statins Low 07/19/2022 Other reaction(s): convulsion, dizziness, muscle pain Medications GaviLAX 17 GM/SCOOP powder MIX 17G (1 CAPFUL) WITH 8 OUNCES OF LIQUID AND DRINK ONCE DAILY 06/13/20 22 Active Blood Glucose Monitoring Suppl (FreeStyle Blossom Lite) w/Device kit USE TO TEST BLOOD SUGAR TWICE DAILY 05/04/20 22 Active FreeStyle lancets USE SEG N LO INDICADO DOS VECES AL D A 06/11/20 22 Active omeprazole (PriLOSEC) [address] capsule TOME POOL C PSULA TODOS LOS D CUANDO SEA NECESARIO FOR ACID REFLUX 07/07/19 23 Active Calcium Carbonate-Vit D-Min (Calcium 1200) 5393-8527 MG-UNIT chewable tabletIndications: Other osteoporosis without current pathological fracture Chew 1 tablet in the morning. 90 tablet 4 07/19/19 23 Active D3-1000 25 MCG (1000 UT) capsule TOME 1 CAPSULA POR VIA ORAL TODOS LOS CARDOSO 90 capsule 1 10/30/19 23 Active fenofibrate (Triglide) 160 MG tablet 0 Refills, Maintenance, 10/18/22 14:25:00 EDT, Partial fill upon patient request if the prescription is for a schedule II opioid drug. 10/19/19 23 Active ondansetron ODT (Zofran-ODT) 4 MG disintegrating tablet 02/09/20 23 Active Na Sulfate-K Sulfate-Mg Sulf 17.5-3.13-1.6 GM/177ML solution 02/09/20 23 Active Icosapent Ethyl (Vascepa) 1 g capsule Take 2 capsules (2 g) by mouth with breakfast and with evening meal. 120 capsule 11 04/11/20 23 Active Blood Pressure kitIndications:Jewell vated blood pressure reading 1 Units in the morning. 1 kit 05/08/20 23 Active alendronate (Fosamax) 70 MG tabletIndications: Other osteoporosis without current pathological fracture TAKE 1 TABLET ONCE A WEEK WITH 6 TO 8 OZ OF WATER 30 MINUTES BEFORE FIRST FOOD OF THE DAY. DO NOT LIE DOWN FOR 30 MINUTES. 4 tablet 11 09/24/19 24 Active simethicone (Simethicone Ultra Strength) 180 MG capsule TAKE ONE CAPSULE TWICE DAILY NEEDED 60 capsule 1 10/23/19 24 Active alpha tocopherol (Vitamin E) 400 units capsule Take 1 capsule (400 Units) by mouth Once per day. 90 capsule 1 12/12/19 24 Active Alcohol Swabs (Alcohol Prep) 70 % pads USE TWICE DAILY DIRECTED 100 each 11 01/10/20 24 Active FREESTYLE LITE test strip TEST BLOOD SUGAR TWICE DAILY 100 strip 11 01/10/20 24 Active ezetimibe (Zetia) 10 MG tablet TAKE ONE TABLET EVERY MORNING 90 tablet 1 02/03/20 24 Active Januvia 100 MG tabletIndications: Type 2 diabetes mellitus with hyperglycemia, without long-term current use of insulin ([facility]) TAKE ONE TABLET EVERY MORNING 90 tablet 1 04/16/20 24 Active Active Problems Problem Noted Date Diagnosed Date Enteritis 12/17/2022 Assessment & Plan (12/12/2023 2:01 PM EDT): Galina advised the pt to take take vitamin E of 400 MG but he did not prescribe it. Relevant orders: Alpha tocopherol (Vitamin E) 400 units capsule Assessment & Plan (12/17/2022 3:24 PM EDT): Was admitted due to SBO in the setting of enteritis. Reports she has a followup with GI in January. Reports has pending colonoscopy & endoscopy. Failure to thrive in adult 12/17/2022 Weight loss 10/22/2022 Assessment & Plan (10/22/2022 2:34 PM EDT): Patient reports reduced appetite and reduced nutritional intake. Liver hemangioma 10/22/2022 Liver mass 10/22/2022 Assessment & Plan (10/22/2022 5:27 PM EDT): Patient with known hx of liver hemangioma and GI side effects reports feels symptoms are worse and is waiting on vascular and GI to attempt destruction of this. This is contributing to her poor appetite and she will benefit of meal replacement. She has pending mammography, will have colonoscopy next year and this year will get repeat pap smear. Vitamin D deficiency disease 07/19/2022 Type 2 diabetes mellitus wit h hyperglycemia, without long-term current use of insulin 07/19/2022 Assessment & Plan (12/12/2023 1:52 PM EDT): Controlled: A1C levels are 5.9%, within normal limit. Will not make any chances at this time. Advised to keep monitoring glucose levels, and bring numbers upon next office visit. Assessment & Plan (06/07/2023 3:42 PM EST): Controlled: A1C levels are 5.8%, within normal limit. Will not make any changes at this time. Advised to keep monitoring glucose levels, and bring numbers upon next office visit. -Follow up in 4 months. Assessment & Plan (03/01/2023 2:53 PM EDT): Recommended patient to get immunization vaccines. Patient BP and A1C are controlled, follow up in 6 months. Assessment & Plan (10/22/2022 2:33 PM EDT): Controlled. POC a1c 6.4%. Continue current regimen follow up in 3 months. Assessment & Plan (07/19/2022 11:06 AM EST): Controlled. POC a1c 6.6%. Continue januvia. Hyperlipidemia 07/19/2022 Assessment & Plan (06/07/2023 3:43 PM EST): Patient will be send for labs to re-check cholesterol levels. -Labs: Lipid Panel Assessment & Plan (12/17/2022 3:30 PM EDT): Patient does not tolerate statins, on max dose of ezetimibe, declined PCSK9 inhibitor for now. Assessment & Plan (10/22/2022 2:33 PM EDT): Will send labs to check levels. Other osteoporosis without current pathological fracture 07/19/2022 Overview (07/19/2022): 03/21/22 Dexa scan: Osteoporosis 07/19/22: Started alendronate Assessment & Plan (12/12/2023 1:48 PM EDT): Relevant orders: -12/12/2023 Dexa Scan: Osteoporosis Pt was advised to stop using calcium supplementation and Alendronate 2 days before scan. -Continue using Alendronate for 5 years and then discontinue Assessment & Plan (07/19/2022 11:06 AM EST): Reviewed DEXA scan from 03/21/22, will start alendronte. Gastroesophageal reflux disease without esophagi tis 07/19/2022 Elevated blood pressure reading 07/19/2022 Assessment & Plan (10/22/2022 2:33 PM EDT): Controlled. Follow up in 3 months. Assessment & Plan (07/19/2022 11:08 AM EST): Elevated BP, will send BP monitor and make nursing followup. - If SBP < 140/DBP <90 mmHg in more than 75% of home self-monitoring, continue current medication regimen and make f/u with PCP in 3 month - If SBP >140-165/DBP >90-115 mmHg , start losartan 50 mg and f/u with PCP in 1 month - If SBP > 165/ DBP> 115 mmHg, consult with covering provider - If SBP <90/DBP <50 mmHg, consult with covering provider. Encounters Date Type Department Care Team Description 06/25/2024 Telephone [facility] [address] [place] [address] Selam Bryan MD No Show 06/25/2024 Telephone [facility] MED [facility] [address] [place] [address] Selam Bryan MD 06/25/2024 Telephone [facility] [address] [place] [place] [address] Selam Bryan MD 06/25/2024 Travel 06/19/2024 Travel 05/28/2024 Orders Only GENERIC EXTERNAL DATA DEPARTMENT Provider, Generic External Data 04/16/2024 Refill [facility] [address] [facility] [place] [address] Selam Bryan MD Type 2 diabetes mellitus with hyperglycemia, without long-term current use of insulin ([facility]) from Last 3 Months Immunizations Name Administration Dates Next Due Hep B, adult 11/28/2015,08/29/2015,07/29/2015 Influenza injectable quadriv alent preservative free 03/01/2023,03/08/2022 Moderna Covid-19 Vaccine 12+ 11/02/2021 Pneumococcal Conjugate PCV 20 12/12/2023 Tdap 12/07/2016,11/21/2006 Zoster, Recombinant 07/10/2023,09/25/2022 Social History Tobacco Use Types Packs/Day Years Used Date Smoking Tobacco: Never Passive Smoke Exposure: Never Smokeless Tobacco: Never Tobacco Cessation:Counseling Given: Not Answered Alcohol Use Standard Drinks/Week Comments Never 0 [...] Orientation Straight 07/19/2022 10 :08 AM EST Last Filed Vital Signs Vital Sign Reading Time Taken Comments Blood Pressure 140/82 12/12/2023 11:40 AM EDT Pulse 68 12/12/2023 11:40 AM EDT Temperature 36.3 ??C (97.4 ??F) 12/12/2023 11:40 AM E DT Respiratory Rate 14 12/12/2023 11:40 AM EDT Oxygen Saturation 98% 06/07/2023 3:13 PM EST Inhaled Oxygen Concentration - - Weight 58.2 kg (128 lb 3.2 oz) 04/13/2024 9:44 A M EDT Height 159 cm (5' 2.6 ) 04/13/2024 9:44 AM EDT Body Mass Index 23 04/13/2024 9:44 AM EDT Plan of Treatment Upcoming Encounters Date Type Department Care Team (Late st Contact Info) Description 07/30/2024 9:00 AM EST Nutrition [facility] [address] [place] [address] Ethel Cui, RD [address] [place], [place] [id number] Health Maintenance Due Date Last Done Comments CT Colonography 1960 Colonoscopy 1961 Colorectal Cancer Screening 1961 FIT DNA/Cologuard 1961 FIT 1961 FOBT 1961 Sigmoidoscopy 1961 Eye Exam 1971 Alcohol/Substance Use Screening 1973 Hepatitis A Vaccines (1 of 2 - Risk 2-dose series) 1980 RSV Patients and Patients Aged 60 years or older (1 - Risk 60-74 years 1-dose series) 2021 Depression Screening 07/19/2023 07/19/2022, 07/19/19 Diabetes: Urine Protein Screening 07/23/2023 07/23/2022 COVID-19 Vaccine ( season) 2024 11/02/2021, 05/02/2021, 09/14/2020 Influenza Vaccine (#1) 2024 03/01/2023, 2021 Diabetes: Foot Exam 03/01/2024 03/01/2023, 03/01/2023, 03/01/2023, Additional history exists Diabetes: Hemoglobin A1C 06/12/2024 024, 06/07/2023, 03/01/2023, Additional history exists SDOH Screening 11/27/2024 11/28/2023 Lipid Panel 12/02/2024 12/03/2023, 06/17, 04/10/2023, Additional history exists Tobacco Screening 12/11/2024 12/12/2023 Mammogram 03/26/2026 03/26/2024, 02/21/2023 DTaP/Tdap/Td Vaccines (3 - Td or Tdap) 12/07/2026 12/07/2016, 11/21/2006 Pap Smear 12/25/2026 12/26/2023 Cervical Cancer Screening 12/25/2028 HPV/Cotest 12/25/2028 12/26/2023 Hepatitis B Vaccines Completed 11/28/2015, 08/29/2015, 07/29/2015 HIV Screening Completed 04/10/2023 Hepatitis C Screening Completed 04/10/2023 Zoster Vaccines Completed 07/10/2023, 09/25/2022 Pneumococcal Vaccine: Pediatrics (0 to 5 Years) and At-Risk Patients (6 to 64 Years) Completed 12/12/2023 HIB Vaccines Aged Out No longer eligi ble based on patient's age to complete this topic HPV Vaccines Aged Out No longer eligi ble based on patient's age to complete this topic IPV Vaccines Aged Out No longer eligi ble based on patient's age to complete this topic Meningococcal Vaccine Aged Out No efraín gema eligible based on patient's age to complete this topic RSV under 20 months Aged Out No longe r eligible based on patient's age to complete this topic Rotavirus Vaccines Aged Out No longer eligible based on patient's age to complete this topic Procedures Procedure Name Priority Date/Time Associated Diagnosis Comments URINALYSIS, COMPLETE, WITH REFLEX TO CULTURE Routine 05/28/2024 9:[address] ABDOMEN PELVIS W CONTRAST Routine 05/28/2024 8:54 AM EST CBC WITH AUTO DIFFERENTIAL Routine 05/28/2024 8:15 AM EST BI MAMMOGRAM SCREENING TOMOSYNTHESIS BILATERAL Routine 03/26/2024 10:00 AM EDT THINPREP IMAGING PAP AND HPV MRNA E6/E7 WITH REFLEX TO HPV 16,18/45 Routine 12/26/2023 1:27 PM EDT POCT GLYCATED HEMOGLOBIN, TOTAL Routine 12/12/2023 11:43 AM EDT Type 2 diabetes mellitus with hyperglycemia, without long-term current use of insulin ([facility]/HCC) LIPID PANEL, STANDARD Routine 12/03/2023 9:21 AM EDT Hyperlipidemia, unspecified hyperlipidemia type HEPATITIS C ANTIBODY Routine 04/10/2023 9:10 AM EDT Encounter for health-related screening HIV ANTIBODY/ANTIGEN ([place] [facility]) Routine 04/10/2023 9:10 AM EDT ALBUMIN, RANDOM URINE W/O CREATININE Routine 07/23/2022 9:00 AM EST Type 2 diabetes mellitus with hyperglycemia, without long-term current use of insulin (CMS/HCC) from Last 3 Months or Most Recently Relevant to Health Maintenance Results * Urinalysis, Complete, with Reflex to Culture (05/28/2024 9:26 AM EST) Color Urine Yellow [facility] Appearance Urine Clear [facility] PH 7.0 5.0 - 9.0 [facility] Glucose Urine UA Negative Negative mg/dL [facility] Urine Blood Negative Negative [facility] Specific [place]yer - Urine 1.020 1.005 - 1.025 [facility] Urine Protein Negative Neg-Trace mg/dL [facility] Urine Ketones Negative Negative mg/dL [facility] Nitrite Urine Negative Negative [facility] Leukocyte Esterase Urine Negative Negative [facility] RBC Urine 0-2 0 - 2 /HPF [facility] Urine WBC 0-5 0 - 5 /HPF [facility] Urine Squamous Epithelial Cell 0-2 0 - 2 /HPF [facility] Urine Bacteria None Seen None Seen [facility] Hyaline Casts, Urine 0-2 0 - 2 /LPF [facility] 05/28/2024 9:26 AM EST 05/28/2024 9:30 AM EST Narrative [facility] - 05/28/2024 9:42 AM EST [id number], [employer] us Generic External Data Provider LAB URINE ORDERAB LES Final Result Performing Organization Address City/State/[facility] Co de Phone Number [facility] [address] [place] [address] [phone] * CT Abdomen Pelvis w/ Contrast (05/28/2024 8:54 AM EST) Anatomical Region Laterality Modality Body, Pelvis, Abdomen Computed T omography 05/28/2024 8:54 AM EST Narrative 05/28/2024 11:33 AM EST ? [facility] ?[address] ?[place] [address] ? CT Scan Report ? Signed ? Patient: Juan Anurag,Trupti E ?MR#: ?? [id number] ? : 1960 ?Acct:[id number] ? Age/Sex: 64 / F ?ADM Date: 12/12/24 ? Loc: HO.ED ? Attending Dr: ? Ordering Physician: Ken Albright DO ?? Date of Service: 05/28/24 ?? Procedure(s): CT abdomen pelvis w IV con ?? Accession Number(s): [id number] ? cc: Ken Albright DO; Selam Bryan MD ? EXAMINATION: ?? CT ABDOMEN AND PELVIS WITH CONTRAST ? CLINICAL INFORMATION: ?? Abdominal pain. Previous liver cancer. ? COMPARISON: ?? CT dated March 20, 2024. ? TECHNIQUE: ?? Multidetector volumetric images were obtained from the superior aspect ?? of the liver through the pubic symphysis following administration 85 mL ?? of Omnipaque 350 intravenous contrast. Sagittal and coronal reformatted ?? images were obtained on the technologist's workstation. ? Oral contrast: No ? This CT examination was performed using dose optimization techniques as ?? appropriate, variously including the following: ?? *Automated exposure control ?? *Adjustment of mA and/or kV according to patient size (this includes ?? techniques or standardized protocols for targeted exams where dose is ?? matched to indication/reason for exam; i.e. extremities or head) ?? *Use of iterative reconstruction technique ? DLP: ?? 407 mGy-cm ? FINDINGS: ? LUNG BASES: No acute airspace disease in the included lungs. No gross ?? pulmonary nodules. ? LIVER, GALLBLADDER, AND BILIARY TREE: ? Partial resection posterior right hepatic lobe. ?? Liver measures 15 cm. ?? There is a 2.3 cm peripheral, discontinuous enhancing lesion in the ?? peripheral right hepatic lobe. Cortical embolization in the posterior ?? right hepatic lobe. Main portal veins, hepatic veins and intrahepatic ?? portions of the IVC are patent. No intrahepatic biliary ductal ?? dilatation. ?? No pericholecystic fluid collection or gallbladder wall thickening. ?? No extrahepatic biliary ductal dilatation. ? PANCREAS: No focal mass. No peripancreatic fluid collection. No main ?? pancreatic ductal dilatation. ? SPLEEN: 7 cm. No focal mass. ? ADRENAL GLANDS: No nodular lesions. ? KIDNEYS AND URETERS: ? No renal mass or hydronephrosis. Normal enhancement of the renal ?? parenchyma. ? BLADDER: Fluid-filled. ? GASTROINTESTINAL TRACT: ? Gas and fluid-filled prominent small bowel loops involving mostly the ?? jejunal and distal ileal loops. There is mucosal wall thickening. ?? There is a 1.5 cm linear metallic foreign body within the lumen of the ?? cecum/ascending colon. ?? Ascites, small volume in the cul-de-sac. ?? No pneumoperitoneum. ?? No pneumatosis intestinalis. ?? Appendix is normal. ? ABDOMINAL WALL: Small tiny fat-containing umbilical) umbilical hernia. ? LYMPH NODES: No lymphadenopathy. ? VASCULAR: Mixed plaques throughout the abdominal aorta wall and iliac ?? arteries without aneurysm or dissection. Mixed plaques in the origin of ?? the mesenteric arteries and the left main renal artery. ? PELVIC VISCERA: No gross lesions in the uterus. Prominent vessels in ?? the area ovarian/adnexa. ? OSSEOUS STRUCTURES: Spondylosis, L5-S1. No acute fracture or gross ?? listhesis. ? CT/CT abdomen pelvis w IV con ?? IMPRESSION: ?? Concerning 1.5 cm metallic foreign body dislodged within the lumen of ?? the cecum/ascending colon resulting in ileus and/or enteritis. ?? No pneumoperitoneum. ?? Stable liver with question hemangioma, right hepatic lobe. ? Fleischner guidelines were followed. ? Electronically signed by: ??Enmanuel Patel MD ??05/28/2024 11:30 AM ?? EST ? Dictated By: ?Enmanuel Bolaños MD ? Signed By: ?<Electronically signed by Enmanuel Burns MD in OV> ? 05/28/24 1130 ? DD/ 0854 ? TD/TT: 05/28/24 1018 ? [employer]: ? Procedure Note Moises Carpenter - 05/29/[address] [address] [address] Scan Report Signed Patient: Juan OsbornTrupti EMR#: [id number] : 1Acct:[id number] Age/Sex: 64 / FADM Date: 05/28/24 Loc: HO.ED Attending Dr: Ordering Physician: Ken Albright DO Date of Service: 05/28/24 Procedure(s): CT abdomen pelvis w IV con Accession Number(s): [id number] cc: Ken Albright DO; Selam Bryan MD EXAMINATION: CT ABDOMEN AND PELVIS WITH CONTRAST CLINICAL INFORMATION: Abdominal pain. Previous liver cancer. COMPARISON: CT dated March 20, 2024. TECHNIQUE: Multidetector volumetric images were obtained from the superior aspect of the liver through the pubic symphysis following administration 85 mL of Omnipaque 350 intravenous contrast. Sagittal and coronal reformatted images were obtained on the technologist's workstation. Oral contrast: No This CT examination was performed using dose optimization techniques as appropriate, variously including the following: *Automated exposure control *Adjustment of mA and/or kV according to patient size (this includes techniques or standardized protocols for targeted exams where dose is matched to indication/reason for exam; i.e. extremities or head) *Use of iterative reconstruction technique DLP: 407 mGy-cm FINDINGS: LUNG BASES: No acute airspace disease in the included lungs. No gross pulmonary nodules. LIVER, GALLBLADDER, AND BILIARY TREE: Partial resection posterior right hepatic lobe. Liver measures 15 cm. There is a 2.3 cm peripheral, discontinuous enhancing lesion in the peripheral right hepatic lobe. Cortical embolization in the posterior right hepatic lobe. Main portal veins, hepatic veins and intrahepatic portions of the IVC are patent. No intrahepatic biliary ductal dilatation. No pericholecystic fluid collection or gallbladder wall thickening. No extrahepatic biliary ductal dilatation. PANCREAS: No focal mass. No peripancreatic fluid collection. No main pancreatic ductal dilatation. SPLEEN: 7 cm. No focal mass. ADRENAL GLANDS: No nodular lesions. KIDNEYS AND URETERS: No renal mass or hydronephrosis. Normal enhancement of the renal parenchyma. BLADDER: Fluid-filled. GASTROINTESTINAL TRACT: Gas and fluid-filled prominent small bowel loops involving mostly the jejunal and distal ileal loops. There is mucosal wall thickening. There is a 1.5 cm linear metallic foreign body within the lumen of the cecum/ascending colon. Ascites, small volume in the cul-de-sac. No pneumoperitoneum. No pneumatosis intestinalis. Appendix is normal. ABDOMINAL WALL: Small tiny fat-containing umbilical) umbilical hernia. LYMPH NODES: No lymphadenopathy. VASCULAR: Mixed plaques throughout the abdominal aorta wall and iliac arteries without aneurysm or dissection. Mixed plaques in the origin of the mesenteric arteries and the left main renal artery. PELVIC VISCERA: No gross lesions in the uterus. Prominent vessels in the area ovarian/adnexa. OSSEOUS STRUCTURES: Spondylosis, L5-S1. No acute fracture or gross listhesis. CT/CT abdomen pelvis w IV con IMPRESSION: Concerning 1.5 cm metallic foreign body dislodged within the lumen of the cecum/ascending colon resulting in ileus and/or enteritis. No pneumoperitoneum. Stable liver with question hemangioma, right hepatic lobe. Fleischner guidelines were followed. Electronically signed by: Enmanuel Patel MD 05/28/2024 11:30 AM EST RP Dictated By: Enmanuel Bolaños MD Signed By: <Electronically signed by Enmanuel Burns MDin OV> 05/28/24 1130 DD/ 0854 TD/TT: 05/28/24 1018 Supervisor [employer] Processing: [facility] External Provider IMG CT PROCEDURES Edited Result - Final * (ABNORMAL) CBC auto differential (05/28/2024 8:15 AM EST) White Blood Count 9.4 4.8 - 10.8 X10*3/uL [facility] Red Blood Count 5.03 4.20 - 5.50 X10*6/uL [facility] Hemoglobin 15.5 12.0 - 16.0 g/dl [facility] Hematocrit 43.7 37.0 - 47.0 % [facility] Mean Corpuscular Volume 86.9 80.0 - 98.0 fL [facility] Mean Corpuscular Hemoglobin 30.8 27.0 - 33.0 pg [facility] Mean Corpuscular HGB Conc 35.5(H) 31.0 - 35.0 g/dl [facility] Red Cell Distribution Width 11.3 11.0 - 16.0 % [facility] Platelet Count 253 160 - 400 X10*3/uL [facility] Mean Platelet Volume 10.7 9.4 - 12.3 fL [facility] Neutrophils Percent Auto 82.2(H) 45 - 73 % [facility] Imm Gran Pct Auto 0.2 0.0 - 0.4 % [facility] Lymphocytes Percent Auto 12.3(L) 20 - 40 % [facility] Monocytes Percent Auto 4.8 2 - 11 % [facility] Eosinophils Percent Auto 0.4 0 - 4 % [facility] Basophils Percent Auto 0.1 0 - 2 % [facility] NRBC Pct Auto 0.0 0.0 - 0.2 /100WBC [facility] Neutrophils Absolute Auto 7.7 2.0 - 8.3 x10*3/uL [facility] Imm Gran Abs Auto 0.02 0.00 - 0.03 X10*3/uL [facility] Lymphocytes Absolute Auto 1.2 1.2 - 4.9 X10*3/uL [facility] Monocytes Absolute Auto 0.5 0.1 - 1.2 X10*3/uL [facility] Eosinophils Absolute Auto 0.0 0.0 - 0.4 X10*3/uL [facility] Basophils Absolute Auto 0.0 0.0 - 0.2 X10*3/uL [facility] NRBC Abs Auto 0.000 0.0 - 0.012 X10*3/uL [facility] 05/28/2024 8:15 AM EST 05/28/2024 8:19 AM EST us Generic External Data Provider LAB BLOOD ORDERAB LES Final Result [facility] [address] [place] [address] [phone] * BI Mammogram Screening Tomosynthesis Bilateral (03/26/2024 10:00 AM EDT) Anatomical Region Laterality Modality Breast Bilateral Mammography 03/26/2024 10:0 0 AM EDT Narrative 04/07/2024 12:17 PM EDT ? [facility] ? [address] ?[place] [address] ? Mammography Report ? Signed ? Patient: Juan Anurag,Trupti E ?MR#: ?? [id number] ? : 1960 ?Acct:[id number] ? Age/Sex: 63 / F ?ADM Date: 03/26/24 ? Loc: HO.MAMMO ? Attending Dr: Davion Weathers MD ? Ordering Physician: Davion Weathers MD ?Results: 2Benign ?? Findings ? Date of Service: 03/26/24 ?Follow Up: 1 Year From Orig ?? inal Mammogram ? Procedure(s): MM tomosynthesis screening BI ?? Accession Number(s): [id number] ? cc: Selam Bryan MD; Davion Weathers MD ? EXAMINATION: ?? MM SCREENING DIGITAL BREAST TOMOSYNTHESIS, BILATERAL ? CLINICAL INFORMATION: ? Screening. Asymptomatic. ? COMPARISON: ?? Mammography: Comparison is made with available priors ? TECHNIQUE: ?? Digital breast mammography with tomosynthesis is performed in both the ?? craniocaudal and mediolateral oblique views along with computer-aided ?? detection (CAD). ? FINDINGS: ?? The breasts are heterogeneously dense, which may obscure small masses ?? (ACR BI-RADS breast composition Category c). ?? Bilateral benign scattered calcifications. ?? There are no significant masses, abnormal calcifications, or other ?? abnormalities. ? MM/MM tomosynthesis screening BI ?? IMPRESSION: ?? No mammographic evidence of malignancy. ? ASSESSMENT: ? BI-RADS BI-RADS 2 - Benign Findings ? RECOMMENDATION: ?? Routine annual mammography screening. ? 1 year F/U ? This examination should not preclude the clinical evaluation of a ?? suspicious palpable abnormality. ? This patient's information was entered into a reminder system with a ?? target due date for their next mammogram. ? Electronically signed by: ??Shea Elena DO ??04/07/2024 12:14 PM EDT ? Dictated By: ?Shea Elena DO ? Signed By: ?<Electronically signed by Shea Elena, DO in OV> ? 04/07/24 1214 ? DD/ 1000 ? TD/TT: 03/26/24 1022 ? Supervisor Electronics Processing: ? Procedure Note Jayden, Moises - 04/07/2024 [facility] [address] [place], [place] [address] Mammography Report Signed Patient: Trupti Kelly EMR#: [id number] : 1Acct:[id number] Age/Sex: 63 / FADM Date: 03/26/24 Loc: HO.MAMMO Attending Dr: Davion Weathers MD Ordering Physician: Davion Weathers MDResults: 2Benign Findings Date of Service: 03/26/24Follow Up: 1 Year From Orig inal Mammogram Procedure(s): MM tomosynthesis screening BI Accession Number(s): [id number] cc: Selam Bryan MD; Davion Weathers MD EXAMINATION: MM SCREENING DIGITAL BREAST TOMOSYNTHESIS, BILATERAL CLINICAL INFORMATION: Screening. Asymptomatic. COMPARISON: Mammography: Comparison is made with available priors TECHNIQUE: Digital breast mammography with tomosynthesis is performed in both the craniocaudal and mediolateral oblique views along with computer-aided detection (CAD). FINDINGS: The breasts are heterogeneously dense, which may obscure small masses (ACR BI-RADS breast composition Category c). Bilateral benign scattered calcifications. There are no significant masses, abnormal calcifications, or other abnormalities. MM/MM tomosynthesis screening BI IMPRESSION: No mammographic evidence of malignancy. ASSESSMENT: BI-RADS BI-RADS 2 - Benign Findings RECOMMENDATION: Routine annual mammography screening. 1 year F/U This examination should not preclude the clinical evaluation of a suspicious palpable abnormality. This patient's information was entered into a reminder system with a target due date for their next mammogram. Electronically signed by: Shea Elena DO 04/07/2024 12:14 PM EDT RP Dictated By: Shea Elena DO Signed By: <Electronically signed by Shea Elena DO in OV> 04/07/24 1214 DD/ 1000 TD/TT: 03/26/24 1022 Supervisor Electronics Processing: [facility] External Provider IMG BI PROCEDURES Final Result * ThinPrep Imaging Pap and HPV mRNA E6/E7 with Reflex to HPV 16,18/45 (12/26/2023 1:27 PM EDT) HPV 16 RNA [facility] HPV 18/[address] [facility] HPV nRNA E6/E7 Not Detected Not Detected [facility] Comment:Methodology: Transcr iption-Mediated AmplificationThis assay detects E6/E7 viral messenger RNA (mRNA) from 14high-risk HPV types (16,18,31,33,35,39,45,51,52,56,58,59,66,68).Cervical sources are required for HPV testing.If a vaginal source from a patient who has had atotal hysterectomy with removal of cervix wassubmitted, please contact the testing laboratoryfor alternative testing options.For additional information, please refer [email or web address]/faq/KUI439z7(This link if provided for information/educational purposes only.)THIS TEST WAS PERFORMED AT:[facility] [employer] [place] [id number] ENGLAND MD SOURCE: SEE NOTE [facility] Comment:Cervix Report [facility] Clinical Information: SEE NOTE [facility] Comment:Routine exam LMP: SEE NOTE [facility] Comment:POSTMENOPAUSAL Prev. PAP: SEE NOTE [facility] Comment:2019 Prev. BX: SEE NOTE [facility] Comment:NONE GIVEN Statement Of Adequacy: SEE NOTE [facility] Comment:SATISFACTORY FOR [employer]FF[employer] General Categorization: [facility] Interpretation/Result: SEE NOTE [facility] Comment:Cytology Results: Ne gative for intraepitheliallesion or malignancy.Atrophic pattern; predominantly parabasal cells Cytology Comment SEE NOTE [facility] Comment:This Pap test has be en evaluated with computerassisted technology. Rock Wool Insulator: SEE NOTE [facility] Comment:ALEYDA, CT(ASCP)CT scre ening location: [place] [address] Review Rock [employer] Insulator: [facility] Pathologist [facility] PAP Infection [facility] See Note SEE NOTE [facility] Comment:EXPLANATORY NOTE:The Pap is a screening test for cervical cancer. It isnot a diagnostic test and is subject to false negativeand false positive results. It is most reliable when asatisfactory sample, regularly obtained, is submittedwith relevant clinical findings and history, and whenthe Pap result is evaluated along with historic andcurrent clinical information. 12/26/2023 1:27 PM EDT 12/26/2023 6:52 PM EDT Narrative [facility] - 01/01/2024 1:15 PM EDT SEE SCANNED RESULTS IN EMRWas previous PAP abnormal? UnknownClinical Information: routineCollection Date: 12/26/23igh risk HPV with 16 ?? 18 genotyping? YReflex HPV any abnormal diagnosis? YReflex HPV if ASCUS only? NHigh Risk HPV (any diagnosis)? YLMP: postmenopausalDate of previous PAP 2019Performed by: : [id number] us Generic External Data Provider LAB PATHOLOGY ORD ERABLES Final Result [facility] [address] [place] [address] [phone] * POCT A1C (12/12/2023 11:43 AM EDT) Hemoglobin A1C 5.9 4.0 - 6.0 % QC Media Lot # Comment:[id number] Lot# Expiration Date Comment:07/12/2025 Blood 12/12/2023 11:4 3 AM EDT us Selam Bryan MD POINT OF CARE TEST ENTER/EDIT ORDERABLES Final Result * (ABNORMAL) Lipid Panel, Standard (12/03/2023 9:21 AM EDT) Triglycerides 128 <150 mg/dL [facility] Comment:Desirable Triglyceri de: less than 150 mg/dLBorderline High Triglyceride 150-199 mg/dLHigh Triglyceride: 200-499 mg/dLVery High Triglyceride: greater than or equal to 5OO mg/dL Cholesterol 203(H) <200 mg/dL [facility] Comment:Desirable Cholestero l: less than 200 mg/dLBorderline High Cholesterol: 200-239 mg/dLHigh Cholesterol: greater than 239 mg/dL LDL Cholesterol Calculated 140(H) <100 mg/dL [facility] Comment:Desirable LDL: less than 100 mg/dLNear Optimal/Above Optimal LDL: 110- 129 mg/dLBorderline High LDL: 130-159 mg/dLHigh LDL: 160-189 mg/dLVery High LDL: greater than or equal to 190 mg/dL HDL Cholesterol 38(L) >40 mg/dL [facility] Comment:Desirable HDL: great er than 40 mg/dL Note: This HDL assay may give artificially low results in patients with liver disease. Blood Venous blood specimen / Unknown 12/03/2023 9:21 AM EDT 12/03/2023 2:23 PM EDT us Selam Bryan MD LAB BLOOD ORDERABLES Final Re sult [facility] [address] [place] [address] [phone] * Hepatitis C Ab (04/10/2023 9:10 AM EDT) Hepatitis C Antibody Nonreactive Nonreactive [facility] Comment:Antibodies to HCV no t detected; does not exclude early acuteHCV infection. Blood 04/10/2023 9:10 AM EDT 04/10/2023 2:55 PM EDT Selam Bryan MD LAB BLOOD ORDERABLES Final Re sult Performing Organization Address [facility] Co de Phone Number [facility] [address] [place] [address] [phone] * HIV Ab/Ag ([facility]) (04/10/2023 9:10 AM EDT) Pathologist [facility] HIV AB/AG Nonreactive Nonreactive [facility] Comment:HIV-1 p24 Ag and/or HIV-1/HIV-2 Ab not detected.A test result that is nonreactive does not exclude thepossibility of exposure to or infection with HIV-1 and/orHIV-2. Nonreactive results in this assay for individualswith prior exposure to HIV-1 and/or HIV-2 may be due toantigen and antibody levels that are below the limit ofdetection of this assay.The [employer] HIV Ag/Ab Combo assay result andsupplemental assay results should be interpreted inconjunction with the patient's clinical presentation,history and other laboratory results. If the results areinconsistent with clinical evidence, additional testing issuggested to confirm the result. 04/10/2023 9:10 AM EDT 04/10/2023 2:55 PM EDT Selam Bryan MD LAB BLOOD ORDERABLES Final Re sult Performing Organization Address [facility] Co de Phone Number [facility] [address] [place] [address] [phone] * Albumin, Random Urine W/O Creatinine (07/23/2022 9:00 AM EST) Albumin, Urine 0.8 See Note: mg/dL [facility] [employer] Comment: Reference Range: Reference Range Not established [facility]LEY[facility] [employer] Comment: The ADA defines abnormalities in albumin excretion as follows: Albuminuria Category ? Result (mcg/mg creatinine) Normal to Mildly increased ?<30 Moderately increased ?30-299 Severely increased ?> OR = 300 The ADA recommends that at least two of three specimens collected within a 3-6 month period be abnormal before considering a patient to be within a diagnostic category. Urine Urine specimen obtained by clean catch procedure / Unknown 07/23/2022 9:00 AM EST 07/23/2022 9:01 AM EST Narrative [facility] - 07/23/2022 9:11 PM EST FASTING:YES FASTING: YES us Selam Bryan MD LAB URINE ORDERABLES Final Re sult [facility] [address], [place] [address] [facility] [employer] [address] [facility], ([address]) [place] [address] from Last 3 Months or Most Recently Relevant to Health Maintenance Insurance [facility] Care Teams Acid Conditioning Worker Relationship Specialty Start Date End Date Selam Bryan MD [address] [place] [id number] PCP - General Family Medicine 06/05/22
--- OUTSIDE RECORDS SUMMARY | 2024-07-13 17:10 | XMS_ITS | Encounter Summary ---
Author Organization [employer] Address [address] [place] [address] Care Team Providers Care Apprentice Stylist Name Role Phone Selam Bryan MD Primary Care Provider [phone] Reason for Visit * Reason Comments Med Change Request Encounter Details Date Type Department Care Team ([facility] Contact Info) Description 07/19/2022 Refill [facility] MED & PEDS [address] [place], [place] [phone] Selam Bryan MD [address] [place], [place] [phone] Other osteoporosis without current pathological fracture Social History Tobacco Use Types Packs/Day Years Used Date Smoking Tobacco: Never Passive Smoke Exposure: Never Smokeless Tobacco: Never Alcohol Use Standard Drinks/Week Comments Never 0 (1 standard drink = 0.6 oz pur e alcohol) Depression Answer Date Recorded Patient Health Questionnaire-9 Score 3 07/19/2022 Depression Answer Date Recorded Patient Health Questionnaire-2 Score 1 07/19/2022 Comments Unknown Sex and Gender Information Value Date Recorded Sex Assigned at Female 06/05/2022 12:35 PM EST Legal Sex Female 12:32 PM EST Gender Identity Female 06/05/2022 12:35 PM EST Sexual Orientation Straight 07/19/2022 10 :08 AM EST COVID-19 Exposure Response Date Recorded In the last 10 days, have yo u been in contact with someone who was confirmed or suspected to have Coronavirus/COVID-19? No / Unsure 07/19/2022 10:07 AM EST documented as of this encounter Plan of Treatment Upcoming Encounters Date Type Department Care Team ([facility] Contact Info) Description 07/30/2024 9:00 AM EST Nutrition [facility] DIABETES/NTRN [address] [place] [address] Ethel Cui, MAY [address] [place] [address] documented as of this encounter Visit Diagnoses Diagnosis Other osteoporosis without current pathological fracture documented in this encounter Additional Health Concerns Assessment Noted Time PHQ-9 Depression Total Score: 3 07/19/19 23 10:23 AM EST documented as of this encounter Care Teams Apprentice Stylist Relationship Specialty Start Date End Date Selam Bryan MD [address] [place] [address] PCP - General Family Medicine 06/05/22 documented as of this encounter
--- OUTSIDE RECORDS SUMMARY | 2024-07-13 17:10 | XMS_ITS | Encounter Summary ---
Author Organization [employer] Address [address] [place] [address] Care Team Providers Care Bow Maker Production Name Role Phone Selam Bryan MD Primary Care Provider [phone] Encounter Details Date Type Department Care Team ([facility] st Contact Info) Description 06/25/2024 Telephone [facility] MED & PEDS [address] [place], [place] [phone] Selam Bryan MD [address] [place], [place] [phone] Social History Tobacco Use Types Packs/Day Years [...] Info) Description 07/30/2024 9:00 AM EST Nutrition [facility] DIABETES/NTRN [address] [place] [address] [place] [address] documented as of this encounter Visit Diagnoses Not on filedocumented in this encounter Additional Health Concerns Assessment Noted Time PHQ-9 Depression Total Score: 3 07/19/19 23 10:23 AM EST documented as of this encounter Care Teams Bow Maker Production Relationship Specialty Start Date End Date Selam Bryan MD [address] [place] [address] PCP - General Family Medicine 06/05/22 documented as of this encounter
--- OUTSIDE RECORDS SUMMARY | 2024-07-13 17:10 | XMS_ITS | Encounter Summary ---
Author Organization [employer] Address [address] [place] [address] Care Team Providers Care Pharmacy Associate Name Role Phone Selam Bryan MD Primary Care Provider [phone] Encounter Details Date Type Department Care Team (Latest Contact Info) Description 06/19/2024 Travel Social History Tobacco Use Types Packs/Day [...] 07/30/2024 9:00 AM EST Nutrition [facility] DIABETES/NTRN [address] [place] [address] [place] [address] documented as of this encounter Visit Diagnoses Not on filedocumented in this encounter Additional Health Concerns Assessment Noted Time PHQ-9 Depression Total Score: 3 07/19/19 23 10:23 AM EST documented as of this encounter Care Teams Pharmacy Associate Relationship Specialty Start Date End Date Selam Bryan MD [address] [place] [address] PCP - General Family Medicine 06/05/22 documented as of this encounter
== END 2024-07-13 14:46 | disposition home or self-care (01) ==
PROVIDERS: PCP Family Medicine; Visit Provider Internal Medicine Gastroenterology
DX: R19.8 Other specified symptoms and signs involving the digestive system and abdomen (principal)
CPT/HCPCS: 99214

== ENCOUNTER → 2024-07-13 13:22 | Outpatient (BNV) | payer OTHER, SELFPAY | PROVIDERS: PCP Family Medicine; Visit Provider Radiology Diagnostic Radiology | DX: R19.8 Other specified symptoms and signs involving the digestive system and abdomen (principal) | CPT/HCPCS: 74018 ==

== ENCOUNTER 2024-09-15 07:48 | Day surgery (SDC) | payer OTHER, SELFPAY ==
--- OUTSIDE RECORDS SUMMARY | 2024-08-04 14:43 | XMS_ITS | Encounter Summary ---
Author Organization [employer] Address [address] [place] [address] Care Team Providers Care Edger Machine Operator Name Role Phone Selam Bryan MD Primary Care Provider [phone] Encounter Details Date Type Department Care Team ([facility] Contact Info) Description 07/13/2024 Orders Only [facility] External Provider, [facility] Social History Tobacco Use Types Packs/Day Years Used Date Smoking Tobacco: Never Passive Smoke Exposure: Never Smokeless Tobacco: Never Alcohol Use Standard Drinks/Week Comments Never 0 (1 standard drink = 0.6 oz pur e alcohol) Depression Answer Date Recorded Patient Health Questionnaire-9 Score 3 07/19/2022 Housing Stability Answer Date Recorded What is your housing situation today? I have [place] 11/28/[address] you [...] Care Team (Late st Contact Info) Description 08/20/2024 1:00 PM EST Clinical Support [facility] DIABETES/N[facility]N [address] [place] [address] [place] [address] documented as of this encounter Procedures Procedure Name Priority Date/Time Associated Diagnosis Comments XR KUB AND UPRIGHT 2 VIEWS Routine 07/13/2024 1:25 PM EST documented in this encounter Results * XR KUB and Upright 2 Views (07/13/2024 1:25 PM EST) Anatomical Region Laterality Modality Radiographic Cherrie ging 07/13/2024 1:25 PM EST Narrative 07/14/2024 8:23 AM EST ? [facility] ?[address] ?[place] [address] ?XRay Report ? Signed ? Patient: Trupti Kelly ?MR#: ?? [id number] ? : 1960 ?Acct:[id number] ? Age/Sex: 64 / F ?ADM Date: 07/13/24 ? Loc: HO.XRAY ? Attending Dr: Claudia Jarrell MD ? Ordering Physician: Claudia Jarrell MD ?? Date of Service: 07/13/24 ?? Procedure(s): XR KUB ?? Accession Number(s): [id number] ? cc: Claudia Jarrell MD; Selam Bryan MD ? EXAMINATION: ??XR ABDOMEN 1 VIEW (KUB) ? HISTORY: R19.8 - Other specified symptoms and signs involving the ?? digestive system. Follow-up metallic object seen on 05/2024 CT. ? COMPARISON: Correlation is made with a CT of the abdomen and pelvis ?? dated 05/28/2024. ? FINDINGS: ??Two supine views of the abdomen are submitted. ?? The bowel ?? gas pattern is unremarkable, without evidence of mechanical ?? obstruction. There is a large amount of stool throughout the colon. ? No abnormal calcifications are identified. Again seen are numerous ?? surgical clips and embolization coils in the right upper quadrant. A ?? clip is noted in the ascending colon as noted on CT scan.. ?? There are ?? no abnormal soft tissue masses. ??The bones are intact. ? XR/XR KUB ?? IMPRESSION: ? 1. Unremarkable bowel gas pattern. Large amount of stool throughout the ?? colon. ? 2. Metallic clip in the ascending colon is noted on CT. ? Electronically signed by: ??Yousif Campo MD ??07/14/2024 08:20 AM EST ? Dictated By: ?Yousif Campo MD ? Signed By: ?<Electronically signed by Yousif Campo MD in OV> ?07/14/24 0820 ? DD/ 1325 ? TD/TT: 07/13/24 1337 ? Manager Equipment: ? Procedure Note Jayden, Moises - 07/14/[address] [address] XRay Report Signed Patient: Trupti Kelly EMR#: [id number] : 1960cct:[id number] Age/Sex: 64 / FADM Date: 07/13/24 Loc: [facility] Attending Dr: Claudia Jarrell MD Ordering Physician: Claudia Jarrell MD Date of Service: 07/13/24 Procedure(s): XR KUB Accession Number(s): [id number] cc: Claudia Jarrell MD; Selam Bryan MD EXAMINATION: XR ABDOMEN 1 VIEW (KUB) HISTORY: R19.8 - Other specified symptoms and signs involving the digestive system. Follow-up metallic object seen on 05/2024 CT. COMPARISON: Correlation is made with a CT of the abdomen and pelvis dated 05/28/2024. FINDINGS: Two supine views of the abdomen are submitted. The bowel gas pattern is unremarkable, without evidence of mechanical obstruction. There is a large amount of stool throughout the colon. No abnormal calcifications are identified. Again seen are numerous surgical clips and embolization coils in the right upper quadrant. A clip is noted in the ascending colon as noted on CT scan.. There are no abnormal soft tissue masses. The bones are intact. XR/XR KUB IMPRESSION: 1. Unremarkable bowel gas pattern. Large amount of stool throughout the colon. 2. Metallic clip in the ascending colon is noted on CT. Electronically signed by: Yousif Campo MD 07/14/2024 08:20 AM EST Dictated By: Yousif Campo MD Signed By: <Electronically signed by Yousif Campo MD in OV> 07/14/24 0820 DD/ 1325 TD/TT: 07/13/24 1337 Manager Equipment: [facility] External Provider IMG XR PROCEDURES Final Result documented in this encounter Visit Diagnoses Not on filedocumented in this encounter Additional Health Concerns Assessment Noted Time PHQ-9 Depression Total Score: 3 07/19/19 23 10:23 AM EST documented as of this encounter Care Teams Edger Machine Operator Relationship Specialty Start Date End Date Selam Bryan MD [address] [place] [phone] PCP - General Family Medicine 06/05/22 documented as of this encounter
--- OUTSIDE RECORDS SUMMARY | 2024-08-04 14:43 | XMS_ITS | Clinical Summary ---
Author Organization [employer] Address [address] [facility] 7[address] [place] [address] Care Team Providers Care Coat Fitter Name Role Phone Selam Bryan MD Primary Care Provider [phone] Allergies Active Allergy Reactions Criticality Noted Date Comments Codeine Low 07/19/2022 Other reaction(s): dizziness, fainting Statins Low 07/19/2022 Other reaction(s): convulsion, dizziness, muscle pain Medications GaviLAX 17 GM/SCOOP powder MIX 17G (1 CAPFUL) WITH 8 OUNCES OF LIQUID AND DRINK ONCE DAILY 06/13/20 22 Active Blood Glucose Monitoring Suppl (FreeStyle Spencer Lite) w/Device kit USE TO TEST BLOOD SUGAR TWICE DAILY 05/04/20 22 Active FreeStyle lancets USE SEG N LO INDICADO DOS VECES AL D A 06/11/20 22 Active omeprazole (PriLOSEC) [address] capsule TOME POOL C PSULA TODOS LOS D CUANDO SEA NECESARIO FOR ACID REFLUX 07/07/19 23 Active Calcium Carbonate-Vit D-Min (Calcium 1200) 1633-5167 MG-UNIT chewable tabletIndications: Other osteoporosis without current [...] hyperglycemia, without long-term current use of insulin ([facility]) TAKE ONE TABLET EVERY MORNING 90 tablet [...] Encounters Date Type Department Care Team Description 07/30/2024 9:00 AM EST Nutrition [facility] DI[facility]ES/NTRN [address] [place] [address] Type 2 diabetes mellitus with hyperglycemia, without long-term current use of insulin ([facility]) (Primary Dx); Hyperlipidemia, unspecified hyperlipidemia type 07/30/2024 Travel 07/13/2024 Orders Only [facility] External Provider, [facility] 06/25/2024 Telephone [facility] MED & PEDS [address] [place] [address] Selam Bryan MD No Show 06/25/2024 Telephone [facility] [address] [place] [address] Selam Bryan MD 06/25/2024 Telephone [facility] [address] [place] [address] Selam Bryan MD 06/25/2024 Travel 06/19/2024 Travel 05/28/2024 Orders Only GENERIC EXTERNAL DATA DEPARTMENT Provider, Generic External Data from Last 3 Months Immunizations Name Administration [...] Weight 58.2 kg (128 lb 3.2 oz) 07/30/2024 3:22 P M EST Height 159 cm (5' 2.6 ) 07/30/2024 3:22 PM EST Body Mass Index 23 07/30/2024 3:22 PM EST Plan of Treatment Upcoming Encounters Date Type Department Care Team (Late st Contact Info) Description 08/20/2024 1:00 PM EST Clinical Support [facility] DI[facility]/NTRN [address] [place], [place] [phone] Ethel Cui, RD [address] [place], [place] [phone] Health Maintenance Due Date Last Done Comments [...] 03/01/2023, Additional history exists Diabetes: Hemoglobin A1C 03/13/2024 024, 06/07/2023, 03/01/2023, Additional history exists SDOH [...] Zoster Vaccines Completed 07/10/2023, 09/25/2022 Pneumococcal Vaccine: 50+ Years Completed 12/12/2023 HIB Vaccines Aged Out No [...] 2 VIEWS Routine 07/13/2024 1:25 PM EST URINALYSIS, COMPLETE, WITH REFLEX TO CULTURE Routine [...] hyperglycemia, without long-term current use of insulin ([facility]) LIPID PANEL, STANDARD Routine 12/03/2023 9:21 AM [...] Recently Relevant to Health Maintenance Results * XR KUB and Upright 2 Views (07/13/2024 1:25 PM EST) Anatomical Region Laterality Modality Radiographic Cherrie ging 07/13/2024 1:25 PM EST Narrative 07/14/2024 8:23 AM EST ? [facility] ?[address] ?[place] [address] ?XRay Report ? Signed ? Patient: Trupti Kelly ?MR#: ?? [id number] ? : 1960 ?Acct:[id number] ? Age/Sex: 64 / F ?ADM Date: 07/13/24 ? Loc: HO.XRAY ? Attending Dr: Claudia Jarrell MD ? Ordering Physician: Claudia Jarrell MD ?? Date of Service: 07/13/24 ?? Procedure(s): XR KUB ?? Accession Number(s): [id number] ? cc: Claudia Jarrell MD; Selam Bryan [...] ??Yousif Campo MD ??07/14/2024 08:20 AM EST ?? RP ? Dictated By: ?Yousif Campo MD ? Signed By: ?<Electronically signed by Yousif Campo MD in OV> ?07/14/24 0820 ? DD/ 1325 ? TD/TT: 07/13/24 1337 ? Adult Ministries Director: ? Procedure Note Donotuseinterpreter, Image - 07/14/[address] [address] XRay Report Signed Patient: Trupti Kelly EMR#: [id number] : 1960cct:[id number] Age/Sex: 64 / FADM Date: 07/13/24 Loc: COLBY Attending Dr: Claudia Jarrell MD Ordering Physician: Claudia Jarrell MD Date of Service: 07/13/24 Procedure(s): XR KUB Accession Number(s): [id number] cc: Claudia Jarrell MD; Selam Bryan MD [...] 07/14/24 0820 DD/ 1325 TD/TT: 07/13/24 1337 Adult Ministries Director: [facility] External Provider IMG XR PROCEDURES Final Result * Urinalysis, Complete, with Reflex to Culture (05/28/2024 9:26 AM EST) Color Urine Yellow [facility] Appearance Urine Clear [facility] PH 7.0 5.0 - 9.0 [facility] Glucose Urine UA Negative Negative mg/dL [facility] Urine Blood Negative Negative [facility] Specific [place] - Urine 1.020 1.005 - 1.025 [facility] Urine Protein Negative Neg-Trace mg/dL [facility] Urine Ketones Negative Negative mg/dL [facility] Nitrite Urine Negative Negative [facility] Leukocyte Esterase Urine Negative Negative [facility] RBC Urine 0-2 0 - 2 /HPF [facility] Urine WBC 0-5 0 - 5 /HPF [facility] Urine Squamous Epithelial Cell 0-2 0 - 2 /HPF [facility] Urine Bacteria None Seen None Seen [facility] Hyaline Casts, Urine 0-2 0 - 2 /LPF [facility] 05/28/2024 9:26 AM EST 05/28/2024 9:30 AM EST Narrative [facility] - 05/28/2024 9:42 AM EST [id number], Clean Catch Generic External Data Provider LAB URINE ORDERAB LES Final Result [facility] [address] [place], [place] [phone] * CT Abdomen Pelvis w/ Contrast (05/28/2024 8:54 AM EST) Anatomical Region Laterality Modality Body, Pelvis, Abdomen Computed T omography 05/28/2024 8:54 AM EST Narrative 05/28/2024 11:33 AM EST ? [place] [facility] ?[address] ?[place] [address] ? CT Scan Report ? Signed ? Patient: Juan Anurag,Trupti E ?MR#: ?? [id number] ? : 1960 ?Acct:[id number] ? Age/Sex: 64 / F ?ADM Date: 05/28/24 ? Loc: HO.ED ? Attending Dr: ? Ordering Physician: Ken Albright DO ?? Date of Service: 05/28/24 ?? Procedure(s): CT abdomen pelvis w IV con ?? Accession Number(s): [id number] ? cc: Ken Albright DO; Selam Bryan [...] Patel MD ??05/28/2024 11:30 AM ?? EST RP ? Dictated By: ?Enmanuel Bolaños MD ? Signed By: ?<Electronically signed by Enmanuel Burns MD in OV> ? 05/28/24 1130 ? DD/ 0854 ? TD/TT: 05/28/24 1018 ? Adult Ministries Director: ? Procedure Note Jayden Image - 05/29/[address] [address] [address] Scan Report Signed Patient: Trupti Kelly EMR#: [id number] : 1960cct:[id number] Age/Sex: 64 / FADM Date: 05/28/24 Loc: HO.ED Attending Dr: Ordering Physician: Ken Albright DO Date of Service: 05/28/24 Procedure(s): CT abdomen pelvis w IV con Accession Number(s): [id number] cc: Ken Albright DO; Selam Bryan MD [...] Enmanuel Patel MD 05/28/2024 11:30 AM EST Dictated By: Enmanuel Bolaños MD Signed By: <Electronically signed by Enmanuel Burns MDin OV> 05/28/24 1130 DD/ 0854 TD/TT: 05/28/24 1018 Adult Ministries Director: [facility] External Provider IMG CT PROCEDURES Edited Result - Final * (ABNORMAL) CBC auto differential (05/28/2024 8:15 AM EST) White Blood Count 9.4 4.8 - 10.8 X10*3/uL [facility] Red Blood Count 5.03 4.20 - 5.50 X10*6/uL [facility] Hemoglobin 15.5 12.0 - 16.0 g/dl [facility] Hematocrit 43.7 37.0 - 47.0 % [facility] Mean Corpuscular Volume 86.9 80.0 - 98.0 fL [facility] Mean Corpuscular Hemoglobin 30.8 27.0 - 33.0 pg [facility] Mean Corpuscular HGB Conc 35.5(H) 31.0 - 35.0 g/dl [facility] Red Cell Distribution Width 11.3 11.0 - 16.0 % [facility] Platelet Count 253 160 - 400 X10*3/uL [facility] Mean Platelet Volume 10.7 9.4 - 12.3 fL [facility] Neutrophils Percent Auto 82.2(H) 45 - 73 % [facility] Imm Gran Pct Auto 0.2 0.0 - 0.4 % [facility] Lymphocytes Percent Auto 12.3(L) 20 - 40 % [facility] Monocytes Percent Auto 4.8 2 - 11 % [facility] Eosinophils Percent Auto 0.4 0 - 4 % [facility] Basophils Percent Auto 0.1 0 - 2 % [facility] NRBC Pct Auto 0.0 0.0 - 0.2 /100WBC [facility] Neutrophils Absolute Auto 7.7 2.0 - 8.3 x10*3/uL [facility] Imm Gran Abs Auto 0.02 0.00 - 0.03 X10*3/uL [facility] Lymphocytes Absolute Auto 1.2 1.2 - 4.9 X10*3/uL [facility] Monocytes Absolute Auto 0.5 0.1 - 1.2 X10*3/uL [facility] Eosinophils Absolute Auto 0.0 0.0 - 0.4 X10*3/uL [facility] Basophils Absolute Auto 0.0 0.0 - 0.2 X10*3/uL [facility] NRBC Abs Auto 0.000 0.0 - 0.012 X10*3/uL [facility] 05/28/2024 8:15 AM EST 05/28/2024 8:19 AM EST us Generic External Data Provider LAB BLOOD ORDERAB LES Final Result [facility] [address] [place] [phone] * BI Mammogram Screening Tomosynthesis Bilateral (03/26/2024 10:00 AM EDT) Anatomical Region Laterality Modality Breast Bilateral Mammography 03/26/2024 10:0 0 AM EDT Narrative 04/07/2024 12:17 PM EDT ? [facility] ? [address] ?[place] [address] ? Mammography Report ? Signed ? Patient: Juan Osborn,Trupti E ?MR#: ?? [id number] ? : 1960 ?Acct:[id number] ? Age/Sex: 63 / F ?ADM Date: 03/26/ ? Loc: HO.MAMMO ? Attending Dr: Davion Weathers MD ? Ordering Physician: Davion Weathers MD ?Results: 2Benign ?? Findings ? Date of Service: 03/26/24 ?Follow Up: 1 Year From Orig ?? inal Mammogram ? Procedure(s): MM tomosynthesis screening BI ?? Accession Number(s): [id number] ? cc: Selam Bryan MD; Davion Weathers [...] by Shea Elena, DO in OV> ? 10/22/24 1214 ? DD/ 1000 ? TD/TT: 03/26/24 1022 ? Adult Ministries Director: ? Procedure Note Jayden, Image - 04/07/2024 [facility] [address] [place] [address] Mammography Report Signed Patient: Trupti Kelly EMR#: [id number] : 1960cct:[id number] Age/Sex: 63 / FADM Date: 03/26/24 Loc: HO.MAMMO Attending Dr: Davion Weathers MD Ordering Physician: Davion Weathersesults: 2Benign Findings Date of Service: 03/26/24Follow Up: 1 Year From Orig inal Mammogram Procedure(s): MM tomosynthesis screening BI Accession Number(s): [id number] cc: Selam Bryan MD; Davion Weathers MD [...] Shea Elena DO 04/07/2024 12:14 PM EDT Dictated By: Shea Elena DO Signed By: <Electronically signed by Shea Elena DO in OV> 04/07/24 1214 DD/ 1000 TD/TT: 03/26/24 1022 Adult Ministries Director: [facility] External Provider IMG BI PROCEDURES Final Result * ThinPrep Imaging Pap and HPV mRNA E6/E7 with Reflex to HPV 16,18/45 (12/26/2023 1:27 PM EDT) HPV 16 RNA NHP [facility] HPV 18/45 RNA [facility] HPV nRNA E6/E7 Not Detected Not Detected [facility] Comment:Methodology: Transcr iption-Mediated AmplificationThis assay detects E6/E7 viral messenger RNA (mRNA) from 14high-risk HPV types (16,18,31,33,35,39,45,51,52,56,58,59,66,68).Cervical sources are required for HPV testing.If a vaginal source from a patient who has had atotal hysterectomy with removal of cervix wassubmitted, please contact the testing laboratoryfor alternative testing options.For additional information, please refer [email or web address](This link if provided for information/educational purposes only.)THIS TEST WAS PERFORMED AT:[facility] [address] [address]JYUYLROSI EN[place]AND MD SOURCE: SEE NOTE [facility] Comment:Cervix Report Status: [facility] Clinical Information: SEE NOTE [facility] Comment:Routine exam LMP: SEE NOTE [facility] Comment:POSTMENOPAUSAL Prev. PAP: SEE NOTE [facility] Comment:2019 Prev. BX: SEE NOTE [facility] Comment:NONE GIVEN Statement Of Adequacy: SEE NOTE [facility] Comment:SATISFACTORY FOR JEFFERSON LUATION General Categorization: [facility] Interpretation/Result: SEE NOTE [facility] Comment:Cytology Results: Ne gative for intraepitheliallesion or malignancy.Atrophic pattern; predominantly parabasal cells Cytology Comment SEE NOTE [facility] Comment:This Pap test has be en evaluated with computerassisted technology. Forging Press Operator: SEE NOTE [facility] Comment:ALEYDA, CT(ASCP)CT scre ening location: [address] [address] Review Forging Press Operator: [facility] Pathologist [facility] PAP Infection [facility] See Note SEE NOTE [facility] Comment:EXPLANATORY NOTE:The Pap is a screening test for cervical cancer. It isnot a diagnostic test and is subject to false negativeand false positive results. It is most reliable when asatisfactory sample, regularly obtained, is submittedwith relevant clinical findings and history, and whenthe Pap result is evaluated along with historic andcurrent clinical information. 12/26/2023 1:27 PM EDT 12/26/2023 6:52 PM EDT Narrative [facility] - 01/01/2024 1:15 PM EDT SEE SCANNED RESULTS IN EMRWas previous PAP abnormal? UnknownClinical Information: routineCollection Date: 12/26/23igh risk HPV with 16 ?? 18 genotyping? YReflex HPV any abnormal diagnosis? YReflex HPV if ASCUS only? NHigh Risk HPV (any diagnosis)? YLMP: postmenopausalDate of previous PAP 2019Performed by: : [id number] us Generic External Data Provider LAB PATHOLOGY ORD ERABLES Final Result [facility] [address] [place] [phone] * POCT A1C (12/12/2023 11:43 AM EDT) Hemoglobin A1C 5.9 4.0 - 6.0 % QC Media Lot # Comment:[id number] Lot# Expiration Date Comment:07/12/2025 Blood 12/12/2023 11:4 3 AM EDT us Selam Bryan MD POINT OF CARE TEST ENTER/EDIT ORDERABLES Final Result * (ABNORMAL) Lipid Panel, Standard (12/03/2023 9:21 AM EDT) Triglycerides 128 <150 mg/dL [facility] Comment:Desirable Triglyceri de: less than 150 mg/dLBorderline High Triglyceride 150-199 mg/dLHigh Triglyceride: 200-499 mg/dLVery High Triglyceride: greater than or equal to 5OO mg/dL Cholesterol 203(H) <200 mg/dL [facility] Comment:Desirable Cholestero l: less than 200 mg/dLBorderline High Cholesterol: 200-239 mg/dLHigh Cholesterol: greater than 239 mg/dL LDL Cholesterol Calculated 140(H) <100 mg/dL [facility] Comment:Desirable LDL: less than 100 mg/dLNear Optimal/Above Optimal LDL: 110- 129 mg/dLBorderline High LDL: 130-159 mg/dLHigh LDL: 160-189 mg/dLVery High LDL: greater than or equal to 190 mg/dL HDL Cholesterol 38(L) >40 mg/dL [facility] Comment:Desirable HDL: great er than 40 mg/dL Note: This HDL assay may give artificially low results in patients with liver disease. Blood Venous blood specimen / Unknown 12/03/2023 9:21 AM EDT 12/03/2023 2:23 PM EDT Selam Bryan MD LAB BLOOD ORDERABLES Final Re sult Performing Organization Address [facility]/ZIP Co de Phone Number [facility] [address] [place] [phone] * Hepatitis C Ab (04/10/2023 9:10 AM EDT) Hepatitis C Antibody Nonreactive Nonreactive [facility] Comment:Antibodies to HCV no t detected; does not exclude early acuteHCV infection. Blood 04/10/2023 9:10 AM EDT 04/10/2023 2:55 PM EDT Selam Bryan MD LAB BLOOD ORDERABLES Final Re sult Performing Organization Address [facility] [address] [facility] Co de Phone Number [facility] [address] [place] [phone] * HIV Ab/Ag ([facility]) (04/10/2023 9:10 AM EDT) Pathologist [facility] HIV AB/AG Nonreactive Nonreactive [facility] Comment:HIV-1 p24 Ag and/or HIV-1/HIV-2 Ab not detected.A test result that is nonreactive does not exclude thepossibility of exposure to or infection with HIV-1 and/orHIV-2. Nonreactive results in this assay for individualswith prior exposure to HIV-1 and/or HIV-2 may be due toantigen and antibody levels that are below the limit ofdetection of this assay.The [employer] HIV Ag/Ab Combo assay result andsupplemental assay results should be interpreted inconjunction with the patient's clinical presentation,history and other laboratory results. If the results areinconsistent with clinical evidence, additional testing issuggested to confirm the result. 04/10/2023 9:10 AM EDT 04/10/2023 2:55 PM EDT us Selam Bryan MD LAB BLOOD ORDERABLES Final Re sult Performing Organization Address [facility] [address]/ZIP Co de Phone Number [facility] [address] [place] [phone] * Albumin, Random Urine W/O Creatinine (07/23/2022 9:00 AM EST) Albumin, Urine 0.8 See Note: mg/dL [employer] [place] [employer] Comment: Reference Range: Reference Range Not established ALEYDA [employer] [place] [employer] Comment: The ADA defines abnormalities in albumin [...] MD LAB URINE ORDERABLES Final Re sult Performing Organization Address City/[facility] [address]/[facility] de Phone Number [facility] [address], [place] [address] [employer] [place] [employer] [address] [facility] [place] [facility], ([address]) [place] [address] from Last 3 Months or Most Recently Relevant to Health Maintenance Insurance [facility] Care Teams Coat Fitter Relationship Specialty Start Date End Date Selam Bryan MD [address] [place] [phone] PCP - General Family Medicine 06/05/22
--- OUTSIDE RECORDS SUMMARY | 2024-08-04 14:43 | XMS_ITS | Encounter Summary ---
Author Organization [employer] Address [address] [facility] [address] [place] [address] Care Team Providers Care Seamstress Fitter Name Role Phone Selam Bryan MD Primary Care Provider [phone] Reason for Visit * Reason Comments Med Change Request Encounter Details Date Type Department Care Team ([facility] Contact Info) Description 07/19/2022 Refill [facility] [address] [place], [place] [phone] Selam Bryan MD [address] [place], [place] [phone] Other osteoporosis without current pathological fracture Social [...] Upcoming Encounters Date Type Department Care Team ([facility] Contact Info) Description 08/20/2024 1:00 PM EST Clinical Support [facility] DIABETES/NTRN [address] [place] [address] Ethel Cui, MAY [address] [place] [address] documented as of this encounter Visit Diagnoses Diagnosis Other osteoporosis without current pathological fracture documented in this encounter Additional Health Concerns Assessment Noted Time PHQ-9 Depression Total Score: 3 07/19/19 23 10:23 AM EST documented as of this encounter Care Teams Seamstress Fitter Relationship Specialty Start Date End Date Selam Bryan MD [address] [place] [address] PCP - General Family Medicine 06/05/22 documented as of this encounter
--- OUTSIDE RECORDS SUMMARY | 2024-08-04 14:43 | XMS_ITS | Encounter Summary ---
Author Organization [id number] Address [address] [facility] [address] [place] [address] Care Team Providers Care Grinding Mill Operator Name Role Phone Selam Bryan MD Primary Care Provider [phone] Encounter Details Date Type Department Care Team (Latest Contact Info) Description 07/30/2024 Travel Social History Tobacco Use Types Packs/Day [...] 08/20/2024 1:00 PM EST Clinical Support [facility] DI[facility]/NTRN [address] [place] [address] [place] [address] documented as of this encounter Visit Diagnoses Not on filedocumented in this encounter Additional Health Concerns Assessment Noted Time PHQ-9 Depression Total Score: 3 07/19/19 23 10:23 AM EST documented as of this encounter Care Teams Grinding Mill Operator Relationship Specialty Start Date End Date Selam Bryan MD [address] [place] [address] PCP - General Family Medicine 06/05/22 documented as of this encounter
--- OUTSIDE RECORDS SUMMARY | 2024-08-04 14:43 | XMS_ITS | Encounter Summary ---
Author Organization [employer] Address [address] [place] [address] Care Team Providers Care Personal Banking Representative Name Role Phone Selam Bryan MD Primary Care Provider [phone] Encounter Details Date Type Department Care Team (Late st Contact Info) Description 07/30/2024 9:00 AM EST Nutrition [facility] DIABETES/NTRN [address] [place] [place], [place] [phone] Ethel Cui, RD [address], [place] [id number] Type 2 diabetes mellitus with hyperglycemia, without long-term current use of insulin ([facility]) (Primary Dx); Hyperlipidemia, unspecified hyperlipidemia type Social History Tobacco Use Types Packs/Day Years [...] AM EST documented as of this encounter Last Filed Vital Signs Vital Sign Reading Time Taken Comments Blood Pressure - - Pulse - - Temperature - - Respiratory Rate - - Oxygen Saturation - - Inhaled Oxygen Concentration - - Weight 58.2 kg (128 lb 3.2 oz) 07/30/2024 3:22 P M EST Height 159 cm (5' 2.6 ) 07/30/2024 3:22 PM EST Body Mass Index 23 07/30/2024 3:22 PM EST documented in this encounter Progress Notes * Ethel Cui RD - 07/30/2024 9:00 AM EST In Person Visit Medical Diagnosis: E11.65 Type 2 diabetes mellitus with hyperglycemia, without long-term current use of insulin E78.5 Hyperlipidemia, unspecified hyperlipidemia type Anthropometrics: Ht:5' 2.6 (1.59 m), Wt:128 lb 3.2 oz (58.2 kg), BMI: Body mass index is 23 kg/m??. Assessment: Patient (Pt) accepted nutrition education assessment appointment with RD. RD took Pt's weight. [employer] playground aide, Gila, translated. RD was only able to get partial of Pt's 24 hour recall/ typical daily intake. Of that partial intake given, Pt's diet is high in carbohydrates. Today, RD was only able to finish part of the second half of the First nutrition education assessment appointment. Once the second half of First appointment is finished, RD will fill in nutrition diagnosis, nutrition Intervention, goals, Tailored made meal plan, monitoring and evaluation will be put into Pt's chart here. Thus, all is to be followed by Pt with their agreement. The continuation of the first half of First nutrition education assessment appointment is scheduledin the month of August 2024. Food Allergies: shrimp Exercise: irregularly Food Intolerance: None mentioned Food Preferences: Oatmeal, breads, pancakes, syrup, milk, Splenda, Stevia, eggs, coffee Food Dislikes: Didn't say Frequency of Eating Out/ Restaurant: Didn't say Who Cooks?: Patient and daughter How much caffeine?: coffee 1/2 cup /day How much sugary beverages?: Didn't say Diet History: Breakfast: Oatmeal made with milk: 1 cup Coffee: /4 - 1/2 cup Milk: 1/4 - 1/2 cup Splenda or stevia: 1-2 packets Snack: Didn't get today Lunch: Didn't get today Snack: Didn't get today Dinner: Didn't get today Snack: Didn't get today Nutrition Diagnosis: 1st half of First appointment was done today. When the 2nd half of First appointment is finished/ done, this area will be filled in. Nutrition Intervention: 1st half of First appointment was done today. When the 2nd half of First appointment is finished/ done, this area will be filled in. Monitoring and Evaluation: 1st half of First appointment was done today. When the 2nd half of First appointment is finished/ done, this area will be filled in. Provider: Ethel Cui RD, LDN documented in this encounter Plan of Treatment Upcoming Encounters Date Type Department Care Team (Late st Contact Info) Description 08/20/2024 1:00 PM EST Clinical Support [facility] DIABETES/NTRN [address] [place] [address] [place] [address] documented as of this encounter Visit Diagnoses Diagnosis Type 2 diabetes mellitus with hyperglycemia, without long-term current use of insulin ([facility])- Primary Hyperlipidemia, unspecified hyperlipidemia type documented in this encounter Additional Health Concerns Assessment Noted Time PHQ-9 Depression Total Score: 3 07/19/19 23 10:23 AM EST documented as of this encounter Care Teams Personal Banking Representative Relationship Specialty Start Date End Date Selam Bryan MD [address] [place] [address] PCP - General Family Medicine 06/05/22 documented as of this encounter
[2024-09-11 12:51] VITALS: BMI 23.4
--- NOTE | 2024-09-14 09:21 | P.CONAN_ITS ---
Documented by User: Dimple Rocha NP 09/14/24 09:24 HPI - Anesthesia Eval Consult details Narrative: 64yo F for Upper Endoscopy and Colonoscopy Anesthesia Pre-Procedure Meds Is the patient on any of the following meds?: GLP1/DPP4 PMFSH Active Problems Active Problems: All Active Problems Endocervical polyp (Acute) Abnormal bowel habits (Acute) Elevated TSH (Acute) Lactose intolerance (Acute) Dizziness (Acute) Well woman exam (Acute) Overweight (BMI 25.0-29.9) (Acute) Anxiety (Acute) Constipation (Acute) Osteopenia (Acute) Vitamin D deficiency (Acute) GERD (gastroesophageal reflux disease) (Acute) Elevated LFTs (Acute) Hemangioma of liver (Acute) Pure hypercholesterolemia (Acute) Diabetes mellitus (Acute) Past Medical History Medical History SBO (small bowel obstruction) Dysplasia of cervix, low grade (VIRGIE 1) Overweight (BMI 25.0-29.9) Anxiety Constipation Osteopenia Vitamin D deficiency GERD (gastroesophageal reflux disease) Elevated LFTs Hemangioma of liver Pure hypercholesterolemia Diabetes mellitus Family History Family History Father No problems noted. Mother Uterine cancer Colon cancer Maternal Grandmother No problems noted. Paternal Aunt Ovarian cancer Family history of problems with anesthesia: No Surgical History Surgical History History of esophagogastroduodenoscopy (EGD) History of resection of liver History of blood clots History of colonoscopy History of oral surgery History of tubal ligation History of Problems with Anesthesia: No Social History Social History Household Members: Children Household Members Other:: daughter Housing: Assisted Living Facility Are you a primary care management specialist to a significant other at home: No Do you presently have visiting nurse or other home services: No Alcohol intake: never Patient Tobacco Use Status: Never used Tobacco e-Cigarette/Vaping Use: Never Used Second Hand Smoke Exposure: No Have you been hit, kicked, punched, or otherwise hurt by someone within the past year? If so, by whom?: No Are you DNR?: No Advance Directives: No Advance Directives Information Provided: Yes Advance Directives Date on File: 11/27/22 service: No Current occupational status: disabled Cognitive needs: No Hearing needs: No Vision needs: Yes Meds Allergies Allergy/AdvReac Type Severity Reaction Status Date / Time codeine [CODEINE] Allergy Intermediate DIZZY/CAROLYN Verified 09/15/24 09:52 RGY atorvastatin AdvReac Unknown increased Verified 09/15/24 09:52 heartburns Home Medications ?Medication ?Instructions ?Recorded ?Confirmed ?Last Taken ?Type blood sugar diagnostic (FreeStyle #10 ea 08/20/22 09/15/24 Unknown History Lite Strips) cholecalciferol (vitamin D3) 25 25 mcg PO DAILY 08/20/22 09/15/24 Unknown History mcg (1,000 unit) capsule (Vitamin D3) lancets 33 gauge (TRUEplus Lancets) #100 ea 11/14/22 09/15/24 Unknown History blood-glucose meter (FreeStyle #1 ea 05/20/23 09/15/24 Unknown History Bergholz Lite kit) icosapent ethyl 1 gram capsule 2 g PO BID 05/20/23 09/15/24 Unknown History (Vascepa) vitamin E (dl, acetate) 180 mg mg PO DAILY 07/13/24 Unknown History (400 unit) capsule Exam Height,Weight and Vital Signs: Height 5 ft 2 in Weight 58.06 kg Assessment and Plan Assessment Anesthesia Assessment: Chart Reviewed Final Anesthetic Review Family History of Problems with Anesthesia: No History of Problems with Anesthesia: No Documented by User: Jyotsna Galvan MD 09/15/24 10:21 [facility] Past Medical History Medical History SBO (small bowel obstruction) Dysplasia of cervix, low grade (VIRGIE 1) Overweight (BMI 25.0-29.9) Anxiety Constipation Osteopenia Vitamin D deficiency GERD (gastroesophageal reflux disease) Elevated LFTs Hemangioma of liver Pure hypercholesterolemia Diabetes mellitus Family History Family History Father No problems noted. Mother Uterine cancer Colon cancer Maternal Grandmother No problems noted. Paternal Aunt Ovarian cancer Surgical History Surgical History History of esophagogastroduodenoscopy (EGD) History of resection of liver History of blood clots History of colonoscopy History of oral surgery History of tubal ligation Social History Social History Household Members: Children Household Members Other:: daughter Housing: Assisted Living Facility Are you a primary care management specialist to a significant other at home: No Do you presently have visiting nurse or other home services: No Alcohol intake: never Patient Tobacco Use Status: Never used Tobacco e-Cigarette/Vaping Use: Never Used Second Hand Smoke Exposure: No Have you been hit, kicked, punched, or otherwise hurt by someone within the past year? If so, by whom?: No Are you DNR?: No Advance Directives: No Advance Directives Information Provided: Yes Advance Directives Date on File: 11/27/22 service: No Current occupational status: disabled Cognitive needs: No Hearing needs: No Vision needs: Yes Meds Allergies Allergy/AdvReac Type Severity Reaction Status Date / Time codeine [CODEINE] Allergy Intermediate DIZZY/CAROLYN Verified 09/15/24 09:52 RGY atorvastatin AdvReac Unknown increased Verified 09/15/24 09:52 heartburns Home Medications ?Medication ?Instructions ?Recorded ?Confirmed ?Last Taken ?Type blood sugar diagnostic (FreeStyle #10 ea 08/20/22 09/15/24 Unknown History Lite Strips) cholecalciferol (vitamin D3) 25 25 mcg PO DAILY 08/20/22 09/15/24 Unknown History mcg (1,000 unit) capsule (Vitamin D3) lancets 33 gauge (TRUEplus Lancets) #100 ea 11/14/22 09/15/24 Unknown History blood-glucose meter (FreeStyle #1 ea 05/20/23 09/15/24 Unknown History Bergholz Lite kit) icosapent ethyl 1 gram capsule 2 g PO BID 05/20/23 09/15/24 Unknown History (Vascepa) vitamin E (dl, acetate) 180 mg mg PO DAILY 01/27/25 Unknown History (400 unit) capsule Exam Airway Mallampati Class: II TM Dist: >3cm Neck ROM: Full Loose/Missing/Broken Teeth: No Heart: RRR Lungs: CTA Assessment and Plan Assessment Anesthesia Assessment: Anesthesia Plan Discussed Final Anesthetic Review NPO: Yes ASA Class: II Final Preanesthetic Review: Meds/Allgs Chart Reviewed, Consent Obtained/Reviewed and Anes Risks/Benef Reviewed Patient Risk: Low Procedure Risk: Intermediate Anesthetic Plan Anesthetic Plan: MAC: Disposition: Standard PACU
[2024-09-15 09:21] VITALS: BMI 22.9
[2024-09-15] MEDS: Lactated Ringers 1,000 ML 100 ML IVCONT (09:28)
[2024-09-15 09:50] VITALS: BP 138/76; PULSE 75; RESP 18; TEMP 36.8; O2SAT 99
--- NOTE | 2024-09-15 10:00 | MHC.SHP ---
Pre-Procedural Eval Section A - 24 Hr Update-Section A only Date of Service: 09/15/24 Section B - Complete if H&P > 30 days Chief Complaint: Other specified symptoms and signs involving the Relevant Family History (Specify if Yes): No Relevant Social History: None Present Medications: see Short Stay Collaborative assessment Medical History: Significant History ( SBO (small bowel obstruction) Dysplasia of cervix, low grade (VIRGIE 1) Overweight (BMI 25.0-29.9) Anxiety Constipation Osteopenia Vitamin D deficiency GERD (gastroesophageal reflux disease) Elevated LFTs Hemangioma of liver Pure hypercholesterolemia Diabetes mellitus) History of Previous Operations: Relevant previous surgery/procedure and date(s) ( History of esophagogastroduodenoscopy (EGD) History of resection of liver History of blood clots History of colonoscopy History of oral surgery History of tubal ligation) Allergies: Allergies Allergy/AdvReac Type Severity Reaction Status Date / Time codeine [CODEINE] Allergy Intermediate DIZZY/CAROLYN Verified 09/15/24 09:52 RGY atorvastatin AdvReac Unknown increased Verified 09/15/24 09:52 heartburns Review of Systems Sugical H&P ROS: Negative: Constitution, Cardiovascular, Respiratory, Neurological, Psychiatric, Hem-Onc, Allergic/Immunologic, Gastrointestinal, Genitourinary, Musculoskeletal, Integumentary, Endocrine and Eyes/Ears/Nose/Throat Exam Surgical H&P Exam: Normal: HEENT, Normal: Heart, Normal: Lungs, Normal: Extremities, Normal: Abdomen, Normal: Skin and Normal: Neurological Plan Diagnosis/Plan: Unchanged I have reviewed the history and physical and performed a pertinent physical examination on my patient. No changes have occurred unless specified. Time Spent With Patient Time: Total time managing care of this patient today ____ minutes.
[2024-09-15 10:10] LABS: Glucose, Whole Blood 92 mg/dL (60-115)
--- NOTE | 2024-09-15 11:16 | P.OPN-COLO_ITS ---
Colonoscopy Operative Note Operative Note Date of Service: 09/15/24 Narrative: Operative Information Procedure Description: EGD, Colonoscopy Indication: abn bowel habits, possible foreign body in colon Anesthesia: MAC FLEXIBLE TRANSORAL UPPER GASTROINTESTINAL ENDOSCOPY AND COLONOSCOPY PROCEDURE NOTE UPPER ENDOSCOPY Consent: Indications for the procedure and potential complications of bleeding, perforation, reaction to medications and missed diagnosis were discussed with the patient and informed consent was obtained. Instrument: Olympus GIF H 190 J mid size upper endoscope Monitoring: Vital signs and clinical assessment, continuous EKG monitoring, Pulse oximetry, Carbon Dioxide monitoring and blood pressure monitoring were done throughout the procedure. Procedure: The patient was placed in the left lateral decubitis position and pre-procedure medications were administered and a bite block was placed. The endoscope was inserted into the mouth and advanced under direct vision to the third part of duodenum. A careful inspection was made as the upper endoscope was withdrawn including a retroflexed examination of the proximal stomach; Findings and interventions are described below. Findings: Larynx:normal Esophagus: GE junction at 38 cm, diaphragm hiatus at 38 cm, bogginess and erythema at GEJ, bx taken from here and distal esophagus Stomach: mild erythema with bile acid reflux noted. Biopsies were obtained. Grade 2 flap valve on retroflexed examination of the cardia. Duodenum: Normal bulb and descending duodenum, bx taken Intervention: Biopsies as noted above, COLONOSCOPY Instrument: Olympus variable stiffness pediatric scope 190L Colonoscopy Monitoring: Vital signs and clinical assessment, continuous EKG monitoring, Pulse oximetry, Carbon Dioxide monitoring and blood pressure monitoring were done throughout the procedure. Colon withdrawal time was 8 minutes. Procedure: The patient was placed in the left lateral decubitis position and pre-procedure medications were administered. After a digital rectal examination of the ano-rectum, the video colonoscope was inserted into the rectum and advanced through the colon to the cecum/TI. The colonoscope was slowly withdrawn in a retrograde panoramic fashion and the colon mucosa was carefully examined including a retroflexed view of the rectum. Findings and interventions are described below. Procedure Difficulty:moderate Findings: Terminal Ileum-normal, bx taken random bx taken from right and left colon Cecum:normal right sided retroflexion- normal Ascending Colon: normal Transverse Colon -normal Descending Colon:normal Sigmoid Colon: normal Rectum: Retroflexion with small internal hemorrhoids, grade I Anorectum - normal Colon preparation: [place] Bowel Preparation Scale Right colon; 2 Transverse colon: 2 Left colon; 2 (0 = Unprepared colon segment with mucosa not seen due to solid stool that cannot be cleared. 1 = Portion of mucosa of the colon segment seen, but other areas of the colon segment not well seen due to staining, residual stool and/or opaque liquid. 2 = Minor amount of residual staining, small fragments of stool and/or opaque liquid, but mucosa of colon segment seen well. 3 = Entire mucosa of colon segment seen well with no residual staining, small fragments of stool or opaque liquid) Impression and Post Procedure Diagnosis: Endoscopy Findings: mild esophagitis gastritis Colonoscopy Findings: internal hemorrhoids Plan: Await Pathology results Repeat Colonoscopy in 10 years or earlier if clinically indicated High fiber diet leaflet avoid straining at stool, epsom salts and sitz bath, anusol supps or cream consider ursodiol or bile acid binder Above findings were reviewed with the patient and relevant handouts were provided if indicated.
[2024-09-15 11:20] VITALS: BP 109/61; PULSE 68; RESP 18; TEMP 36.2; O2SAT 99
[2024-09-15 11:33] VITALS: BP 123/70; PULSE 63; RESP 16; TEMP 36.7; O2SAT 99
== END 2024-09-15 12:01 | disposition home or self-care (01) ==
PROVIDERS: PCP Family Medicine; Visit Provider Internal Medicine Gastroenterology
PROC: (CPT 45380; principal; 2024-09-15 11:10)
DX: K64.0 First degree hemorrhoids (principal); R19.5 Other fecal abnormalities; K22.89 Other specified disease of esophagus; K29.70 Gastritis, unspecified, without bleeding; K21.00 Gastro-esophageal reflux disease with esophagitis, without bleeding; E11.9 Type 2 diabetes mellitus without complications; E78.00 Pure hypercholesterolemia, unspecified; D18.03 Hemangioma of intra-abdominal structures; Z79.899 Other long term (current) drug therapy
CPT/HCPCS: 45380; 43239; 82947; 88305; 88313; 88342; J2704

== ENCOUNTER → 2024-09-15 07:48 | Outpatient (BNV) | payer OTHER, SELFPAY | PROVIDERS: PCP Family Medicine; Visit Provider Internal Medicine Gastroenterology | DX: R19.4 Change in bowel habit (principal); K64.0 First degree hemorrhoids; K20.90 Esophagitis, unspecified without bleeding; K29.70 Gastritis, unspecified, without bleeding | CPT/HCPCS: 43239; 45380 ==

== ENCOUNTER 2024-09-25 08:51 | Outpatient (REF) | payer OTHER, SELFPAY ==
[2024-09-26 09:26] LABS: H Pylori Breath Test Negative (Negative)
== END 2024-09-25 08:52 | disposition home or self-care (01) ==
LOC: HO.LNP 08:51
PROVIDERS: PCP Family Medicine; Visit Provider Internal Medicine Gastroenterology
DX: K21.9 Gastro-esophageal reflux disease without esophagitis (principal)
CPT/HCPCS: 83013; 99211

== ENCOUNTER 2024-09-25 08:51 | Outpatient (AMB) | payer OTHER, SELFPAY ==
--- OUTSIDE RECORDS SUMMARY | 2024-09-25 09:03 | XMS_ITS | Encounter Summary ---
Author Organization [employer] Address [address] [place] [address] Care Team Providers Care Furnishings Conservator Name Role Phone Selam Bryan MD Primary Care Provider [phone] Reason for Visit * Reason Comments Med Change Request Encounter Details Date Type Department Care Team ([facility] Contact Info) Description 07/19/2022 Refill [facility] CHC MED & PEDS [address] [place], [place] [phone] Selam Bryan MD [address] [place], [place] [phone] Other osteoporosis without current pathological fracture Social [...] as of this encounter Plan of Treatment Not on file documented as of this encounter Visit Diagnoses Diagnosis Other osteoporosis without current pathological fracture documented in this encounter Additional Health Concerns Assessment Noted Time PHQ-9 Depression Total Score: 3 07/19/19 10:23 AM EST documented as of this encounter Care Teams Furnishings Conservator Relationship Specialty Start Date End Date Selam Bryan MD [address] [place] [id number] PCP - General Family Medicine 06/05/22 documented as of this encounter
--- OUTSIDE RECORDS SUMMARY | 2024-09-25 09:03 | XMS_ITS | Clinical Summary ---
Author Organization [employer] Address [address] [facility] [address] [place] [address] Care Team Providers Care House Wirer Name Role Phone Selam Bryan MD Primary Care Provider [phone] Allergies Active Allergy Reactions Criticality Noted Date Comments Codeine Low 07/19/2022 Other reaction(s): dizziness, fainting Statins Low 07/19/2022 Other reaction(s): convulsion, dizziness, muscle pain Medications GaviLAX 17 GM/SCOOP powder MIX 17G (1 CAPFUL) WITH 8 OUNCES OF LIQUID AND DRINK ONCE DAILY 022 Active Blood Glucose Monitoring Suppl (FreeStyle Kincaid Lite) w/Device kit USE TO TEST BLOOD SUGAR TWICE DAILY 022 Active FreeStyle lancets USE SEG N LO INDICADO DOS VECES AL D A 022 Active omeprazole (PriLOSEC) [address] capsule TOME POOL C PSULA TODOS LOS D CUANDO SEA NECESARIO FOR ACID REFLUX 023 Active Calcium Carbonate-Vit D-Min (Calcium 1200) 0505-6053 MG-UNIT chewable tabletIndications :Other osteoporosis without current pathological fracture Chew 1 tablet in the morning. 90 tablet 4 023 Active D3-1000 25 MCG (1000 UT) capsule TOME 1 CAPSULA POR VIA ORAL TODOS LOS CARDOSO 90 capsule 1 023 Active fenofibrate (Triglide) 160 MG tablet 0 Refills, Maintenance, 10/18/22 14:25:00 EDT, Partial fill upon patient request if the prescription is for a schedule II opioid drug. 023 Active ondansetron ODT (Zofran-ODT) 4 MG disintegrating tablet Active Na Sulfate-K Sulfate-Mg Sulf 17.5-3.13-1.6 GM/177ML solution Active Icosapent Ethyl (Vascepa) 1 g capsule Take 2 capsules (2 g) by mouth with breakfast and with evening meal. 120 capsule 11 023 Active Blood Pressure kitIndications:El evated blood pressure reading 1 Units in the morning. 1 kit Active alendronate (Fosamax) 70 MG tabletIndications :Other osteoporosis without current pathological fracture TAKE 1 TABLET ONCE A WEEK WITH 6 TO 8 OZ OF WATER 30 MINUTES BEFORE FIRST FOOD OF THE DAY. DO NOT LIE DOWN FOR 30 MINUTES. 4 tablet 11 Active simethicone (Simethicone Ultra Strength) 180 MG capsule TAKE ONE CAPSULE TWICE DAILY NEEDED 60 capsule 1 Active alpha tocopherol (Vitamin E) 400 units capsule Take 1 capsule (400 Units) by mouth Once per day. 90 capsule 1 Active Alcohol Swabs (Alcohol Prep) 70 % pads USE TWICE DAILY DIRECTED 100 each 11 Active FREESTYLE LITE test strip TEST BLOOD SUGAR TWICE DAILY 100 strip Active Januvia 100 MG tabletIndications :Type 2 diabetes mellitus with hyperglycemia, without long-term current use of insulin ([facility]) TAKE ONE TABLET EVERY MORNING 90 tablet 1 Active ezetimibe (Zetia) 10 MG tablet TAKE ONE TABLET EVERY MORNING 90 tablet 1 025 Active ezetimibe (Zetia) 10 MG tablet TAKE ONE TABLET EVERY MORNING 90 tablet 1 024 2024 Discontinued Active Problems Problem Noted Date Diagnosed Date [...] Encounters Date Type Department Care Team Description 09/15/2024 Orders Only GENERIC EXTERNAL DATA DEPARTMENT Provider, Generic External Data 09/12/2024 Refill [facility] [address] [place] [address] Selam Bryan MD 08/18/2024 Telephone [facility] [address] [place], [place] [phone] Ethel Cui RD nutrition appt request 07/30/2024 9:00 AM EST Nutrition [facility] DI[facility]ET[facility]/NTRN [address] [place] [address] Type 2 diabetes mellitus with hyperglycemia, without long-term current use of insulin ([facility]) (Primary Dx); Hyperlipidemia, unspecified hyperlipidemia type 07/30/2024 Travel 07/13/2024 Orders Only [facility] External Provider, [facility] from Last 3 Months Immunizations Name Administration [...] 07/30/2024 3:22 PM EST Plan of Treatment Health Maintenance Due Date Last Done Comments CT Colonography 1960 Colonoscopy 1960 Colorectal Cancer Screening 1960 FIT DNA/Cologuard 1961 FIT 1960 FOBT 1960 Sigmoidoscopy 1960 Alcohol/Substance Use Screening 1973 Hepatitis A Vaccines (1 of 2 - Risk 2-dose series) 1980 RSV Patients and Patients Aged 60 years or older (1 - Risk 60-74 years 1-dose series) 2021 Depression Screening 07/19/2023 07/19/2022, 07/19/19 Diabetes: Urine Protein Screening 07/23/2023 07/23/2022 COVID-19 Vaccine ( season) 2024 11/02/2021, 09/13/2020 Influenza Vaccine (#1) 2024 03/01/2023, 2021 Diabetes: Foot Exam 03/01/2024 03/01/2023, 03/01/2023, 03/01/2023, Additional history exists Diabetes: Hemoglobin A1C 06/12/2024 024, 06/07/2023, 03/01/2023, Additional history exists SDOH Screening 11/27/2024 11/28/2023 Lipid Panel 12/02/2024 12/03/2023, 06/17, 04/10/2023, Additional history exists Tobacco Screening 12/11/2024 12/12/2023 Eye Exam 07/29/2025 Mammogram 03/26/2026 03/26/2024, 02/21/2023 DTaP/Tdap/Td Vaccines (3 [...] Procedure Name Priority Date/Time Associated Diagnosis Comments HEMATOXYLIN AND EOSIN STAIN Routine 09/15/2024 11:00 AM EDT GLUCOSE, WHOLE BLOOD Routine 09/15/2024 9:38 AM EDT XR KUB AND UPRIGHT 2 VIEWS Routine 07/13/2024 1:25 PM EST BI MAMMOGRAM SCREENING TOMOSYNTHESIS BILATERAL Routine 03/26/2024 10:00 AM EDT THINPREP IMAGING PAP AND HPV MRNA E6/E7 WITH REFLEX TO HPV 16,18/45 Routine 12/26/2023 1:27 PM EDT POCT GLYCATED HEMOGLOBIN, TOTAL Routine 12/12/2023 11:43 AM EDT Type 2 diabetes mellitus with hyperglycemia, without long-term current use of insulin (CMS/HCC) LIPID PANEL, STANDARD Routine 12/03/2023 9:21 AM [...] Recently Relevant to Health Maintenance Results * Hematoxylin and Eosin Stain (09/15/2024 11:00 AM EDT) 09/15/2024 11:0 0 AM EDT 09/15/2024 11:30 AM EDT [facility] - 09/17/2024 3:54 PM EDT ----- ------- Name: Trupti Kelly ?Age/Sex: 64/F ? : 1960 Unit#: [id number] ?? Attend Dr: Claudia Jarrell MD ?Re09/15/24 ?Status: DEP SDC ? Location: HO.SSS ?Disch: ? ----- ------- SPEC : [id number] ? RECD: 09/15/24-1129 ? STATUS: ??SOUT ? REQ NUM: [id number] ? PAM: 09/15/24-1099 ? SUBM DR: Claudia Jarrell MD ? ENTERED: ??09/15/24-1140 ?SP TYPE: Surgical ? OTHR DR: Selam Bryan MD ? ORDERED: ??HE Stain/21, Gross Micro L4/7, IHC, Special st. 2/2, H. pylori, AB/PAS/2 ? Diagnosis ?? A. ??Duodenum, biopsy: ??Duodenal mucosa with mildly increased intraepithelial lymphocytes ?? and preserved villous architecture. ??See comment. ? B. ??Stomach, biopsy: ??Antral-type and oxyntic mucosa with moderate chronic inactive ?? inflammation; no Helicobacter organisms seen. ? C. ??GE junction, biopsy: ?- Active esophagitis (maximum eosinophil count 1 per high powered field). ?- No glandular epithelium identified. ? D. ??Esophagus, distal, biopsy: ??Squamous epithelium within normal limits; no inflammation ?? seen. ? E. ??Terminal ileum, biopsy: ??Terminal ileal mucosa within normal limits. ? F. ??Colon, right, biopsy: ??Colonic mucosa within normal limits. ? G. ??Colon, left, biopsy: ??Colonic mucosa within normal limits. ? COMMENT: The findings in the duodenum are non-specific. ??The differential diagnosis is ?? broad and includes infection (e.g. viral or H. pylori), medication/drugs (e.g. NSAIDs), ?? gluten sensitivity/celiac disease, bacterial overgrowth, tropical sprue, immunodeficiency ?? syndromes (e.g. IgA deficiency, CVID), autoimmune enteropathy, Crohns and collagen ?? vascular disease, among others. ??Please correlate with clinical and other laboratory ?? findings. ?Clinical History Pre-Op Dx: ??Abnormal bowel habits Post-Op Dx: Bile acid reflux, gastritis, esophagitis, hemorrhoids ?Microscopic Description A-G. ??Microscopic sections examined. ??No metaplastic changes are seen, supported by AB/PAS stains (A and B); no Helicobacter organisms are seen, supported by H. pylori immunostain (B). ? CONTINUED ON NEXT PAGE ----- ------- Name: Trupti Kelly ?Age/Sex: 64/F ? : 1960 Unit#: [id number] ?? Attend Dr: Claudia Jarrell MD ?Re09/15/24 ?Status: DEP SDC ? Location: HO.SSS ?Disch: ? ----- ------- SPEC : [id number] ? RECD: 09/15/24-1129 ? STATUS: ??SOUT ? REQ NUM: [id number] ? PAM: 09/15/24-1100 ? SUBM DR: Claudia Jarrell MD ? ENTERED: ??09/15/24-114 ?SP TYPE: Surgical ? OTHR DR: Selam Bryan MD ? ORDERED: ??HE Stain/21, Gross Micro L4/7, IHC, Special st. 2/2, H. pylori, AB/PAS/2 ? Material Received ?? A. Duodenum ?? B. Stomach ?? C. GE junction ?? D. Distal esophagus ?? E. TI ?? F. Right colon bx ?? G. Left colon bx ? Gross Description Received in seven parts. Part A: ??Received in formalin labeled ?duodenum? are 4 almanzar-pink irregular tissue fragments each measuring 0.25 cm, submitted in toto in a cassette labeled A. Part B: ??Received in formalin labeled ?stomach are 2 almanzar-pink irregular tissue fragments each measuring 0.35 cm, submitted in toto in a cassette labeled B. Part C: ??Received in formalin labeled ?GE junction? are 2 eric-white irregular tissue fragments each measuring 0.2 cm, submitted in toto in a cassette labeled C. Part D: ??Received in formalin labeled ?distal esophagus? is a 0.45 cm thin and delicate eric-white rectangular fragment of mucosa, submitted in toto in a cassette labeled D. Part E: ??Received in formalin labeled ?TI? are 3 almanzar-pink irregular tissue fragments ranging from 0.15-0.3 cm, submitted in toto in a cassette labeled E. Part F: ??Received in formalin labeled ?right colon bx? are 2 almanzar irregular and rectangular tissue fragments measuring 0.1 and 0.35 cm, submitted in toto in a cassette labeled F. Part G: ??Received in formalin labeled left colon bx? is a 0.3 cm pink-red irregular tissue fragment, submitted in toto in a cassette labeled G. ??CEDS Special studies ordered and performed: Immunostain for H. pylori on B; AB/PAS stains on A and B Copies To: ?? Claudia Jarrell MD ?? [facility] ?? [address] ?? [place] [address] ?? [phone] ? CONTINUED ON NEXT PAGE ----- ------- Name: Trupti Kelly ?Age/Sex: 64/F ? : 1960 Unit#: [id number] ?? Attend Dr: Claudia Jarrell MD ?Re09/15/24 ?Status: DEP SDC ? Location: HO.SSS ?Disch: ? ----- ------- SPEC : [id number] ? RECD: 09/15/24 ? STATUS: ??SOUT ? REQ NUM: [id number] ? PAM: 09/15/24-1099 ? SUBM DR: Claudia Jarrell MD ? ENTERED: ??09/15/24-1140 ?SP TYPE: Surgical ? OTHR DR: Selam Bryan MD ? ORDERED: ??HE Stain/21, Gross Micro L4/7, IHC, Special st. 2/2, H. pylori, AB/PAS/2 ? Copies To: ??(Continued) ?? Selam Bryan MD ?? [address] ?? [place] [address] ?? [phone] ----- ------- Signed (signature on file) Randal Estevez MD 09/17/24 2242 ? ----- ------- ? END OF REPORT ? us Generic External Data Provider LAB BLOOD ORDERAB LES Final Result [facility] [address] [place] [address] [phone] * Glucose, Whole Blood (09/15/2024 9:38 AM EDT) Glucose, Whole Blood 92 60 - 115 mg/dL [facility] Comment:METER #: [id number] 09/15/2024 9:38 AM EDT 09/15/2024 10:10 AM EDT us Generic External Data Provider LAB BLOOD ORDERAB LES Final Result [facility] [address] [facility] [place] [address] [phone] * XR KUB and Upright 2 Views (07/13/2024 1:25 PM EST) Anatomical Region Laterality Modality Radiographic Cherrie ging 07/13/2024 1:25 PM EST Narrative 07/14/2024 8:23 AM EST ? [facility] ?[address] ?[place] [address] ?XRay Report ? Signed ? Patient: Juan Osborn,Trupti E ?MR#: ?? [id number] ? : 1960 ?Acct:[id number] ? Age/Sex: 64 / F ?ADM Date: 07/13/24 ? Loc: HO.XRAY ? Attending Dr: Claudia Jarrell MD ? Ordering Physician: Claudia Jarrell MD ?? Date of Service: 07/13/24 ?? Procedure(s): XR KUB ?? Accession Number(s): [id number] ? cc: Claudia Jarrell MD; Selam Bryan [...] DD/ 1325 ? TD/TT: 07/13/24 1337 ? Animal Warden: ? Procedure Note Donmulugetater, Image - 07/14/[address] [address] XRay Report Signed Patient: Trupti Kelly EMR#: [id number] : 1960cct:[id number] Age/Sex: 64 / FADM Date: 07/13/24 Loc: [facility] Attending Dr: Claudia Jarrell MD Ordering Physician: Claudia Jarrell MD Date of Service: 07/13/24 Procedure(s): XR KUB Accession Number(s): [id number] cc: Claudia Jarrell MD; Selam Bryan MD [...] Yousif Campo MD 07/14/2024 08:20 AM EST RP Dictated By: Yousif Campo MD Signed By: <Electronically signed by Yousif Campo MD in OV> 07/14/24 0820 DD/ 1325 TD/TT: 07/13/24 1337 Animal Warden: [facility] External Provider IMG XR PROCEDURES Final Result * BI Mammogram Screening Tomosynthesis Bilateral (03/26/2024 10:00 AM EDT) Anatomical Region Laterality Modality Breast Bilateral Mammography 03/26/2024 10:0 0 AM EDT Narrative 04/07/2024 12:17 PM EDT ? [facility] ? [address] ?[place] [address] ? Mammography Report ? Signed ? Patient: Trupti Kelly ?MR#: ?? [id number] ? : 1960 ?Acct:[id number] ? Age/Sex: 63 / F ?ADM Date: 10/10/24 ? Loc: HO.MAMMO ? Attending Dr: Davion Weathers MD ? Ordering Physician: Davion Weathers MD ?Results: 2Benign ?? Findings ? Date of Service: 10/10/24 ?Follow Up: 1 Year From Orig ?? inal Mammogram ? Procedure(s): MM tomosynthesis screening BI ?? Accession Number(s): [id number] ? cc: Selam Bryan MD; Davion Weathers [...] ??Shea Elena DO ??04/07/2024 12:14 PM EDT ?? RP ? Dictated By: ?Shea Elena DO ? Signed By: ?<Electronically signed by Shea Elena, DO in OV> ? 04/07/24 1214 ? DD/ 1000 ? TD/TT: 03/26/24 1022 ? Animal Warden: ? Procedure Note Moises Carpenter - 04/07/2024 [facility] [address] [place] [address] Dr. [place], [place] [address] Mammography Report Signed Patient: Trupti Kelly EMR#: [id number] : 1Acct:[id number] Age/Sex: 63 / FADM Date: 03/26/24 Loc: HO.MAMMO Attending Dr: Davion Weathers MD Ordering Physician: Davion Weathers MDResults: 2Benign Findings Date of Service: 03/26/24Follow Up: 1 Year From Orig inal Mammogram Procedure(s): MM tomosynthesis screening BI Accession Number(s): [id number] cc: Selam Bryan MD; Davion Weathers MD [...] 04/07/24 1214 DD/ 1000 TD/TT: 03/26/24 1022 Animal Warden: us [facility] External Provider IMG BI PROCEDURES Final Result * ThinPrep Imaging Pap and HPV mRNA E6/E7 with Reflex to HPV 16,18/45 (12/26/2023 1:27 PM EDT) HPV 16 RNA TNP [facility] HPV 18/45 RNA [facility] HPV nRNA E6/E7 Not Detected Not Detected [facility] Comment:Methodology: Transcr iption-Mediated AmplificationThis assay detects E6/E7 viral messenger RNA (mRNA) from 14high-risk HPV types (16,18,31,33,35,39,45,51,52,56,58,59,66,68).Cervical sources are required for HPV testing.If a vaginal source from a patient who has had atotal hysterectomy with removal of cervix wassubmitted, please contact the testing laboratoryfor alternative testing options.For additional information, please refer [email or web address](This link if provided for information/educational purposes only.)THIS TEST WAS PERFORMED AT:[employer] [address] [phone] ENGLAND MD SOURCE: SEE NOTE [facility] Comment:Cervix Report Status: [facility] Clinical Information: SEE NOTE [facility] Comment:Routine exam LMP: SEE NOTE [facility] Comment:POSTMENOPAUSAL Prev. PAP: SEE NOTE [facility] Comment:2019 Prev. BX: SEE NOTE [facility] Comment:NONE GIVEN Statement Of Adequacy: SEE NOTE [facility] Comment:SATISFACTORY FOR [employer] General Categorization: [facility] Interpretation/Result: SEE NOTE [facility] Comment:Cytology Results: Ne gative for intraepitheliallesion or malignancy.Atrophic pattern; predominantly parabasal cells Cytology Comment SEE NOTE [facility] Comment:This Pap test has be en evaluated with computerassisted technology. Guardian Ad Litem: SEE NOTE [facility] Comment:RAQUEL MAYNARD(ASCP)CT scre ening location: [address] [address] Review Guardian Ad Litem: [facility] Pathologist [facility] PAP Infection [facility] See Note SEE [facility] Comment:EXPLANATORY NOTE:The Pap is a screening test for cervical cancer. It isnot a diagnostic test and is subject to false negativeand false positive results. It is most reliable when asatisfactory sample, regularly obtained, is submittedwith relevant clinical findings and history, and whenthe Pap result is evaluated along with historic andcurrent clinical information. 12/26/2023 1:27 PM EDT 12/26/2023 6:52 PM EDT Narrative [facility] - 01/01/2024 1:15 PM EDT SEE SCANNED RESULTS IN EMRWas previous PAP abnormal? UnknownClinical Information: routineCollection Date: 12/26/23igh risk HPV with 16 ?? 18 genotyping? YReflex HPV any abnormal diagnosis? YReflex HPV if ASCUS only? NHigh Risk HPV (any diagnosis)? YLMP: postmenopausalDate of previous PAP 2019Performed by: : [id number] us Generic External Data Provider LAB PATHOLOGY ORD ERABLES Final Result [facility] [address] [place] [phone] * POCT A1C (12/12/2023 11:43 AM EDT) Hemoglobin A1C 5.9 4.0 - 6.0 % QC Media Lot # Comment:[id number] Lot# Expiration Date Comment:07/12/2025 Blood 12/12/2023 11:4 3 AM EDT us Selam Bryan MD POINT OF CARE TEST ENTER/EDIT ORDERABLES Final Result * (ABNORMAL) Lipid Panel, Standard (12/03/2023 9:21 AM EDT) Triglycerides 128 <150 mg/dL [facility] Comment:Desirable Triglyceri de: less than 150 mg/dLBorderline High Triglyceride 150-199 mg/dLHigh Triglyceride: 200-499 mg/dLVery High Triglyceride: greater than or equal to 5OO mg/dL Cholesterol 203(H) <200 mg/dL [facility] Comment:Desirable Cholestero l: less than 200 mg/dLBorderline High Cholesterol: 200-239 mg/dLHigh Cholesterol: greater than 239 mg/dL LDL Cholesterol Calculated 140(H) <100 mg/dL [facility] Comment:Desirable LDL: less than 100 mg/dLNear Optimal/Above Optimal LDL: 110- 129 mg/dLBorderline High LDL: 130-159 mg/dLHigh LDL: 160-189 mg/dLVery High LDL: greater than or equal to 190 mg/dL HDL Cholesterol 38(L) >40 mg/dL [facility] Comment:Desirable HDL: great er than 40 mg/dL Note: This HDL assay may give artificially low results in patients with liver disease. Blood Venous blood specimen / Unknown 12/03/2023 9:21 AM EDT 12/03/2023 2:23 PM EDT Selam Bryan MD LAB BLOOD ORDERABLES Final Re sult Performing Organization Address [facility]/ZIP Co de Phone Number [facility] [address] [place] [phone] * Hepatitis C Ab (04/10/2023 9:10 AM EDT) Hepatitis C Antibody Nonreactive Nonreactive [facility] Comment:Antibodies to HCV no t detected; does not exclude early acuteHCV infection. Blood 04/10/2023 9:10 AM EDT 04/10/2023 2:55 PM EDT Selam Bryan MD LAB BLOOD ORDERABLES Final Re sult Performing Organization Address [facility] Co de Phone Number [facility] [address] [place] [phone] * HIV Ab/Ag (KATHLEEN GARRISON) (04/10/2023 9:10 AM EDT) HIV AB/AG Nonreactive Nonreactive [facility] Comment:HIV-1 p24 Ag and/or HIV-1/HIV-2 Ab not detected.A test result that is nonreactive does not exclude thepossibility of exposure to or infection with HIV-1 and/orHIV-2. Nonreactive results in this assay for individualswith prior exposure to HIV-1 and/or HIV-2 may be due toantigen and antibody levels that are below the limit ofdetection of this assay.The [employer] HIV Ag/Ab Combo assay result andsupplemental assay results should be interpreted inconjunction with the patient's clinical presentation,history and other laboratory results. If the results areinconsistent with clinical evidence, additional testing issuggested to confirm the result. 04/10/2023 9:10 AM EDT 04/10/2023 2:55 PM EDT Selam Bryan MD LAB BLOOD ORDERABLES Final Re sult Performing Organization Address [facility] Co de Phone Number [facility] [address] [place] [phone] * Albumin, Random Urine W/O Creatinine (07/23/2022 9:00 AM EST) Albumin, Urine 0.8 See Note: mg/dL [employer] [place] [employer] Comment: Reference Range: Reference Range Not established ALEYDA Kunlun Comment: The ADA defines abnormalities in albumin [...] 07/23/2022 9:11 PM EST FASTING:YES FASTING: YES Selam Bryan MD LAB URINE ORDERABLES Final Re sult Performing Organization Address City/[facility]/ZIP Co de Phone Number [facility] [address] [facility] [place] [address] [employer] [place] [employer] [address] [facility], ([address]) [place] [address] from Last 3 Months or Most Recently Relevant to Health Maintenance Insurance [facility] Care Teams House Wirer Relationship Specialty Start Date End Date Selam Bryan MD [address] [place] [phone] PCP - General Family Medicine 06/05/22
--- NOTE | 2024-09-25 09:12 | AM.OFFVISNUR ---
Intake Visit Reasons: H Pylori Allergies codeine [CODEINE] Allergy (Intermediate, Verified 09/15/24 09:52) DIZZY/LETHARGY atorvastatin Adverse Reaction (Unknown, Verified 09/15/24 09:52) increased heartburns Nursing Note Patient presents for collection of H Pylori breath test. Patient has been fasting for 1 hour (nothing to eat, drink, no chewing gum or smoking) has not taken any antacid medication for at least 2 weeks and has no allergies to artificial sweeteners.?? Assessment & Plan Assessment & Plan (1) GERD (gastroesophageal reflux disease): Code(s): K21.9 - Gastro-esophageal reflux disease without esophagitis Category: Medical Qualifiers: Esophagitis presence: esophagitis presence not specified Qualified Code(s): K21.9 - Gastro-esophageal reflux disease without esophagitis Plan Patient presents for collection of H Pylori breath test. Patient has been fasting for 1 hour (nothing to eat, drink, no chewing gum or smoking) has not taken any antacid medication for at least 2 weeks and has no allergies to artificial sweeteners.???This test checks for an overgrowth of bacteria in your stomach. We all have bacteria but some may have more than others. It is treatable. if the test comes back negative there is nothing else to do. If the test result is positive we will treat you with 2 antibiotics and a medication to decrease the acid in your stomach (PPI) for 2 weeks. Two weeks after you have completed the treatment we will retest you to make sure the overgrowth has resolved. Orders: Orders H Pylori Breath Test Today Patient Instructions: Process for specimen collection and reason for testing was explained to the patient. Specimen collection. Patient instructed to take a deep breath and then exhale into the blue bag, filling it up as much as possible. Patient instructed to drink a mixture of water and the artificial sweetener with a straw. A 15 minute wait period was observed. Patient instructed to take a deep breath and then exhale into the pink bag, filling it up as much as possible.?? Coding Level of Care Code Established Pt Est Pt Level 1 (78894) Patient Type Established Medical Decision Making Straight Forward Diagnoses Gastroesophageal reflux disease without esophagitis K21.9 Esophagitis presence: esophagitis presence not specified
== END 2024-09-25 09:13 | disposition home or self-care (01) ==
LOC: HO.HGI 08:52
PROVIDERS: PCP Family Medicine; Visit Provider Internal Medicine Gastroenterology
DX: K21.9 Gastro-esophageal reflux disease without esophagitis (principal)

== ENCOUNTER 2024-10-23 09:38 | Outpatient (AMB) | payer OTHER, SELFPAY ==
--- NOTE | 2024-10-23 09:39 | A.OFFVIS_ITS ---
Vital Signs 10/23/24 09:40 Height 5 ft 2 in Weight 127 lb 13.89 oz BMI 23.4 BP 137/66 Blood Pressure Location Lt brachial Position Sitting Pulse 65 Intake Visit Reasons: post op Intake Note: Trupti presents in the office as a follow up for her procedure CC: she states that she feels good and here for results. Disbursing Agent Required: Yes Allergies codeine [CODEINE] Allergy (Intermediate, Verified 10/23/24 09:43) DIZZY/LETHARGY atorvastatin Adverse Reaction (Unknown, Verified 10/23/24 09:43) increased heartburns HPI HPI post op: Details: 64 yr old f here for f/u RECAP Had been seeing September before for GERD and constipation was being seen for idiosyncratic reaction to statins tried lovastatin, atorvas tatin and crestor sx include abdominal pain, nausea and malaise she has not tried fibrates, ezetimibe, PCSK9 antibodies (but never had CA or cardiac event) if she takes statin 8 am then by night time she will have these sx, if she doesn;t take statins that day she has no sx otherwise GERD is controlled with omeprazole constipation is worse with rice and bread, so tries to avoid she found miralax helped and needs refill she did see Dr Tai for assessment of a liver hemangioma which had been embolized before and had mentioned above sx to him, with clear association to statin timing and dosing. 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 class of drugs, Statins also affect NO pathway so if still has sig hemangioma maybe another mechanism of action in causing her sx--she has remained off statins, has mild ALT elevation likely MEDELLIN related she is also thought to have lactose intolerance lipids 06/2020--LDL--117, HDL-34, trig 129, LFT with mild ALT elevation LABS 02/2022-- bili -1.2, AST:37, ALT: 68, alk phos: 96 US: 07/19/21--Gb contracted, no gallstones, hypoechoic liver leison as noted before (presumably the embolized hemangioma area) colonoscopy 2017--hyperplastic polyps removed She had admission for pSBO and enteritis after eating stew, presumed infectious and quickly improved CTe: 02/2023 -no major abnormality seen REPEAT EGD/[place] 2022: gastritis, mild mild esophagitis inlet patch Colonoscopy Findings: internal hemorrhoids diverticular disease H pylori neg 2023 celiac neg 2021 NOTE: KUB did show metallic object in asc colon with fecal loading EGD/[place] 09/15/24 Endoscopy Findings: mild esophagitis gastritis Colonoscopy Findings: internal hemorrhoids Path: moderate gastric inflamamtion and esophagitis no ileitis on bx INTERIM: she denies abdominal pain appetite is fair no nausea, no vomiting occ diarrhea, but not that often her diet is poor, eats whatever she fancies EXAM: GENERAL: The patient is well developed and nontoxic. VITAL SIGNS:see workflow HEENT: Nonicteric sclerae, PERRLA, EOMI. Oropharynx clear. Moist mucous membranes. Conjunctivae appear well perfused. No thyroid mass. CHEST: Chest wall is nontender. HEART: Regular rate and rhythm without murmurs. LUNGS: Clear to auscultation bilaterally. ABDOMEN: Soft, positive bowel sounds, non tender, no organomegaly.no flank tenderness SKIN: mild seborrheic dermatitis NEUROLOGIC: Cranial nerves II-XII intact without motor/sensory deficit. A/P; 1/ ileitis and posisble foregin body in ascending colon--nothing seen on endoscopy, and symptoms are limited right now 2/ abn LFT due to suspected MEDELLIN, mild, PLAN: 1/ reviewed PPI, and taking as scheduled 2/ US liver with elastography, adevised on low fat diet, exercise --cont to monitor LFT periodically [facility] Medical History SBO (small bowel obstruction) Dysplasia of cervix, low grade (VIRGIE 1) Overweight (BMI 25.0-29.9) Anxiety Constipation Osteopenia Vitamin D deficiency GERD (gastroesophageal reflux disease) Elevated LFTs Hemangioma of liver Pure hypercholesterolemia Diabetes mellitus Surgical History History of esophagogastroduodenoscopy (EGD) History of resection of liver History of blood clots History of colonoscopy History of oral surgery History of tubal ligation Family History Father No problems noted. Mother Uterine cancer Colon cancer Maternal Grandmother No problems noted. Paternal Aunt Ovarian cancer Social History Household Members: Children Household Members Other:: daughter Housing: Assisted Living Facility Are you a primary healthcare administration internship to a significant other at home: No Do you presently have visiting nurse or other home services: No Alcohol intake: never Patient Tobacco Use Status: Never used Tobacco e-Cigarette/Vaping Use: Never Used Second Hand Smoke Exposure: No Advance Directives Date on File: 11/27/22 service: No Current occupational status: disabled Cognitive needs: No Hearing needs: No Vision needs: Yes Female Reproductive History Menstrual Age of Menarche: 14 Physical Exam Vital Signs: Last Vital Signs Pulse 65 10/23/24 09:40 BP 137/66 10/23/24 09:40 BMI result Body Mass Index 23.4 Assessment & Plan Assessment & Plan (1) Abnormal bowel habits: Code(s): R19.8 - Other specified symptoms and signs involving the digestive system and abdomen Category: Medical Plan: as above Orders: Orders US abdomen priest w elastography Today K74.60 - Unspecified cirrhosis of liver, K75.81 - Nonalcoholic steatohepatitis (MEDELLIN) Coding Level of Care Code Est Pt Level 3 (01437) Diagnoses Abnormal bowel habits R19.8
[2024-10-23 09:40] VITALS: BP 137/66; PULSE 65; BMI 23.4
--- OUTSIDE RECORDS SUMMARY | 2024-10-23 10:01 | XMS_ITS | Clinical Summary ---
Author Organization [employer] Address [address] [facility] [address] [place] [address] Care Team Providers Care Animal Shelter Worker Name Role Phone Selam Bryan MD Primary Care Provider [phone] Allergies Active Allergy Reactions Criticality Noted Date Comments Codeine Low 07/19/2022 Other reaction(s): dizziness, fainting Statins Low 07/19/2022 Other reaction(s): convulsion, dizziness, muscle pain Medications GaviLAX 17 GM/SCOOP powder MIX 17G (1 CAPFUL) WITH 8 OUNCES OF LIQUID AND DRINK ONCE DAILY 022 Active Blood Glucose Monitoring Suppl (FreeStyle [place] Lite) w/Device kit USE TO TEST BLOOD SUGAR TWICE DAILY 022 Active FreeStyle lancets USE SEG N LO INDICADO DOS VECES AL D A 022 Active omeprazole (PriLOSEC) [address] capsule TOME POOL C PSULA TODOS LOS D CUANDO SEA NECESARIO FOR ACID REFLUX 023 Active Calcium Carbonate-Vit D-Min (Calcium 1200) 6595-0845 MG-UNIT chewable tabletIndications :Other osteoporosis without current [...] breakfast and with evening meal. 120 capsule Active Blood Pressure kitIndications:El evated blood pressure [...] BLOOD SUGAR TWICE DAILY 100 strip Active ezetimibe (Zetia) 10 MG tablet TAKE ONE TABLET EVERY MORNING 90 tablet 1 025 Active Januvia 100 MG tabletIndications :Type 2 diabetes mellitus with hyperglycemia, without long-term current use of insulin ([facility]) TAKE ONE TABLET BY MOUTH EVERY MORNING 90 tablet 1 025 Active Januvia 100 MG tabletIndications :Type 2 diabetes mellitus with hyperglycemia, without long-term current use of insulin ([facility]) TAKE ONE TABLET [...] Encounters Date Type Department Care Team Description 10/07/2024 Telephone [facility] PEDS [address] [place] [address] Selam Bryan MD Lab Orders 09/30/2024 Refill [facility] [address] [place] [address] Selam Bryan MD Type 2 diabetes mellitus with hyperglycemia, without long-term current use of insulin ([facility]) 09/25/2024 Orders Only GENERIC EXTERNAL DATA DEPARTMENT Provider, Generic External Data 09/15/2024 Orders Only GENERIC EXTERNAL DATA DEPARTMENT Provider, Generic External Data 09/12/2024 Refill [facility] PED[facility] [address] [place] [address] Selam Bryan MD 08/18/2024 Telephone [facility] MEDICINE [address] [place] [address] nutrition appt request 07/30/2024 9:00 AM EST Nutrition [facility] DIABETES/NTRN [address] [place], [place] [phone] Ethel Cui RD Type 2 diabetes mellitus with hyperglycemia, without long-term current use of insulin ([facility]) (Primary Dx); Hyperlipidemia, unspecified hyperlipidemia type 07/30/2024 Travel from Last 3 Months Immunizations Name Administration [...] Care Team (Late st Contact Info) Description 10/30/2024 2:15 PM EDT Office Visit [facility] MED & PEDS [address] [place] [address] Selam Bryan MD [address] [place] [address] Health Maintenance Due Date Last Done Comments [...] 03/01/2023, Additional history exists Diabetes: Hemoglobin A1C 06/12/202412/11/ 024, 06/07/2023, 03/01/2023, Additional history exists SDOH [...] Procedure Name Priority Date/Time Associated Diagnosis Comments HELICOBACTER PYLORI, UREA BREATH TEST Routine 09/25/2024 9:23 AM EDT HEMATOXYLIN AND EOSIN STAIN Routine 09/15/2024 11:00 AM EDT GLUCOSE, WHOLE BLOOD Routine 09/15/2024 9:38 AM EDT BI MAMMOGRAM SCREENING TOMOSYNTHESIS BILATERAL Routine 03/26/2024 10:00 AM EDT THINPREP IMAGING PAP AND HPV MRNA E6/E7 WITH REFLEX TO HPV 16,18/45 Routine 12/26/2023 1:27 PM EDT POCT GLYCATED HEMOGLOBIN, TOTAL Routine 12/12/2023 11:43 AM EDT Type 2 diabetes mellitus with hyperglycemia, without long-term current use of insulin ([facility]) LIPID PANEL, STANDARD Routine 12/03/2023 9:21 AM EDT Hyperlipidemia, unspecified hyperlipidemia type HEPATITIS C ANTIBODY Routine 04/10/2023 9:10 AM EDT Encounter for health-related screening HIV ANTIBODY/ANTIGEN ([facility]) Routine 04/10/2023 9:10 AM EDT ALBUMIN, RANDOM URINE W/O CREATININE Routine 07/23/2022 9:00 AM EST Type 2 diabetes mellitus with hyperglycemia, without long-term current use of insulin ([facility]) from Last 3 Months or Most Recently Relevant to Health Maintenance Results * Helicobacter pylori, Urea Breath Test (09/25/2024 9:23 AM EDT) H. pylori Breath Test Negative Negative [facility] Comment:Antimicrobials, prot on pump inhibitors and bismuthpreparations are known to suppress H. pylori. Ingestingthese medications within two weeks prior to performing thebreath test may produce negative test results. A positiveresult is still clinically valid. 09/25/2024 9:23 AM EDT 09/25/2024 2:28 PM EDT us Generic External Data Provider LAB BLOOD ORDERAB LES Final Result [facility] [address] [place] [phone] * Hematoxylin and Eosin Stain (09/15/2024 11:00 AM EDT) 09/15/2024 11:0 0 AM EDT 09/15/2024 11:30 AM EDT Narrative [facility] - 09/17/2024 3:54 PM EDT ----- ------- Name: Trupti Kelly ?Age/Sex: 64/F ? : 1960 Unit#: [id number] ?? Attend Dr: Claudia Jarrell MD ?Re09/15/24 ?Status: DEP SDC ? Location: HO.SSS ?Disch: ? ----- ------- SPEC : [id number] ? RECD: 09/15/24-1130 ? STATUS: ??SOUT ? REQ NUM: [id number] ? PAM: 09/15/24-1100 ? SUBM DR: Claudia Jarrell MD ? ENTERED: ??09/15/24-1141 ?SP TYPE: Surgical ? OTHR DR: Selam [...] Kelly ?Age/Sex: 64/F ? : 1960 Unit#: [id number] ?? Attend Dr: Claudia Jarrell MD ?Re09/15/24 ?Status: DEP SDC ? Location: HO.SSS ?Disch: ? ----- ------- SPEC : [id number] ? RECD: 09/15/24-1129 ? STATUS: ??SOUT ? REQ NUM: [id number] ? PAM: 09/15/24-1100 ? SUBM DR: Claudia [...] Copies To: ?? Claudia Jarrell MD ?? [facility] ?? [address] ?? [place] [address] ?? [phone] ? CONTINUED ON NEXT PAGE ----- ------- Name: Trupti Kelly ?Age/Sex: 64/F ? : 1960 Unit#: [id number] ?? Attend Dr: Claudia Jarrell MD ?Re09/15/24 ?Status: DEP SDC ? Location: HO.SSS ?Disch: ? ----- ------- SPEC : [id number] ? RECD: 09/15/24 ? STATUS: ??SOUT ? REQ NUM: [id number] ? PAM: 09/15/24-1100 ? SUBM DR: Claudia Jarrell MD ? ENTERED: ??09/15/24-1140 ?SP TYPE: Surgical ? OTHR DR: Selam Bryan MD ? ORDERED: ??HE Stain/21, Gross Micro L4/7, IHC, Special st. 2/2, H. pylori, AB/PAS/2 ? Copies To: ??(Continued) ?? Selam Bryan MD ?? [address] ?? [place] [address] ?? [phone] ----- ------- Signed (signature on file) Randal Estevez MD 09/17/24 1554 ? ----- ------- ? END OF REPORT ? us Generic External Data Provider LAB BLOOD ORDERAB LES Final Result Performing Organization Address [facility] Co de Phone Number [facility] [address] [place] [address] [phone] * Glucose, Whole Blood (09/15/2024 9:38 AM EDT) Glucose, Whole Blood 92 60 - 115 mg/dL [facility] Comment:METER #: [id number] 09/15/2024 9:38 AM EDT 09/15/2024 10:10 AM EDT us Generic External Data Provider LAB BLOOD ORDERAB LES Final Result Performing Organization Address [facility]/ZIP Co de Phone Number [facility] [address] [place] [address] [phone] * BI Mammogram Screening Tomosynthesis Bilateral (03/26/2024 10:00 AM EDT) Anatomical Region Laterality Modality Breast Bilateral Mammography 03/26/2024 10:0 0 AM EDT Narrative 04/07/2024 12:17 PM EDT ? [facility] ? [address] ?[place] [address] ? Mammography Report ? Signed ? Patient: Trupti Kelly ?MR#: ?? [id number] ? : 1960 ?Acct:[id number] ? Age/Sex: 63 / F ?ADM Date: 03/26/24 ? Loc: HO.MAMMO ? Attending Dr: Davion Weathers MD ? Ordering Physician: Davion Weathers MD ?Results: 2Benign ?? Findings ? Date of Service: 03/26/24 ?Follow Up: 1 Year From Orig ?? inal Mammogram ? Procedure(s): MM tomosynthesis screening BI ?? Accession Number(s): [id number] ? cc: Selam Bryan MD; Davion Weathers [...] DD/ 1000 ? TD/TT: 03/26/24 1022 ? Assistant Plant Control Operator: ? Procedure Note Scottytiny, Image - 04/07/2024 Senthil [facility] [address] [place], [place] [address] Mammography Report Signed Patient: Trupti Kelly EMR#: [id number] : 1960cct:[id number] Age/Sex: 63 / FADM Date: 03/26/24 Loc: HO.MAMMO Attending Dr: Davion Weathers MD Ordering Physician: Davion Weathersesults: 2Benign Findings Date of Service: 03/26/24Follow Up: 1 Year From Orig inal Mammogram Procedure(s): MM tomosynthesis screening BI Accession Number(s): [id number] cc: Selam Bryan MD; Davion Weathers MD [...] Elena DO Signed By: <Electronically signed by Shae Elena DO in OV> 04/07/24 1214 DD/ 1000 TD/TT: 03/26/24 1022 Assistant Plant Control Operator: [facility] External Provider IMG BI PROCEDURES Final Result * ThinPrep Imaging Pap and HPV mRNA E6/E7 with Reflex to HPV 16,18/45 (12/26/2023 1:27 PM EDT) HPV 16 RNA [facility] HPV 18/45 RNA [facility] HPV nRNA E6/E7 Not Detected Not Detected [facility] Comment:Methodology: Transcr iption-Mediated AmplificationThis assay detects E6/E7 viral messenger RNA (mRNA) from 14high-risk HPV types (16,18,31,33,35,39,45,51,52,56,58,59,66,68).Cervical sources are required for HPV testing.If a vaginal source from a patient who has had atotal hysterectomy with removal of cervix wassubmitted, please contact the testing laboratoryfor alternative testing options.For additional information, please refer [email or web address].Restorius/faq/GJC368y7(This link if provided for information/educational purposes only.)THIS TEST WAS PERFORMED AT:[facility] [address] [phone] ENGLAND MD SOURCE: SEE NOTE [facility] Comment:Cervix Report Status: [facility] Clinical Information: SEE NOTE [facility] Comment:Routine exam LMP: SEE NOTE [facility] Comment:POSTMENOPAUSAL Prev. PAP: SEE NOTE [facility] Comment:2019 Prev. BX: SEE NOTE [facility] Comment:NONE GIVEN Statement Of Adequacy: SEE NOTE [facility] Comment:SATISFACTORY FOR JEFFERSON LUATION General Categorization: [facility] Interpretation/Result: SEE NOTE [facility] Comment:Cytology Results: Ne gative for intraepitheliallesion or malignancy.Atrophic pattern; predominantly parabasal cells Cytology Comment SEE NOTE [facility] Comment:This Pap test has be en evaluated with computerassisted technology. Vp Account Director: SEE NOTE [facility] Comment:ALEYDA, CT(ASCP)CT scre ening location: [address] [address] Review Vp Account Director: [facility] Pathologist [facility] PAP Infection [facility] See Note SEE NOTE [facility] Comment:EXPLANATORY NOTE:The Pap is a screening test for cervical cancer. It isnot a diagnostic test and is subject to false negativeand false positive results. It is most reliable when asatisfactory sample, regularly obtained, is submittedwith relevant clinical findings and history, and whenthe Pap result is evaluated along with historic andcurrent clinical information. 12/26/2023 1:27 PM EDT 12/26/2023 6:52 PM EDT Narrative [facility] - 01/01/2024 1:15 PM EDT SEE SCANNED RESULTS IN EMRWas previous PAP abnormal? UnknownClinical Information: routineCollection Date: 12/26/23igh risk HPV with 16 ?? 18 genotyping? YReflex HPV any abnormal diagnosis? YReflex HPV if ASCUS only? NHigh Risk HPV (any diagnosis)? YLMP: postmenopausalDate of previous PAP 2019Performed by: : [id number] us Generic External Data Provider LAB PATHOLOGY ORD ERABLES Final Result [facility] [address] [place] [address] [phone] * POCT A1C (12/12/2023 11:43 AM EDT) Hemoglobin A1C 5.9 4.0 - 6.0 % QC Media Lot # Comment:[id number] Lot# Expiration Date Comment:07/12/2025 Blood 12/12/2023 11:4 3 AM EDT us Selam Bryan MD POINT OF CARE TEST ENTER/EDIT ORDERABLES Final Result * (ABNORMAL) Lipid Panel, Standard (12/03/2023 9:21 AM EDT) Triglycerides 128 <150 mg/dL [facility] Comment:Desirable Triglyceri de: less than 150 mg/dLBorderline High Triglyceride 150-199 mg/dLHigh Triglyceride: 200-499 mg/dLVery High Triglyceride: greater than or equal to 5OO mg/dL Cholesterol 203(H) <200 mg/dL [facility] Comment:Desirable Cholestero l: less than 200 mg/dLBorderline High Cholesterol: 200-239 mg/dLHigh Cholesterol: greater than 239 mg/dL LDL Cholesterol Calculated 140(H) <100 mg/dL [facility] Comment:Desirable LDL: less than 100 mg/dLNear Optimal/Above Optimal LDL: 110- 129 mg/dLBorderline High LDL: 130-159 mg/dLHigh LDL: 160-189 mg/dLVery High LDL: greater than or equal to 190 mg/dL HDL Cholesterol 38(L) >40 mg/dL [facility] Comment:Desirable HDL: great er than 40 mg/dL Note: This HDL assay may give artificially low results in patients with liver disease. Blood Venous blood specimen / Unknown 12/03/2023 9:21 AM EDT 12/03/2023 2:23 PM EDT Selam Bryan MD LAB BLOOD ORDERABLES Final Re sult Performing Organization Address [facility] Co de Phone Number [facility] [address] [place] [phone] * Hepatitis C Ab (04/10/2023 9:10 AM EDT) Hepatitis C Antibody Nonreactive Nonreactive [facility] Comment:Antibodies to HCV no t detected; does not exclude early acuteHCV infection. Blood 04/10/2023 9:10 AM EDT 04/10/2023 2:55 PM EDT Selam Bryan MD LAB BLOOD ORDERABLES Final Re sult Performing Organization Address [facility] Co de Phone Number [facility] [address] [place] [phone] * HIV Ab/Ag ([facility]) (04/10/2023 9:10 AM EDT) Pathologist [facility] HIV AB/AG Nonreactive Nonreactive [facility] Comment:HIV-1 p24 Ag and/or HIV-1/HIV-2 Ab not detected.A test result that is nonreactive does not exclude thepossibility of exposure to or infection with HIV-1 and/orHIV-2. Nonreactive results in this assay for individualswith prior exposure to HIV-1 and/or HIV-2 may be due toantigen and antibody levels that are below the limit ofdetection of this assay.The [employer] HIV Ag/Ab Combo assay result andsupplemental assay results should be interpreted inconjunction with the patient's clinical presentation,history and other laboratory results. If the results areinconsistent with clinical evidence, additional testing issuggested to confirm the result. 04/10/2023 9:10 AM EDT 04/10/2023 2:55 PM EDT us Selam Bryan MD LAB BLOOD ORDERABLES Final Re sult Performing Organization Address City/[facility]/ZIP Co de Phone Number [facility] [address] [place] [address] [phone] * Albumin, Random Urine W/O Creatinine (07/23/2022 9:00 AM EST) Albumin, Urine 0.8 See Note: mg/dL [facility] Comment: Reference Range: Reference Range Not established [facility] [place] [facility] Comment: The ADA defines abnormalities in albumin [...] ORDERABLES Final Re sult Performing Organization Address City/[facility] Co de Phone Number [facility] [address] [place] [address] [facility] [address] [facility], ([address]) [place] [address] from Last 3 Months or Most Recently Relevant to Health Maintenance Insurance [employer] < 65 [place] [id number] Care Teams Animal Shelter Worker Relationship Specialty Start Date End Date Selam Bryan MD [address] [place] [phone] PCP - General Family Medicine 06/05/22
--- OUTSIDE RECORDS SUMMARY | 2024-10-23 10:01 | XMS_ITS | Encounter Summary ---
Author Organization [employer] Address [address] [facility] [address] [place] [address] Care Team Providers Care Community Reinvestment Act Officer Name Role Phone Selam Bryan MD Primary Care Provider [phone] Reason for Visit * Reason Comments Med Change Request Encounter Details Date Type Department Care Team ([facility] Contact Info) Description 07/19/2022 Refill [facility]S [address], [place] [phone] Selam Bryan MD [address] [place], [place] [phone] Other osteoporosis without current pathological fracture Social [...] Upcoming Encounters Date Type Department Care Team ([facility] Contact Info) Description 10/30/2024 2:15 PM EDT Office Visit [facility] [address] [place] [address] Selam Bryan MD [address] [place] [address] documented as of this encounter Visit Diagnoses Diagnosis Other osteoporosis without current pathological fracture documented in this encounter Additional Health Concerns Assessment Noted Time PHQ-9 Depression Total Score: 3 07/19/19 23 10:23 AM EST documented as of this encounter Care Teams Community Reinvestment Act Officer Relationship Specialty Start Date End Date Selam Bryan MD [address] [place] [phone] PCP - General Family Medicine 06/05/22 documented as of this encounter
== END 2024-10-23 10:21 | disposition home or self-care (01) ==
LOC: HO.HGI 09:39
PROVIDERS: PCP Family Medicine; Visit Provider Internal Medicine Gastroenterology
DX: R19.8 Other specified symptoms and signs involving the digestive system and abdomen (principal)
CPT/HCPCS: 99213

== ENCOUNTER → 2024-10-23 09:38 | Outpatient (BNVA) | payer OTHER, SELFPAY | PROVIDERS: PCP Family Medicine; Visit Provider Internal Medicine Gastroenterology | DX: K21.9 Gastro-esophageal reflux disease without esophagitis (principal); K74.60 Unspecified cirrhosis of liver; K75.81 Nonalcoholic steatohepatitis (NASH); R19.8 Other specified symptoms and signs involving the digestive system and abdomen | CPT/HCPCS: 99212 ==

== ENCOUNTER 2024-11-20 09:08 | Outpatient (REF) | payer OTHER, SELFPAY ==
--- OUTSIDE RECORDS SUMMARY | 2024-11-20 09:34 | XMS_ITS | Clinical Summary ---
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 Name Role Phone Selam Bryan MD Primary Care Provider [phone] Allergies Active Allergy Reactions Criticality Noted Date Comments Codeine Low 07/19/2022 Other reaction(s): dizziness, fainting Statins Low 07/19/2022 Other reaction(s): convulsion, dizziness, muscle pain Medications GaviLAX 17 GM/SCOOP powder MIX 17G (1 CAPFUL) WITH 8 OUNCES OF LIQUID AND DRINK ONCE DAILY 022 Active Blood Glucose Monitoring Suppl (FreeStyle [place] Lite) w/Device kit USE TO TEST BLOOD SUGAR TWICE DAILY 022 Active FreeStyle lancets USE SEG N LO INDICADO DOS VECES AL D A 022 Active omeprazole (PriLOSEC) [address] capsule TOME POOL C PSULA TODOS LOS D CUANDO SEA NECESARIO FOR ACID REFLUX 023 Active ondansetron ODT (Zofran-ODT) 4 MG disintegrating tablet 023 Active Na Sulfate-K Sulfate-Mg Sulf 17.5-3.13-1.6 GM/177ML solution 023 Active Icosapent Ethyl (Vascepa) 1 g capsule Take 2 capsules (2 g) by mouth with breakfast and with evening meal. 120 capsule 11 023 Active Blood Pressure kitIndications:El evated blood pressure reading 1 Units in the morning. 1 kit 023 Active simethicone (Simethicone Ultra Strength) 180 MG capsule TAKE ONE CAPSULE TWICE DAILY NEEDED 60 capsule 1 024 Active alpha tocopherol (Vitamin E) 400 units capsule Take 1 capsule (400 Units) by mouth Once per day. 90 capsule 1 024 Active Alcohol Swabs (Alcohol Prep) 70 % pads USE TWICE DAILY DIRECTED 100 each 024 Active FREESTYLE LITE test strip TEST BLOOD SUGAR TWICE DAILY 100 strip Active ezetimibe (Zetia) 10 MG tablet TAKE ONE TABLET EVERY MORNING 90 tablet 1 025 Active Januvia 100 MG tabletIndications :Type 2 diabetes mellitus with hyperglycemia, without long-term current use of insulin ([facility]) TAKE ONE TABLET BY MOUTH EVERY MORNING 90 tablet 1 025 Active ammonium lactate (Amlactin) 12 % cream Apply topically if needed for dry skin. 385 g 2 025 Active alendronate (Fosamax) 70 MG tabletIndications :Other osteoporosis without current pathological fracture Take 1 tablet (70 mg) by mouth every 7 (seven) days. Take in the morning with a full glass of water, on an empty stomach, and do not take anything else by mouth or lie down for the next 30 min. 4 tablet 11 025 Active cholecalciferol (D3-1000) 25 MCG (1000 UT) capsule Take 1 capsule (25 mcg) by mouth Once per day. 90 capsule 1 025 Active Calcium Carbonate-Vit D-Min (Calcium 1200) 2542-3522 MG-UNIT chewable tabletIndications :Other osteoporosis without current pathological fracture Chew 1 tablet Once per day. 90 tablet 4 025 Active Calcium Carbonate-Vit D-Min (Calcium 1200) 5843-0194 MG-UNIT chewable tabletIndications :Other osteoporosis without current pathological fracture Chew 1 tablet in the morning. 90 tablet 4 023 2024 Discontinued(R eorder (will not trigger notification to Pharmacy)) D3-1000 25 MCG (1000 UT) capsule TOME 1 CAPSULA POR VIA ORAL TODOS LOS CARDOSO 90 capsule 1 023 2024 Discontinued(R eorder (will not trigger notification to Pharmacy)) fenofibrate (Triglide) 160 MG tablet 0 Refills, Maintenance, 10/18/22 14:25:00 EDT, Partial fill upon patient request if the prescription is for a schedule II opioid drug. 023 2024 Discontinued(T herapy completed) alendronate (Fosamax) 70 MG tabletIndications :Other osteoporosis without current pathological fracture TAKE 1 TABLET ONCE A WEEK WITH 6 TO 8 OZ OF WATER 30 MINUTES BEFORE FIRST FOOD OF THE DAY. DO NOT LIE DOWN FOR 30 MINUTES. 4 tablet 11 024 2024 Discontinued(R eorder (will not trigger notification to Pharmacy)) Active Problems Problem Noted Date Diagnosed Date [...] use of insulin 07/19/2022 Assessment & Plan (11/03/2024 11:27 AM EDT): Controlled. Target A1c less than 7% Lab Results Component Value Date HGBA1C 6.1 (A) 10/30/2024 Continue Januvia. Follow-up in 4 months Assessment & Plan (12/12/2023 1:52 PM EDT): [...] Continue januvia. Hyperlipidemia 07/19/2022 Assessment & Plan (11/03/2024 11:27 AM EDT): Patient did not tolerate to statins. Will monitor her levels if not well- controlled consider referral to endocrinology for trial of other hyperlipidemia medications. Assessment & Plan (06/07/2023 3:43 PM EST): [...] Encounters Date Type Department Care Team Description 11/02/2024 11:00 AM EDT Clinical Support [facility] [address] [place] [address] Nilsa Rebollar RN Encounter for immunization 11/02/2024 Travel 10/30/2024 2:15 PM EDT Office Visit [facility] [address] [place] [address] Selam Bryan MD Type 2 diabetes mellitus with hyperglycemia, without long-term current use of insulin ([facility]) (Primary Dx); Hyperlipidemia, unspecified hyperlipidemia type; Dry skin; Other osteoporosis without current pathological fracture 10/30/2024 Travel 10/30/2024 Telephone [facility] [address] [place] [address] Selam Bryan MD 10/07/2024 Telephone [facility] [address] [place] [address] Selam Bryan MD Lab Orders 09/30/2024 Refill [facility] [address] [place] [address] Selam Bryan MD Type 2 diabetes mellitus with hyperglycemia, without long-term current use of insulin ([facility]) 09/25/2024 Orders Only GENERIC EXTERNAL DATA DEPARTMENT Provider, Generic External Data 09/15/2024 Orders Only GENERIC EXTERNAL DATA DEPARTMENT Provider, Generic External Data 09/12/2024 Refill [facility] [address] [place] [address] Selam Bryan MD from Last 3 Months Immunizations Immunization Administration Dates Next Due Hep A, Adult 11/02/2024 Hep B, adult 11/28/2015,08/29/2015,07/29/2015 Influenza injectable quadriv [...] the past 12 months, has t he [employer], gas, oil or water company threatened to [...] Sign Reading Time Taken Comments Blood Pressure 126/74 10/30/2024 2:03 PM EDT Pulse 72 10/30/2024 2:03 PM EDT Temperature 36.6 ??C (97.8 ??F) 10/30/2024 2:03 PM ED T Respiratory Rate 20 10/30/2024 2:03 PM EDT Oxygen Saturation 98% 10/30/2024 2:03 PM EDT Inhaled Oxygen Concentration - - Weight 58.9 kg (129 lb 12.8 oz) 10/30/2024 2:03 PM EDT Height 157.5 cm (5' 2 ) 10/30/2024 2:03 PM EDT Body Mass Index 23.74 10/30/2024 2:03 PM EDT Plan of Treatment Health Maintenance Due Date Last Done Comments CT Colonography 1960 Colonoscopy 1960 Colorectal Cancer Screening 1960 FIT DNA/Cologuard 1961 FIT 1960 FOBT 1960 Sigmoidoscopy 1960 Disability Screening 1961 Alcohol/Substance Use Screening 1973 RSV Patients and Patients Aged 60 years or older (1 - Risk 60-74 years 1-dose series) 2021 Depression Screening 07/19/2023 07/19/2022, 07/19/19 Diabetes: Urine Protein Screening 07/23/2023 07/23/2022 SDOH Screening 11/27/2024 11/28/2023 Lipid Panel 12/02/2024 12/03/2023, 06/17, 04/10/2023, Additional history exists Influenza Vaccine (Season Ended) 2025 03/01/2023, 03/08/2022 Diabetes: Hemoglobin A1C 05/02/2025 025, 12/12/2023, 06/07/2023, Additional history exists Hepatitis A Vaccines (2 of 2 - Risk 2-dose series) 05/05/2025 11/02/2024 Eye Exam 07/29/2025 COVID-19 Vaccine ( season) 2025 11/02/2021, 05/02/2021, 09/14/2020 Postponed from 02/16/2024 (Patient Refused) Diabetes: Foot Exam 10/30/2025 10/30/2024, 10/30/2024, 10/30/2024, Additional history exists Tobacco Screening 11/03/2025 11/03/2024 Mammogram 03/26/2026 03/26/2024, 02/21/2023 DTaP/Tdap/Td Vaccines (3 [...] patient's age to complete this topic Meningococcal B Vaccine Aged Out No l onger eligible based on patient's age to complete [...] Procedure Name Priority Date/Time Associated Diagnosis Comments POCT GLYCATED HEMOGLOBIN, TOTAL Routine 10/30/2024 2:36 PM EDT Type 2 diabetes mellitus with hyperglycemia, without long-term current use of insulin ([facility]) POCT GLUCOSE Routine 10/30/2024 2:36 PM EDT Type 2 diabetes mellitus with hyperglycemia, without long-term current use of insulin ([facility]) HP LINK DIABETIC FOOT EXAM Routine 10/30/2024 HELICOBACTER PYLORI, UREA BREATH TEST Routine 09/25/2024 9:23 AM EDT HEMATOXYLIN AND EOSIN STAIN Routine 09/15/2024 11:00 AM EDT GLUCOSE, WHOLE BLOOD Routine 09/15/2024 9:38 AM EDT BI MAMMOGRAM SCREENING TOMOSYNTHESIS BILATERAL Routine 03/26/2024 10:00 AM EDT THINPREP IMAGING PAP AND HPV MRNA E6/E7 WITH REFLEX TO HPV 16,18/45 Routine 12/26/2023 1:27 PM EDT LIPID PANEL, STANDARD Routine 12/03/2023 9:21 AM EDT Hyperlipidemia, unspecified hyperlipidemia type HEPATITIS C ANTIBODY Routine 04/10/2023 9:10 AM EDT Encounter for health-related screening HIV ANTIBODY/ANTIGEN ([place] DPH) Routine 04/10/2023 9:10 AM EDT ALBUMIN, RANDOM URINE W/O CREATININE Routine 07/23/2022 9:00 AM EST Type 2 diabetes mellitus with hyperglycemia, without long-term current use of insulin ([facility]) from Last 3 Months or Most Recently Relevant to Health Maintenance Results * (ABNORMAL) POCT HGB A1C (10/30/2024 2:36 PM EDT) Hemoglobin A1C 6.1(A) 4.0 - 6.0 % QC Media Lot # [id number] Lot# Expiration Date [id number] Blood 10/30/2024 2:36 PM EDT Selam Bryan MD POINT OF CARE TEST ENTER/EDIT ORDERABLES Final Result * POCT Glucose (10/30/2024 2:36 PM EDT) Glucose Blood, POC 168 60 - 200 mg/dL QC Media Lot # [id number] Lot# Expiration Date ,911 Blood Capillary blood specimen / Unknown 10/30/2024 2:36 PM EDT Selam Bryan MD POINT OF CARE TEST ENTER/EDIT ORDERABLES Final Result * HP Diabetic Foot Exam (10/30/2024) Narrative Selam Bryan MD - 10/30/2024 Dry skin, normal Selam Bryan MD HEALTH MAINTENANCE Final Resu lt * Helicobacter pylori, Urea Breath Test (09/25/2024 9:23 AM EDT) H. pylori Breath Test Negative Negative [facility] Comment:Antimicrobials, prot on pump inhibitors and bismuthpreparations are known to suppress H. pylori. Ingestingthese medications within two weeks prior to performing thebreath test may produce negative test results. A positiveresult is still clinically valid. 09/25/2024 9:23 AM EDT 09/25/2024 2:28 PM EDT us Generic External Data Provider LAB BLOOD ORDERAB LES Final Result [facility] [address] [place] [address] [phone] * Hematoxylin and Eosin Stain (09/15/2024 11:00 AM EDT) 09/15/2024 11:0 0 AM EDT 09/15/2024 11:30 AM EDT Narrative [facility] - 09/17/2024 3:54 PM EDT ----- ------- Name: Trupti Kelly ?Age/Sex: 64/F ? : 1960 Unit#: [id number] ?? Attend Dr: Claudia Jarrell MD ?Re09/15/24 ?Status: DEP SDC ? Location: HO.SSS ?Disch: ? ----- ------- SPEC : [id number] ? RECD: 09/15/24 ? STATUS: ??SOUT ? REQ NUM: [id number] ? PAM: 09/15/24-1100 ? SUBM DR: Claudia [...] CONTINUED ON NEXT PAGE ----- ------- Name: Trupit Kelly ?Age/Sex: 64/F ? : 1960 Unit#: [id number] ?? Attend Dr: Claudia Jarrell MD ?Re09/15/24 ?Status: DEP SDC ? Location: HO.SSS ?Disch: ? ----- ------- SPEC : [id number] ? RECD: 09/15/24 ? STATUS: ??SOUT ? REQ NUM: [id number] ? PAM: 09/15/24-1100 ? SUBM DR: Claudia [...] Copies To: ?? Claudia Jarrell MD ?? [facility] ?? [address] ?? [place] [address] ?? [phone] ? CONTINUED ON NEXT PAGE ----- ------- Name: Trupti Kelly ?Age/Sex: 64/F ? : 1960 Unit#: [id number] ?? Attend Dr: Claudia Jarrell MD ?Re09/15/24 ?Status: DEP [facility] ? Location: HO.SSS ?Disch: ? ----- ------- SPEC : [id number] ? RECD: 09/15/24 ? STATUS: ??SOUT ? REQ NUM: [id number] ? PAM: 09/15/24-1100 ? SUBM DR: Claudia Jarrell MD ? ENTERED: ??09/15/24-1140 ?SP TYPE: Surgical ? OTHR DR: Selam Bryan MD ? ORDERED: ??HE /, Gross Micro L4/7, IHC, Special st. 2/2, H. pylori, AB/PAS/2 ? Copies To: ??(Continued) ?? Selam Bryan MD ?? [address] ?? [place] [address] ?? [phone] ----- ------- Signed (signature on file) Randal Estevez MD 09/17/24 0764 ? ----- ------- ? END OF REPORT ? us Generic External Data Provider LAB BLOOD ORDERAB LES Final Result Performing Organization Address [facility] de Phone Number [facility] [address] [place] [address] [phone] * Glucose, Whole Blood (09/15/2024 9:38 AM EDT) Glucose, Whole Blood 92 60 - 115 mg/dL [facility] Comment:METER #: [id number] 09/15/2024 9:38 AM EDT 09/15/2024 10:10 AM EDT us Generic External Data Provider LAB BLOOD ORDERAB LES Final Result Performing Organization Address [facility] de Phone Number [facility] [address] [place] [address] [phone] * BI Mammogram Screening Tomosynthesis Bilateral (03/26/2024 10:00 AM EDT) Anatomical Region Laterality Modality Breast Bilateral Mammography 03/26/2024 10:0 0 AM EDT Narrative 04/07/2024 12:17 PM EDT ? [facility] ? [address] ?[place] [address] ? Mammography Report ? Signed ? Patient: Juan Osborn,Trupti E ?MR#: ?? [id number] ? : 1960 ?Acct:[id number] ? Age/Sex: 63 / F ?ADM Date: 10/10/24 ? Loc: HO.MAMMO ? Attending Dr: Davion Weathers MD ? Ordering Physician: Davion Weathers MD ?Results: 2Benign ?? Findings ? Date of Service: 03/26/24 ?Follow Up: 1 Year From Orig ?? inal Mammogram ? Procedure(s): MM tomosynthesis screening BI ?? Accession Number(s): [id number] ? cc: Selam Bryan MD; Davion Weathers [...] DD/ 1000 ? TD/TT: 03/26/24 1022 ? Sharepoint Net Developer: ? Procedure Note Donotuseinterpreter, Image - 04/07/2024 Senthil [facility] [place] [address] [place], [place] [address] Mammography Report Signed Patient: Trupti Kelly EMR#: [id number] : 1Acct:[id number] Age/Sex: 63 / FADM Date: 03/26/24 Loc: HO.MAMMO Attending Dr: Davion Weathers MD Ordering Physician: Davion Weathersesults: 2Benign Findings Date of Service: 03/26/24Follow Up: 1 Year From Orig inal Mammogram Procedure(s): MM tomosynthesis screening BI Accession Number(s): [id number] cc: Selam Bryan MD; Davion Weathers MD [...] 04/07/24 1214 DD/ 1000 TD/TT: 03/26/24 1022 Sharepoint Net Developer: us [facility] External Provider IMG BI PROCEDURES Final Result * ThinPrep Imaging Pap and HPV mRNA E6/E7 with Reflex to HPV 16,18/45 (12/26/2023 1:27 PM EDT) HPV 16 RNA [facility] HPV 18/45 RNA [facility] HPV nRNA E6/E7 Not Detected Not Detected [facility] Comment:Methodology: Transcr iption-Mediated AmplificationThis assay detects E6/E7 viral messenger RNA (mRNA) from 14high-risk HPV types (16,18,31,33,35,39,45,51,52,56,58,59,66,68).Cervical sources are required for HPV testing.If a vaginal source from a patient who has had atotal hysterectomy with removal of cervix wassubmitted, please contact the testing laboratoryfor alternative testing options.For additional information, please refer [email or web address](This link if provided for information/educational purposes only.)THIS TEST WAS PERFORMED AT:[facility] [place] [phone] ENGLAND MD SOURCE: SEE NOTE [facility] Comment:Cervix Report Status: [facility] Clinical Information: SEE NOTE [facility] Comment:Routine exam LMP: SEE NOTE [facility] Comment:POSTMENOPAUSAL Prev. PAP: SEE NOTE [facility] Comment:2019 Prev. BX: SEE NOTE [facility] Comment:NONE GIVEN Statement Of Adequacy: SEE NOTE [facility] Comment:SATISFACTORY FOR [employer]FF[employer] LUATION General Categorization: [facility] Interpretation/Result: SEE NOTE [facility] Comment:Cytology Results: Ne gative for intraepitheliallesion or malignancy.Atrophic pattern; predominantly parabasal cells Cytology Comment SEE NOTE [facility] Comment:This Pap test has be en evaluated with computerassisted technology. Ball Shagger: SEE NOTE [facility] Comment:ALEYDA, CT(ASCP)CT scre ening location: [address] [address] Review Ball Shagger: LAJeimy [facility] Pathologist [facility] PAP Infection [facility] See Note SEE NOTE [facility] Comment:EXPLANATORY NOTE:The Pap is a [...] EDT 12/26/2023 6:52 PM EDT Narrative [facility] - 01/01/2024 1:15 PM EDT SEE SCANNED RESULTS IN EMRWas previous PAP abnormal? UnknownClinical Information: routineCollection Date: 12/26/23igh risk HPV with 16 ?? 18 genotyping? YReflex HPV any abnormal diagnosis? YReflex HPV if ASCUS only? NHigh Risk HPV (any diagnosis)? YLMP: postmenopausalDate of previous PAP 2019Performed by: : [id number] us Generic External Data Provider LAB PATHOLOGY ORD ERABLES Final Result [facility] [address], [place] [phone] * (ABNORMAL) Lipid Panel, Standard (12/03/2023 9:21 AM EDT) Triglycerides 128 <150 mg/dL [facility] Comment:Desirable Triglyceri de: less than 150 mg/dLBorderline High Triglyceride 150-199 mg/dLHigh Triglyceride: 200-499 mg/dLVery High Triglyceride: greater than or equal to 5OO mg/dL Cholesterol 203(H) <200 mg/dL [facility] Comment:Desirable Cholestero l: less than 200 mg/dLBorderline High Cholesterol: 200-239 mg/dLHigh Cholesterol: greater than 239 mg/dL LDL Cholesterol Calculated 140(H) <100 mg/dL [facility] Comment:Desirable LDL: less than 100 mg/dLNear Optimal/Above Optimal LDL: 110- 129 mg/dLBorderline High LDL: 130-159 mg/dLHigh LDL: 160-189 mg/dLVery High LDL: greater than or equal to 190 mg/dL HDL Cholesterol 38(L) >40 mg/dL [facility] Comment:Desirable HDL: great er than 40 mg/dL Note: This HDL assay may give artificially low results in patients with liver disease. Blood Venous blood specimen / Unknown 12/03/2023 9:21 AM EDT 12/03/2023 2:23 PM EDT Selam Bryan MD LAB BLOOD ORDERABLES Final Re sult Performing Organization Address [facility] Co de Phone Number [facility] [address] [place] [phone] * Hepatitis C Ab (04/10/2023 9:10 AM EDT) Hepatitis C Antibody Nonreactive Nonreactive [facility] Comment:Antibodies to HCV no t detected; does not exclude early acuteHCV infection. Blood 04/10/2023 9:10 AM EDT 04/10/2023 2:55 PM EDT Selam Bryan MD LAB BLOOD ORDERABLES Final Re sult Performing Organization Address [facility] Co de Phone Number [facility] [address] [place] [phone] * HIV Ab/Ag (JADEN GARRISON) (04/10/2023 9:10 AM EDT) HIV AB/AG Nonreactive Nonreactive [facility] Comment:HIV-1 p24 Ag and/or HIV-1/HIV-2 Ab not detected.A test result that is nonreactive does not exclude thepossibility of exposure to or infection with HIV-1 and/orHIV-2. Nonreactive results in this assay for individualswith prior exposure to HIV-1 and/or HIV-2 may be due toantigen and antibody levels that are below the limit ofdetection of this assay.The mapp2link Alinity HIV Ag/Ab Combo assay result andsupplemental assay results should be interpreted inconjunction with the patient's clinical presentation,history and other laboratory results. If the results areinconsistent with clinical evidence, additional testing issuggested to confirm the result. 04/10/2023 9:10 AM EDT 04/10/2023 2:55 PM EDT Selam Bryan MD LAB BLOOD ORDERABLES Final Re sult Performing Organization Address [facility] Co de Phone Number [facility] [address] [place] [phone] * Albumin, Random Urine W/O Creatinine (07/23/2022 9:00 AM EST) Albumin, Urine 0.8 See Note: mg/dL [facility] Comment: Reference Range: Reference Range Not established ALEYDA Appear [email or web address] [place] [email or web address] Comment: The ADA defines abnormalities in albumin [...] Performing Organization Address City/[facility] Co de Phone Number [address], [place] [address] [facility] [place] [facility] [address], ([address]) [place] [address] from Last 3 Months or Most Recently Relevant to Health Maintenance Insurance [employer] CARE < 65 [facility] ST[employer] Care Teams 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
[2024-11-20 14:08] LABS: MANUAL DIFF FLAG NO
[2024-11-20 14:19] LABS: Basophils Percent Auto 0.4 % (0-2); Eosinophils Absolute Auto 0.1 X10*3/uL (0.0-0.4); Eosinophils Percent Auto 1.7 % (0-4); Hematocrit 39.2 % (37.0-47.0); Hemoglobin 13.4 g/dl (12.0-16.0); Lymphocytes Absolute Auto 1.3 X10*3/uL (1.2-4.9); Lymphocytes Percent Auto 27.9 % (20-40); Mean Corpuscular HGB Conc 34.2 g/dl (31.0-35.0); Mean Corpuscular Hemoglobin 30.1 pg (27.0-33.0); Mean Corpuscular Volume 88.1 fL (80.0-98.0); Mean Platelet Volume 11.8 fL (9.4-12.3); Monocytes Absolute Auto 0.4 X10*3/uL (0.1-1.2); Monocytes Percent Auto 8.5 % (2-11); Neutrophils Absolute Auto 2.8 x10*3/uL (2.0-8.3); Neutrophils Percent Auto 61.5 % (45-73); Platelet Count 264 X10*3/uL (160-400); Red Blood Count 4.45 X10*6/uL (4.20-5.50); Red Cell Distribution Width 11.5 % (11.0-16.0); White Blood Count 4.6 X10*3/uL (4.8-10.8)
[2024-11-20 14:51] LABS: TSH reflex Free T4 1.73 uIU/mL (0.32-4.0)
[2024-11-20 15:11] LABS: Anion Gap 8 (12-20)
[2024-11-20 15:16] LABS: Alanine Aminotransferase 32 U/L (0-31); Albumin Level 4.5 g/dL (3.5-5.0); Alkaline Phosphatase 59 U/L (39-117); Aspartate Amino Transferase 26 U/L (5-31); Blood Urea Nitrogen 18 mg/dL (9-16); Calcium 9.8 mg/dL (8.4-10.2); Carbon Dioxide 32 mmol/L (22-29); Chloride 104 mmol/L (96-108); Cholesterol 185 mg/dL (<200); Estimated Glomerular Filt Rate > 60; Glucose Random 108 mg/dL (60-115); HDL Cholesterol 36 mg/dL (>40); LDL Cholesterol Calculated 128 mg/dL (<100); Potassium 4.3 mmol/L (3.3-5.1); Sodium 140 mmol/L (135-145); Total Protein 7.4 g/dL (6.5-8.0); Triglycerides 105 mg/dL (<150)
== END 2024-11-20 09:09 | disposition home or self-care (01) ==
LOC: HO.CHCLDS 09:08
PROVIDERS: Visit Provider Family Medicine
DX: E11.65 Type 2 diabetes mellitus with hyperglycemia (principal); E78.5 Hyperlipidemia, unspecified
CPT/HCPCS: 36415; 80053; 80061; 84443; 85025

== ENCOUNTER 2024-12-17 09:58 | Outpatient (AMB) | payer OTHER, SELFPAY ==
--- NOTE | 2024-12-17 10:08 | MHC.OFFVIS ---
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 No complaints. Last Pap/HPV was negative in 01/07 Last Mammogram was BI-RADS 2 in 04/09 Last Colonoscopy was in 10/09 [facility] Medical History SBO (small bowel obstruction) Dysplasia of cervix, low grade (VIRGIE 1) Overweight (BMI 25.0-29.9) Anxiety Constipation Osteopenia Vitamin D deficiency GERD (gastroesophageal reflux disease) Elevated LFTs Hemangioma of liver Pure hypercholesterolemia Diabetes mellitus Surgical History History of esophagogastroduodenoscopy (EGD) History of resection of liver History of blood clots History of colonoscopy History of oral surgery History of tubal ligation Family History Father No problems noted. Mother Uterine cancer Colon cancer Maternal Grandmother No problems noted. Paternal Aunt Ovarian cancer Social History Household Members: Children Household Members Other:: daughter Housing: Assisted Living Facility Are you a primary customer care specialist to a significant other at home: No Do you presently have visiting nurse or other home services: No Alcohol intake: never Patient Tobacco Use Status: Never used Tobacco e-Cigarette/Vaping Use: Never Used Second Hand Smoke Exposure: No Advance Directives Date on File: 11/27/22 service: No Current occupational status: disabled Cognitive needs: No Hearing needs: No Vision needs: Yes Female Reproductive History Menstrual Age of Menarche: 14 Menopause type: natural Date of last pap smear: 12/26/23 Date of Mammogram: 03/26/24 Review of Systems Const All systems reviewed & are unremarkable except as noted in HPI and below Card Reports as per HPI Resp Reports as per HPI GI Reports as per HPI and Reports no additional complaints Reports as per HPI Physical Exam Vital Signs: BMI result Body Mass Index 23.8 Const General: cooperative, healthy appearing and comfortable Chest Chest palpation & inspection: normal inspection of the chest and normal palpation of entire chest wall Breast/axilla inspection: normal inspection of the breasts and normal inspection of the axillae Breast/axilla palpation: normal palpation of the breasts, normal palpation of the axillae and no axillary lymphadenopathy Resp Effort & Inspection: normal respiratory effort Auscultation: clear to auscultation bilaterally Percussion: percussion normal Cardio Palpation: normal PMI Rate: regular rate Rhythm: regular rhythm Heart sounds: no murmurs and no rubs Peripheral pulses: Peripheral pulses 2+ throughout GI Inspection: Yes normal to inspection Palpation (GI): Soft to palpation, nontender, no guarding, not rigid and No hepatosplenomegaly present Percussion: Yes normal to percussion Auscultation: normal bowel sounds Rectal Exam - Female: deferred General: Yes bladder normal to palpation External Female Exam: No lesion Speculum Exam - Vagina: normal appearance of the vagina, normal palpation, normal vaginal discharge and not erythematous Speculum Exam - Cervix: normal appearance of the cervix and normal palpation Bimanual exam- vagina & uterus: normal bimanual exam, normal palpation, uterine size normal, bladder normal to palpation, consistency normal and normal palpation Bimanual Exam- Adnexa, other: normal adnexae, no masses and no tenderness Assessment & Plan Assessment & Plan (1) Well woman exam: Code(s): Z01.419 - Encounter for gynecological examination (general) (routine) without abnormal findings Category: Medical Plan: Co testing not indicated this year. Counseled the patient about the recommended dietary allowance of 1200 mg of Calcium & 600 IU of vitamin D. Instructions given to patient to schedule next screening Mammogram in 04/10. The patient was referred to GI for screening colonoscopy . The patient was instructed to perform monthly self-breast exams and schedule annual exam in a year. All questions answered and the patient verbalized understanding. Coding Level of Care Code Est Pt Prev Care 40-64y(54773) Diagnoses Well woman exam Z01.419
[2024-12-17 10:10] VITALS: BMI 23.8
--- OUTSIDE RECORDS SUMMARY | 2024-12-17 10:33 | XMS_ITS | Clinical Summary ---
Author Organization [employer] Address [address] [facility] [address] [place] [address] Care Team Providers Care Textile Stylist Name Role Phone Selam Bryan MD Primary Care Provider Allergies Active Allergy Reactions Criticality Noted Date Comments Codeine Low 07/19/2022 Other reaction(s): dizziness, fainting Statins Low 07/19/2022 Other reaction(s): convulsion, dizziness, muscle pain Medications GaviLAX 17 GM/SCOOP powder MIX 17G (1 CAPFUL) WITH 8 OUNCES OF LIQUID AND DRINK ONCE DAILY 2 Active Blood Glucose Monitoring Suppl (FreeStyle [place] Lite) w/Device kit USE TO TEST BLOOD SUGAR TWICE DAILY 2 Active FreeStyle lancets USE SEG N LO INDICADO DOS VECES AL D A 2 Active omeprazole (PriLOSEC) [address] capsule TOME POOL C PSULA TODOS LOS D CUANDO SEA NECESARIO FOR ACID REFLUX 3 Active ondansetron ODT (Zofran-ODT) 4 MG disintegrating tablet 3 Active Na Sulfate-K Sulfate-Mg Sulf 17.5-3.13-1.6 GM/177ML solution 3 Active Icosapent Ethyl (Vascepa) 1 g capsule Take 2 capsules (2 g) by mouth with breakfast and with evening meal. 120 capsule 11 3 Active Blood Pressure kitIndications:Jewell vated blood pressure reading 1 Units in the morning. 1 kit 3 Active simethicone (Simethicone Ultra Strength) 180 MG capsule TAKE ONE CAPSULE TWICE DAILY NEEDED 60 capsule 1 4 Active alpha tocopherol (Vitamin E) 400 units capsule Take 1 capsule (400 Units) by mouth Once per day. 90 capsule 1 4 Active Alcohol Swabs (Alcohol Prep) 70 % pads USE TWICE DAILY DIRECTED 100 each 11 4 Active FREESTYLE LITE test strip TEST BLOOD SUGAR TWICE DAILY 100 strip 11 4 Active ezetimibe (Zetia) 10 MG tablet TAKE ONE TABLET EVERY MORNING 90 tablet 1 5 Active Januvia 100 MG tabletIndications: Type 2 diabetes mellitus with hyperglycemia, without long-term current use of insulin ([facility]) TAKE ONE TABLET BY MOUTH EVERY MORNING 90 tablet 1 5 Active ammonium lactate (Amlactin) 12 % cream Apply topically if needed for dry skin. 385 g 2 5 Active alendronate (Fosamax) 70 MG tabletIndications: Other osteoporosis without current pathological fracture Take 1 tablet (70 mg) by mouth every 7 (seven) days. Take in the morning with a full glass of water, on an empty stomach, and do not take anything else by mouth or lie down for the next 30 min. 4 tablet 11 5 Active cholecalciferol (D3-1000) 25 MCG (1000 UT) capsule Take 1 capsule (25 mcg) by mouth Once per day. 90 capsule 1 5 Active Calcium Carbonate-Vit D-Min (Calcium 1200) 0386-4657 MG-UNIT chewable tabletIndications: Other osteoporosis without current pathological fracture Chew 1 tablet Once per day. 90 tablet 4 5 Active Active Problems Problem Noted Date Diagnosed [...] [facility] [address] [place] [address] Nilsa Rebollar RN Encounter for immunization 11/02/2024 Travel 10/30/2024 2:15 PM EDT Office Visit [facility] [address] [place] [address] Selam Bryan MD Type 2 diabetes mellitus with hyperglycemia, without long-term current use of insulin ([facility]) (Primary Dx); Hyperlipidemia, unspecified hyperlipidemia type; Dry skin; Other osteoporosis without current pathological fracture 10/30/2024 Travel 10/30/2024 Telephone [facility] [address] [place] [address] Selam Bryan MD 10/07/2024 Telephone [facility] [address] [place] [address] Selam Bryan MD Lab Orders 09/30/2024 Refill [facility] [address] [place] [address] Selam Bryan MD Type 2 diabetes mellitus with hyperglycemia, without long-term current use of insulin ([facility]) 09/25/2024 Orders Only GENERIC EXTERNAL DATA DEPARTMENT Provider, Generic External Data from Last 3 Months Immunizations Immunization Administration [...] 72 10/30/2024 2:03 PM EDT Temperature 36.6 C (97.8 F) 10/30/2024 2:03 PM EDT Respiratory Rate 20 10/30/2024 2:03 PM EDT [...] Screening 07/23/2023 07/23/2022 SDOH Screening 11/27/2024 11/28/2023 Influenza Vaccine (Season Ended) 2025 03/01/2023, 03/08/2022 Diabetes: Hemoglobin A1C 05/02/2025 025, 12/12/2023, 06/07/2023, Additional history exists Hepatitis A Vaccines (2 of 2 - Risk 2-dose series) 05/05/2025 11/02/2024 Eye Exam 07/29/2025 COVID-19 Vaccine ( season) 2025 11/02/2021, 05/02/2021, 09/14/2020 Postponed from 02/16/2024 (Patient Refused) Diabetes: Foot Exam 10/30/2025 10/30/2024, 10/30/2024, 10/30/2024, Additional history exists Tobacco Screening 11/03/2025 11/03/2024 Lipid Panel 11/20/2025 11/20/2024, 11/15, 07/04/2023, Additional history exists Mammogram 03/26/2026 03/26/2024, 02/21/2023 DTaP/Tdap/Td Vaccines (3 [...] Procedure Name Priority Date/Time Associated Diagnosis Comments TSH W/REFLEX TO FT4 Routine 11/20/2024 1 2:00 AM EDT Type 2 diabetes mellitus with hyperglycemia, without long-term current use of insulin ([facility]) CBC WITH AUTO DIFFERENTIAL Routine 11/20/2024 12:00 AM EDT Type 2 diabetes mellitus with hyperglycemia, without long-term current use of insulin (CMS/HCC) COMPREHENSIVE METABOLIC PANEL Routine 11/20/2024 12:00 AM EDT Type 2 diabetes mellitus with hyperglycemia, without long-term current use of insulin (CMS/HCC) LIPID PANEL, STANDARD Routine 11/20/2024 12:00 AM EDT Hyperlipidemia, unspecified hyperlipidemia type POCT GLYCATED HEMOGLOBIN, TOTAL Routine 10/30/2024 2:36 PM EDT Type 2 diabetes mellitus with hyperglycemia, without long-term current use of insulin (CMS/HCC) POCT GLUCOSE Routine 10/30/2024 2:36 PM EDT Type 2 diabetes mellitus with hyperglycemia, without long-term current use of insulin ([facility]) HP LINK DIABETIC FOOT EXAM Routine 10/30/2024 HELICOBACTER PYLORI, UREA BREATH TEST Routine 09/25/2024 9:23 AM EDT BI MAMMOGRAM SCREENING TOMOSYNTHESIS BILATERAL Routine 03/26/2024 10:00 AM EDT THINPREP IMAGING PAP AND HPV MRNA E6/E7 WITH REFLEX TO HPV 16,18/45 Routine 12/26/2023 1:27 PM EDT HEPATITIS C ANTIBODY Routine 04/10/2023 9:10 AM EDT Encounter for health-related screening HIV ANTIBODY/ANTIGEN ([facility]) Routine 04/10/2023 9:10 AM EDT ALBUMIN, RANDOM URINE W/O CREATININE Routine 07/23/2022 9:00 AM EST Type 2 diabetes mellitus with hyperglycemia, without long-term current use of insulin ([facility]) from Last 3 Months or Most Recently Relevant to Health Maintenance Results * TSH W/Reflex to FT4 (11/20/2024 12:00 AM EDT) TSH reflex Free T4 1.73 0.32 - 4.0 uIU/mL [facility] Blood Venous blood specimen / Unknown 11/20/2024 11/20/2024 us Selam Bryan MD LAB BLOOD ORDERABLES Final Re sult [facility] [address] [place] [phone] * (ABNORMAL) CBC auto differential (11/20/2024 12:00 AM EDT) White Blood Count 4.6(L) 4.8 - 10.8 X10*3/uL [facility] Red Blood Count 4.45 4.20 - 5.50 X10*6/uL [facility] Hemoglobin 13.4 12.0 - 16.0 g/dl [facility] Hematocrit 39.2 37.0 - 47.0 % [facility] Mean Corpuscular Volume 88.1 80.0 - 98.0 fL [facility] Mean Corpuscular Hemoglobin 30.1 27.0 - 33.0 pg [facility] Mean Corpuscular HGB Conc 34.2 31.0 - 35.0 g/dl [facility] Red Cell Distribution Width 11.5 11.0 - 16.0 % [facility] Platelet Count 264 160 - 400 X10*3/uL [facility] Mean Platelet Volume 11.8 9.4 - 12.3 fL [facility] Neutrophils Percent Auto 61.5 45 - 73 % [facility] Imm Gran Pct Auto 0.0 0.0 - 0.4 % [facility] Lymphocytes Percent Auto 27.9 20 - 40 % [facility] Monocytes Percent Auto 8.5 2 - 11 % [facility] Eosinophils Percent Auto 1.7 0 - 4 % [facility] Basophils Percent Auto 0.4 0 - 2 % [facility] NRBC Pct Auto 0.0 0.0 - 0.2 /100WBC [facility] Neutrophils Absolute Auto 2.8 2.0 - 8.3 x10*3/uL [facility] Imm Gran Abs Auto 0.00 0.00 - 0.03 X10*3/uL [facility] Lymphocytes Absolute Auto 1.3 1.2 - 4.9 X10*3/uL [facility] Monocytes Absolute Auto 0.4 0.1 - 1.2 X10*3/uL [facility] Eosinophils Absolute Auto 0.1 0.0 - 0.4 X10*3/uL [facility] Basophils Absolute Auto 0.0 0.0 - 0.2 X10*3/uL [facility] NRBC Abs Auto 0.000 0.0 - 0.012 X10*3/uL [facility] Blood Venous blood specimen / Unknown 11/20/2024 11/20/2024 us Selam Bryan MD LAB BLOOD ORDERABLES Final Re sult Performing Organization Address City/[facility] Co de Phone Number [facility] [address] [place] [phone] * (ABNORMAL) Lipid Panel, Standard (11/20/2024 12:00 AM EDT) Triglycerides 105 <150 mg/dL [facility] Comment:Desirable Triglyceri de: less than 150 mg/dLBorderline High Triglyceride 150-199 mg/dLHigh Triglyceride: 200-499 mg/dLVery High Triglyceride: greater than or equal to 5OO mg/dL Cholesterol 185 <200 mg/dL [facility] Comment:Desirable Cholestero l: less than 200 mg/dLBorderline High Cholesterol: 200-239 mg/dLHigh Cholesterol: greater than 239 mg/dL LDL Cholesterol Calculated 128(H) <100 mg/dL [facility] Comment:Desirable LDL: less than 100 mg/dLNear Optimal/Above Optimal LDL: 110- 129 mg/dLBorderline High LDL: 130-159 mg/dLHigh LDL: 160-189 mg/dLVery High LDL: greater than or equal to 190 mg/dL HDL Cholesterol 36(L) >40 mg/dL [facility] Comment:Desirable HDL: great er than 40 mg/dL Note: This HDL assay may give artificially low results in patients with liver disease. Blood Venous blood specimen / Unknown 11/20/2024 11/20/2024 us Selam Bryan MD LAB BLOOD ORDERABLES Final Re sult Performing Organization Address [facility]/ZIP Co de Phone Number [facility] [address] [place] [phone] * (ABNORMAL) Comprehensive Metabolic Panel (11/20/2024 12:00 AM EDT) Sodium 140 135 - 145 mmol/L [facility] Potassium 4.3 3.3 - 5.1 mmol/L [facility] Chloride 104 96 - 108 mmol/L [facility] Carbon Dioxide 32(H) 22 - 29 mmol/L [facility] Anion Gap 8(L) 12 - 20 [facility] Urea Nitrogen (BUN) 18(H) 9 - 16 mg/dL [facility] Creatinine, Serum 0.60 0.5 - 1.4 mg/dL [facility] Estimated Glomerular Filt Rate >60 [facility] Comment:Chronic Kidney Disea se: Estimated GFR < 60 mL/min/1.42w1Tnhecv Kidney Disease: Estimated GFR < 15 mL/min/1.73m2 Glucose 108 60 - 115 mg/dL [facility] Calcium 9.8 8.4 - 10.2 mg/dL [facility] Bilirubin, Total 1.0 0.0 - 1.0 mg/dL [facility] Aspartate Amino Transferase 26 5 - 31 U/L [facility] Alanine Aminotransferase 32(H) 0 - 31 U/L [facility] Total Protein 7.4 6.5 - 8.0 g/dL [facility] Albumin Level 4.5 3.5 - 5.0 g/dL [facility] Alkaline Phosphatase 59 39 - 117 U/L [facility] Blood Venous blood specimen / Unknown 11/20/2024 11/20/2024 us Selam Bryan MD LAB BLOOD ORDERABLES Final Re sult [facility] [address] [place] [phone] [phone] * (ABNORMAL) POCT HGB A1C (10/30/2024 2:36 PM EDT) Hemoglobin A1C 6.1(A) 4.0 - 6.0 % QC Media Lot # [id number] Lot# Expiration Date 122, Blood 10/30/2024 2:36 PM EDT Selam Bryan MD POINT OF CARE TEST ENTER/EDIT ORDERABLES Final Result * POCT Glucose (10/30/2024 2:36 PM EDT) Glucose Blood, POC 168 60 - 200 mg/dL QC Media Lot # [id number] Lot# Expiration Date ,567 Blood Capillary blood specimen / Unknown 10/30/2024 2:36 PM EDT Selam Bryan MD POINT OF CARE TEST ENTER/EDIT ORDERABLES Final Result * HP Diabetic Foot Exam (10/30/2024) Narrative Selam Bryan MD - 10/30/2024 Dry skin, normal Selam Bryan MD HEALTH MAINTENANCE Final Resu lt * Helicobacter pylori, Urea Breath Test (09/25/2024 9:23 AM EDT) H. pylori Breath Test Negative Negative [facility] Comment:Antimicrobials, prot on pump inhibitors and bismuthpreparations are known to suppress H. pylori. Ingestingthese medications within two weeks prior to performing thebreath test may produce negative test results. A positiveresult is still clinically valid. 09/25/2024 9:23 AM EDT 09/25/2024 2:28 PM EDT us Generic External Data Provider LAB BLOOD ORDERAB LES Final Result [facility] [address] [place] [phone] * BI Mammogram Screening Tomosynthesis Bilateral (03/26/2024 10:00 AM EDT) Anatomical Region Laterality Modality Breast Bilateral Mammography 03/26/2024 10:0 0 AM EDT Narrative 04/07/2024 12:17 PM EDT [address] [place] [address] Mammography Report Signed Patient: Trupti Kelly MR#: [id number] : 1960 Acct:[id number] Age/Sex: 63 / F ADM Date: 03/26/24 Loc: HO.MAMMO Attending Dr: Davion Weathers MD Ordering Physician: Davion Weathers MD Results: 2Benign Findings Date of Service: 03/26/24 Follow Up: 1 Year From Orig inal Mammogram Procedure(s): MM tomosynthesis screening BI Accession Number(s): [id number] cc: Selam Bryan MD; Davion Weathers MD [...] 04/07/24 1214 DD/ 1000 TD/TT: 03/26/24 1022 Lead Technologist In Cytogenetics: Procedure Note Donotuseinterpreter, Image - 04/07/[address] [place] [address] Mammography Report Signed Patient: Trupti Kelly EMR#: [id number] : 1960cct:[id number] Age/Sex: 63 / FADM Date: 03/26/24 Loc: HO.MAMMO Attending Dr: Davion Weathers MD Ordering Physician: Davion Weathers MDResults: 2Benign Findings Date of Service: 03/26/24Follow Up: 1 Year From Orig inal Mammogram Procedure(s): MM tomosynthesis screening BI Accession Number(s): [id number] cc: Selam Bryan MD; Davion Weathers MD [...] 04/07/24 1214 DD/ 1000 TD/TT: 03/26/24 1022 Lead Technologist In Cytogenetics: [facility] External Provider IMG BI PROCEDURES Final Result * ThinPrep Imaging Pap and HPV mRNA E6/E7 with Reflex to HPV 16,18/45 (12/26/2023 1:27 PM EDT) HPV 16 RNA [facility] HPV 18/45 RNA [facility] HPV nRNA E6/E7 Not Detected Not Detected [facility] Comment:Methodology: Transcr iption-Mediated AmplificationThis assay detects E6/E7 viral messenger RNA (mRNA) from 14high-risk HPV types (16,18,31,33,35,39,45,51,52,56,58,59,66,68).Cervical sources are required for HPV testing.If a vaginal source from a patient who has had atotal hysterectomy with removal of cervix wassubmitted, please contact the testing laboratoryfor alternative testing options.For additional information, please refer [email or web address].[email or web address] electronics/faq/[email or web address](This link if provided for information/educational purposes only.)THIS TEST WAS PERFORMED AT:[facility] [address] [phone] ENGLAND MD SOURCE: SEE NOTE [facility] Comment:Cervix Report Status: [facility] Clinical Information: SEE NOTE [facility] Comment:Routine exam LMP: SEE NOTE [facility] Comment:POSTMENOPAUSAL Prev. PAP: SEE NOTE [facility] Comment:2019 Prev. BX: SEE NOTE [facility] Comment:NONE GIVEN Statement Of Adequacy: SEE NOTE [facility] Comment:S[employer]IS[employer]ORY FOR [employer] General Categorization: [facility] Interpretation/Result: SEE NOTE [facility] Comment:Cytology Results: Ne gative for intraepitheliallesion or malignancy.Atrophic pattern; predominantly parabasal cells Cytology Comment SEE NOTE [facility] Comment:This Pap test has be en evaluated with computerassisted technology. Calibration Technician: SEE NOTE [facility] Comment:ALEYDA, CT(ASCP)CT scre ening location: [place] [address] Review Calibration Technician: [facility] Pathologist [facility] PAP Infection [facility] See Note SEE [facility] Comment:EXPLANATORY NOTE:The Pap is a screening test for cervical cancer. It isnot a diagnostic test and is subject to false negativeand false positive results. It is most reliable when asatisfactory sample, regularly obtained, is submittedwith relevant clinical findings and history, and whenthe Pap result is evaluated along with historic andcurrent clinical information. 12/26/2023 1:27 PM EDT 12/26/2023 6:52 PM EDT Narrative [facility] - 01/01/2024 1:15 PM EDT SEE SCANNED RESULTS IN EMRWas previous PAP abnormal? UnknownClinical Information: routineCollection Date: 12/26/23igh risk HPV with 16 18 genotyping? YReflex HPV any abnormal diagnosis? YReflex HPV if ASCUS only? NHigh Risk HPV (any diagnosis)? YLMP: postmenopausalDate of previous PAP 2019Performed by: : [id number] us Generic External Data Provider LAB PATHOLOGY ORD ERABLES Final Result Performing Organization Address [facility] Co de Phone Number [facility] [address] [place] [phone] * Hepatitis C Ab (04/10/2023 9:10 AM EDT) Hepatitis C Antibody Nonreactive Nonreactive [facility] Comment:Antibodies to HCV no t detected; does not exclude early acuteHCV infection. Blood 04/10/2023 9:10 AM EDT 04/10/2023 2:55 PM EDT us Selam Bryan MD LAB BLOOD ORDERABLES Final Re sult Performing Organization Address [facility] Co de Phone Number [facility] [address] [place] [phone] * HIV Ab/Ag ([facility]) (04/10/2023 9:10 AM EDT) HIV AB/AG Nonreactive Nonreactive [facility] Comment:HIV-1 p24 Ag and/or HIV-1/HIV-2 Ab not detected.A test result that is nonreactive does not exclude thepossibility of exposure to or infection with HIV-1 and/orHIV-2. Nonreactive results in this assay for individualswith prior exposure to HIV-1 and/or HIV-2 may be due toantigen and antibody levels that are below the limit ofdetection of this assay.The [employer] HIV Ag/Ab Combo assay result andsupplemental assay results should be interpreted inconjunction with the patient's clinical presentation,history and other laboratory results. If the results areinconsistent with clinical evidence, additional testing issuggested to confirm the result. 04/10/2023 9:10 AM EDT 04/10/2023 2:55 PM EDT Selam Bryan MD LAB BLOOD ORDERABLES Final Re sult Performing Organization Address City/[facility]/ZIP Co de Phone Number [facility] [address] [place] [phone] * Albumin, Random Urine W/O Creatinine (07/23/2022 9:00 AM EST) Albumin, Urine 0.8 See Note: mg/dL [employer] [place] [employer] Comment: Reference Range: Reference Range Not established [employer]LEYDA [employer] nosLevel [employer] [place] [employer] Comment: The ADA defines abnormalities in albumin excretion as follows: Albuminuria Category Result (mcg/mg creatinine) Normal to Mildly increased <30 Moderately increased 30-299 Severely increased > OR = 300 The ADA recommends that [...] ORDERABLES Final Re sult Performing Organization Address City/[facility]/ZIP Co de Phone Number [facility] [address], [place] [address] [employer] [place] [employer] [address] [facility], ([address]) [place] [address] from Last 3 Months or Most Recently Relevant to Health Maintenance Insurance [employer] CARE < 65 [facility] STANDARD Care Teams Textile Stylist Relationship Specialty Start Date End Date Selam Bryan MD [address] [place] [phone] PCP - General Family Medicine 06/05/22
== END 2024-12-17 10:25 | disposition home or self-care (01) ==
LOC: HO.HWS 09:58
PROVIDERS: PCP Family Medicine; Visit Provider Obstetrics & Gynecology
DX: Z01.419 Encounter for gynecological examination (general) (routine) without abnormal findings (principal)
CPT/HCPCS: 99396; 99459

== ENCOUNTER → 2024-12-17 09:58 | Outpatient (BNVA) | payer OTHER, SELFPAY | PROVIDERS: PCP Family Medicine; Visit Provider Obstetrics & Gynecology | DX: Z01.419 Encounter for gynecological examination (general) (routine) without abnormal findings (principal) | CPT/HCPCS: 99396 ==

== ENCOUNTER 2024-12-29 07:50 | Outpatient (REF) | payer OTHER, SELFPAY ==
--- NOTE | ~2024-12-29 | US_ITS ---
EXAMINATION: US ABDOMEN LIMITED WITH LIVER ELASTOGRAPHY HISTORY: K75.81 - Nonalcoholic steatohepatitis (MEDELLIN) TECHNIQUE: Real-time grayscale ultrasound imaging of the right upper quadrant was performed and images were reviewed. COMPARISON: Comparison is made with the prior examination dated 07/19/2021. FINDINGS: Liver: The right lobe of the liver measures 15.5 cm in size. The left lobe of the liver measures 14.5 cm in size. The patient is status post partial right hepatectomy. The liver demonstrates heterogeneous increased echotexture, consistent with steatosis. No focal mass or intrahepatic biliary ductal dilatation is identified. The previously seen 2.3 cm enhancing lesion in the right lobe on CT is not identified. There is normal hepatopedal flow in the portal vein. Ultrasound elastography of the liver was performed with 10 separate measurements of the liver parenchyma with the patient in the supine position. Measurements were obtained approximately 2 cm below Imtiaz's capsule and perpendicular to the capsule. The median shear wave velocity is 1.70 m/s. The interquartile range/median (IQR/median) is 0.15. Gallbladder and biliary tree: Multiple calculi are noted in the gallbladder is contracted. There is no wall thickening or pericholecystic fluid. There is no sonographic Turner sign. The common bile duct is normal in caliber measuring 5 mm. Right Kidney: The right kidney measures 9.9 cm in length. The right kidney is unremarkable, without evidence of masses, hydronephrosis, or calculi. Pancreas: The pancreatic head, neck, and body are unremarkable. The pancreatic tail is obscured by bowel gas. Abdominal aorta and inferior vena cava: The visualized portions of the abdominal aorta and inferior vena cava are normal in caliber. There is no free fluid in the right upper quadrant. US/US abdomen priest w elastography IMPRESSION: 1. Hepatic steatosis. The previously seen 2.3 cm mass in the right hepatic lobe on CT is not visualized. 2. Cholelithiasis. The median shear wave velocity in the liver is 1.70 m/s, corresponding to a median liver stiffness of 8.79 kPa. The IQR/median value is 0.15. This is indicative of a poor quality data set, and the estimated liver stiffness may be unreliable. Findings are indicative of a high elastography value suggestive of compensated advanced chronic liver disease. REFERENCE: Society of Radiologists in Ultrasound Liver Stiffness Thresholds (2020): LIVER STIFFNESS THRESHOLDS: *Shear wave velocity less than 1.3 m/s (Liver Stiffness equal or less than 5 kPa): High probability of being normal. *Shear wave velocity less than 1.7 m/s (Liver Stiffness less than 9 kPa): In the absence of other known clinical signs, rules out compensated advanced chronic liver disease. *Shear wave velocity between 1.7-2.1 m/s (Liver Stiffness 9-13 kPa): Suggestive of compensated advanced chronic liver disease but need further test for confirmation. *Shear wave velocity between 2.1-2.4 m/s (Liver Stiffness 13-17 kPa): Rules in compensated advanced chronic liver disease. *Shear wave velocity greater than 2.4 m/s (Liver Stiffness over 17 kPa): Suggestive of clinically significant portal hypertension. QUALITY OF DATA SET: *IQR/Median value equal or less than 0.15 implies a quality data set. *IQR/Median value over 0.15 implies a poor quality data set. SIGNIFICANT CHANGE FROM PRIOR EXAM: Significant change if liver stiffness measurement is 10% or greater from prior exam. OTHER CONSIDERATIONS: The stage of liver fibrosis may be overestimated in the setting of acute hepatitis, liver inflammation, elevated liver function tests, hepatic vascular congestion, obstructive cholestasis, non-fasting state, and infiltrative diseases such as amyloidosis and lymphoma. In some patients with NAFLD, the liver stiffness thresholds for compensated advanced chronic liver disease may be lower. In causes other than viral hepatitis and NAFLD, liver stiffness thresholds are not well established. Electronically signed by: Yousif Campo MD 12/29/2024 09:00 AM EDT
--- OUTSIDE RECORDS SUMMARY | 2024-12-29 07:54 | XMS_ITS | Clinical Summary ---
Author Organization [employer] Address [address] [place] [address] Care Team Providers Care Account Manager Sales Representative Name Role Phone Selam Bryan MD Primary Care Provider [phone] Allergies Active Allergy Reactions Criticality Noted Date Comments Codeine Low 07/19/2022 Other reaction(s): dizziness, fainting Statins Low 07/19/2022 Other reaction(s): convulsion, dizziness, muscle pain Medications GaviLAX 17 GM/SCOOP powder MIX 17G (1 CAPFUL) WITH 8 OUNCES OF LIQUID AND DRINK ONCE DAILY 2 Active Blood Glucose Monitoring Suppl (FreeStyle Enterprise Lite) w/Device kit USE TO TEST BLOOD SUGAR TWICE DAILY 2 Active FreeStyle lancets USE SEG N LO INDICADO DOS VECES AL D A 2 Active omeprazole (PriLOSEC) [address] capsule TOME POLO C PSULA TODOS LOS D CUANDO SEA [...] hyperglycemia, without long-term current use of insulin ([facility]) TAKE ONE TABLET BY MOUTH [...] 5 Active Calcium Carbonate-Vit D-Min (Calcium 1200) 5852-1256 MG-UNIT chewable tabletIndications: Other osteoporosis without current [...] Description 11/02/2024 11:00 AM EDT Clinical Support [facility] [address] [place] [address] Nilsa Rebollar RN Encounter for immunization 11/02/2024 Travel 10/30/2024 2:15 PM EDT Office Visit [facility] [address] [place] [address] Selam Bryan MD Type 2 diabetes mellitus with hyperglycemia, without long-term current use of insulin ([facility]) (Primary Dx); Hyperlipidemia, unspecified hyperlipidemia type; Dry skin; Other osteoporosis without current pathological fracture 10/30/2024 Travel 10/30/2024 Telephone [facility] [address] [place] [address] Selam Bryan MD 10/07/2024 Telephone [facility] [address] [place] [address] Selam Bryan MD Lab Orders 09/30/2024 Refill [facility] [address] [place] [address] Selam Bryan MD Type 2 diabetes mellitus with hyperglycemia, without long-term current use of insulin ([facility]) from Last 3 Months Immunizations Immunization Administration [...] 07/23/2022 SDOH Screening 11/27/2024 11/28/2023 Influenza Vaccine (#1) 2025 03/01/2023, 2021 Diabetes: Hemoglobin A1C 05/02/2025 025, 12/12/2023, 06/07/2023, [...] hyperglycemia, without long-term current use of insulin ([facility]) CBC WITH AUTO DIFFERENTIAL Routine 11/20/2024 12:00 AM EDT Type 2 diabetes mellitus with hyperglycemia, without long-term current use of insulin ([facility]) COMPREHENSIVE METABOLIC PANEL Routine 11/20/2024 12:00 AM EDT Type 2 diabetes mellitus with hyperglycemia, without long-term current use of insulin ([facility]) LIPID PANEL, STANDARD Routine 11/20/2024 12:00 AM EDT Hyperlipidemia, unspecified hyperlipidemia type POCT GLYCATED HEMOGLOBIN, TOTAL Routine 10/30/2024 2:36 PM EDT Type 2 diabetes mellitus with hyperglycemia, without long-term current use of insulin (CMS/HCC) POCT GLUCOSE Routine 10/30/2024 2:36 PM EDT Type 2 diabetes mellitus with hyperglycemia, without long-term current use of insulin ([facility]) HP LINK DIABETIC FOOT EXAM Routine 10/30/2024 BI MAMMOGRAM SCREENING TOMOSYNTHESIS BILATERAL Routine 03/26/2024 10:00 AM EDT THINPREP IMAGING PAP AND HPV MRNA E6/E7 WITH REFLEX TO HPV 16,18/45 Routine 12/26/2023 1:27 PM EDT HEPATITIS C ANTIBODY Routine 04/10/2023 9:10 AM EDT Encounter for health-related screening HIV ANTIBODY/ANTIGEN ([facility]) Routine 04/10/2023 9:10 AM EDT ALBUMIN, RANDOM URINE W/O CREATININE Routine 07/23/2022 9:00 AM EST Type 2 diabetes mellitus with hyperglycemia, without long-term current use of insulin (CMS/HCC) from Last 3 Months or Most Recently Relevant to Health Maintenance Results * TSH W/Reflex to FT4 (11/20/2024 12:00 AM EDT) TSH reflex Free T4 1.73 0.32 - 4.0 uIU/mL [facility] Blood Venous blood specimen / Unknown 11/20/2024 11/20/2024 us Selam Bryan MD LAB BLOOD ORDERABLES Final Re sult [facility] [address] [place] [address] [phone] * (ABNORMAL) CBC auto differential (11/20/2024 12:00 AM EDT) White Blood Count 4.6(L) 4.8 - 10.8 X10*3/uL [facility] Red Blood Count 4.45 4.20 - 5.50 X10*6/uL [facility] Hemoglobin 13.4 12.0 - 16.0 g/dl [facility] Hematocrit 39.2 37.0 - 47.0 % [facility] Mean Corpuscular Volume 88.1 80.0 - 98.0 fL [facility] Mean Corpuscular Hemoglobin 30.1 27.0 - 33.0 pg [facility] Mean Corpuscular HGB Conc 34.2 31.0 - 35.0 g/dl [facility] Red Cell Distribution Width 11.5 11.0 - 16.0 % [facility] Platelet Count 264 160 - 400 X10*3/uL [facility] Mean Platelet Volume 11.8 9.4 - 12.3 fL [facility] Neutrophils Percent Auto 61.5 45 - 73 % [facility] Imm Gran Pct Auto 0.0 0.0 - 0.4 % [facility] Lymphocytes Percent Auto 27.9 20 - 40 % [facility] Monocytes Percent Auto 8.5 2 - 11 % [facility] Eosinophils Percent Auto 1.7 0 - 4 % [facility] Basophils Percent Auto 0.4 0 - 2 % [facility] NRBC Pct Auto 0.0 0.0 - 0.2 /100WBC [facility] Neutrophils Absolute Auto 2.8 2.0 - 8.3 x10*3/uL [facility] Imm Gran Abs Auto 0.00 0.00 - 0.03 X10*3/uL [facility] Lymphocytes Absolute Auto 1.3 1.2 - 4.9 X10*3/uL [facility] Monocytes Absolute Auto 0.4 0.1 - 1.2 X10*3/uL [facility] Eosinophils Absolute Auto 0.1 0.0 - 0.4 X10*3/uL [facility] Basophils Absolute Auto 0.0 0.0 - 0.2 X10*3/uL [facility] NRBC Abs Auto 0.000 0.0 - 0.012 X10*3/uL [facility] Blood Venous blood specimen / Unknown 11/20/2024 11/20/2024 us Selam Bryan MD LAB BLOOD ORDERABLES Final Re sult Performing Organization Address [facility]/ZIP Co de Phone Number [facility] [address] [place] [phone] * (ABNORMAL) Lipid Panel, Standard (11/20/2024 12:00 AM EDT) Triglycerides 105 <150 mg/dL [facility] Comment:Desirable Triglyceri de: less than 150 mg/dLBorderline High Triglyceride 150-199 mg/dLHigh Triglyceride: 200-499 mg/dLVery High Triglyceride: greater than or equal to 5OO mg/dL Cholesterol 185 <200 mg/dL [facility] Comment:Desirable Cholestero l: less than 200 mg/dLBorderline High Cholesterol: 200-239 mg/dLHigh Cholesterol: greater than 239 mg/dL LDL Cholesterol Calculated 128(H) <100 mg/dL [facility] Comment:Desirable LDL: less than 100 mg/dLNear Optimal/Above Optimal LDL: 110- 129 mg/dLBorderline High LDL: 130-159 mg/dLHigh LDL: 160-189 mg/dLVery High LDL: greater than or equal to 190 mg/dL HDL Cholesterol 36(L) >40 mg/dL [facility] Comment:Desirable HDL: great er than 40 mg/dL Note: This HDL assay may give artificially low results in patients with liver disease. Blood Venous blood specimen / Unknown 11/20/2024 11/20/2024 us Selam Bryan MD LAB BLOOD ORDERABLES Final Re sult Performing Organization Address City/[facility]/ZIP Co de Phone Number [facility] [address] [place] [address] [phone] * (ABNORMAL) Comprehensive Metabolic Panel (11/20/2024 12:00 AM EDT) Sodium 140 135 - 145 mmol/L [facility] Potassium 4.3 3.3 - 5.1 mmol/L [facility] Chloride 104 96 - 108 mmol/L [facility] Carbon Dioxide 32(H) 22 - 29 mmol/L [facility] Anion Gap 8(L) 12 - 20 [facility] Urea Nitrogen (BUN) 18(H) 9 - 16 mg/dL [facility] Creatinine, Serum 0.60 0.5 - 1.4 mg/dL [facility] Estimated Glomerular Filt Rate >60 [facility] Comment:Chronic Kidney Disea se: Estimated GFR < 60 mL/min/[id number] Kidney Disease: Estimated GFR < 15 mL/min/1.73m2 Glucose 108 60 - 115 mg/dL [facility] Calcium 9.8 8.4 - 10.2 mg/dL [facility] Bilirubin, Total 1.0 0.0 - 1.0 mg/dL [facility] Aspartate Amino Transferase 26 5 - 31 U/L [facility] Alanine Aminotransferase 32(H) 0 - 31 U/L [facility] Total Protein 7.4 6.5 - 8.0 g/dL [facility] Albumin Level 4.5 3.5 - 5.0 g/dL [facility] Alkaline Phosphatase 59 39 - 117 U/L [facility] Blood Venous blood specimen / Unknown 11/20/2024 11/20/2024 us Selam Bryan MD LAB BLOOD ORDERABLES Final Re sult [facility] [address] [place] [phone] * (ABNORMAL) POCT HGB A1C (10/30/2024 2:36 PM EDT) Hemoglobin A1C 6.1(A) 4.0 - 6.0 % QC Media Lot # [id number] Lot# Expiration Date 122,027 Blood 10/30/2024 2:36 PM EDT us Selam Bryan MD POINT OF CARE TEST ENTER/EDIT ORDERABLES Final Result * POCT Glucose (10/30/2024 2:36 PM EDT) Glucose Blood, POC 168 60 - 200 mg/dL QC Media Lot # [id number] Lot# Expiration Date ,025 Blood Capillary blood specimen / Unknown 10/30/2024 2:36 PM EDT Selam Bryan MD POINT OF CARE TEST ENTER/EDIT ORDERABLES Final Result * HP Diabetic Foot Exam (10/30/2024) Narrative Selam Bryan MD - 10/30/2024 Dry skin, normal Selam Bryan MD HEALTH MAINTENANCE Final Resu lt * BI Mammogram Screening Tomosynthesis Bilateral (03/26/2024 10:00 AM EDT) Anatomical Region Laterality Modality Breast Bilateral Mammography 03/26/2024 10:0 0 AM EDT Narrative 04/07/2024 12:17 PM EDT [facility] [address] [place] [address] Mammography Report Signed Patient: Trupti Kelly MR#: [id number] : 1960 Acct:[id number] Age/Sex: 63 / F ADM Date: 03/26/24 Loc: HO.MAMMO Attending Dr: Davion Weathers MD Ordering Physician: Davion Weathers MD Results: 2Benign Findings Date of Service: 03/26/24 Follow Up: 1 Year From [facility] Mammogram Procedure(s): MM tomosynthesis screening BI Accession Number(s): [id number] cc: Selam Bryan MD; Davion Weathers MD [...] 04/07/24 1214 DD/ 1000 TD/TT: 03/26/24 1022 Corrosion Control Technician: Procedure Note Donotuseinterpreter, Image - 04/07/2024 [facility] [address] [place], [place] [address] Mammography Report Signed Patient: Trupti Kelly EMR#: [id number] : 1Acct:[id number] Age/Sex: 63 / FADM Date: 03/26/24 Loc: .MAMMO Attending Dr: Davion Weathers MD Ordering Physician: Davion Weathers MDResults: 2Benign Findings Date of Service: 03/26/24Follow Up: 1 Year From [facility] Mammogram Procedure(s): MM tomosynthesis screening BI Accession Number(s): [id number] cc: Selam Bryan MD; Davion Weathers MD [...] 04/07/24 1214 DD/ 1000 TD/TT: 03/26/24 1022 Corrosion Control Technician: [facility] External Provider IMG BI PROCEDURES Final Result * ThinPrep Imaging Pap and HPV mRNA E6/E7 with Reflex to HPV 16,18/45 (12/26/2023 1:27 PM EDT) HPV 16 RNA [facility] HPV 18/45 RNA [facility] HPV nRNA E6/E7 Not Detected Not Detected [facility] Comment:Methodology: Transcr iption-Mediated AmplificationThis assay detects E6/E7 viral messenger RNA (mRNA) from 14high-risk HPV types (16,18,31,33,35,39,45,51,52,56,58,59,66,68).Cervical sources are required for HPV testing.If a vaginal source from a patient who has had atotal hysterectomy with removal of cervix wassubmitted, please contact the testing laboratoryfor alternative testing options.For additional information, please refer [email or web address]/faq/WNK402n8(This link if provided for information/educational purposes only.)THIS TEST WAS PERFORMED AT:[facility] [place] [phone] ENGLAND MD SOURCE: SEE NOTE [facility] Comment:Cervix Report Status: [facility] Clinical Information: SEE NOTE [facility] Comment:Routine exam LMP: SEE NOTE [facility] Comment:POSTMENOPAUSAL Prev. PAP: SEE NOTE [facility] Comment:2019 Prev. BX: SEE NOTE [facility] Comment:NONE GIVEN Statement Of Adequacy: SEE NOTE [facility] Comment:SATISFACTORY FOR JEFFERSON FELIX General Categorization: [facility] Interpretation/Result: SEE NOTE [facility] Comment:Cytology Results: Ne gative for intraepitheliallesion or malignancy.Atrophic pattern; predominantly parabasal cells Cytology Comment SEE NOTE [facility] Comment:This Pap test has be en evaluated with computerassisted technology. Purchasing Supervisor: SEE NOTE [facility] Comment:ALEYDA, CT(ASCP)CT scre ening location: [place] [address] Review Purchasing Supervisor: [facility] Pathologist [facility] PAP Infection [facility] See Note SEE NOTE [facility] Comment:EXPLANATORY NOTE:The Pap is a screening test for cervical cancer. It isnot a diagnostic test and is subject to false negativeand false positive results. It is most reliable when asatisfactory sample, regularly obtained, is submittedwith relevant clinical findings and history, and whenthe Pap result is evaluated along with historic andcurrent clinical information. 12/26/2023 1:27 PM EDT 12/26/2023 6:52 PM EDT Narrative [facility] - 01/01/2024 1:15 PM EDT SEE SCANNED RESULTS IN EMRWas previous PAP abnormal? UnknownClinical Information: routineCollection Date: 12/26/23igh risk HPV with 16 18 genotyping? YReflex HPV any abnormal diagnosis? YReflex HPV if ASCUS only? NHigh Risk HPV (any diagnosis)? YLMP: postmenopausalDate of previous PAP 2019Performed by: : [id number] us Generic External Data Provider LAB PATHOLOGY ORD ERABLES Final Result [facility] [address] [place] [phone] * Hepatitis C Ab (04/10/2023 9:10 AM EDT) Hepatitis C Antibody Nonreactive Nonreactive [facility] Comment:Antibodies to HCV no t detected; does not exclude early acuteHCV infection. Blood 04/10/2023 9:10 AM EDT 04/10/2023 2:55 PM EDT Selam Bryan MD LAB BLOOD ORDERABLES Final Re sult Performing Organization Address [facility] Co de Phone Number [facility] [address] [place] [address] [phone] * HIV Ab/Ag ([facility]) (04/10/2023 9:10 AM EDT) HIV AB/AG Nonreactive Nonreactive [facility] Comment:HIV-1 p24 Ag and/or HIV-1/HIV-2 Ab not detected.A test result that is nonreactive does not exclude thepossibility of exposure to or infection with HIV-1 and/orHIV-2. Nonreactive results in this assay for individualswith prior exposure to HIV-1 and/or HIV-2 may be due toantigen and antibody levels that are below the limit ofdetection of this assay.The [employer] Systemsnity HIV Ag/Ab Combo assay result andsupplemental assay results should be interpreted inconjunction with the patient's clinical presentation,history and other laboratory results. If the results areinconsistent with clinical evidence, additional testing issuggested to confirm the result. 04/10/2023 9:10 AM EDT 04/10/2023 2:55 PM EDT Selam Bryan MD LAB BLOOD ORDERABLES Final Re sult Performing Organization Address [facility]/ZIP Co de Phone Number [facility] [address] [place] [address] [phone] * Albumin, Random Urine W/O Creatinine (07/23/2022 9:00 AM EST) Albumin, Urine 0.8 See Note: mg/dL [employer] [place] Effective Measure Comment: Reference Range: Reference Range Not established [facility]LEY[facility] [place] Effective Measure Comment: The ADA defines abnormalities in albumin [...] URINE ORDERABLES Final Re sult [facility] [address], [place] [address] [employer] [place] Effective Measure [address] [facility], ([address]) [place] [address] from Last 3 Months or Most Recently Relevant to Health Maintenance Insurance [facility] CARE < 65 [place] RAMIREZ [id number] [facility] STANDARD Care Teams Account Manager Sales Representative Relationship Specialty Start Date End Date Selam Bryan MD [address] [place] [phone] PCP - General Family Medicine 06/05/22
== END 2024-12-29 07:51 | disposition home or self-care (01) ==
LOC: HO.US 07:50
PROVIDERS: PCP Family Medicine; Visit Provider Internal Medicine Gastroenterology
DX: K75.81 Nonalcoholic steatohepatitis (NASH) (principal); K74.60 Unspecified cirrhosis of liver
CPT/HCPCS: 76705; 76981

== ENCOUNTER → 2024-12-29 07:52 | Outpatient (BNV) | payer OTHER, SELFPAY | PROVIDERS: PCP Family Medicine; Visit Provider Radiology Diagnostic Radiology | DX: K76.0 Fatty (change of) liver, not elsewhere classified (principal); K80.20 Calculus of gallbladder without cholecystitis without obstruction | CPT/HCPCS: 76705 ==

== ENCOUNTER → 2025-02-11 17:46 | Outpatient (BNV) | payer OTHER, SELFPAY | PROVIDERS: Visit Provider Radiology Diagnostic Radiology | DX: M25.521 Pain in right elbow (principal) | CPT/HCPCS: 73080 ==

== ENCOUNTER 2025-02-11 18:06 | Emergency (ER) | payer OTHER, SELFPAY ==
--- NOTE | ~2025-02-11 | XR_ITS ---
CLINICAL HISTORY: fall Right elbow three views Comparison: None provided Findings: No acute fracture or dislocation noted. No significant joint effusion identified. No soft tissue foreign body. Impression: No acute bony abnormality This document has been electronically signed by: Michael Queen MD on 02/11/2025 19:05:38
[2025-02-11 18:28] VITALS: BP 150/71; PULSE 80; RESP 18; TEMP 36.3; O2SAT 96; BMI 24.4
--- NOTE | 2025-02-11 18:45 | ED.EXTPRO ---
HPI - Extremity Problem General Chief complaint: Extremity Injury, Upper Stated complaint: right arm injury (fall) Time Seen by Provider: 02/11/25 20:05 Source: patient and RN notes reviewed Mode of arrival: ambulatory Limitations: no limitations History of Present Illness ED Provider: Kassi Sesay PA-C HPI Narrative: This is a 64-year-old female, with a past medical history of diabetes, who presents emergency department with complaints of right elbow pain status post mechanical fall which occurred yesterday. Patient states that she accidentally slipped and fell in her bathroom. She states that she landed backwards with her right arm stretched behind her. She states that she landed onto her right elbow. She states that she has had pain since. Pain worsens with movement. She denies head strike or LOC. She is not on anticoagulation. Denies taking any medications at home to treat her current pain. No other complaints or concerns at this time. MD Complaint: extremity pain Onset (ago): day(s) Pain Consistency: constant Location: right and upper extremity Quality: aching Radiation: none Relieving factors: nothing Exacerbating factors: nothing Associated symptoms: denies other symptoms Related Data Home Medications ?Medication ?Instructions ?Recorded ?Confirmed blood sugar diagnostic (FreeStyle #10 ea 08/20/22 09/15/24 Lite Strips) cholecalciferol (vitamin D3) 25 25 mcg PO DAILY 08/20/22 09/15/24 mcg (1,000 unit) capsule (Vitamin D3) lancets 33 gauge (TRUEplus Lancets) #100 ea 11/14/22 09/15/24 blood-glucose meter (FreeStyle #1 ea 05/20/23 09/15/24 [place] Lite kit) icosapent ethyl 1 gram capsule 2 g PO BID 05/20/23 09/15/24 (Vascepa) vitamin E (dl, acetate) 180 mg mg PO DAILY 07/13/24 (400 unit) capsule Previous Rx's ?Medication ?Instructions ?Recorded simethicone 180 mg capsule 180 mg PO BID PRN abdominal 10/24/21 distention 30 days #60 caps ergocalciferol (vitamin D2) 1,250 1,250 mcg PO QWEEK 90 days #13 caps 07/26/22 mcg (50,000 unit) capsule ezetimibe 10 mg tablet 10 mg PO DAILY #90 tabs 09/25/22 sitagliptin phosphate 100 mg 100 mg PO DAILY 90 days #90 tabs 10/16/22 tablet (Januvia) omeprazole 40 mg capsule,delayed 40 mg PO DAILY PRN for acid reflux 12/30/22 release #90 caps ondansetron 4 mg disintegrating 4 mg PO Q8H PRN nausea and 03/20/24 tablet vomiting #20 tabs acetaminophen 500 mg tablet 1,000 mg (2 x 500 mg) PO QID PRN 02/11/25 (Tylenol Extra Strength) pain #30 tabs ibuprofen 600 mg tablet 600 mg PO Q6H PRN pain #30 tabs 02/11/25 Allergies Allergy/AdvReac Type Severity Reaction Status Date / Time codeine (CODEINE) Allergy Intermediate DIZZY/CAROLYN Verified 02/11/25 18:30 RGY atorvastatin AdvReac Unknown increased Verified 02/11/25 18:30 heartburns Review of Systems Review of Systems: Yes all other systems are reviewed and are negative Constitutional: Constitutional: Reports as per [facility] Past Medical History Medical History SBO (small bowel obstruction) Dysplasia of cervix, low grade (VIRGIE 1) Overweight (BMI 25.0-29.9) Anxiety Constipation Osteopenia Vitamin D deficiency GERD (gastroesophageal reflux disease) Elevated LFTs Hemangioma of liver Pure hypercholesterolemia Diabetes mellitus Surgical History History of esophagogastroduodenoscopy (EGD) History of resection of liver History of blood clots History of colonoscopy History of oral surgery History of tubal ligation Family History Family History Father No problems noted. Mother Uterine cancer Colon cancer Maternal Grandmother No problems noted. Paternal Aunt Ovarian cancer Social History Social History Household Members: Children Household Members Other:: daughter Housing: Assisted Living Facility Are you a primary transitional care nurse to a significant other at home: No Do you presently have visiting nurse or other home services: No Alcohol intake: never Patient Tobacco Use Status: Never used Tobacco e-Cigarette/Vaping Use: Never Used Second Hand Smoke Exposure: No Advance Directives: Yes Advance Directives on File: Yes Advance Directives Date on File: 11/27/22 service: No Current occupational status: disabled Cognitive needs: No Hearing needs: No Vision needs: Yes Physical Exam Vital Signs: Vital Signs: Last Vital Signs Temp 97.3 F 02/11/25 20:26 Pulse 80 02/11/25 20:26 Resp 18 02/11/25 20:26 BP 150/71 H 02/11/25 20:26 Pulse Ox 96 02/11/25 20:26 O2 Del Method Room Air 02/11/25 20:26 BMI result Body Mass Index 24.4 General: Awake, alert, and oriented X3. No acute distress. HEENT: Normal inspection CVS: Normal heart rate and rhythm. Pulses normal. Respiratory: No respiratory distress Skin: Warm, dry, no rashes noted to exposed skin. Normal skin color. Normal skin turgor. Extremities: Right elbow nontender, full ROM, strong radial pulse. No overlying skin changes, or ecchymosis. Neuro: Oriented X 3. No motor deficit. No sensory deficit. Medical Decision Making Medical Decision Making MDM Narrative: This is a 64-year-old female who presents emergency department with concerns of right elbow pain status post mechanical fall which occurred yesterday. On arrival, patient mildly hypertensive at 150/71, all other vital signs within normal limits. Patient with full ROM of the right elbow, with diffuse tenderness throughout, strong radial pulse. No overlying bony abnormalities. X-rays were obtained revealing no acute bony abnormalities. Discussed findings with patient. No LOC or head strike. She is not on anticoagulation. Discussed resting, icing, taking ibuprofen and or Tylenol, and following up with PCP. She understands agrees with plan. Patient stable for discharge. Differential Diagnosis Differential Diagnoses: The differential diagnosis associated with the presentation includes Fracture, contusion, dislocation, sprain, strain Radiology Impression Discussion of test interpretation with radiology: I have reviewed the radiologist's reading. Radiologist Impression: Findings: No acute fracture or dislocation noted. No significant joint effusion identified. No soft tissue foreign body. Impression: No acute bony abnormality This document has been electronically signed by: Michael Queen MD on 02/11/2025 19:05:38 Dictated By: Michael Queen MD Discharge Plan Discharge Clinical Impression: Elbow pain, right Patient Disposition: Home, Self-Care Instructions: Arthralgia (ED), Arm Pain (ED) Additional Instructions: You were seen in the ER after injuring her right elbow. Your x-rays did not show any broken bones. Please rest and ice your elbow. Taking ibuprofen and or Tylenol as needed for pain. Follow-up with your doctor call to make an appointment. If any new or worsening symptoms occur including but not limited to severe chest pain, shortness of breath, increased swelling, please seek emergent care. Prescriptions: New ibuprofen 600 mg tablet 600 mg PO Q6H PRN (Reason: pain) Qty: 30 0RF acetaminophen [Tylenol Extra Strength] 500 mg tablet 1,000 mg PO QID PRN (Reason: pain) Qty: 30 0RF No Action simethicone 180 mg capsule 180 mg PO BID PRN (Reason: abdominal distention) 30 Days Qty: 60 1RF ergocalciferol (vitamin D2) 1,250 mcg (50,000 unit) capsule 1,250 mcg PO QWEEK 90 Days Qty: 13 3RF Rx Instructions: saturday ezetimibe 10 mg tablet 10 mg PO DAILY Qty: 90 1RF Januvia 100 mg tablet 100 mg PO DAILY 90 Days Qty: 90 1RF omeprazole 40 mg capsule,delayed release(DR/EC) 40 mg PO DAILY PRN (Reason: for acid reflux) Qty: 90 0RF ondansetron 4 mg tablet,disintegrating 4 mg PO Q8H PRN (Reason: nausea and vomiting) Qty: 20 0RF (DME) lancets [TRUEplus Lancets] 33 gauge misc See Rx Instructions .ROUTE .MEDSUPPLY Qty: 100 Rx Instructions: As directed (DME) FreeStyle Lite Strips Strip See Rx Instructions .ROUTE BID Qty: 10 Rx Instructions: As directed cholecalciferol (vitamin D3) [Vitamin D3] 25 mcg (1,000 unit) capsule 25 mcg PO DAILY (DME) blood-glucose meter [FreeStyle [place] Lite] Kit See Rx Instructions .ROUTE .MEDSUPPLY Qty: 1 Rx Instructions: As directed icosapent ethyl [Vascepa] 1 gram capsule 2 g PO BID vitamin E (dl, acetate) 180 mg (400 unit) capsule PO DAILY Interventions: ED Discharge Assessment Last Done: 02/11/25 20:26 Discharge Date/Time: 02/11/25 20:26 Print Language: Togolese
[2025-02-11 20:26] VITALS: BP 150/71; PULSE 80; RESP 18; TEMP 36.3; O2SAT 96
== END 2025-02-11 20:26 | disposition home or self-care (01) ==
PROVIDERS: Emergency Provider Emergency Medicine
DX: M25.521 Pain in right elbow (principal); W01.0XXA Fall on same level from slipping, tripping and stumbling without subsequent striking against object, initial encounter; Y93.E1 Activity, personal bathing and showering; Y92.091 Bathroom in other non-institutional residence as the place of occurrence of the external cause; Y99.8 Other external cause status; Z79.899 Other long term (current) drug therapy
CPT/HCPCS: 73080; 99282; 99283

== ENCOUNTER 2025-04-05 10:40 | Outpatient (REF) | payer OTHER, SELFPAY ==
--- NOTE | ~2025-04-05 | MM_ITS ---
EXAMINATION: MM SCREENING DIGITAL BREAST TOMOSYNTHESIS, BILATERAL CLINICAL INFORMATION: Screening. Asymptomatic. COMPARISON: Mammography: Comparison is made with available priors TECHNIQUE: Digital breast mammography with tomosynthesis is performed in both the craniocaudal and mediolateral oblique views along with computer-aided detection (CAD). FINDINGS: There are scattered areas of fibroglandular density. Left: Focal asymmetry retroareolar region likely ectatic ducts recommend additional imaging and ultrasound at this time as this area is slightly more conspicuous compared with priors. Asymmetry superior breast posterior depth on MLO view. No suspicious calcifications or other abnormal findings. Right: Asymmetry superior breast middle depth on MLO view. Focal asymmetry retroareolar region could represent ectatic ducts recommend additional imaging and ultrasound for further evaluation. No suspicious calcifications or other abnormal findings. MM/MM tomosynthesis screening BI IMPRESSION: Additional imaging is recommended ASSESSMENT: BI-RADS Category 0: Incomplete - Need additional Imaging Evaluation RECOMMENDATION: 1. Additional views of the bilateral breasts. 2. Targeted ultrasound if warranted after review of the additional views. 3. Radiology department staff will contact the patient for additional imaging. Additional Imaging required Electronically signed by: Shea Elena DO 04/06/2025 09:47 AM EDT
== END 2025-04-05 10:41 | disposition home or self-care (01) ==
LOC: HO.MAMMO 10:40
PROVIDERS: PCP Family Medicine; Visit Provider Family Medicine
DX: Z12.31 Encounter for screening mammogram for malignant neoplasm of breast (principal)
CPT/HCPCS: 77063; 77067

== ENCOUNTER → 2025-04-05 10:45 | Outpatient (BNV) | payer OTHER, SELFPAY | PROVIDERS: PCP Family Medicine; Visit Provider Internal Medicine | DX: Z12.31 Encounter for screening mammogram for malignant neoplasm of breast (principal) | CPT/HCPCS: 77063; 77067 ==

== ENCOUNTER 2025-04-26 09:20 | Outpatient (AMB) | payer OTHER, SELFPAY ==
--- NOTE | 2025-04-26 09:25 | MHC.OFFVIS ---
Vital Signs 04/26/25 09:29 Height 5 ft 2 in Weight 129 lb BMI 23.6 BP 119/57 L Blood Pressure Location Lt brachial Position Sitting Pulse 75 Intake Visit Reasons: 6m Intake Note: Trupti presents in the office as a 6 month follow up. CC: states she suffers some heartburn and some constipation. Industrial Relations Representative Required: No Allergies codeine (CODEINE) Allergy (Intermediate, Verified 02/11/25 18:30) DIZZY/LETHARGY atorvastatin Adverse Reaction (Unknown, Verified 02/11/25 18:30) increased heartburns HPI HPI 6m: Details: 64 yr old f here for f/u RECAP Had been seeing September before for GERD and constipation was being seen for idiosyncratic reaction to statins tried lovastatin, atorvastatin and crestor sx include abdominal pain, nausea and malaise she has not tried fibrates, ezetimibe, PCSK9 antibodies (but never had NC or cardiac event) if she takes statin 8 am then by night time she will have these sx, if she doesn;t take statins that day she has no sx otherwise GERD is controlled with omeprazole constipation is worse with rice and bread, so tries to avoid she found miralax helped and needs refill she did see Dr Tai for assessment of a liver hemangioma which had been embolized before and had mentioned above sx to him, with clear association to statin timing and dosing. 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 class of drugs, Statins also affect NO pathway so if still has sig hemangioma maybe another mechanism of action in causing her sx--she has remained off statins, has mild ALT elevation likely MEDELLIN related she is also thought to have lactose intolerance lipids 06/2020--LDL--117, HDL-34, trig 129, LFT with mild ALT elevation LABS 02/2022-- bili -1.2, AST:37, ALT: 68, alk phos: 96 US: 07/19/21--Gb contracted, no gallstones, hypoechoic liver leison as noted before (presumably the embolized hemangioma area) colonoscopy 2017--hyperplastic polyps removed She had admission for pSBO and enteritis after eating stew, presumed infectious and quickly improved CTe: 02/2023 -no major abnormality seen REPEAT EGD/[facility] 2022: gastritis, mild mild esophagitis inlet patch Colonoscopy Findings: internal hemorrhoids diverticular disease H pylori neg 2023 celiac neg 2021 NOTE: KUB did show metallic object in asc colon with fecal loading EGD/[place] 09/15/24 Endoscopy Findings: mild esophagitis gastritis Colonoscopy Findings: internal hemorrhoids Path: moderate gastric inflammation and esophagitis no ileitis on bx US 12/2024: cholelithiasis and fatty liver INTERIM: she has heartburn but had coffee which is normal for her sometimes she gets upset stomach and diarrhea -can have pain and discomfort RUQ ruthie after spicey and greasy foods denies n/v no diarrhea but feels constipated right now not trying anything -but does admit prune juice has helped in the past EXAM: GENERAL: The patient is well developed and nontoxic. VITAL SIGNS:see workflow HEENT: Nonicteric sclerae, PERRLA, EOMI. Oropharynx clear. Moist mucous membranes. Conjunctivae appear well perfused. No thyroid mass. CHEST: Chest wall is nontender. HEART: Regular rate and rhythm without murmurs. LUNGS: Clear to auscultation bilaterally. ABDOMEN: Soft, positive bowel sounds, mild tender ruq , no organomegaly.no flank tenderness SKIN: mild seborrheic dermatitis NEUROLOGIC: Cranial nerves II-XII intact without motor/sensory deficit. 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, mild, 3/ gallstones PLAN: 1/ reviewed PPI, and taking as scheduled 2/ refer surgery for symptomatic gallstones 3/ she likes prune juice --can use as needed for constipation, does not want to use miralax PFSH Medical History SBO (small bowel obstruction) Dysplasia of cervix, low grade (VIRGIE 1) Overweight (BMI 25.0-29.9) Anxiety Constipation Osteopenia Vitamin D deficiency GERD (gastroesophageal reflux disease) Elevated LFTs Hemangioma of liver Pure hypercholesterolemia Diabetes mellitus Surgical History History of esophagogastroduodenoscopy (EGD) History of resection of liver History of blood clots History of colonoscopy History of oral surgery History of tubal ligation Family History Father No problems noted. Mother Uterine cancer Colon cancer Maternal Grandmother No problems noted. Paternal Aunt Ovarian cancer Social History Household Members: Children Household Members Other:: daughter Housing: Assisted Living Facility Are you a primary child care center assistant director to a significant other at home: No Do you presently have visiting nurse or other home services: No Alcohol intake: never Patient Tobacco Use Status: Never used Tobacco e-Cigarette/Vaping Use: Never Used Second Hand Smoke Exposure: No Advance Directives Date on File: 11/27/22 service: No Current occupational status: disabled Cognitive needs: No Hearing needs: No Vision needs: Yes Female Reproductive History Menstrual Age of Menarche: 14 Physical Exam Vital Signs: Last Vital Signs Pulse 75 04/26/25 09:29 BP 119/57 L 04/26/25 09:29 BMI result Body Mass Index 23.6 Assessment & Plan Assessment & Plan (1) Cholelithiasis: Code(s): K80.20 - Calculus of gallbladder without cholecystitis without obstruction Category: Medical Qualifiers: Cholecystitis presence: without cholecystitis Plan: as above Orders: Referrals General Surgery Referral K80.20 - Calculus of gallbladder without cholecystitis without obstruction Coding Level of Care Code Est Pt Level 4 (68043) Diagnoses Cholelithiasis K80.20 Cholecystitis presence: without cholecystitis
[2025-04-26 09:29] VITALS: BP 119/57; PULSE 75; BMI 23.6
--- OUTSIDE RECORDS SUMMARY | 2025-04-26 10:13 | XMS_ITS | Clinical Summary ---
Author Organization [employer] Address [address] [facility] 7[address] [place] [address] Care Team Providers Care Hot Patcher Name Role Phone Selam Bryan MD Primary Care Provider [phone] Allergies Active Allergy Reactions Criticality Noted Date Comments Codeine Low 07/19/2022 Other reaction(s): dizziness, fainting Statins Low 07/19/2022 Other reaction(s): convulsion, dizziness, muscle pain Medications GaviLAX 17 GM/SCOOP powder MIX 17G (1 CAPFUL) WITH 8 OUNCES OF LIQUID AND DRINK ONCE DAILY 06/13/20 22 Active Blood Glucose Monitoring Suppl (FreeStyle [place] Lite) w/Device kit USE TO TEST BLOOD SUGAR TWICE DAILY 05/04/20 22 Active FreeStyle lancets USE SEG N LO INDICADO DOS VECES AL D A 06/11/20 22 Active omeprazole (PriLOSEC) [address] capsule TOME POOL C PSULA TODOS LOS D CUANDO SEA NECESARIO FOR ACID REFLUX 07/07/19 23 Active ondansetron ODT (Zofran-ODT) 4 MG disintegrating tablet 02/09/20 23 Active Na Sulfate-K Sulfate-Mg Sulf 17.5-3.13-1.6 GM/177ML solution 02/09/20 23 Active Icosapent Ethyl (Vascepa) 1 g capsule Take 2 capsules (2 g) by mouth with breakfast and with evening meal. 120 capsule 11 04/11/20 23 Active Blood Pressure kitIndications:El evated blood pressure reading 1 Units in the morning. 1 kit 05/08/20 23 Active alpha tocopherol (Vitamin E) 400 units capsule Take 1 capsule (400 Units) by mouth Once per day. 90 capsule 1 12/12/19 24 Active Alcohol Swabs (Alcohol Prep) 70 % pads USE TWICE DAILY DIRECTED 100 each 11 01/10/20 24 Active ezetimibe (Zetia) 10 MG tablet TAKE ONE TABLET EVERY MORNING 90 tablet 1 09/15/19 25 Active ammonium lactate (Amlactin) 12 % cream Apply topically if needed for dry skin. 385 g 2 10/31/19 25 Active alendronate (Fosamax) 70 MG tabletIndications :Other osteoporosis without current pathological fracture Take 1 tablet (70 mg) by mouth every 7 (seven) days. Take in the morning with a full glass of water, on an empty stomach, and do not take anything else by mouth or lie down for the next 30 min. 4 tablet 11 10/31/19 25 Active cholecalciferol (D3-1000) 25 MCG (1000 UT) capsule Take 1 capsule (25 mcg) by mouth Once per day. 90 capsule 1 10/31/19 25 Active Calcium Carbonate-Vit D-Min (Calcium 1200) 1269-1070 MG-UNIT chewable tabletIndications :Other osteoporosis without current pathological fracture Chew 1 tablet Once per day. 90 tablet 4 10/31/19 25 Active simethicone (Simethicone Ultra Strength) 180 MG capsule TAKE ONE CAPSULE TWICE DAILY NEEDED 60 capsule 1 01/12/20 25 Active FREESTYLE LITE test stripIndications: Type 2 diabetes mellitus with hyperglycemia, without long-term current use of insulin (HCC) TEST BLOOD SUGAR TWICE DAILY 100 strip 11 03/12/20 25 Active Januvia 100 MG tabletIndications :Type 2 diabetes mellitus with hyperglycemia, without long-term current use of insulin (HCC) TAKE ONE TABLET EVERY MORNING 90 tablet 1 04/09/20 25 Active Januvia 100 MG tabletIndications :Type 2 diabetes mellitus with hyperglycemia, without long-term current use of insulin (HCC) TAKE ONE TABLET BY MOUTH EVERY MORNING 90 tablet 1 10/02/19 25 025 Discontinued Active Problems Problem Noted Date Diagnosed [...] Encounters Date Type Department Care Team Description 04/09/2025 Refill [facility] [address] [place] [address] Nilsa Nolen MD Type 2 diabetes mellitus with hyperglycemia, without long-term current use of insulin ([facility]) 04/08/2025 Results Follow-Up [facility] [address] [place] [address] Selam Bryan MD BI Mammogram Screening Tomosynthesis Bilateral 04/05/2025 Orders Only [facility] [address] [place] [address] Selam Bryan MD 03/12/[address] [facility] [address] [place] [phone] Selam Bryan MD Med Refill 03/12/[address] [facility] [address] [place] [phone] Selam Bryan MD Type 2 diabetes mellitus with hyperglycemia, without long-term current use of insulin ([facility]) 02/02/2025 Telephone [facility] [address] [place] [address] Selam Bryan MD Appointment Request 02/01/2025 Telephone [facility] [address] [place] [address] Selam Bryan MD Appointment Request from Last 3 Months Immunizations Immunization Administration [...] 10/30/2024 2:03 PM EDT Plan of Treatment Upcoming Encounters Date Type Department Care Team (Late st Contact Info) Description 05/03/2025 10:00 AM EST Clinical Support [facility] [address] [place] [address] Health Maintenance Due Date Last Done Comments CT Colonography 1960 Colonoscopy 1961 Colorectal Cancer Screening 1961 FIT DNA/Cologuard 1961 FIT 1961 FOBT 1961 Sigmoidoscopy 1960 Disability Screening 1961 Alcohol/Substance Use Screening 1973 RSV Patients and Patients Aged 60 years or older (1 - Risk 60-74 years 1-dose series) 2021 Depression Screening 07/19/2023 07/19/2022, 07/19/19 23 Diabetes: Urine Protein Screening 07/23/2023 07/23/2022 SDOH Screening 11/27/2024 11/28/2023 COVID-19 Vaccine ( season) 2025 11/02/2021, 05/02/2021, 09/14/2020 Influenza Vaccine (#1) 2025 03/01/2023, 2021 Diabetes: Hemoglobin A1C 05/02/2025 025, 12/12/2023, 06/07/2023, Additional history exists Hepatitis A Vaccines (2 of 2 - Risk 2-dose series) 05/05/2025 11/02/2024 Eye Exam 07/29/2025 Diabetes: Foot Exam 10/30/2025 10/30/2024, 10/30/2024, 10/30/2024, Additional history exists Tobacco Screening 11/03/2025 11/03/2024 Lipid Panel 11/20/2025 11/20/2024, 11/15, 07/04/2023, Additional history exists DTaP/Tdap/Td Vaccines (3 - Td or Tdap) 12/07/2026 12/07/2016, 11/21/2006 Pap Smear 12/25/2026 12/26/2023 Mammogram 04/05/2027 04/05/2025, 03/17, 02/21/2023 Cervical Cancer Screening 12/25/2028 HPV/Cotest 12/25/2028 12/26/2023 [...] Procedure Name Priority Date/Time Associated Diagnosis Comments BI MAMMOGRAM SCREENING TOMOSYNTHESIS BILATERAL Routine 04/05/2025 10:59 AM EDT LIPID PANEL, STANDARD Routine 11/20/2024 12:00 AM EDT Hyperlipidemia, unspecified hyperlipidemia type POCT GLYCATED HEMOGLOBIN, TOTAL Routine 10/30/2024 2:36 PM EDT Type 2 diabetes mellitus with hyperglycemia, without long-term current use of insulin (CMS/HCC) HP LINK DIABETIC FOOT EXAM Routine 10/30/2024 THINPREP IMAGING PAP AND HPV MRNA E6/E7 WITH REFLEX TO HPV 16,18/45 Routine 12/26/2023 1:27 PM EDT HEPATITIS C ANTIBODY Routine 04/10/2023 9:10 AM EDT Encounter for health-related screening HIV ANTIBODY/ANTIGEN (SD DPH) Routine 04/10/2023 9:10 AM EDT ALBUMIN, RANDOM URINE W/O CREATININE Routine 07/23/2022 9:00 AM EST Type 2 diabetes mellitus with hyperglycemia, without long-term current use of insulin (CMS/HCC) from Last 3 Months or Most Recently Relevant to Health Maintenance Results * BI Mammogram Screening Tomosynthesis Bilateral (04/05/2025 10:59 AM EDT) Anatomical Region Laterality Modality Breast Bilateral Mammography 04/05/2025 10:5 9 AM EDT Narrative 04/06/2025 9:50 AM EDT [facility] [address] [place] [address] Mammography Report Signed with Coleman Patient: Trupti Kelly MR#: [id number] : 1960 Acct:[id number] Age/Sex: 64 / F ADM Date: 04/05/25 Loc: HO.MAMMO Attending Dr: Selam Bryan MD Ordering Physician: Selam Bryan MD Results: 0Inco mplete- Need Additional Imaging Evaluation Date of Service: 04/05/25 Follow Up: Additional Imagi ng Procedure(s): MM tomosynthesis screening BI Accession Number(s): [id number] cc: Selam Bryan MD Reason For Exam: SCREENING ADDENDUM ADDENDUM #1 ADDENDUM: Due to a software issue this mammogram was reviewed a second time. The findings and recommendations remain the same. OVERALL ASSESSMENT: Category 0: Incomplete - Need additional Imaging Evaluation RECOMMENDATION: Additional Imaging required Electronically signed by: Shea Elena DO 04/19/2025 02:41 PM EST RP Addendum Dictated By: Shea Elena DO Addendum Signed By: <Electronically signed by Shea Elena DO in OV> 04/19/25 1441 Addendum Cosigned By: DD/ TD/TT: 04/05/25 EXAMINATION: MM SCREENING DIGITAL BREAST TOMOSYNTHESIS, BILATERAL CLINICAL INFORMATION: Screening. Asymptomatic. COMPARISON: Mammography: Comparison is made with available priors TECHNIQUE: Digital breast mammography with tomosynthesis is performed in both the craniocaudal and mediolateral oblique views along with computer-aided detection (CAD). FINDINGS: There are scattered areas of fibroglandular density. Left: Focal asymmetry retroareolar region likely ectatic ducts recommend additional imaging and ultrasound at this time as this area is slightly more conspicuous compared with priors. Asymmetry superior breast posterior depth on MLO view. No suspicious calcifications or other abnormal findings. Right: Asymmetry superior breast middle depth on MLO view. Focal asymmetry retroareolar region could represent ectatic ducts recommend additional imaging and ultrasound for further evaluation. No suspicious calcifications or other abnormal findings. MM/MM tomosynthesis screening BI IMPRESSION: Additional imaging is recommended ASSESSMENT: BI-RADS Category 0: Incomplete - Need additional Imaging Evaluation RECOMMENDATION: 1. Additional views of the bilateral breasts. 2. Targeted ultrasound if warranted after review of the additional views. 3. Radiology department staff will contact the patient for additional imaging. Additional Imaging required Electronically signed by: Shea Elena DO 04/06/2025 09:47 AM EDT RP Dictated By: Shea Elena DO Signed By: <Electronically signed by Shea Elena DO in OV> 04/06/25 0947 DD/ 58 TD/TT: 04/05/25 111 Corner Cutter Machine Operator: Procedure Note Donotuseinterpreter, Image - 04/19/2025 [facility] [address] [place] [address] [place] [address] Mammography Report Signed with Addenda Patient: Trupti Kelly EMR#: [id number] : 1960cct:[id number] Age/Sex: 64 / FADM Date: 04/05/25 Loc: HO.MAMMO Attending Dr: Selam Bryan MD Ordering Physician: Selam Bryan MDResults: 0Inco mplete- Need Additional Imaging Evaluation Date of Service: 04/05/25Follow Up: Additional Imagi ng Procedure(s): MM tomosynthesis screening BI Accession Number(s): [id number] cc: Selam Bryan MD Reason For Exam: SCREENING ADDENDUM ADDENDUM #1 ADDENDUM: Due to a software issue this mammogram was reviewed a second time. The findings and recommendations remain the same. OVERALL ASSESSMENT: Category 0: Incomplete - Need additional Imaging Evaluation RECOMMENDATION: Additional Imaging required Electronically signed by: Shea Elena DO 04/19/2025 02:41 PM EST Addendum Dictated By: Shea Elena DO Addendum Signed By: <Electronically signed by DO Steve in OV> 04/19/25 1441 Addendum Cosigned By: DD/ TD/TT: 04/05/25 EXAMINATION: MM SCREENING DIGITAL BREAST TOMOSYNTHESIS, BILATERAL CLINICAL INFORMATION: Screening. Asymptomatic. COMPARISON: Mammography: Comparison is made with available priors TECHNIQUE: Digital breast mammography with tomosynthesis is performed in both the craniocaudal and mediolateral oblique views along with computer-aided detection (CAD). FINDINGS: There are scattered areas of fibroglandular density. Left: Focal asymmetry retroareolar region likely ectatic ducts recommend additional imaging and ultrasound at this time as this area is slightly more conspicuous compared with priors. Asymmetry superior breast posterior depth on MLO view. No suspicious calcifications or other abnormal findings. Right: Asymmetry superior breast middle depth on MLO view. Focal asymmetry retroareolar region could represent ectatic ducts recommend additional imaging and ultrasound for further evaluation. No suspicious calcifications or other abnormal findings. MM/MM tomosynthesis screening BI IMPRESSION: Additional imaging is recommended ASSESSMENT: BI-RADS Category 0: Incomplete - Need additional Imaging Evaluation RECOMMENDATION: 1. Additional views of the bilateral breasts. 2. Targeted ultrasound if warranted after review of the additional views. 3. Radiology department staff will contact the patient for additional imaging. Additional Imaging required Electronically signed by: Shea Elena DO 04/06/2025 09:47 AM EDT Dictated By: Shea Elena DO Signed By: <Electronically signed by Shea Elena DO in OV> 04/06/25 0947 DD/ 1059 TD/TT: 04/05/25 1110 Corner Cutter Machine Operator: us Selam Bryan MD IMG BI PROCEDURES Edited Resu lt - Final * (ABNORMAL) Lipid Panel, Standard (11/20/2024 12:00 AM EDT) Triglycerides 105 <150 mg/dL [facility] Comment:Desirable Triglyceri de: less than 150 mg/dLBorderline High Triglyceride 150-199 mg/dLHigh Triglyceride: 200-499 mg/dLVery High Triglyceride: greater than or equal to 5OO mg/dL Cholesterol 185 <200 mg/dL [facility] Comment:Desirable Cholestero l: less than 200 mg/dLBorderline High Cholesterol: 200-239 mg/dLHigh Cholesterol: greater than 239 mg/dL LDL Cholesterol Calculated 128(H) <100 mg/dL [facility] Comment:Desirable LDL: less than 100 mg/dLNear Optimal/Above Optimal LDL: 110- 129 mg/dLBorderline High LDL: 130-159 mg/dLHigh LDL: 160-189 mg/dLVery High LDL: greater than or equal to 190 mg/dL HDL Cholesterol 36(L) >40 mg/dL [facility] Comment:Desirable HDL: great er than 40 mg/dL Note: This HDL assay may give artificially low results in patients with liver disease. Blood Venous blood specimen / Unknown 11/20/2024 11/20/2024 Selam Bryan MD LAB BLOOD ORDERABLES Final Re sult [facility] [address] [place] [address] [phone] * (ABNORMAL) POCT HGB A1C (10/30/2024 2:36 PM EDT) Hemoglobin A1C 6.1(A) 4.0 - 6.0 % QC Media Lot # [id number] Lot# Expiration Date [id number] Blood 10/30/2024 2:36 PM EDT Result [facility] Selam Bryan MD POINT OF CARE TEST ENTER/EDIT ORDERABLES Final Result * HP Diabetic Foot Exam (10/30/2024) Narrative Selam Bryan MD - 10/30/2024 Dry skin, normal Selam Bryan MD HEALTH MAINTENANCE Final Resu lt * ThinPrep Imaging Pap and HPV mRNA E6/E7 with Reflex to HPV 16,18/45 (12/26/2023 1:27 PM EDT) HPV 16 RNA [facility] HPV 18/45 RNA [facility] HPV nRNA E6/E7 Not Detected Not Detected [facility] Comment:Methodology: Transcr iption-Mediated AmplificationThis assay detects E6/E7 viral messenger RNA (mRNA) from 14high-risk HPV types (16,18,31,33,35,39,45,51,52,56,58,59,66,68).Cervical sources are required for HPV testing.If a vaginal source from a patient who has had atotal hysterectomy with removal of cervix wassubmitted, please contact the testing laboratoryfor alternative testing options.For additional information, please refer [email or web address].FarmersWeb/faq/KEW255x7(This link if provided for information/educational purposes only.)THIS TEST WAS PERFORMED AT:[employer] [place] [phone] ENGLAND MD SOURCE: SEE NOTE [facility] Comment:Cervix Report Status: [facility] Clinical Information: SEE NOTE [facility] Comment:Routine exam LMP: SEE NOTE [facility] Comment:POSTMENOPAUSAL Prev. PAP: SEE NOTE [facility] Comment:2019 Prev. BX: SEE NOTE [facility] Comment:NONE GIVEN Statement Of Adequacy: SEE NOTE [facility] Comment:SATISFACTORY FOR [employer] General Categorization: [facility] Interpretation/Result: SEE NOTE [facility] Comment:Cytology Results: Ne gative for intraepitheliallesion or malignancy.Atrophic pattern; predominantly parabasal cells Cytology Comment SEE NOTE [facility] Comment:This Pap test has be en evaluated with computerassisted technology. Wall Covering Contractor: SEE NOTE [facility] Comment:ALEYDA, CT(ASCP)CT scre ening location: [place] [address] Review Wall Covering Contractor: [facility] Pathologist [facility] PAP Infection [facility] See Note SEE NOTE [facility] Comment:EXPLANATORY NOTE:The Pap is a screening test for cervical cancer. It isnot a diagnostic test and is subject to false negativeand false positive results. It is most reliable when asatisfactory sample, regularly obtained, is submittedwith relevant clinical findings and history, and whenthe Pap result is evaluated along with historic andcurrent clinical information. 12/26/2023 1:27 PM EDT 12/26/2023 6:52 PM EDT Narrative [facility] - 01/01/2024 1:15 PM EDT SEE SCANNED RESULTS IN EMRWas previous PAP abnormal? UnknownClinical Information: routineCollection Date: 12/26/23igh risk HPV with 16 18 genotyping? YReflex HPV any abnormal diagnosis? YReflex HPV if ASCUS only? NHigh Risk HPV (any diagnosis)? YLMP: postmenopausalDate of previous PAP 2019Performed by: : [id number] us Generic External Data Provider LAB PATHOLOGY ORD ERABLES Final Result Performing Organization Address [facility] Co de Phone Number [facility] [address] [place] [phone] * Hepatitis C Ab (04/10/2023 9:10 AM EDT) Hepatitis C Antibody Nonreactive Nonreactive [facility] Comment:Antibodies to HCV no t detected; does not exclude early acuteHCV infection. Blood 04/10/2023 9:10 AM EDT 04/10/2023 2:55 PM EDT Selam Bryan MD LAB BLOOD ORDERABLES Final Re sult Performing Organization Address [facility] de Phone Number [facility] [address] [place] [phone] * HIV Ab/Ag (SD MELI) (04/10/2023 9:10 AM EDT) HIV AB/AG Nonreactive Nonreactive [facility] Comment:HIV-1 p24 Ag and/or HIV-1/HIV-2 Ab not detected.A test result that is nonreactive does not exclude thepossibility of exposure to or infection with HIV-1 and/orHIV-2. Nonreactive results in this assay for individualswith prior exposure to HIV-1 and/or HIV-2 may be due toantigen and antibody levels that are below the limit ofdetection of this assay.The [employer]Mage System[employer]ity HIV Ag/Ab Combo assay result andsupplemental assay results should be interpreted inconjunction with the patient's clinical presentation,history and other laboratory results. If the results areinconsistent with clinical evidence, additional testing issuggested to confirm the result. 04/10/2023 9:10 AM EDT 04/10/2023 2:55 PM EDT Selam Bryan MD LAB BLOOD ORDERABLES Final Re sult Performing Organization Address [facility] Co de Phone Number [facility] [address] [place] [address] [phone] * Albumin, Random Urine W/O Creatinine (07/23/2022 9:00 AM EST) Albumin, Urine 0.8 See Note: mg/dL [facility] Comment: Reference Range: Reference Range Not established [facility] Comment: The ADA defines abnormalities in albumin [...] URINE ORDERABLES Final Re sult [facility] [address], [place] [address] [employer] [facility] [address] [facility], ([address]) [place] [address] from Last 3 Months or Most Recently Relevant to Health Maintenance Insurance [facility] ONE CARE < 65 TOMEKA RAMIREZ [id number] [facility] Care Teams Hot Patcher Relationship Specialty Start Date End Date Selam Bryan MD [address] [place] [phone] PCP - General Family Medicine 06/05/22
--- OUTSIDE RECORDS SUMMARY | 2025-04-26 10:13 | XMS_ITS | Encounter Summary ---
Author Organization [employer] Address [address] [facility] [address] [place] [address] Care Team Providers Care Rn Pain Management Name Role Phone Selam Bryan MD Primary Care Provider [phone] Reason for Visit * Reason Comments Med Change Request Encounter Details Date Type Department Care Team ([facility] Contact Info) Description 07/19/2022 Refill [facility] [address], [place] [phone] Selam Bryan MD [address] [place], [place] [phone] Other osteoporosis without current pathological fracture Social [...] AM EST documented as of this encounter Functional Status * Over the past 2 weeks, how often have you been bothered by any of the following problems? Question Answer Date of Assessment Author Patient Health Questionnaire -2 Score 1 07/19/2022 10:23 AM Ida Cannon [place] * If you checked off any problems on this questionnaire so far, Question Answer Date of Assessment Author How difficult have these problems made it for you to do your work, take care of things at home, or get along with other people? Not difficult at all 07/19/2022 10:23 AM Ida Cannon MA * Over the past 2 weeks, how often have you been bothered by any of the following problems? Question Answer Date of Assessment Author Little interest or pleasure in doing things Not at all 07/19/2022 10:23 AM Ida Cannon MA Feeling down, depressed, or hopeless Several days 07/19/2022 10:23 AM Ida Cannon [place] Trouble falling or staying asleep, or sleeping too much Several days 07/19/2022 10:23 AM Ida Cannon MA Feeling tired or having little energy Several days 07/19/2022 10:23 AM Ida Cannon [place] Poor appetite or overeating Not at all 07/19/2022 10 :23 AM Ida Cannon MA Feeling bad about yourself - or that you are a failure or have let yourself or your family down Not at all 07/19/2022 10:23 AM Ida Cannon MA Trouble concentrating on things, such as reading the newspaper or watching television Not at all 07/19/2022 10:23 AM Ida Cannon MA Moving or speaking so slowly that other people could have noticed? Or the opposite - being so fidgety or restless that you have been moving around a lot more than usual. Not at all 07/19/2022 10:23 AM Ida Conrad MA Thoughts that you would be better off or hurting yourself in some way Not at all 07/19/2022 10:23 AM Ida Cannon MA Patient Health Questionnaire-9 Score 3 07/19/2022 10:23 AM Ida Cannon MA documented as of this encounter Plan of Treatment Upcoming Encounters Date Type Department Care Team (Late st Contact Info) Description 05/03/2025 10:00 AM EST Clinical Support [facility] [address] [place] [address] documented as of this encounter Visit Diagnoses Diagnosis Other osteoporosis without current pathological fracture documented in this encounter Additional Health Concerns Assessment Noted Time PHQ-9 Depression Total Score: 3 07/19/19 23 10:23 AM EST documented as of this encounter Care Teams Rn Pain Management Relationship Specialty Start Date End Date Selam Bryan MD [address] [place] [address] PCP - General Family Medicine 06/05/22 documented as of this encounter
== END 2025-04-26 09:53 | disposition home or self-care (01) ==
LOC: HO.HGI 09:21
PROVIDERS: PCP Family Medicine; Visit Provider Internal Medicine Gastroenterology
DX: K80.20 Calculus of gallbladder without cholecystitis without obstruction (principal)
CPT/HCPCS: 99214

== ENCOUNTER → 2025-04-26 09:20 | Outpatient (BNVA) | payer OTHER, SELFPAY | PROVIDERS: PCP Family Medicine; Visit Provider Internal Medicine Gastroenterology | DX: K80.20 Calculus of gallbladder without cholecystitis without obstruction (principal) | CPT/HCPCS: 99212 ==

== ENCOUNTER 2025-05-24 09:47 | Outpatient (AMB) | payer OTHER, SELFPAY ==
--- NOTE | 2025-05-24 09:51 | A.OFFVIS_ITS ---
Vital Signs 05/24/25 09:59 Height 5 ft 2 in Weight 130 lb BMI 23.8 Intake Visit Reasons: Calculus of gallbladder Intake Note: Patient presents for an assessment for calculus of gallbladder. Pt c/o; reports bloating, reports Hx gastritis, denies nausea or vomiting, certain foods like almond trigger abdominal discomfort, denies RUQ pain at this time. DI: 12/29/2024- Liver elastography 07/13/24-KUB X-ray 05/28/24- Abd/pelvis CT Md Urologist Required: Yes Md Urologist Language: Hand Riveter Services: Md Urologist Present Md Urologist Name: Nando Information Interpreted: non-clinical & clinical Accompanied by: Self / Same As Patient Allergies codeine (CODEINE) Allergy (Intermediate, Verified 05/24/25 10:00) DIZZY/LETHARGY atorvastatin Adverse Reaction (Unknown, Verified 05/24/25 10:00) increased heartburns Medication List - Last Reconciled 05/24/25 by Foreign Maldonado MD acetaminophen (Tylenol Extra Strength) 1,000 mg (2 x 500 mg) PO QID PRN blood sugar diagnostic (FreeStyle Lite Strips) As directed blood-glucose meter (FreeStyle [place] Lite kit) As directed calcium carbonate-vitamin D3 500 mg-10 mcg (400 unit) 2 tabs PO DAILY cholecalciferol (vitamin D3) 25 mcg PO ergocalciferol (vitamin D2) 1,250 mcg PO QWEEK 90 days ezetimibe 10 mg PO DAILY ibuprofen 600 mg PO Q6H PRN icosapent ethyl (Vascepa) 2 grams PO BID lancets (TRUEplus Lancets) As directed omeprazole 40 mg PO DAILY PRN ondansetron 4 mg PO Q8H PRN simethicone 180 mg PO BID PRN 30 days sitagliptin phosphate (Januvia) 100 mg PO DAILY 90 days vitamin E (dl, acetate) mg PO DAILY HPI HPI Calculus of gallbladder: Details: [age] year old female referred for gallstones. She had a liver elastography test earlier this year and this showed gallstones She is actually being seen by the GI service because of MEDELLIN, with chronically abnormal liver tests. She has a history of liver resection in 2017 because of a hemangioma. She had another procedure with endovascular ablation of the hemangioma(?) after that. She actually denies any right upper quadrant pain. She has a long history of GI complaints in his bag diagnosed to have IBS, lactose intolerance and GERD. She denies any weight loss. She has good oral intake. [facility] Medical History (Updated 05/24/25 @ 10:27 by Foreign Maldonado MD) Gallstones SBO (small bowel obstruction) Dysplasia of cervix, low grade (VIRGIE 1) Overweight (BMI 25.0-29.9) Anxiety Constipation Osteopenia Vitamin D deficiency GERD (gastroesophageal reflux disease) Elevated LFTs Hemangioma of liver Pure hypercholesterolemia Diabetes mellitus Surgical History History of esophagogastroduodenoscopy (EGD) History of resection of liver History of blood clots History of colonoscopy History of oral surgery History of tubal ligation Family History Father No problems noted. Mother Uterine cancer Colon cancer Maternal Grandmother No problems noted. Paternal Aunt Ovarian cancer Social History Household Members: Children Household Members Other:: daughter Housing: Assisted Living Facility Are you a primary small animal caretaker to a significant other at home: No Do you presently have visiting nurse or other home services: No Alcohol intake: never Patient Tobacco Use Status: Never used Tobacco e-Cigarette/Vaping Use: Never Used Second Hand Smoke Exposure: No Advance Directives Date on File: 11/27/22 service: No Current occupational status: disabled Cognitive needs: No Hearing needs: No Vision needs: Yes Female Reproductive History Menstrual Age of Menarche: 14 Review of Systems Const Denies chills and Denies fever(s) Card Denies chest pain, Denies dyspnea and Denies dyspnea on exertion Resp Denies cough, Denies dyspnea and Denies dyspnea on exertion GI Denies hematochezia and Denies change in bowel habits Denies hematuria Musc Denies back pain and Denies limited range of motion Neuro Denies focal weakness and Denies convulsions Psych Denies depression and Denies mood swings Physical Exam Vital Signs: BMI result Body Mass Index 23.8 Const General: comfortable and no acute distress Orientation/consciousness: patient oriented x3 Neck Neck: Yes no lymphadenopathy Resp Auscultation: clear to auscultation bilaterally Cardio Rhythm: regular rhythm GI Other: Large L-shaped scar on the right upper quadrant from previous liver resection Palpation (GI): Soft to palpation, nontender and no guarding Neuro General: patient oriented x3 Assessment & Plan Assessment & Plan (1) Gallstones: Code(s): K80.20 - Calculus of gallbladder without cholecystitis without obstruction Category: Medical Plan: She had gallstones seen on a recent liver elastography test for her steatosis. She does not seem to present with symptoms related to her gallstones. She denies any right upper quadrant pain. She also has a history of liver resection for a hemangioma. I therefore told her that with this previous liver surgery, I would recommend that if she is compliant ambulating on cholecystectomy, she probably should discuss this with the liver surgeon as we would expect significant anatomic variations and increased level of difficulty with cholecystectomy. I did review her the technique of laparoscopic cholecystectomy and possible open cholecystectomy. I explained the risks, benefits and alternatives She says that she is not thinking of cholecystectomy at this time as she does not have any symptoms. She does plan on seeing her liver surgeon to discuss elective cholecystectomy in the future. Coding Level of Care Code New Pt Level 3 (81534) Diagnoses Gallstones K80.20
[2025-05-24 09:59] VITALS: BMI 23.8
== END 2025-05-24 10:33 | disposition home or self-care (01) ==
LOC: HO.HGS 09:48
PROVIDERS: PCP Family Medicine; Visit Provider Surgery
DX: K80.20 Calculus of gallbladder without cholecystitis without obstruction (principal)
CPT/HCPCS: 99213

== ENCOUNTER → 2025-05-24 09:47 | Outpatient (BNVA) | payer OTHER, SELFPAY | PROVIDERS: PCP Family Medicine; Visit Provider Surgery | DX: K80.20 Calculus of gallbladder without cholecystitis without obstruction (principal) | CPT/HCPCS: 99212 ==

== ENCOUNTER 2025-06-01 08:21 | Outpatient (REF) | payer OTHER, SELFPAY | END 2025-06-01 08:22 | disposition home or self-care (01) | LOC: HO.CHCLDS 08:21 | PROVIDERS: Visit Provider Internal Medicine Gastroenterology | DX: R19.8 Other specified symptoms and signs involving the digestive system and abdomen (principal) | CPT/HCPCS: 36415; 86140 ==

== ENCOUNTER 2025-06-03 13:26 | Outpatient (REF) | payer OTHER, SELFPAY ==
--- OUTSIDE RECORDS SUMMARY | 2025-06-03 17:34 | XMS_ITS | Encounter Summary ---
Author Organization [employer] Address [address] [facility] [address] [place] [address] Care Team Providers Care Respiratory Therapy Assistant Name Role Phone Selam Bryan MD Primary Care Provider [phone] Reason for Visit * Reason Comments Med Change Request Encounter Details Date Type Department Care Team ([facility] Contact Info) Description 07/19/2022 Refill [facility] [address] [place], [place] [phone] Selam Bryan MD [address] [place], [place] [phone] Other osteoporosis without current pathological fracture Social [...] 07/19/2022 10:23 AM Ida Cannon MA * How difficult have these problems made it for you to do your work, take care of things at home, or get along with other people? Answer Date of Assessment Author Not difficult at all 07/19/2022 10:23 AM Ida Cole MA * Over the past 2 weeks, [...] Care Team (Late st Contact Info) Description 06/07/2025 10:00 AM EST Office Visit [facility] [address] [place] [address] Selam Bryan MD [address] [place] [phone] documented as of this encounter Visit Diagnoses Diagnosis Other osteoporosis without current pathological fracture documented in this encounter Additional Health Concerns Assessment Noted Time PHQ-9 Depression Total Score: 3 07/19/19 23 10:23 AM EST documented as of this encounter Care Teams Respiratory Therapy Assistant Relationship Specialty Start Date End Date Selam Bryan MD [address] [place] [phone] PCP - General Family Medicine 06/05/22 documented as of this encounter
--- OUTSIDE RECORDS SUMMARY | 2025-06-03 17:34 | XMS_ITS | Clinical Summary ---
Author Organization [employer] Address [address] [facility] [address] [place] [address] Care Team Providers Care Button Station Worker Name Role Phone Selam Bryan MD Primary Care Provider [phone] Allergies Active Allergy Reactions Criticality Noted Date Comments Codeine Low 07/19/2022 Other reaction(s): dizziness, fainting Statins Low 07/19/2022 Other reaction(s): convulsion, dizziness, muscle pain Medications GaviLAX 17 GM/SCOOP powder MIX 17G (1 CAPFUL) WITH 8 OUNCES OF LIQUID AND DRINK ONCE DAILY 06/13/20 22 Active Blood Glucose Monitoring Suppl (FreeStyle [place] Lite) w/Device kit USE TO TEST BLOOD [...] DIRECTED 100 each 11 01/10/20 24 Active ammonium lactate (Amlactin) 12 % cream [...] next 30 min. 4 tablet 11 5 10:37 AM EST 10/31/19 25 Active cholecalciferol (D3-1000) 25 MCG (1000 UT) capsule Take 1 capsule (25 mcg) by mouth Once per day. 90 capsule 1 10/31/19 25 Active Calcium Carbonate-Vit D-Min (Calcium 1200) 0835-9436 MG-UNIT chewable tabletIndications :Other osteoporosis without current [...] MORNING 90 tablet 1 04/09/20 25 Active ezetimibe (Zetia) 10 MG tablet TAKE ONE TABLET EVERY MORNING 90 tablet 1 5 1:40 PM EST 05/24/20 25 Active ezetimibe (Zetia) 10 MG tablet TAKE ONE TABLET EVERY MORNING 90 tablet 1 09/15/19 25 025 Discontinued Active Problems Problem Noted [...] Encounters Date Type Department Care Team Description 05/22/2025 Refill [facility] & P[facility]S [address] [place] [address] Shelby Douglas MD 05/03/2025 10:00 AM EST Clinical Support [facility] [address] [place] [address] Nilsa Rebollar, YORDY Encounter for immunization 05/03/2025 Travel 04/09/2025 Refill [facility] [address] [place] [address] Nilsa Nolen MD Type 2 diabetes mellitus with hyperglycemia, without long-term current use of insulin (HCC) 04/08/2025 Results Follow-Up [facility] [address] [place] [address] Selam Bryan MD BI Mammogram Screening Tomosynthesis Bilateral 04/05/2025 Orders Only [facility] [address] [place] [address] Selam Bryan MD 03/12/2025 Telephone [facility] [address] [place] [phone] Selam Bryan MD Med Refill 03/12/2025 Refill [facility] [address] [place] [address] Selam Bryan MD Type 2 diabetes mellitus with hyperglycemia, without long-term current use of insulin ([facility]) from Last 3 Months Immunizations Immunization Administration Dates Next Due Hep A, Adult 05/03/2025,11/02/2024 Hep B, adult 11/28/2015,08/29/2015,07/29/2015 Influenza injectable quadriv [...] Upcoming Encounters Date Type Department Care Team ([facility] st Contact Info) Description 06/07/2025 10:00 AM EST Office Visit [facility] [address] [place] [address] Selam Bryan MD [address] [place] [address] Health Maintenance Due Date Last Done Comments CT Colonography 1961 Colonoscopy 1961 Colorectal Cancer Screening 1961 FIT DNA/Cologuard 1961 FIT 1961 FOBT 1961 Sigmoidoscopy 1961 Disability Screening 1961 Alcohol/Substance Use Screening 1973 RSV Patients and Patients Aged 60 years or older (1 - Risk 50-74 years 1-dose series) 2011 Depression Screening 07/19/2023 07/19/2022, 07/19/19 Diabetes: Urine Protein Screening 07/23/2023 07/23/2022 SDOH Screening 11/27/2024 11/28/2023 COVID-19 Vaccine ( season) 2025 11/02/2021, 05/02/2021, 09/14/2020 Influenza Vaccine (#1) 2025 03/01/2023, 2021 Diabetes: Hemoglobin A1C 05/02/2025 025, 12/12/2023, 06/07/2023, Additional history exists Eye Exam 07/29/2025 Diabetes: Foot Exam 10/30/2025 [...] 09/25/2022 Pneumococcal Vaccine: 50+ Years Completed 12/12/2023 Hepatitis A Vaccines Completed 05/03/2025, 11/03/19 HIB Vaccines Aged Out No longer eligi [...] on patient's age to complete this topic Goals Goal Patient Goal Type Associated Problems Recent Progress Patient-Stated? Author Help patients manage their type 2 diabetes Care Plan Help patients manage their type 2 diabetes No Nilsa Rebollar, RN Patient has chronic kidney disease Care Plan Patient has chronic kidney disease No Vikram Rebollarie, public health teacher Procedure Name Priority Date/Time Associated Diagnosis Comments BI MAMMOGRAM SCREENING TOMOSYNTHESIS BILATERAL Routine 04/05/2025 10:59 AM EDT LIPID PANEL, STANDARD Routine 11/20/2024 12:00 AM EDT Hyperlipidemia, unspecified hyperlipidemia type POCT GLYCATED HEMOGLOBIN, TOTAL Routine 10/30/2024 2:36 PM EDT Type 2 diabetes mellitus with hyperglycemia, without long-term current use of insulin ([facility]/HCC) HP LINK DIABETIC FOOT EXAM Routine 10/30/2024 THINPREP IMAGING PAP AND HPV MRNA E6/E7 WITH REFLEX TO HPV 16,18/45 Routine 12/26/2023 1:27 PM EDT HEPATITIS C ANTIBODY Routine 04/10/2023 9:10 AM EDT Encounter for health-related screening HIV ANTIBODY/ANTIGEN ([facility]) Routine 04/10/2023 9:10 AM EDT ALBUMIN, RANDOM URINE W/O CREATININE Routine 07/23/2022 9:00 AM EST Type 2 diabetes mellitus with hyperglycemia, without long-term current use of insulin ([facility]) from Last 3 Months or Most Recently Relevant to Health Maintenance Results * BI Mammogram Screening Tomosynthesis Bilateral (04/05/2025 10:59 AM EDT) Anatomical Region Laterality Modality Breast Bilateral Mammography 04/05/2025 10:5 9 AM EDT Narrative 04/06/2025 9:50 AM EDT [facility] [address] [place] [address] Mammography Report Signed with Coleman Patient: Trupti Kelly MR#: [id number] : 1960 Acct:[id number] Age/Sex: 64 / F ADM Date: 04/05/25 Loc: HO.MAMMO Attending Dr: Selam Byran MD Ordering Physician: Selam Bryan MD Results: 0Inco mplete- Need Additional Imaging Evaluation Date of Service: 04/05/25 Follow Up: Additional Imagi ng Procedure(s): MM tomosynthesis screening BI Accession Number(s): [id number] cc: Selam Bryan MD Reason For Exam: [...] Elena DO in OV> 04/06/25 0947 DD/ 105 TD/TT: 04/05/25 1110 Biodiesel Product Development Manager: Procedure Note Donotuseinterpreter, Image - 04/19/2025 [facility] [address] [place], [place] [address] Mammography Report Signed with Addenda Patient: Trupti Kelly EMR#: [id number] : 1960cct:[id number] Age/Sex: 64 / FADM Date: 04/05/25 Loc: HO.MAMMO Attending Dr: Selam Bryan MD Ordering Physician: Selam Bryan MDResults: 0Inco mplete- Need Additional Imaging Evaluation Date of Service: 04/05/25Follow Up: Additional Imagi ng Procedure(s): MM tomosynthesis screening BI Accession Number(s): [id number] cc: Selam Bryan MD Reason For Exam: [...] 04/06/25 0947 DD/ 1059 TD/TT: 04/05/25 1110 [employer] Product Development Manager: us Selam Bryan MD IMG BI PROCEDURES Edited Resu lt - Final * (ABNORMAL) Lipid Panel, Standard (11/20/2024 12:00 AM EDT) Triglycerides 105 <150 mg/dL [facility] Comment:Desirable Triglyceri de: less than 150 mg/dLBorderline High Triglyceride 150-199 mg/dLHigh Triglyceride: 200-499 mg/dLVery High Triglyceride: greater than or equal to 5OO mg/dL Cholesterol 185 <200 mg/dL [facility] Comment:Desirable Cholestero l: less than 200 mg/dLBorderline High Cholesterol: 200-239 mg/dLHigh Cholesterol: greater than 239 mg/dL LDL Cholesterol Calculated 128(H) <100 mg/dL [facility] Comment:Desirable LDL: less than 100 mg/dLNear Optimal/Above Optimal LDL: 110- 129 mg/dLBorderline High LDL: 130-159 mg/dLHigh LDL: 160-189 mg/dLVery High LDL: greater than or equal to 190 mg/dL HDL Cholesterol 36(L) >40 mg/dL [facility] Comment:Desirable HDL: great er than 40 mg/dL Note: This HDL assay may give artificially low results in patients with liver disease. Blood Venous blood specimen / Unknown 11/20/2024 11/20/2024 Selam Bryan MD LAB BLOOD ORDERABLES Final Re sult [facility] [address] [place] [phone] * (ABNORMAL) POCT HGB A1C (10/30/2024 2:36 PM EDT) Hemoglobin A1C 6.1(A) 4.0 - 6.0 % QC Media Lot # [id number] Lot# Expiration Date 122 Blood 10/30/2024 2:36 PM EDT Selam Bryan MD POINT OF CARE TEST ENTER/EDIT ORDERABLES Final Result * HP Diabetic Foot Exam (10/30/2024) Narrative Selam Bryan MD - 10/30/2024 Dry skin, normal Selam Bryan MD HEALTH MAINTENANCE Final Resu lt * ThinPrep Imaging Pap and HPV mRNA E6/E7 with Reflex to HPV 16,18/45 (12/26/2023 1:27 PM EDT) HPV 16 RNA NHP [facility] HPV 18/45 RNA [facility] HPV nRNA E6/E7 Not Detected Not Detected [facility] Comment:Methodology: Transcr iption-Mediated AmplificationThis assay detects E6/E7 viral messenger RNA (mRNA) from 14high-risk HPV types (16,18,31,33,35,39,45,51,52,56,58,59,66,68).Cervical sources are required for HPV testing.If a vaginal source from a patient who has had atotal hysterectomy with removal of cervix wassubmitted, please contact the testing laboratoryfor alternative testing options.For additional information, please refer [email or web address](This link if provided for information/educational purposes only.)THIS TEST WAS PERFORMED AT:[facility] [address] [id number] ENGLAND MD SOURCE: SEE NOTE [facility] Comment:Cervix Report Status: [facility] Clinical Information: SEE NOTE [facility] Comment:Routine exam LMP: SEE NOTE [facility] Comment:POSTMENOPAUSAL Prev. PAP: SEE NOTE [facility] Comment:2019 Prev. BX: SEE NOTE [facility] Comment:NONE GIVEN Statement Of Adequacy: SEE NOTE [facility] Comment:SATISFACTORY FOR JEFFERSON LUATION General Categorization: [facility] Interpretation/Result: SEE NOTE [facility] Comment:Cytology Results: Ne gative for intraepitheliallesion or malignancy.Atrophic pattern; predominantly parabasal cells Cytology Comment SEE NOTE [facility] Comment:This Pap test has be en evaluated with computerassisted technology. Photoengraving Proofer Apprentice: SEE NOTE [facility] Comment:ALEYDA, CT(ASCP)CT scre ening location: [address] [address] Review Photoengraving Proofer Apprentice: [facility] Pathologist [facility] PAP Infection [facility] See Note SEE [facility] Comment:EXPLANATORY NOTE:The Pap is a screening test for cervical cancer. It isnot a diagnostic test and is subject to false negativeand false positive results. It is most reliable when asatisfactory sample, regularly obtained, is submittedwith relevant clinical findings and history, and whenthe Pap result is evaluated along with historic andcurrent clinical information. 12/26/2023 1:27 PM EDT 12/26/2023 6:52 PM EDT [facility] - 01/01/2024 1:15 PM EDT SEE SCANNED RESULTS IN EMRWas previous PAP abnormal? UnknownClinical Information: routineCollection Date: 12/26/23igh risk HPV with 16 18 genotyping? YReflex HPV any abnormal diagnosis? YReflex HPV if ASCUS only? NHigh Risk HPV (any diagnosis)? YLMP: postmenopausalDate of previous PAP 2019Performed by: : [id number] us Generic External Data Provider LAB PATHOLOGY ORD ERABLES Final Result Performing Organization Address [facility] Co de Phone Number [facility] [address] [place] [phone] * Hepatitis C Ab (04/10/2023 9:10 AM EDT) Pathologist [facility] Hepatitis C Antibody Nonreactive Nonreactive [facility] Comment:Antibodies to HCV no t detected; does not exclude early acuteHCV infection. Blood 04/10/2023 9:10 AM EDT 04/10/2023 2:55 PM EDT us Selam Bryan MD LAB BLOOD ORDERABLES Final Re sult Performing Organization Address [facility] Co de Phone Number [facility] [address] [place] [phone] * HIV Ab/Ag ([facility]) (04/10/2023 9:10 AM EDT) HIV AB/AG Nonreactive Nonreactive [facility] Comment:HIV-1 p24 Ag and/or HIV-1/HIV-2 Ab not detected.A test result that is nonreactive does not exclude thepossibility of exposure to or infection with HIV-1 and/orHIV-2. Nonreactive results in this assay for individualswith prior exposure to HIV-1 and/or HIV-2 may be due toantigen and antibody levels that are below the limit ofdetection of this assay.The [employer] [place] HIV Ag/Ab Combo assay result andsupplemental assay results should be interpreted inconjunction with the patient's clinical presentation,history and other laboratory results. If the results areinconsistent with clinical evidence, additional testing issuggested to confirm the result. 04/10/2023 9:10 AM EDT 04/10/2023 2:55 PM EDT Selam Bryan MD LAB BLOOD ORDERABLES Final Re sult Performing Organization Address City/[facility]/ZIP Co de Phone Number [facility] [address] [place] [phone] * Albumin, Random Urine W/O Creatinine (07/23/2022 9:00 AM EST) Albumin, Urine 0.8 See Note: mg/dL [employer] Comment: Reference Range: Reference Range Not established [facility] [employer] [facility] [place] [facility] Comment: The ADA defines abnormalities in albumin [...] ORDERABLES Final Re sult Performing Organization Address City/[facility] Co de Phone Number [facility] [address], [place] [address] [employer] [place] [facility] [address] [facility], ([address]) [place] [address] from Last 3 Months or Most Recently Relevant to Health Maintenance Additional Health Concerns Active Problems Noted Date Diagnosed Date Help patients manage their type 2 diabetes 05/03 Patient has chronic kidney disease 05/03/2025 Insurance [employer] < 65 [place] STAND[place] Care Teams Button Station Worker Relationship Specialty Start Date End Date Selam Bryan MD [address] [place] [phone] PCP - General Family Medicine 06/05/22
== END 2025-06-03 13:27 | disposition home or self-care (01) ==
LOC: HO.CHCLNP 13:26
PROVIDERS: Visit Provider Internal Medicine Gastroenterology
DX: K51.50 Left sided colitis without complications (principal); R19.8 Other specified symptoms and signs involving the digestive system and abdomen
CPT/HCPCS: 83631